=== PATIENT | male | born 1985 | race Caucasian/White ===

== ENCOUNTER 2019-08-20 11:15 | Emergency (ER) | payer OTHER ==
[~2019-08-20] VITALS: Ht 188 cm; Wt 108.9 kg
[2019-08-20] MEDS ORDERED: CYCL-331 PO (11:55)
[2019-08-20] MEDS ORDERED: HYDR-3165 PO (11:55)
[2019-08-20] MEDS ORDERED: PRED-220 PO (11:55)
--- NOTE | 2019-08-20 11:55 | PHYS DOC ---
Past History Past Medical History: Seizure Past Surgical History: Other Additional Past Surgical Histo: RIGHT ANKLE Additional Smoking Information: 1.5 PACK/DAY Alcohol Use: None Drug Use: None Adult General Chief Complaint Chief Complaint: BACK PAIN - NO INJURY HPI HPI 34-year-old male presents with low back pain. 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 He has had intermittent low back problems. He's been told that he has some degenerative disc disease in his lumbar. Since today, because he was working and pulmonary environment earlier this week. It caused extra stress on his hips and low back. He's had pain since that time. His been taking ibuprofen and Tylenol without relief. Patient has done physical therapy in the past. He has also had steroid injections about 2 years ago. He was doing well until this episode. He denies numbness or tingling down the legs. Standing straight up and bending over both cause muscle spasm and pain. Patient denies fever or chills. He has not had any trauma or falls. Review of Systems Review of Systems Constitutional: Denies fever or chills [] Eyes: Denies change in visual acuity, redness, or eye pain [] HENT: Denies nasal congestion or sore throat [] Respiratory: Denies cough or shortness of breath [] Cardiovascular: No additional information not addressed in HPI [] GI: Denies abdominal pain, nausea, vomiting, bloody stools or diarrhea [] : Denies dysuria or hematuria [] Musculoskeletal: Low back pain [] Integument: Denies rash or skin lesions [] Neurologic: Denies headache, focal weakness or sensory changes [] Endocrine: Denies polyuria or polydipsia [] All other systems were reviewed and found to be within normal limits, except as documented in this note. Allergies Allergies Allergies Coded Allergies Type Severity Reaction Last Updated Verified aspirin Allergy Unknown 08/20/19 Yes Physical Exam Physical Exam Constitutional: Well developed, well nourished, no acute distress, non-toxic appearance. [] HENT: Normocephalic, atraumatic, bilateral external ears normal, oropharynx moist, no oral exudates, nose normal. [] Eyes: PERRLA, EOMI, conjunctiva normal, no discharge. [] Neck: Normal range of motion, no tenderness, supple, no stridor. [] Cardiovascular:Heart rate regular rhythm, no murmur [] Lungs & Thorax: Bilateral breath sounds clear to auscultation [] Abdomen: Bowel sounds normal, soft, no tenderness, no masses, no pulsatile masses. [] Skin: Warm, dry, no erythema, no rash. [] Back: Tenderness over the lumbar spine L1-L3, right sacroiliac pain with palpation. Lumbar paraspinal muscle spasm bilaterally[] Extremities: No tenderness, no cyanosis, no clubbing, ROM intact, no edema. [] Neurologic: Alert and oriented X 3, normal motor function, normal sensory f unction, no focal deficits noted. [] Psychologic: Affect normal, judgement normal, mood normal. [] Current Patient Data Vital Signs Vital Signs Date Time Temp Pulse Resp B/P (MAP) Pulse Ox O2 Delivery O2 Flow Rate FiO2 08/20/19 11:20 97.9 84 20 97 Room Air EKG EKG [] Radiology/Procedures Radiology/Procedures [] Impressions: EXAM: Lumbar spine, 3 views. HISTORY: Pain. COMPARISON: None. FINDINGS: 3 views of the lumbar spine are obtained. There is no listhesis. The vertebral bodies are normal in height. There is mild disc space narrowing at L5-S1. IMPRESSION: 1. No acute osseous finding. 2. Mild disc space narrowing at L5-S1. Electronically signed by: Val Saucedo MD (08/20/2019 12:07 PM) [facility] DICTATED AND SIGNED BY: VAL SAUCEDO MD DATE: 08/20/19 1200 CC: ALESIA NARAYANAN DO; PCP,UNKNOWN ~ Course & Med Decision Making Course & Med Decision Making Pertinent Labs and Imaging studies reviewed. (See chart for details) The patient's lumbar x-rays are negative for acute findings. With the patient has a bulging disc with reflex muscle spasm. I will treat him with 50 mg of prednisone for 5 days, Flexeril 3 times a day, and a short course of [place] 5/325. I have advised that he follow-up with his primary care physician and consider further physical therapy. He is stable for discharge at this time. [] Dragon Disclaimer Dragon Disclaimer This electronic medical record was generated, in whole or in part, using a voice recognition dictation system. Departure Departure: Impression: Primary Impression: Lumbar strain Disposition: HOME, SELF-CARE Condition: STABLE Referrals: PCP,UNKNOWN (PCP) Patient Instructions: Low Back Sprain with [facility] Scripts Prednisone (PREDNISONE) 10 Mg Tablet 50 MG PO DAILY for back pain for 5 Days, #25 TAB Prov: ALESIA NARAYANAN DO 08/20/19 Hydrocodone Bit/Acetaminophen (NORCO 5-325 TABLET) 1 Each Tablet 1 TAB PO PRN Q6HRS PRN for PAIN, #10 TAB 0 Refills Prov: ALESIA NARAYANAN DO 08/20/19 Cyclobenzaprine Hcl (CYCLOBENZAPRINE HCL) 10 Mg Tablet 1 TAB PO TID PRN for MUSCLE SPASMS, #30 TAB Prov: ALESIA NARAYANAN DO 08/20/19 Problem Qualifiers Primary Impression: Lumbar strain Encounter type: initial encounter Qualified Codes: S39.012A - Strain of muscle, fascia and tendon of lower back, initial encounter ALESIA NARAYANAN DO Aug 20, 2019 11:55
--- NOTE | 2019-08-20 12:11 | RAD ---
EXAM: Lumbar spine, 3 views. HISTORY: Pain. COMPARISON: None. FINDINGS: 3 views of the lumbar spine are obtained. There is no listhesis. The vertebral bodies are normal in height. There is mild disc space narrowing at L5-S1. IMPRESSION: 1. No acute osseous finding. 2. Mild disc space narrowing at L5-S1. Electronically signed by: Val Saucedo MD (08/20/2019 12:07 PM) [facility]
[2019-08-20 12:45] VITALS: BP 133/76
== END 2019-08-20 12:45 | disposition home or self-care (01) ==
LOC: ER 11:15
DX: S39.012A Strain of muscle, fascia and tendon of lower back, initial encounter (principal); F17.200 Nicotine dependence, unspecified, uncomplicated; Z88.6 Allergy status to analgesic agent; X50.9XXA Other and unspecified overexertion or strenuous movements or postures, initial encounter; Y93.89 Activity, other specified; Y92.89 Other specified places as the place of occurrence of the external cause; Y99.8 Other external cause status
CPT/HCPCS: 72100; 99284

== ENCOUNTER 2021-02-24 20:50 | Emergency (ER) | payer OTHER ==
[~2021-02-24] VITALS: Ht 188 cm; Wt 104.0 kg
[~2021-02-24 20:50] MED LIST: CYCL-331 PO; HYDR-3165 PO; PRED-220 PO
--- NOTE | 2021-02-24 21:09 | PHYS DOC ---
Past History Past Medical History: Anxiety, Depression, Seizure, Sciatica, Schizophrenia, Stroke (SAMIRA RAY MD) Past Surgical History: Other Additional Past Surgical Histo: RIGHT ANKLE (SAMIRA RAY MD) Smoking: Cigarettes Alcohol Use: None Drug Use: None (SAMIRA RAY MD) General Adult HPI: HPI: "This is all Fucking Bullshit...Fuck you all..You fucking can't make me do anything...Fuck those police officers.. It 's my fucking life.. I can do whatever ..the fucking I want..." Patient is a 35 year old male who presents with above hx and hx from he tried to hang himself with [place] Light Cord and stuffing a handkerchief down his mouth. Pt. had a Suicide note by his body. ( See Note). found pt. nonresponsive with a cord of [place] lights tied tightly around his throat and a handkerchief stuffed down his mouth. Reported pt. was not breathing. She was able to remove the cord, handkerchief and revive the patient. Paramedics were called as well as Police Department responded to the scene. By the time patient arrived at the emergency department had fully regained consciousness. Patient became very argumentative, refusing all therapy, threatening staff, police officers and required constant negotiations in attempts to complete his medical evaluation. Patient generally refusing information or any corporation with his evaluation. Per family members he has a history of anxiety, dep ression, chronic low back pain and sciatica. Patient currently on mood stabilizing meds. Patient reportedly has had schizoaffective/bipolar type behaviors. Has had a history of noncompliant with his psychotropic medications. Patient does smoke tobacco. Patient has had no recent travel. No specific ill contacts. No history of immunosuppression. No current history of alcohol abuse or illicit drug use tonight. Patient's drug screen currently negative. (SAMIRA RAY MD) Review of Systems: Review of Systems: Constitutional: Denies fever or chills Eyes: Denies change in visual acuity HENT: Denies nasal congestion or sore throat Respiratory: Denies cough or shortness of breath Cardiovascular: Denies chest pain or edema GI: Denies abdominal pain, nausea, vomiting, bloody stools or diarrhea : Denies dysuria Musculoskeletal: Admits to chronic back pain Integument: Denies rash Neurologic: Denies headache, focal weakness or sensory changes Endocrine: Denies polyuria or polydipsia Lymphatic: Denies swollen glands Psychiatric: History of depression or anxiety (SAMIRA RAY MD) Family History: Family History: Refused by patient (SAMIRA RAY MD) Current Medications: Current Meds: Refused by patient- is to supply bottles of medication( See Nursing Notes when these meds are determine) (SAMIRA RAY MD) Allergies: Allergies: Allergies Coded Allergies Type Severity Reaction Last Updated Verified aspirin Allergy Unknown 08/20/19 Yes (SAMIRA RAY MD) Physical Exam: PE: Constitutional: Well developed, well nourished, in acute emotional distress, non-toxic appearance. Pt. very agitated, angry and refusing cooperation with nursing staff, police commissioner and medical techs. HENT: Normocephalic, atraumatic, bilateral external ears normal, oropharynx moist, no oral exudates, nose normal. [] Eyes: PERRLA, EOMI, conjunctiva injection and petechiae, no discharge. [] Neck: Guarded range of motion, moderate tenderness, , no stridor. Does have obvious ligature estevez around his neck. No subcutaneous emphysema appreciated. Cardiovascular:Heart rate regular rhythm, no murmur [] Lungs & Thorax: Bilateral breath sounds equal with scattered wheezes on auscultation [] Abdomen: Bowel sounds decreased, soft, no tenderness, no masses, no pulsatile masses. [] Skin: Warm, dry, no erythema, no rash. [] Back: Some paralumbar tenderness, no CVA tenderness. [] Extremities: No tenderness, no cyanosis, no clubbing, ROM intact, no edema. [] Neurologic: Alert and oriented X 3, moves extremities on request, does have distal sensory, no gross focal deficits noted. DTRs +2 patella and brachial. When resting seems to have restless leg syndrome movements. Psychologic: Affect angry, argumentative, demanding, uncooperative, threatening. Patient's, judgement obviously impaired and at times impossible to reason with pt. Pt. mood vacillates from extreme anger,pressure speech, agitation to suppressed and subdued. Patient cycles through wide swings in his mood. Patient did eventually agree to take his night meds-(see list) and was able to eventually fall asleep at approximately 0400 hrs. (SAMIRA RAY MD) EKG: EKG: Patient refuses EKG [] (SAMIRA RAY MD) Radiology/Procedures: Radiology/Procedures: Patient refuses chest, x-rays or CT exams (SAMIRA RAY MD) Heart Score: C/O Chest Pain: N/A Risk Factors: Risk Factors: DM, Current or recent (<one month) smoker, HTN, HLP, family history of CAD, obesity. Risk Scores: Score 0 - 3: 2.5% MACE over next 6 weeks - Discharge Home Score 4 - 6: 20.3% MACE over next 6 weeks - Admit for Clinical Observation Score 7 - 10: 72.7% MACE over next 6 weeks - Early Invasive Strategies Patient refuses EKG, monitor showed a sinus tachycardia occasional PVCs. Initial troponin 0 0.017 (SAMIRA RAY MD) C/O Chest Pain: N/A (ERIC CANALES MD) Course & Med Decision Making: Course & Med Decision Making Pertinent Labs and Imaging studies reviewed. (See chart for details) See PAT brennan. Pt. Place under Involuntary Emergency/ Temporary Long-Term and Treatment order- as Pt is suffering from mental disorder in need of treatment, lacks the capacity to make informed decision or engage in rational decision making processes, likely to cause harm to himself or others, and not solely diagnose with mental disorders from alcohol or chemical substance abuse, antisocial personality, mental retardation, organic personality syndrome or organic mental disorder. ( See Certificate) Pt. involuntary commitment-patient currently 13 on list for acceptance at [facility]. Impression: 1. Suicide Attempt- by hanging and suffocation 2. History of depression 3. History of schizo affective disorder 4. History of bipolar type cyclic behaviors 5. History of chronic back pain and sciatica 6. History of noncompliance with prior ordered psychotropic meds [] (SAMIRA RAY MD) Course & Med Decision Making Assumed care of patient at checkout from Dr. Ray. Per report patient is medically clear but awaiting psychiatric placement. Patient is involuntary. At this time patient is medically stable for psychiatric placement and transport. 1250: Patient became upset and try to leave the emergency room. He did get out and to the parking lot but was able to be talked back into the emergency room. I asked the patient to return to his room and patient stated "Fuck you. I'll do what ever the fuck I want." Patient was given Haldol and Ativan for symptom relief. He is still awaiting placement. Patient is currently involuntary. I have discussed with him that this means that he does not have a choice in being admitted and that he does not have a choice in where he goes. Patient is awaiting placement 1330: Patient was able to verbally deescalate and asked for oral medication instead of IM. Medications were switched to zyprexa and ativan orally. Patient is sleeping at this time and has been accepted at a facility pending transfer this evening. (ERIC CANALES MD) Dragon Disclaimer: Dragon Disclaimer: This electronic medical record was generated, in whole or in part, using a voice recognition dictation system. (SAMIRA RAY MD) Departure Departure: Impression: Primary Impression: Suicidal intent Disposition: 02 DC/TRF OTHER SHORT TERM HOS Referrals: PCP,UNKNOWN (PCP) Mick Disclaimer This chart was dictated in whole or in part using Voice Recognition software in a busy, high-work load, and often noisy Emergency Department environment. It may contain unintended and wholly unrecognized errors or omissions. (SAMIRA RAY MD) SAMIRA RAY MD Feb 24, 2021 21:09 ERIC CANALES MD Feb 25, 2021 09:42
[2021-02-24] MEDS ORDERED: IV RINGERS SOLUTION,LACTATED 1,000 ML IV SCH (21:45)
[2021-02-24 23:50] LABS: BASO % 0 % (0-3); EOS # 0.1 x10^3/uL (0.0-0.7); EOS % 1 % (0-3); HEMATOCRIT 40.8 % (39.0-53.0); HEMOGLOBIN 13.9 g/dL (13.0-17.5); LYMPH % 19 % (24-48); MEAN CORPUSCULAR HEMOGLOBIN 28 pg (25-35); MEAN CORPUSCULAR HGB CONC 34 g/dL (31-37); MEAN CORPUSCULAR VOLUME 83 fL (79-100); MONO # 0.7 x10^3/uL (0.0-1.1); MONO % 6 % (0-9); NEUT # 7.8 x10^3uL (1.8-7.7); NEUT % 73 % (31-73); PLATELET COUNT 281 x10^3/uL (140-400); RED BLOOD COUNT 4.92 x10^6/uL (4.30-5.70); RED CELL DISTRIBUTION WIDTH 14.2 % (11.5-14.5); WHITE BLOOD COUNT 10.6 x10^3/uL (4.0-11.0)
[2021-02-25 00:10] LABS: CALCIUM 9.2 mg/dL (8.5-10.1)
[2021-02-25 00:18] LABS: ETHANOL < 10 mg/dL (0-10); SALIC 3.7 mg/dL (2.8-20.0)
[2021-02-25 00:19] LABS: ACETAMIN < 2.0 mcg/mL (10-30)
[2021-02-25 00:24] LABS: ALBUMIN 4.4 g/dL (3.4-5.0); DIRECT BILIRUBIN 0.1 mg/dL (0.0-0.2); MAGNESIUM 1.6 mg/dL (1.8-2.4); TOTAL BILIRUBIN 0.4 mg/dL (0.2-1.0); TOTAL PROTEIN 8.4 g/dL (6.4-8.2)
[2021-02-25] MEDS ORDERED: OLANZapine IM 10 MG VIAL. IM ONE ×2 (01:23→01:30)
[2021-02-25] MEDS ORDERED: diphenhydrAMINE 50 MG/ML VIAL IM ONE (01:30)
--- NOTE | 2021-02-25 08:34 | RAD ---
XR CHEST 1V Clinical Indication: Reason: attempt of self hanging / Comparison: None. Findings: The cardiomediastinal silhouette is normal. Lungs are clear. There is no pneumothorax. No pleural eff usion is appreciated. No acute bone abnormality. IMPRESSION: No acute cardiopulmonary process. Electronically signed by: Asher Nunez MD (02/25/2021 8:32 AM) [id number]
--- NOTE | 2021-02-25 08:37 | RAD ---
EXAM: CT head and cervical spine without contrast INDICATION: Attempted suicide by hanging. COMPARISON: None TECHNIQUE: Axial CT imaging through the head and cervical spine without intravenous contrast. Sagitta l and coronal reformats were obtained. One or more of the following individualized dose reduction techniques were utilized for this examinat ion: 1. Automated exposure control 2. Adjustment of the mA and/or kV according to patient size 3. Use of iterative reconstruction technique. FINDINGS: CT head: The ventricles and sulci are normal. Freed-white matter differentiation is maintained. There is no in tracranial hemorrhage, acute infarct, or mass lesion. Basal cisterns are clear. The calvarium is inta ct. The visualized paranasal sinuses and mastoid air cells are clear. Globes and orbits are intact. CT cervical spine: No acute fracture. Alignment is normal. The craniocervical junction and atlantoaxial interval are yajaira ntained. Disc spaces and facet joints are normal. Prevertebral soft tissue is normal. IMPRESSION: 1. No acute intracranial abnormality. 2. No acute osseous abnormality of the cervical spine. Electronically signed by: Eri Briggs MD (02/25/2021 8:35 AM) [id number]
[2021-02-25 12:42] LABS: CLARITY,URINE HAZY; COLOR,URINE STRAW
[2021-02-25 12:43] LABS: BACTERIA,URINE 0 /HPF (0-FEW); BILIRUBIN,URINE NEG (NEG); GLUCOSE,URINE NEG (NEG); NITRITE,URINE NEG (NEG); RBC,URINE 0 /HPF (0-2); SQUAMOUS EPITHELIAL CELL,UR FEW /LPF; UROBILINOGEN,URINE 0.2 mg/dL (0.2 mg/dL); WBC,URINE RARE /HPF (0-4)
[2021-02-25] MEDS ORDERED: HALOPERIDOL LACT 5 MG/ML VIAL. ONE (13:05)
[2021-02-25] MEDS ORDERED: HALOPERIDOL LACT 5 MG/ML VIAL. IM ONE (13:15)
[2021-02-25] MEDS ORDERED: LORazepam 1 MG TABLET PO ONE (13:30)
[2021-02-25 14:26] LABS: AMPHETAMINE/METHAMPHETAMINE POS (NEG); BARBITURATES NEG (NEG); BENZODIAZEPINES NEG (NEG); CANNABINOIDS NEG (NEG); COCAINE NEG (NEG); METHADONE NEG (NEG); OPIATES NEG (NEG); PHENCYCLIDINE NEG (NEG)
[2021-02-25 18:29] VITALS: BP 155/76
--- NOTE | 2021-02-26 06:38 | EKG ---
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
== END 2021-02-25 19:05 | disposition short-term general hospital (02) ==
LOC: ER 20:50
DX: T71.162A Asphyxiation due to hanging, intentional self-harm, initial encounter (principal); F32.9 Major depressive disorder, single episode, unspecified; F25.0 Schizoaffective disorder, bipolar type; G89.29 Other chronic pain; M54.9 Dorsalgia, unspecified; F17.210 Nicotine dependence, cigarettes, uncomplicated; F41.9 Anxiety disorder, unspecified; Z20.822 Contact with and (suspected) exposure to COVID-19; Z86.73 Personal history of transient ischemic attack (TIA), and cerebral infarction without residual deficits; Z91.14 Patient's other noncompliance with medication regimen; Z88.6 Allergy status to analgesic agent
CPT/HCPCS: 36415; 70450; 71045; 72125; 80048; 80076; 80307; 80329; 81001; 82550; 83690; 83735; 83880; 84443; 84484; 85025; 85379; 85610; 87426; 99285; G0480; U0003; 85730; 93005

== ENCOUNTER 2021-05-03 11:55 | Emergency (ER) | payer OTHER ==
[~2021-05-03] VITALS: Ht 185.4 cm; Wt 109.1 kg
[2021-05-03] MEDS ORDERED: MORPHINE SULFATE 10 MG/ML SYRINGE. IV ONE ×2 (12:45→14:00)
[2021-05-03] MEDS ORDERED: IOHEXOL 300 MG/ML 75 ML VIAL. IV ONE (12:45)
[2021-05-03] MEDS ORDERED: ONDANSETRON PF 4 MG/2 ML VIAL. IVP ONE (12:45)
[2021-05-03] MEDS ORDERED: IV NORMAL SALINE 1,000ML 1,000 ML IV ONE ×2 (12:45→16:45)
[2021-05-03 13:05] LABS: BASO # 0.1 x10^3/uL (0.0-0.2); BASO % 1 % (0-3); EOS # 0.2 x10^3/uL (0.0-0.7); EOS % 2 % (0-3); HEMATOCRIT 35.1 % (39.0-53.0); HEMOGLOBIN 11.4 g/dL (13.0-17.5); LYMPH # 1.6 x10^3/uL (1.0-4.8); LYMPH % 19 % (24-48); MEAN CORPUSCULAR HEMOGLOBIN 27 pg (25-35); MEAN CORPUSCULAR HGB CONC 33 g/dL (31-37); MEAN CORPUSCULAR VOLUME 82 fL (79-100); MONO # 0.5 x10^3/uL (0.0-1.1); MONO % 5 % (0-9); NEUT # 6.4 x10^3uL (1.8-7.7); NEUT % 73 % (31-73); PLATELET COUNT 372 x10^3/uL (140-400); RED BLOOD COUNT 4.29 x10^6/uL (4.30-5.70); RED CELL DISTRIBUTION WIDTH 14.6 % (11.5-14.5); WHITE BLOOD COUNT 8.7 x10^3/uL (4.0-11.0)
[2021-05-03 13:09] LABS: GFR 84.5; POTASSIUM 3.9 mmol/L (3.5-5.1)
[2021-05-03 13:24] LABS: ALBUMIN/GLOBULIN RATIO 0.6 (1.0-1.7); DIRECT BILIRUBIN 0.1 mg/dL (0.0-0.2); TOTAL BILIRUBIN 0.2 mg/dL (0.2-1.0)
--- NOTE | 2021-05-03 13:44 | RAD ---
Exam: CT abdomen/pelvis with intravenous contrast Indication: Pancreatitis flareup, history of pseudocyst Comparison: CT abdomen and pelvis 04/25/2018 Technique: Helical CT imaging performed of the abdomen and pelvis after the intravenous administratio n of contrast. Sagittal and coronal reformats were obtained. One or more of the following individualized dose reduction techniques were utilized for this examinat ion: 1. Automated exposure control 2. Adjustment of the mA and/or kV according to patient size 3. Use of iterative reconstruction technique. Findings: Lower chest: The lung bases are clear. There are tiny bilateral pleural effusions. The heart is cheri l in size. Liver: There is a new large well-defined fluid collection along the gastrohepatic ligament measuring 12.2 x 8.3 cm this abuts and causes mass effect on both the left hepatic lobe and the stomach. There is an additional tiny perihepatic fluid collection along the anterior left hepatic lobe measuring 2.2 x 0.9 cm. Liver is enlarged measuring 21 cm in length. Gallbladder/Biliary Tree: The gallbladder is normal. No delayed biliary duct dilatation. Pancreas: The pancreatic head and neck are edematous and there is surrounding fat stranding. Pancreat ic parenchyma enhances normally. There is a new well-defined fluid collection in the pancreatic neck and lesser sac measuring 2.9 x 2.1 cm. There is less well-defined, partially loculated fluid in the l daphne sac along the gastric antrum, pylorus, and duodenum. There is an additional fluid collection al selena the gastrosplenic ligament abutting and causing mass effect on the greater curvature of the stoma ch measuring 5.3 x 3.7 cm. Spleen: The spleen is enlarged measuring 17 cm in length. Adrenal Glands: Normal. Kidneys/Ureters/Bladder: Normal. Reproductive Organs: Normal. Stomach, small bowel, and colon: There is mass effect in the stomach by surrounding pseudocysts. The gastric antrum and duodenal lorenzo are edematous. No small bowel obstruction. The appendix is normal. There is prominence of submucosal fat in the colon, which may indicate chronic inflammation Vasculature: Abdominal aorta is normal in caliber. Lymph Nodes: There is mild mesenteric adenopathy, likely reactive. Peritoneum and retroperitoneum: There is mesenteric edema in the upper abdomen and trace free fluid i n the pelvis. No free air. Bones: No acute osseous abnormality. Impression: 1. Acute on chronic interstitial pancreatitis with multiple well-defined pseudocysts causing mass ef fect on the stomach and liver, including a 12 cm pseudocyst along the gastrohepatic ligament. There i s additional less well-defined peripancreatic fluid in the lesser curvature. 2. Hepatosplenomegaly. 3. Mild mesenteric lymphadenopathy, likely reactive. 4. Tiny bilateral pleural effusions. Electronically signed by: Eri Briggs MD (05/03/2021 1:42 PM) [id number]
[2021-05-03] MEDS ORDERED: METOCLOPRAMIDE HCL 10 MG/2 ML VIAL. IVP ONE (14:00)
--- NOTE | 2021-05-03 14:32 | PHYS DOC ---
Past History Past Medical History: Depression, Pancreatitis Past Surgical History: No Surgical History Additional Past Surgical Histo: RIGHT ANKLE Smoking: Cigarettes Alcohol Use: None Drug Use: None Adult General Chief Complaint Chief Complaint: NAUSEA/VOMITING/DIARRHEA HPI HPI 36-year-old male who presents to the emergency department with chief complaint of "my pancreatitis is flared up ". Patient reports 2 days of left upper quadrant pain, nausea with dry heaving and vomiting when he does eat. Patient states this is typical for his normal pancreatitis flareups. Patient reports he was released from [facility] 5 days ago in which he was admitted for 4 days related to a pancreatitis flareup, he was diagnosed with pancreatitis and cyst on his pancreas, was to follow-up with GI specialist Dr. Hrenandez at the GI clinic, is currently waiting for Dr. Hernandez's office to call for an appointment. The patient reports that he was given OxyContin and Zofran to manage pain and nausea at home while awaiting follow-up with GI clinic, patient states he is out of his medications now. Patient denies chest pain, fever or chills, constipation or diarrhea, states he had a normal bowel movement 2 days ago, patient states he has not been able to eat much since his abdominal pain. Patient rates his pain at a 9 out of 10. Patient states he is a type II diabetic, states his blood sugars are usually well controlled, denies any increased thirst or increased urination. Patient denies other physical complaints or physical concerns. Patient states he smokes cigars occasionally, denies illicit drug use, denies drinking alcohol or having a alcoholic history. Review of Systems Review of Systems 14 body systems of review of systems have been reviewed. See HPI for pertinent positives and negative responses, otherwise all other systems are negative, nonpertinent or noncontributory. Current Medications Current Medications Current Medications Medications (Trade) Dose Ordered Sig/Terell Start Time Stop Time Status Last Admin Dose Admin Iohexol (Omnipaque 300 Mg/ml) 75 ml 1X ONCE 05/03/21 12:45 05/03/21 12:50 DC 05/03/21 13:04 75 ML Metoclopramide HCl (Reglan Vial) 10 mg 1X ONCE 05/03/21 14:00 05/03/21 14:05 DC Morphine Sulfate (Morphine 10mg Syringe) 5 mg 1X ONCE 05/03/21 14:00 05/03/21 14:05 DC Ondansetron HCl (Zofran) 4 mg 1X ONCE 05/03/21 12:45 05/03/21 12:50 DC 05/03/21 13:14 4 MG Sodium Chloride 1,000 ml @ 1,000 mls/hr 1X ONCE 05/03/21 12:45 05/03/21 13:44 DC 05/03/21 12:45 1,000 MLS/HR Allergies Allergies Allergies Coded Allergies Type Severity Reaction Last Updated Verified dulaglutide Allergy Unknown 05/03/21 Yes hydrocodone Allergy Unknown 05/03/21 Yes metformin Allergy Unknown 05/03/21 Yes Physical Exam Physical Exam Constitutional: Well developed, well nourished, mild acute distress, non-toxic appearance. Patient holding upper left abdomen during examination. Patient's complaint of pain dose exceeds patient's physical appearance. HENT: Normocephalic, atraumatic. Eyes: Conjunctiva normal, no discharge. Neck: Normal range of motion. Cardiovascular:Heart rate regular rhythm, no murmur, heart sounds S1-S2 to auscultation. Lungs & Thorax: Bilateral breath sounds clear to auscultation no adventitious lung sounds appreciated. Abdomen: Bowel sounds normal, soft, no masses, no pulsatile masses. Pain to left upper quadrant with palpation, there is no rebound tenderness, negative Casas sign, negative McBurney's point tenderness, negative psoas sign. No areas of ecchymosis of the abdomen, no skin discoloration of the abdomen, abdomen round and soft, unable to adequately assess for splenomegaly or hepatomegaly related to patient's right upper quadrant pain to palpation. Skin: Warm, dry, no erythema, no rash. Back: No tenderness, no CVA tenderness. Extremities: No tenderness, no cyanosis, no clubbing, ROM intact, no edema. Neurologic: Alert and oriented X 3, normal motor function, normal sensory function, no focal deficits noted. Psychologic: Affect normal, judgement normal, mood normal. Current Patient Data Vital Signs Vital Signs Date Time Temp Pulse Resp B/P (MAP) Pulse Ox O2 Delivery O2 Flow Rate FiO2 05/03/21 13:45 18 Room Air 05/03/21 12:10 98.5 116/76 (89) 98 Lab Results Laboratory Tests Test 05/03/21 12:45 White Blood Count 8.7 x10^3/uL (4.0-11.0) Red Blood Count 4.29 x10^6/uL (4.30-5.70) L Hemoglobin 11.4 g/dL (13.0-17.5) L Hematocrit 35.1 % (39.0-53.0) L Mean Corpuscular Volume 82 fL (79-100) Mean Corpuscular Hemoglobin 27 pg (25-35) Mean Corpuscular Hemoglobin Concent 33 g/dL (31-37) Red Cell Distribution Width 14.6 % (11.5-14.5) H Platelet Count 372 x10^3/uL (140-400) Neutrophils (%) (Auto) 73 % (31-73) Lymphocytes (%) (Auto) 19 % (24-48) L Monocytes (%) (Auto) 5 % (0-9) Eosinophils (%) (Auto) 2 % (0-3) Basophils (%) (Auto) 1 % (0-3) Neutrophils # (Auto) 6.4 x10^3uL (1.8-7.7) Lymphocytes # (Auto) 1.6 x10^3/uL (1.0-4.8) Monocytes # (Auto) 0.5 x10^3/uL (0.0-1.1) Eosinophils # (Auto) 0.2 x10^3/uL (0.0-0.7) Basophils # (Auto) 0.1 x10^3/uL (0.0-0.2) Sodium Level 141 mmol/L (136-145) Potassium Level 3.9 mmol/L (3.5-5.1) Chloride Level 105 mmol/L (98-107) Carbon Dioxide Level 23 mmol/L (21-32) Anion Gap 13 (6-14) Blood Urea Nitrogen 4 mg/dL (8-26) L Creatinine 1.0 mg/dL (0.7-1.3) Estimated GFR (Cockcroft-Gault) 84.5 BUN/Creatinine Ratio 4 (6-20) L Glucose Level 126 mg/dL (70-99) H Calcium Level 9.0 mg/dL (8.5-10.1) Total Bilirubin 0.2 mg/dL (0.2-1.0) Direct Bilirubin 0.1 mg/dL (0.0-0.2) Aspartate Amino Transferase (AST) 14 U/L (15-37) L Alanine Aminotransferase (ALT) 16 U/L (16-63) Alkaline Phosphatase 322 U/L (46-116) H Total Protein 8.0 g/dL (6.4-8.2) Albumin 3.0 g/dL (3.4-5.0) L Albumin/Globulin Ratio 0.6 (1.0-1.7) L Lipase 507 U/L (73-393) H Acetone Level Neg (NEG) EKG EKG [] Radiology/Procedures Radiology/Procedures []PATIENT: MALATHI SALCEDO LACCOUNT: [id number]#: [id number] : 1985 LOCATION: ER AGE: 36 SEX: M EXAM STATUS: REG ER ORD. PHYSICIAN: TEE DAUGHERTY APRN REASON: pancreatits flare up, hx pancreatic cyst PROCEDURE: CT ABD PELV W/ IV CONTRST ONLY Exam: CT abdomen/pelvis with intravenous contrast Indication: Pancreatitis flareup, history of pseudocyst Comparison: CT abdomen and pelvis 04/25/2018 Technique: Helical CT imaging performed of the abdomen and pelvis after the intravenous administration of contrast. Sagittal and coronal reformats were obtained. One or more of the following individualized dose reduction techniques were utilized for this examination: 1. Automated exposure control 2. Adjustment of the mA and/or kV according to patient size 3. Use of iterative reconstruction technique. Findings: Lower chest: The lung bases are clear. There are tiny bilateral pleural effusions. The heart is normal in size. Liver: There is a new large well-defined fluid collection along the gastrohepatic ligament measuring 12.2 x 8.3 cm this abuts and causes mass effect on both the left hepatic lobe and the stomach. There is an additional tiny perihepatic fluid collection along the anterior left hepatic lobe measuring 2.2 x 0.9 cm. Liver is enlarged measuring 21 cm in length. Gallbladder/Biliary Tree: The gallbladder is normal. No delayed biliary duct dilatation. Pancreas: The pancreatic head and neck are edematous and there is surrounding fat stranding. Pancreatic parenchyma enhances normally. There is a new well- defined fluid collection in the pancreatic neck and lesser sac measuring 2.9 x 2.1 cm. There is less well-defined, partially loculated fluid in the lesser sac along the gastric antrum, pylorus, and duodenum. There is an additional fluid collection along the gastrosplenic ligament abutting and causing mass effect on the greater curvature of the stomach measuring 5.3 x 3.7 cm. Spleen: The spleen is enlarged measuring 17 cm in length. Adrenal Glands: Normal. Kidneys/Ureters/Bladder: Normal. Reproductive Organs: Normal. Stomach, small bowel, and colon: There is mass effect in the stomach by surrounding pseudocysts. The gastric antrum and duodenal lorenzo are edematous. No small bowel obstruction. The appendix is normal. There is prominence of submucosal fat in the colon, which may indicate chronic inflammation Vasculature: Abdominal aorta is normal in caliber. Lymph Nodes: There is mild mesenteric adenopathy, likely reactive. Peritoneum and retroperitoneum: There is mesenteric edema in the upper abdomen and trace free fluid in the pelvis. No free air. Bones: No acute osseous abnormality. Impression: 1. Acute on chronic interstitial pancreatitis with multiple well-defined pseudocysts causing mass effect on the stomach and liver, including a 12 cm pseudocyst along the gastrohepatic ligament. There is additional less well- defined peripancreatic fluid in the lesser curvature. 2. Hepatosplenomegaly. 3. Mild mesenteric lymphadenopathy, likely reactive. 4. Tiny bilateral pleural effusions. Electronically signed by: Eri Briggs MD (05/03/2021 1:42 PM) [id number] DICTATED AND SIGNED BY: ERI BRIGGS MD DATE: 05/03/21 1317 CC: TEE DAUGHERTY APRN; NETTA PUCKETT MD ~MTH0 0 Heart Score C/O Chest Pain: No Risk Factors: Risk Factors: DM, Current or recent (<one month) smoker, HTN, HLP, family history of CAD, obesity. Risk Scores: Risk Factors: DM, Current or recent (<one month) smoker, HTN, HLP, family history of CAD, obesity. Course & Med Decision Making Course & Med Decision Making Pertinent Labs and Imaging studies reviewed. (See chart for details) 36-year-old male, vital signs reviewed, presents emergency department chief complaint of "my pancreatitis is flared up "also complaining of nausea and vomit ing. Physical examination consistent with possible pancreatitis versus other intra-abdominal concerns, will order CBC, CMP, lipase, acetone related to patient's history of type 2 diabetes, CT abdomen pelvis with IV contrast. IV normal saline 1 L, 5 mg morphine sulfate IV, 4 mg Zofran IV for nausea. Upon reevaluation of the patient, patient states his pain is come down to a 5, still experiencing nausea, has not vomited in the ED, will order 5 more milligrams morphine sulfate IV, [address] abdomen pelvis with IV contrast concerning for acute pancreatitis with mass- effect, discussed with patient recommended admission to hospital for GI specialty follow-up and pain control of pancreatitis. Patient is amenable to this plan, stating he would like to be admitted to [facility] because his GI specialist goes there. The patient's lipase was 507, otherwise chemistries within normal limits, CBC was unremarkable, blood sugar is 128, the patient's acetone equals 0, the patient is not in DKA. At 1410 contacted transfer center [facility] who transferred me to a data security coordinator Chata who received report by me, reviewed patient case with Chata, Chata states she will contact her admitting physician and call me back. The radiologic images were placed on the cloud for [facility] physician and healthcare team to review. At 1437 Chata from the transfer center return call stating that Dr. Jose Nieves has accepted patient in transfer to [facility] for the diagnosis of acute pancreatitis, Chata stated she is a liaison for their excepting physicians and no further provider to provider report is indicated, Chata stated that they are currently cleaning a bed and will call ED nursing staff here for report prior to transfer, discussed transfer planning with patient to [facility], patient is amendable to this plan, [facility] transfer forms were reviewed and signed by ED attending physician Dr. Zepeda, patient pending transfer to [facility] at this time via [facility] transport. Patient left the emergency department via EMS to [facility] at 1810, during his ED stay 1 more liter of normal saline was ordered IV wide open, the patient was given an additional 100 mcg of fentanyl for pain. Patient reported good pain relief prior to leaving the emergency department for transfer to [facility]. Per ED nurse, nurse to nurse report was given. Dragon Disclaimer Dragon Disclaimer This electronic medical record was generated, in whole or in part, using a voice recognition dictation system. Departure Departure: Impression: Primary Impression: Acute pancreatitis Additional Impression: Abnormal abdominal CT scan Disposition: 02 [facility] (Dr. Jose Nieves at [facility] has accepted patient in transfer for the diagnosis of acute pancreatitis.) Referrals: NETTA PUCKETT MD (PCP) Problem Qualifiers Primary Impression: Acute pancreatitis Pancreatitis type: unspecified pancreatitis type Acute pancreatitis complication: unspecified Qualified Codes: K85.90 - Acute pancreatitis without necrosis or infection, unspecified TEE DAUGHERTY JUDGE May 03, 2021 14:32
[2021-05-03 18:00] VITALS: BP 118/76
== END 2021-05-03 17:45 | disposition short-term general hospital (02) ==
LOC: ER 12:05
DX: K85.90 Acute pancreatitis without necrosis or infection, unspecified (principal); F17.210 Nicotine dependence, cigarettes, uncomplicated; Z88.8 Allergy status to other drugs, medicaments and biological substances
CPT/HCPCS: 36415; 74177; 80053; 80076; 82010; 83690; 85025; 96361; 96374; 96375; 96376; 99285; J2270; J2405; J2765; J3010; J7030; Q9967

== ENCOUNTER 2021-05-11 20:12 | Emergency (ER) | payer OTHER ==
[~2021-05-11] VITALS: Ht 185.4 cm; Wt 108.0 kg
[2021-05-11] MEDS ORDERED: MORPHINE SULFATE 4 MG/ML DISP.SYRIN. IV ONE (21:00)
[2021-05-11] MEDS ORDERED: IV NORMAL SALINE 1,000ML 1,000 ML IV ONE (21:00)
[2021-05-11] MEDS ORDERED: ONDANSETRON PF 4 MG/2 ML VIAL. IVP ONE (21:00)
--- NOTE | 2021-05-11 21:22 | PHYS DOC ---
Past History Past Medical History: Depression, Pancreatitis Past Surgical History: No Surgical History Additional Past Surgical Histo: RIGHT ANKLE Smoking: Cigarettes Alcohol Use: None Drug Use: None General Adult EDM: Chief Complaint: ABDOMINAL PAIN HPI: HPI: Patient is a 36-year-old male who presents with nausea, vomiting and pain. Patient was admitted 1 week ago to for pancreatitis. Patient is out nausea and pain medication. Patient's PCP suggested coming to the emergency room for pain control and nausea. Patient has history of pancreatitis, diabetes, anxiety depression, GERD. Review of Systems: Review of Systems: Constitutional: Denies fever or chills Eyes: Denies change in visual acuity HENT: Denies nasal congestion or sore throat Respiratory: Denies cough or shortness of breath Cardiovascular: Denies chest pain or edema GI: Reports abdominal pain, nausea and vomiting : Denies dysuria Musculoskeletal: Denies back pain or joint pain Integument: Denies rash Neurologic: Denies headache, focal weakness or sensory changes Endocrine: Denies polyuria or polydipsia Lymphatic: Denies swollen glands Psychiatric: Reports depression and anxiety Current Medications: Current Meds: Current Medications Medications (Trade) Dose Ordered Sig/Terell Start Time Stop Time Status Last Admin Dose Admin Morphine Sulfate (Morphine 4mg Syringe) 4 mg 1X ONCE 05/11/21 21:00 05/11/21 21:01 DC Ondansetron HCl (Zofran) 4 mg 1X ONCE 05/11/21 21:00 05/11/21 21:01 DC Sodium Chloride 1,000 ml @ 1,000 mls/hr 1X ONCE 05/11/21 21:00 05/11/21 21:59 Allergies: Allergies: Allergies Coded Allergies Type Severity Reaction Last Updated Verified dulaglutide Allergy Unknown 05/03/21 Yes hydrocodone Allergy Unknown 05/03/21 Yes metformin Allergy Unknown 05/03/21 Yes Physical Exam: PE: Constitutional: Well developed, well nourished, no acute distress, non-toxic appearance. [] HENT: Normocephalic, atraumatic, bilateral external ears normal, oropharynx moist, no oral exudates, nose normal. [] Eyes: PERRLA, EOMI, conjunctiva normal, no discharge. [] Neck: Normal range of motion, no tenderness, supple, no stridor. [] Cardiovascular:Heart rate regular rhythm, no murmur [] Lungs & Thorax: Bilateral breath sounds clear to auscultation [] Abdomen: Bowel sounds normal, soft, tenderness Skin: Warm, dry, no erythema, no rash. [] Back: No tenderness, no CVA tenderness. [] Extremities: No tenderness, no cyanosis, no clubbing, ROM intact, no edema. [] Neurologic: Alert and oriented X 3, normal motor function, normal sensory function, no focal deficits noted. [] Psychologic: Affect normal, judgement normal, mood normal. [] EKG: EKG: [] Radiology/Procedures: Radiology/Procedures: [] Heart Score: C/O Chest Pain: No Risk Factors: Risk Factors: DM, Current or recent (<one month) smoker, HTN, HLP, family history of CAD, obesity. Risk Scores: Score 0 - 3: 2.5% MACE over next 6 weeks - Discharge Home Score 4 - 6: 20.3% MACE over next 6 weeks - Admit for Clinical Observation Score 7 - 10: 72.7% MACE over next 6 weeks - Early Invasive Strategies Course & Med Decision Making: Course & Med Decision Making Pertinent Labs and Imaging studies reviewed. (See chart for details) [] 36-year-old male presents with nausea/vomiting and abdominal pain. Patient was just released from after being diagnosed with pancreatitis a week ago. Patient reports he is out of nausea and pain medication. Patient reports that his pain has improved since he was first admitted to the hospital. Patient stating that he does not want to be admitted to the hospital and that he is simply needing a refill for his pain medication and nausea medication until he is able to follow back up with his PCP on Thursday. Patient given oxycodone in the emergency room along with Zofran p.o. patient given strict return precautions. Patient instructed to be n.p.o. until symptoms improve. Patient states that he understands. Patient is hemodynamically stable. Dragon Disclaimer: Mick Disclaimer: This electronic medical record was generated, in whole or in part, using a voice recognition dictation system. Departure Departure: Impression: Primary Impression: Acute pancreatitis Qualified Codes: K85.90 - Acute pancreatitis without necrosis or infection, unspecified Additional Impression: Nausea and vomiting Qualified Codes: R11.2 - Nausea with vomiting, unspecified Disposition: HOME / SELF CARE / HOMELESS Condition: STABLE Referrals: NETTA PUCKETT MD (PCP) Patient Instructions: Acute Pancreatitis, [id number] Additional Instructions: You were seen in the emergency room for pain control and for refill on nausea medication. Please call your physician on Thursday for a follow-up appointment. If you have an increase in pain, fever, nausea and vomiting return to the emergency room to be evaluated. EMERGENCY DEPARTMENT GENERAL DISCHARGE INSTRUCTIONS Thank you for coming to [facility] (ED) today and trusting us with you care. We trust that you had a positivie experience in our Emergency Department. If you wish to speak to the department management, you may call the director at [phone]. YOUR FOLLOW UP INSTRUCTIONS ARE FOLLOWS: 1. Do you have a private Doctor? If you do not have a private doctor, please ask for a resource list of physicians or clinics that may be able to assist you with follow up care. 2. The Emergency Physician has interpreted your x-rays. The X-Ray specialist will also review them. If there is a change in the findings, you will be notified in 48 hours when at all possible. 3. A lab test or culture has been done, your results will be reviewed and you will be notified if you need a change in treatment. ADDITIONAL INSTRUCTIONS AND INFORMATION: 1. Your care today has been supervised by a physician who is specially trained in emergency care. Many problems require more than one evaluation for a complete diagnosis and treatment. We recommend that you schedule your follow up appointment as recommended to ensure complete treatment of you illness or injury. If you are unable to obtain follow up care and continue to have a problem, or if your condition worsens, we recommend that you return to the ED. 2. We are not able to safely determine your condition over the phone nor are we able to give sound medical advice over the phone. For these safety reasons, if you call for medical advice we will ask you to come to the ED for further evaluation. 3. If you have any questions regarding these discharge instructions please call the ED at [phone]. SAFETY INFORMATION: In the interest of safety, wellness, and injury prevention; we encourage you to wear your sealbelt, if you smoke; quite smoking, and we encourage family to use a prot ective helmet for bicycling and other sporting events that present an increased risk for head injury. IF YOUR SYMPTOMS WORSEN OR NEW SYMPTOMS DEVELOP, OR YOU HAVE CONCERNS ABOUT YOUR CONDITION; OR IF YOUR CONDITION WORSENS WHILE YOU ARE WAITING FOR YOUR FOLLOW UP APPOINTMENT; EITHER CONTACT YOUR PRIMARY CARE DOCTOR, THE PHYSICIAN WHOSE NAME AND NUMBER YOU WERE GIVEN, OR RETURN TO THE ED IMMEDIATELY. Scripts Oxycodone HCl/Acetaminophen (Percocet 5-325 mg Tablet) 1 Each Tablet 1 TAB PO PRN Q6-8HRS PRN for PAIN MDD 2 Tablet(s) for 5 Days, #12 TAB 0 Refills Prov: NIECY ECKERT APRN 05/11/21 Ondansetron Hcl (ZOFRAN) 4 Mg Tablet 1 TAB PO Q6HRS for nausea for 7 Days, #28 TAB Prov: NIECY ECKERT APRN 05/11/21 NIECY ECKERT APRN May 11, 2021 21:22
[2021-05-11] MEDS ORDERED: OXYC-325 PO (21:27)
[2021-05-11] MEDS ORDERED: ONDA4TAB7 PO (21:27)
[2021-05-11 21:35] VITALS: BP 135/76
[2021-05-11] MEDS ORDERED: ONDANSETRON ODT 4 MG TAB.RAPDIS PO ONE (22:00)
[2021-05-11] MEDS ORDERED: oxyCODONE/APAP 10/325 1 TAB TABLET PO ONE (22:00)
== END 2021-05-11 21:35 | disposition home or self-care (01) ==
LOC: ER 20:12
DX: K85.90 Acute pancreatitis without necrosis or infection, unspecified (principal); R11.2 Nausea with vomiting, unspecified; F17.210 Nicotine dependence, cigarettes, uncomplicated; Z88.8 Allergy status to other drugs, medicaments and biological substances
CPT/HCPCS: 99283; Q0162

== ENCOUNTER 2021-06-08 17:41 | Observation (INO) | payer OTHER ==
[~2021-06-08] VITALS: Ht 185.4 cm; Wt 106.1 kg
[~2021-06-08 17:41] MED LIST changes: +ONDA4TAB7 PO; +OXYC-325 PO
--- NOTE | 2021-06-08 18:45 | PHYS DOC ---
Past History Past Medical History: Anxiety, Depression, Diabetes, GERD, Pancreatitis Additional Past Medical Histor: pancratitis (TEE DAUGHERTY APRN) Past Surgical History: Other Additional Past Surgical Histo: RIGHT ANKLE (TEE DAUGHERTY APRN) Smoking: Cigarettes Additional Smoking Information: Occasional cigar Alcohol Use: None Drug Use: None (TEE DAUGHERTY APRN) Adult General Chief Complaint Chief Complaint: MULTIPLE COMPLAINTS HPI HPI Patient is a 36-year-old male presents emergency department chief complaint of a pancreatitis flareup. Patient states he went out to eat with his 2 nights ago and woke up yesterday morning with pancreas pain. Patient states he has been vomiting since, patient states he has run out of his pain medications and currently has a 8 out of 10 pain. Patient states this is a normal presentation for his pancreatitis flareups. Patient reports he has an appointment this Thursday with his GI doctor at for a scope to look at his pancreatic duct. Patient states he also has a CT scheduled for 16 June. Patient currently reports nausea and pain. Patient denies any diarrhea. Patient states that he has been dry heaving today however when he does drink water, patient states the water does come back up. Patient denies seeing any blood in his vomitus. Patient reports normal stools, denies seeing any blood in his urine or stool, patient denies any urinary tract infection type signs and symptoms. Patient denies chest pains or shortness of breath. Patient denies rashes of her skin, patient denies fever or chills. Patient denies any other physical complaints or physical concerns. Patient states that he would like to get a prescription for his oxycodone to last him till Thursday for when he sees his doctor. (TEE DAUGHERTY APRN) Review of Systems Review of Systems 14 body systems of review of systems have been reviewed. See HPI for pertinent positives and negative responses, otherwise all other systems are negative, nonpertinent or noncontributory. Constitutional: Negative except as outlined in HPI above. Skin: Negative except as outlined in HPI above. Eyes: Negative except as outlined in HPI above. HENT: Negative except as outlined in HPI above. Respiratory: Negative except as outlined in HPI above. Cardiovascular: Negative except as outlined in HPI above. GI: Negative except as outlined in HPI above. : Negative except as outlined in HPI above. Musculoskeletal: Negative except as outlined in HPI above. Integument: Negative except as outlined in HPI above. Neurologic: Negative except as outlined in HPI above. Endocrine: Negative except as outlined in HPI above. Lymphatic: Negative except as outlined in HPI above. Psychiatric: Negative except as outlined in HPI above. (TEE DAUGHERTY APRN) Current Medications Current Medications Current Medications Medications (Trade) Dose Ordered Sig/Terell Start Time Stop Time Status Last Admin Dose Admin Fentanyl Citrate (Fentanyl 2ml Vial) 100 mcg 1X ONCE 06/08/21 19:00 06/08/21 19:01 (TEE DAUGHERTY APRN) Allergies Allergies Allergies Coded Allergies Type Severity Reaction Last Updated Verified dulaglutide Allergy Unknown 05/03/21 Yes hydrocodone Allergy Unknown 05/03/21 Yes metformin Allergy Unknown 05/03/21 Yes (TEE DAUGHERTY APRN) Physical Exam Physical Exam Constitutional: Well developed, well nourished, no acute distress, non-toxic appearance. 36-year-old male in no apparent distress lying in bed comfortably, patient's complaint of pain exceeds patient's physical appearance and examination.. HENT: Normocephalic, atraumatic. Eyes: Conjunctiva normal, no discharge. Neck: Normal range of motion. Cardiovascular: Distal cap refill less than 2 seconds, no cyanosis appreciated. Lungs & Thorax: Patient is in no respiratory distress, no adventitious lung sounds appreciated. Abdomen: Bowel sounds normal, soft, no masses, no pulsatile masses. No bruising or skin discoloration of the abdomen. Pain to left upper quadrant to palpation, negative McBurney's point tenderness, negative psoas sign, negative straight leg raise, negative rebound tenderness. Skin: Warm, dry, no erythema, no rash. Back: No tenderness, no CVA tenderness. Extremities: No tenderness, no cyanosis, no clubbing, ROM intact, no edema. Neurologic: Alert and oriented X 3, normal motor function, normal sensory function, no focal deficits noted. Psychologic: Affect normal, judgement normal, mood normal. (TEE DAUGHERTY APRN) Current Patient Data Vital Signs Vital Signs Date Time Temp Pulse Resp B/P (MAP) Pulse Ox O2 Delivery O2 Flow Rate FiO2 06/08/21 17:58 98.6 92 18 115/67 97 (TEE DAUGHERTY APRN) EKG EKG [] (TEE DAUGHERTY APRN) Radiology/Procedures Radiology/Procedures PATIENT: MALATHI SALCEDO ACCOUNT: [id number] : 1985 LOCATION: ER AGE: 36 SEX: M EXAM STATUS: REG ER ORD. PHYSICIAN: TEE DAUGHERTY APRN REASON: elevated lipase, luq pain, OMNI 300, 75ml PROCEDURE: CT ABD PELV W/ IV CONTRST ONLY EXAMINATION: CT abdomen and pelvis with IV contrast. INDICATION:36 years, Male, elevated lipase, left upper quadrant.. TECHNIQUE: Axial CT images of the abdomen and pelvis were obtained. Coronal and sagittal reformatted performed. COMPARISON: 05/03/2021. Exposure: One or more of the following individualized dose reduction techniques were utilized for this examination: 1. Automated exposure control 2. Adjustment of the mA and/or kV according to patient size 3. Use of iterative reconstruction technique. FINDINGS: LOWER CHEST: Unremarkable ABDOMEN/PELVIS: Redemonstrated sequelae of acute on chronic pancreatitis with diffuse parenchymal atrophy and extensive fat stranding throughout the abdomen. Multiple loculated fluid collections in the upper abdomen as follow: New 8.2 x 4.5 cm fluid collection posterior to the intrahepatic IVC causing mass effect upon the IVC. Interval increasing size of small subcapsular anterior left hepatic lobe fluid collection now measures 7.0 x 1.7 cm, previously 2.2 x 1.0 cm. Possibly new fluid collection at the venecia hepatis measures 2.3 x 2.7 cm. New 4.4 x 3.0 cm located fluid collection in the right abdomen anterior to the gallbladder (series 2 image 41). Unchanged fluid collection anterior to the pancreatic head (series 2 image 32, measures 2.3 x 2.4 cm. Previously seen large fluid collections at the gastrohepatic interval and posterior perigastric region have been resolved. Significant wall thickening of the distal stomach and proximal duodenum with luminal narrowing. No bowel dilatation. Normal appendix. No suspicious focal hepatic lesion. Periportal edema. Gallbladder wall thickening, likely reactive. No biliary ductal dilatation. Moderate splenomegaly measures up to 17.5 cm in length. No adrenal nodule. No hydronephrosis or nephrolithiasis in either kidney. Mild narrowing of the main portal vein. Portosystemic venous collaterals in the upper abdomen. Multiple prominent peripancreatic lymph nodes, likely reactive. Small amount of abdominal ascites. No pneumoperitoneum. Unremarkable prostate. Underdistended urinary bladder which limits evaluation. MUSCULOSKELETAL: No acute osseous process. IMPRESSION: 1. Acute on chronic pancreatitis with with worsening diffuse abdominal fat stranding. 2. Multiple loculated fluid collections in the upper abdomen, some of which have increased in size and some of which are new. Findings suggesting of pseudocysts. Underlying infection cannot be excluded. 3. Significant wall thickening of the distal stomach and proximal duodenum with luminal narrowing, likely reactive. 4. Moderate splenomegaly. 5. Small amount of abdominal ascites. 6. Other chronic/incidental findings, as described. Electronically signed by: Konstantin Carrillo MD (06/08/2021 8:44 PM) [facility] DICTATED AND SIGNED BY: KONSTANTIN CARRILLO MD DATE: 06/08/212031 CC: TEE DAUGHERTY APRN; NETTA PUCKETT MD ~MTH0 0 (TEE DAUGHERTY APRN) Heart Score C/O Chest Pain: No Risk Factors: Risk Factors: DM, Current or recent (<one month) smoker, HTN, HLP, family history of CAD, obesity. Risk Scores: Risk Factors: DM, Current or recent (<one month) smoker, HTN, HLP, family history of CAD, obesity. (TEE DAUGHERTY APRN) Course & Med Decision Making Course & Med Decision Making Pertinent Labs and Imaging studies reviewed. (See chart for details) 36-year-old male, vital signs reviewed, presents emergency department complaining of a pancreatitis flareup. Patient's physical examination consistent with pancreatitis versus other abdominal process, patient is asking for prescription refill of oxycodone to last until Thursday morning for when he has an appointment with his GI physician at . Will order serum lab work CBC, CMP, acetone level, lipase, lactic acid, 1 L normal saline, 100 mcg fentanyl IV, 4 mg Zofran IV, urinalysis assay. Patient's lipase elevated over 1200, will order CT abdomen pelvis. CT abdomen pelvis concerning for acute pancreatitis, worsening infectious absc esses, discussed with patient recommendation of admission to the hospital, patient has refused admission to the hospital and wishes to leave the emergency department AGAINST MEDICAL ADVICE. Patient states that he can take care of his acute pancreatitis at home and does not need another $30,000 bill. Notified by the patient's ED nurse that the patient wishes to leave AGAINST MEDICAL ADVICE. The patient and I had an extensive discussion regarding the risks of leaving AMA including but not limited to , permanent disability, and worsening condition. Also had an extensive discussion with the patient regarding the benefits of excepting admission and transfer which include promotion of health and wellness, and ongoing treatment of disease processes. The patient acknowledged the risks and benefits and agreed to take full responsibility of leaving AGAINST MEDICAL ADVICE. The patient was alert and oriented x4 and had full medical decision-making capability when they signed the AMA forms. Patient gave verbal understanding of strict return to ER precautions and concerns. Patient has appointment to see his GI specialist this coming Thursday, encouraged patient to keep this appointment. Upon final discharge of patient, patient has changes mind and decided to stay for treatment of his acute pancreatitis. Discussed patient's case and emergency department work-up with inpatient hospitalist Dr. Trujillo who agrees the patient's presentation and case warrants admission, Dr. Trujillo has requested a serum alcohol and urine drug tox screen be added to orders, these orders were added, Dr. Trujillo will evaluate patient's admission and ongoing care on the MedSurg unit at [facility]. Dr. Trujillo has assumed patient care at this time. (TEE DAUGHERTY APRN) Course & Med Decision Making Did not see or evaluate patient. Agree with PROCESSING ARCHIVIST's work-up and disposition per note. (RICO GONZALEZ MD) Dragon Disclaimer Dragon Disclaimer This electronic medical record was generated, in whole or in part, using a voice recognition dictation system. (TEE DAUGHERTY APRN) Departure Departure: Impression: Primary Impression: Acute pancreatitis Additional Impression: Abdominal pain Disposition: ADMITTED INPATIENT Admitting Physician: Ronaldo Trujillo (Admit to the medical surgical unit for acute pancreatitis, abdominal pain.) (TEE DAUGHERTY APRN) Condition: STABLE Referrals: NETTA PUCKETT MD (PCP) Additional Instructions: You are seen today in the emergency department for an exacerbation of your pancreatitis, you do have an acute pancreatitis that warrants an admission to the hospital, I have recommended admission to the hospital however you have refused this recommendation. Please keep your follow-up appointments with your GI specialist at , please return immediately to the emergency department for worsening symptoms or other concerns. Patient does not wish to proceed with medical care recommended by BELEN Apodaca. Patient given information related to possible complications, up to and including , which could occur as a result of leaving the hospital at this time. Patient verbalizes understanding of risks involved due to leaving against medical advice. Patient has signed AMA form. Problem Qualifiers Primary Impression: Acute pancreatitis Pancreatitis type: unspecified pancreatitis type Acute pancreatitis complication: unspecified Qualified Codes: K85.90 - Acute pancreatitis without necrosis or infection, unspecified Additional Impression: Abdominal pain Abdominal location: left upper quadrant Qualified Codes: R10.12 - Left upper quadrant pain TEE DAUGHERTY APRN Jun 08, 2021 18:45 RICO GONZALEZ MD Jun 08, 2021 23:31
[2021-06-08] MEDS ORDERED: ONDANSETRON PF 4 MG/2 ML VIAL. ONE (18:47)
[2021-06-08 18:56] LABS: BASO % 1 % (0-3); EOS # 0.3 x10^3/uL (0.0-0.7); EOS % 3 % (0-3); HEMATOCRIT 30.9 % (39.0-53.0); HEMOGLOBIN 10.2 g/dL (13.0-17.5); LYMPH # 1.6 x10^3/uL (1.0-4.8); LYMPH % 20 % (24-48); MEAN CORPUSCULAR HEMOGLOBIN 25 pg (25-35); MEAN CORPUSCULAR HGB CONC 33 g/dL (31-37); MEAN CORPUSCULAR VOLUME 76 fL (79-100); MONO # 0.6 x10^3/uL (0.0-1.1); MONO % 8 % (0-9); NEUT # 5.4 x10^3uL (1.8-7.7); NEUT % 68 % (31-73); PLATELET COUNT 286 x10^3/uL (140-400); RED BLOOD COUNT 4.07 x10^6/uL (4.30-5.70); RED CELL DISTRIBUTION WIDTH 16.2 % (11.5-14.5); WHITE BLOOD COUNT 7.9 x10^3/uL (4.0-11.0)
[2021-06-08 19:00] LABS: CALCIUM 8.6 mg/dL (8.5-10.1); CREATININE 0.8 mg/dL (0.7-1.3); GFR 109.4; POTASSIUM 3.6 mmol/L (3.5-5.1)
[2021-06-08] MEDS ORDERED: KETOROLAC 30 MG/ML VIAL. IVP ONE (19:00)
[2021-06-08] MEDS ORDERED: IV NORMAL SALINE 1,000ML 1,000 ML IV ONE (19:00)
[2021-06-08 19:07] LABS: ALBUMIN 3.3 g/dL (3.4-5.0); ALBUMIN/GLOBULIN RATIO 0.8 (1.0-1.7); MAGNESIUM 1.8 mg/dL (1.8-2.4); PHOSPHORUS 2.8 mg/dL (2.6-4.7); TOTAL BILIRUBIN 1.7 mg/dL (0.2-1.0); TOTAL PROTEIN 7.5 g/dL (6.4-8.2)
[2021-06-08 19:18] LABS: BACTERIA,URINE FEW /HPF (0-FEW); BILIRUBIN,URINE MOD (NEG); CLARITY,URINE CLEAR; COLOR,URINE AMBER; GLUCOSE,URINE NEG (NEG); NITRITE,URINE NEG (NEG); RBC,URINE OCC /HPF (0-2); SQUAMOUS EPITHELIAL CELL,UR FEW /LPF; WBC,URINE OCC /HPF (0-4)
[2021-06-08] MEDS ORDERED: CONTRAST GIVEN. MC PRN (19:45)
[2021-06-08] MEDS ORDERED: IOHEXOL 300 MG/ML 75 ML VIAL. IV ONE (20:00)
--- NOTE | 2021-06-08 20:46 | RAD ---
EXAMINATION: CT abdomen and pelvis with IV contrast. INDICATION:36 years, Male, elevated lipase, left upper quadrant.. TECHNIQUE: Axial CT images of the abdomen and pelvis were obtained. Coronal and sagittal reformatted performed. COMPARISON: 05/03/2021. Exposure: One or more of the following individualized dose reduction techniques were utilized for thi s examination: 1. Automated exposure control 2. Adjustment of the mA and/or kV according to patient size 3. Use of iterative reconstruction technique. FINDINGS: LOWER CHEST: Unremarkable ABDOMEN/PELVIS: Redemonstrated sequelae of acute on chronic pancreatitis with diffuse parenchymal atrophy and extensi ve fat stranding throughout the abdomen. Multiple loculated fluid collections in the upper abdomen as follow: New 8.2 x 4.5 cm fluid collection posterior to the intrahepatic IVC causing mass effect upon the IVC. Interval increasing size of small subcapsular anterior left hepatic lobe fluid collection now measure s 7.0 x 1.7 cm, previously 2.2 x 1.0 cm. Possibly new fluid collection at the venecia hepatis measures 2.3 x 2.7 cm. New 4.4 x 3.0 cm located fluid collection in the right abdomen anterior to the gallbladder (series 2 image 41). Unchanged fluid collection anterior to the pancreatic head (series 2 image 32, measures 2.3 x 2.4 cm. Previously seen large fluid collections at the gastrohepatic interval and posterior perigastric regio n have been resolved. Significant wall thickening of the distal stomach and proximal duodenum with luminal narrowing. No mirtha wel dilatation. Normal appendix. No suspicious focal hepatic lesion. Periportal edema. Gallbladder wa ll thickening, likely reactive. No biliary ductal dilatation. Moderate splenomegaly measures up to 17 .5 cm in length. No adrenal nodule. No hydronephrosis or nephrolithiasis in either kidney. Mild narro wing of the main portal vein. Portosystemic venous collaterals in the upper abdomen. Multiple promine nt peripancreatic lymph nodes, likely reactive. Small amount of abdominal ascites. No pneumoperitoneu m. Unremarkable prostate. Underdistended urinary bladder which limits evaluation. MUSCULOSKELETAL: No acute osseous process. IMPRESSION: 1. Acute on chronic pancreatitis with with worsening diffuse abdominal fat stranding. 2. Multiple loculated fluid collections in the upper abdomen, some of which have increased in size a nd some of which are new. Findings suggesting of pseudocysts. Underlying infection cannot be excluded . 3. Significant wall thickening of the distal stomach and proximal duodenum with luminal narrowing, l ikely reactive. 4. Moderate splenomegaly. 5. Small amount of abdominal ascites. 6. Other chronic/incidental findings, as described. Electronically signed by: Makenna Carrillo MD (06/08/2021 8:44 PM) [facility]
[2021-06-08] MEDS ORDERED: OXYC-325 PO (21:41)
[2021-06-08 22:07] LABS: BARBITURATES NEG (NEG); BENZODIAZEPINES NEG (NEG); CANNABINOIDS NEG (NEG); COCAINE NEG (NEG); METHADONE NEG (NEG); OPIATES NEG (NEG); PHENCYCLIDINE NEG (NEG)
[2021-06-08 22:09] LABS: AMPHETAMINE/METHAMPHETAMINE NEG (NEG)
--- NOTE | 2021-06-08 23:15 | NUR ---
The patient, MALATHI SALCEDO, 36 y/o, M admitted observation status by CHRIS MAGALLON MD, was given written information regarding hospital policies, unit procedures and contact persons. Oriented to room/unit and policies. Valuables were checked and left with pt.
[2021-06-08 23:21] VITALS: BP 145/83
[2021-06-09] MEDS ORDERED: DEXTROSE 50% 25 GM / 50ML DISP.SYRIN. IV PRN
[2021-06-09] MEDS ORDERED: ATOR20TA58 PO (01:32)
[2021-06-09] MEDS ORDERED: PRAZ2CAP2 PO (01:32)
[2021-06-09] MEDS ORDERED: DIPH25TA26 PO (01:32)
[2021-06-09] MEDS ORDERED: ESCITALOPRAM OX20 MG PO (01:32)
[2021-06-09] MEDS ORDERED: INSU100I13 SQ (01:32)
[2021-06-09] MEDS ORDERED: FENO145T3 PO (01:32)
[2021-06-09] MEDS ORDERED: TRAZ-120 PO (01:32)
[2021-06-09] MEDS ORDERED: ACET325T9 PO (01:32)
[2021-06-09] MEDS ORDERED: OMEP40CA7 PO (01:32)
[2021-06-09] MEDS: ONDANSETRON PF 4 MG/2 ML VIAL. IVP PRN ×2 (02:42→06:20)
[2021-06-09 05:22] VITALS: BP 118/79
[2021-06-09 07:14] LABS: CALCIUM 8.2 mg/dL (8.5-10.1); CREATININE 0.7 mg/dL (0.7-1.3); GFR 127.6; POTASSIUM 3.6 mmol/L (3.5-5.1)
[2021-06-09] MEDS: INSULIN LISPRO 300 UNITS/3 ML VIAL. SQ SCH ×3 (08:00→17:00)
[2021-06-09] MEDS: MORPHINE SULFATE 4 MG/ML DISP.SYRIN. IV PRN ×2 (08:40→13:02)
[2021-06-09] MEDS: IV NORMAL SALINE 1,000ML 1,000 ML IV SCH ×2 (10:00)
[2021-06-09 12:03] VITALS: BP 113/73
[2021-06-09] MEDS ORDERED: HYDROmorphone PF 2 MG/ML VIAL IVP PRN (16:15)
[2021-06-09 16:32] LABS: CALCIUM 8.5 mg/dL (8.5-10.1); CREATININE 0.7 mg/dL (0.7-1.3); GFR 127.6; POTASSIUM 3.7 mmol/L (3.5-5.1)
[2021-06-09 16:37] LABS: ALBUMIN 2.9 g/dL (3.4-5.0); ALBUMIN/GLOBULIN RATIO 0.7 (1.0-1.7); TOTAL BILIRUBIN 1.1 mg/dL (0.2-1.0)
--- NOTE | 2021-06-09 16:44 | HP ---
ADMIT DATE: 06/08/2021 HISTORY OF PRESENT ILLNESS: The patient is a 36-year-old male patient who came to the Emergency Room complaining of pain mostly in the epigastric area that is getting through and through to the back. He has also had some nausea and vomiting. According to him, he went out to eat with his 2 nights ago and woke up day before admission with abdominal pain. He states he has been vomiting since. He stated that he has run out of his pain medication and currently has an 8 out of 10 pain. He stated that this is a normal presentation for his pancreatitis flare ups. He reports that he has an appointment this Thursday with his GI doctor at for a scope to look at his pancreatic duct. He stated he also has a CT scheduled for 06/16. By the time he arrived to the Emergency Room, he did complain of nausea and pain, but denied any diarrhea. He does have dry heaving; however, when he does drink water, he states the water does come back up. Denied any blood in his vomitus. He reports normal stools. Denied seeing any blood in his urine or stool. He denies any urinary tract infection. He stated he has not been drinking any alcohol. He was again investigated in the Emergency Room. His lab work on admission showed a lipase of 819. His white cell count showed that he has microcytic hypochromic anemia. His toxic screen was negative, in particular, negative for alcohol. The patient was admitted, continued on IV fluid as well as IV pain medication. PAST MEDICAL HISTORY: Significant for type 2 diabetes mellitus, hyperlipidemia. Has had apparently a cerebrovascular accident, has chronic pancreatitis, gastroesophageal reflux disease, anxiety and depression. PAST SURGICAL HISTORY: Significant for right ankle fracture, status post open reduction and internal fixation. ALLERGIES OR INTOLERANCES: INCLUDE HYDROCODONE, METFORMIN AND DULAGLUTIDE. MEDICATIONS: He is currently on the following medication: He is on diphenhydramine 25 mg at bedtime, fenofibrate nanocrystallized 145 mg once a day, atorvastatin calcium 20 mg at bedtime, prazosin 2 mg at bedtime, oxycodone/APAP 5/325 one tablet every 6 hours, acetaminophen 650 mg at bedtime, escitalopram oxalate 20 mg once a day, trazodone 50 mg at bedtime, ondansetron 4 mg every 6 hours, omeprazole 40 mg daily. He is on Lantus insulin 8 units at bedtime. FAMILY HISTORY: Had one brother, who in a motor vehicle accident. Two sisters older and healthy. His father is still alive at 73 and healthy. Mother at age of 52 because of ruptured brain aneurysm. SOCIAL HISTORY: He is , has 1 daughter and 3 sons. He quit smoking 3 months ago. Does not drink alcohol or use any drugs. 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 REVIEW OF SYSTEMS: As per history of present illness. PHYSICAL EXAMINATION: GENERAL: On arrival to the Emergency Room, he looked well and was clearly in no apparent respiratory distress. He was pale, but no jaundice, cyanosis, no lymphadenopathy, no thyromegaly, no jugular venous distention. No limb edema. VITAL SIGNS: His heart rate on arrival was 92, blood pressure 115/67, temperature was 98.6, respiratory rate was 18 and oxygen saturation was 97%. HEAD, EYES, EARS, NOSE, AND THROAT: Normocephalic, atraumatic. NECK: Supple. HEART: Showed normal first and second heart sounds, no gallop or murmur. CHEST: Clear to auscultation. No crepitation or rhonchi. ABDOMEN: Distended with tenderness mostly in the epigastric area. There is no guarding or rigidity. No organomegaly. All hernial orifice intact. Bowel sounds normal. NEUROLOGIC: He was grossly intact. LABORATORY DATA: On admission showed a white cell count 7900, hemoglobin 10, hematocrit 30, MCV 76 and platelet count 286,000. His chemistry showed a serum sodium 142, potassium 3.6, chloride 107, bicarbonate 24, anion gap of 11, BUN 10, creatinine 0.7. Estimated GFR was 127 mL per minute. His glucose 130, calcium was 8.2, serum lipase was 819. Urinalysis essentially unremarkable. Toxic screen was unremarkable. He did have a CT scan of the abdomen and pelvis with IV contrast that showed that the patient has acute on chronic pancreatitis with worsening diffuse abdominal fat stranding, multiple loculated fluid collection in the upper abdomen, some of which have increased in size and some of which are new. Findings suggesting pseudocyst, underlying infection, cannot be excluded significant wall thickening of the distal stomach and proximal duodenum with luminal narrowing, likely reactive, moderate splenomegaly, small amount of abdominal ascites. Other chronic incidental findings are as described. PLAN: To continue with IV fluid, IV antibiotic, pain management and antiemetic. We will monitor his lab work again and decide the further management accordingly. LILY DR: Greg TID: [id number]
[2021-06-09 17:41] VITALS: BP 118/76
--- NOTE | 2021-06-09 23:07 | PN ---
DATE: 06/09/2021 SUBJECTIVE: The patient is resting, sitting on the edge of the bed, continued to complain of pain despite being on morphine and fentanyl. PHYSICAL EXAMINATION: GENERAL: When I examined him, he looked pale, but not jaundiced, cyanosed. No thyromegaly. No jugular venous distention. No limb edema. VITAL SIGNS: His heart rate was 82, blood pressure was 145/96, temperature was 98.6, respiratory rate was 16 and oxygen saturation was 98% on room air. The rest of the exam stable. LABORATORY DATA: This morning showed a serum sodium 142, potassium 3.6, chloride 107, bicarbonate 24, anion gap 11, BUN 10, creatinine 0.7. Estimated GFR was 127. His lipase this morning was down to 819. However, initial lipase was 1284 and his total bilirubin, AST, ALT, alkaline phosphatase are all elevated. PLAN: My plan is to continue with n.p.o. status. Continue with IV fluid, continue with antiemetic and pain medication. I will repeat his labs again this afternoon, particularly checking his lipase again and liver enzymes and will decide on further management accordingly. BROOKS/EKT DR: BROOKS/nicole TID: [id number]
== END 2021-06-09 18:41 | disposition left against medical advice (07) ==
LOC: ER 17:41 → 1 SOUTH 22:50
PROVIDERS: ADMIT Internal Medicine; ATTEND Internal Medicine
DX: K85.90 Acute pancreatitis without necrosis or infection, unspecified (principal); K86.1 Other chronic pancreatitis; D50.9 Iron deficiency anemia, unspecified; E11.9 Type 2 diabetes mellitus without complications; E78.5 Hyperlipidemia, unspecified; K21.9 Gastro-esophageal reflux disease without esophagitis; F41.9 Anxiety disorder, unspecified; F32.9 Major depressive disorder, single episode, unspecified; R18.8 Other ascites; Z87.891 Personal history of nicotine dependence; Z86.73 Personal history of transient ischemic attack (TIA), and cerebral infarction without residual deficits; Z79.899 Other long term (current) drug therapy
CPT/HCPCS: 36415; 74177; 80048; 80053; 80307; 81001; 82010; 82947; 83690; 83735; 84100; 85025; 96361; 96374; 96375; 96376; 99285; G0378; G0480; J1170; J1815; J1885; J2270; J2405; J3010; J7030; Q9967; G0379

== ENCOUNTER 2021-06-26 05:43 | Emergency (ER) | payer OTHER ==
[~2021-06-26] VITALS: Ht 185.4 cm; Wt 101.6 kg
[~2021-06-26 05:43] MED LIST changes: +ACET325T9 PO; +ATOR20TA58 PO; +DIPH25TA26 PO; +ESCITALOPRAM OX20 MG PO; +FENO145T3 PO; +INSU100I13 SQ; +OMEP40CA7 PO; +PRAZ2CAP2 PO; +TRAZ-120 PO
[2021-06-26 05:51] VITALS: BP 125/63
--- NOTE | 2021-06-26 06:14 | PHYS DOC ---
Past History Past Medical History: Anxiety, Depression, Diabetes, GERD, Pancreatitis Additional Past Medical Histor: pancreatitis Past Surgical History: Other Additional Past Surgical Histo: RIGHT ANKLE Smoking: Cigarettes Alcohol Use: Occasionally Drug Use: None General Adult EDM: Chief Complaint: ABDOMINAL PAIN HPI: HPI: 36-year-old male presents with abdominal pain. The patient is concerned that his pancreatitis is flared back up. He was recently diagnosed with pancreatitis and cyst on the pancreas. He had one of his cysts drained at about a week ago. Pain started flaring up more overnight and he is concerned it is gotten worse again. His abdominal pain is a moderate cramping. He denies vomiting. He has had some nausea. Denies fever or chills. Review of Systems: Review of Systems: Constitutional: Denies fever or chills Eyes: Denies change in visual acuity HENT: Denies nasal congestion or sore throat Respiratory: Denies cough or shortness of breath Cardiovascular: Denies chest pain or edema GI: Epigastric abdominal pain, nausea. denies vomiting, bloody stools or diarrhea : Denies dysuria Musculoskeletal: Denies back pain or joint pain Integument: Denies rash Neurologic: Denies headache, focal weakness or sensory changes Endocrine: Denies polyuria or polydipsia Lymphatic: Denies swollen glands Psychiatric: Denies depression or anxiety Current Medications: Current Meds: Current Medications Medications (Trade) Dose Ordered Sig/Terell Start Time Stop Time Status Last Admin Dose Admin Ondansetron HCl (Zofran) 4 mg 1X ONCE 06/26/21 06:30 06/26/21 06:31 Sodium Chloride 1,000 ml @ 1,000 mls/hr 1X ONCE 06/26/21 06:30 06/26/21 07:29 Allergies: Allergies: Allergies Coded Allergies Type Severity Reaction Last Updated Verified dulaglutide Allergy Intermediate 06/26/21 Yes hydrocodone Allergy Intermediate 06/26/21 Yes metformin Allergy Intermediate 06/26/21 Yes Physical Exam: PE: Constitutional: Well developed, well nourished, no acute distress, non-toxic appearance. [] HENT: Normocephalic, atraumatic, bilateral external ears normal, oropharynx moist, no oral exudates, nose normal. [] Eyes: PERRLA, EOMI, conjunctiva normal, no discharge. [] Neck: Normal range of motion, no tenderness, supple, no stridor. [] Cardiovascular:Heart rate regular rhythm, no murmur [] Lungs & Thorax: Bilateral breath sounds clear to auscultation [] Abdomen: Bowel sounds normal, soft, epigastric tenderness with voluntary guarding, no masses, no pulsatile masses. [] Skin: Warm, dry, no erythema, no rash. [] Back: No tenderness, no CVA tenderness. [] Extremities: No tenderness, no cyanosis, no clubbing, ROM intact, no edema. [] Neurologic: Alert and oriented X 3, normal motor function, normal sensory function, no focal deficits noted. [] Psychologic: Affect normal, judgement normal, mood normal. [] Current Patient Data: Vital Signs: Vital Signs Date Time Temp Pulse Resp B/P (MAP) Pulse Ox O2 Delivery O2 Flow Rate FiO2 06/26/21 05:51 98.0 83 18 125/63 97 Room Air EKG: EKG: [] Radiology/Procedures: Radiology/Procedures: [] Impressions: Study: CT abdomen/pelvis with intravenous contrast Indication: Epigastric pain. History of pancreatitis. Comparison: 06/08/2021 Technique: Helical CT imaging performed of the abdomen and pelvis after the intravenous administration of 75 cc contrast. Sagittal and coronal reformats were obtained. One or more of the following individualized dose reduction techniques were utilized for this examination: 1. Automated exposure control 2. Adjustment of the mA and/or kV according to patient size 3. Use of iterative reconstruction technique. Findings: Possible tiny amount of pleural fluid. Minimal basilar atelectasis. Persistent but decreased fatty stranding centered at the right upper quadrant. Pericholecystic edema/gallbladder wall thickening is again noted and is greater in thickness. Previously present loculated fluid collections have all decreased in size namely the collection scalloping the medial aspect of the caudate lobe on image 20 series 2. The lorenzo of the collections have increased in thickness but there is no internal gas. Less pronounced mass effect on the IVC. Slightly more organized fluid along the anterior margin of the stomach. Calcification again seen at the pancreatic head, pancreatic ductal dilatation and tail atrophy. A pancreatic cystic collection on image 35 series 2 has decreased now measuring 3 cm transverse by 2 cm AP compared to 3.3 cm transverse by 2.5 cm AP. A smaller collection at the head of the pancreas is unchanged on image 39 series 2 at 1.2 cm. No focal liver abnormality has developed. Redemonstrated splenomegaly. No adrenal gland mass. Unchanged kidneys, bladder and prostate. Similar volume free fluid within the pelvis. A few colonic diverticuli without diverticulitis. Unremarkable appendix. No small bowel obstruction. Again noted is wall thickening of the distal stomach and proximal duodenum. Patent central portal veins. The portal vein approaching the portosplenic confluence and the proximal aspect of the superior mesenteric vein are narrowed on account of mass effect from the pancreas but remain opacified with contrast. The splenic vein is patent. No pseudoaneurysm is identified noting bolus timing. Reactive lymph nodes at the right upper quadrant are similar. No newly seen osseous abnormality. Impression: 1. There is again fatty stranding at the right upper quadrant in the setting of pancreatitis but the extent of inflammation has decreased from 06/08/2021. Additionally, all of the peripancreatic fluid collections on the comparison have decreased in size and the intrapancreatic collections are either unchanged or slightly smaller. Sterility is again indeterminant but there is no internal gas to indicate an abscess. Reactive wall thickening again seen to involve the distal stomach, proximal duodenum and gallbladder. No bowel obstruction. 2. Mass effect of the veins around the portosplenic confluence with luminal narrowing but no complete occlusion is apparent. There is less pronounced mass effect on the IVC from the prior. Electronically signed by: SPEEDY PATRICK MD (06/26/2021 7:24 AM) [facility] DICTATED AND SIGNED BY: SPEEDY PATRICK MD DATE: 06/26/21 0704 CC: ALESIA NARAYANAN DO; NETTA PUCKETT MD ~MTH0 0 Heart Score: C/O Chest Pain: N/A Risk Factors: Risk Factors: DM, Current or recent (<one month) smoker, HTN, HLP, family history of CAD, obesity. Risk Scores: Score 0 - 3: 2.5% MACE over next 6 weeks - Discharge Home Score 4 - 6: 20.3% MACE over next 6 weeks - Admit for Clinical Observation Score 7 - 10: 72.7% MACE over next 6 weeks - Early Invasive Strategies Course & Med Decision Making: Course & Med Decision Making Pertinent Labs and Imaging studies reviewed. (See chart for details) The patient's labs are significant for an elevated lipase of 633. His anemia is improved from his previous visit. He has a mild white count 11.6. The patient CT scan continues to show evidence of pancreatitis though does say things are improved versus previous scan. The patient is feeling better at this time and is comfortable with going home. I have encouraged him to follow-up with his specialist team at by phone and let them know about his episode overnight. If the patient's condition worsens or new symptoms develop, he is welcome to return to the emergency room. He is stable for discharge at this time. [] Dragon Disclaimer: Dragon Disclaimer: This electronic medical record was generated, in whole or in part, using a voice recognition dictation system. Departure Departure: Impression: Primary Impression: Abdominal pain Qualified Codes: R10.13 - Epigastric pain Additional Impression: Pancreatitis Qualified Codes: K86.1 - Other chronic pancreatitis Disposition: 01 HOME / SELF CARE / HOMELESS Condition: STABLE Referrals: NETTA PUCKETT MD (PCP) Patient Instructions: Acute Pancreatitis, [id number] ALESIA NARAYANAN DO Jun 26, 2021 06:14
[2021-06-26] MEDS ORDERED: CONTRAST GIVEN. MC PRN (06:15)
[2021-06-26] MEDS ORDERED: IV NORMAL SALINE 1,000ML 1,000 ML IV ONE (06:30)
[2021-06-26] MEDS ORDERED: ONDANSETRON PF 4 MG/2 ML VIAL. IVP ONE (06:30)
[2021-06-26 06:34] LABS: BASO # 0.1 x10^3/uL (0.0-0.2); BASO % 1 % (0-3); EOS # 0.4 x10^3/uL (0.0-0.7); EOS % 3 % (0-3); HEMATOCRIT 32.9 % (39.0-53.0); HEMOGLOBIN 10.6 g/dL (13.0-17.5); LYMPH % 17 % (24-48); MEAN CORPUSCULAR HEMOGLOBIN 24 pg (25-35); MEAN CORPUSCULAR HGB CONC 32 g/dL (31-37); MEAN CORPUSCULAR VOLUME 75 fL (79-100); MONO # 0.6 x10^3/uL (0.0-1.1); MONO % 5 % (0-9); NEUT # 8.5 x10^3uL (1.8-7.7); NEUT % 74 % (31-73); PLATELET COUNT 383 x10^3/uL (140-400); RED BLOOD COUNT 4.39 x10^6/uL (4.30-5.70); RED CELL DISTRIBUTION WIDTH 16.6 % (11.5-14.5); WHITE BLOOD COUNT 11.6 x10^3/uL (4.0-11.0)
[2021-06-26 06:41] LABS: CALCIUM 8.9 mg/dL (8.5-10.1); CREATININE 0.9 mg/dL (0.7-1.3); GFR 95.5; POTASSIUM 3.8 mmol/L (3.5-5.1)
[2021-06-26 06:47] LABS: ALBUMIN 3.2 g/dL (3.4-5.0); ALBUMIN/GLOBULIN RATIO 0.8 (1.0-1.7); TOTAL BILIRUBIN 0.4 mg/dL (0.2-1.0); TOTAL PROTEIN 7.4 g/dL (6.4-8.2)
[2021-06-26] MEDS ORDERED: IOHEXOL 300 MG/ML 75 ML VIAL. IV ONE (07:00)
[2021-06-26] MEDS ORDERED: MORPHINE SULFATE 4 MG/ML DISP.SYRIN. IV ONE ×2 (07:00→08:45)
--- NOTE | 2021-06-26 07:27 | RAD ---
Study: CT abdomen/pelvis with intravenous contrast Indication: Epigastric pain. History of pancreatitis. Comparison: 06/08/2021 Technique: Helical CT imaging performed of the abdomen and pelvis after the intravenous administratio n of 75 cc contrast. Sagittal and coronal reformats were obtained. One or more of the following individualized dose reduction techniques were utilized for this examinat ion: 1. Automated exposure control 2. Adjustment of the mA and/or kV according to patient size 3. Use of iterative reconstruction technique. Findings: Possible tiny amount of pleural fluid. Minimal basilar atelectasis. Persistent but decreased fatty stranding centered at the right upper quadrant. Pericholecystic edema/ gallbladder wall thickening is again noted and is greater in thickness. Previously present loculated fluid collections have all decreased in size namely the collection scalloping the medial aspect of th e caudate lobe on image 20 series 2. The lorenzo of the collections have increased in thickness but the re is no internal gas. Less pronounced mass effect on the IVC. Slightly more organized fluid along th e anterior margin of the stomach. Calcification again seen at the pancreatic head, pancreatic ductal dilatation and tail atrophy. A pancreatic cystic collection on image 35 series 2 has decreased now me asuring 3 cm transverse by 2 cm AP compared to 3.3 cm transverse by 2.5 cm AP. A smaller collection a t the head of the pancreas is unchanged on image 39 series 2 at 1.2 cm. No focal liver abnormality has developed. Redemonstrated splenomegaly. No adrenal gland mass. Unchang ed kidneys, bladder and prostate. Similar volume free fluid within the pelvis. A few colonic divertic silas without diverticulitis. Unremarkable appendix. No small bowel obstruction. Again noted is wall th ickening of the distal stomach and proximal duodenum. Patent central portal veins. The portal vein approaching the portosplenic confluence and the proximal aspect of the superior mesenteric vein are narrowed on account of mass effect from the pancreas but remain opacified with contrast. The splenic vein is patent. No pseudoaneurysm is identified noting mirtha iwona timing. Reactive lymph nodes at the right upper quadrant are similar. No newly seen osseous abnormality. Impression: 1. There is again fatty stranding at the right upper quadrant in the setting of pancreatitis but the extent of inflammation has decreased from 06/08/2021. Additionally, all of the peripancreatic fluid c ollections on the comparison have decreased in size and the intrapancreatic collections are either un changed or slightly smaller. Sterility is again indeterminant but there is no internal gas to indicat e an abscess. Reactive wall thickening again seen to involve the distal stomach, proximal duodenum an d gallbladder. No bowel obstruction. 2. Mass effect of the veins around the portosplenic confluence with luminal narrowing but no complet e occlusion is apparent. There is less pronounced mass effect on the IVC from the prior. Electronically signed by: SPEEDY PATRICK MD (06/26/2021 7:24 AM) [facility]
== END 2021-06-26 08:36 | disposition home or self-care (01) ==
LOC: ER 05:43
DX: K86.1 Other chronic pancreatitis (principal); E11.9 Type 2 diabetes mellitus without complications; K21.9 Gastro-esophageal reflux disease without esophagitis; F41.9 Anxiety disorder, unspecified; F32.9 Major depressive disorder, single episode, unspecified; F17.210 Nicotine dependence, cigarettes, uncomplicated; Z88.5 Allergy status to narcotic agent; Z88.8 Allergy status to other drugs, medicaments and biological substances
CPT/HCPCS: 36415; 74177; 80053; 83690; 85025; 96361; 96374; 96375; 99285; J2270; J2405; J7030; Q9967

== ENCOUNTER 2021-06-29 11:42 | Observation (INO) | payer OTHER ==
[~2021-06-29] VITALS: Ht 185.4 cm; Wt 100.4 kg
[2021-06-29] MEDS ORDERED: IV NORMAL SALINE 1,000ML 1,000 ML IV ONE (12:00)
[2021-06-29] MEDS ORDERED: ONDANSETRON PF 4 MG/2 ML VIAL. IVP ONE (12:00)
[2021-06-29] MEDS ORDERED: MORPHINE SULFATE 4 MG/ML DISP.SYRIN. IV ONE ×2 (12:00→15:00)
[2021-06-29 13:03] LABS: BASO # 0.1 x10^3/uL (0.0-0.2); BASO % 1 % (0-3); EOS # 0.3 x10^3/uL (0.0-0.7); EOS % 3 % (0-3); HEMATOCRIT 35.4 % (39.0-53.0); HEMOGLOBIN 11.6 g/dL (13.0-17.5); LYMPH # 1.8 x10^3/uL (1.0-4.8); LYMPH % 21 % (24-48); MEAN CORPUSCULAR HEMOGLOBIN 24 pg (25-35); MEAN CORPUSCULAR HGB CONC 33 g/dL (31-37); MEAN CORPUSCULAR VOLUME 75 fL (79-100); MONO # 0.5 x10^3/uL (0.0-1.1); MONO % 6 % (0-9); NEUT % 70 % (31-73); PLATELET COUNT 402 x10^3/uL (140-400); RED BLOOD COUNT 4.74 x10^6/uL (4.30-5.70); RED CELL DISTRIBUTION WIDTH 16.9 % (11.5-14.5); WHITE BLOOD COUNT 8.7 x10^3/uL (4.0-11.0)
[2021-06-29 13:08] LABS: CALCIUM 9.2 mg/dL (8.5-10.1); GFR 84.5; POTASSIUM 3.1 mmol/L (3.5-5.1)
[2021-06-29 13:14] LABS: ALBUMIN 3.6 g/dL (3.4-5.0); ALBUMIN/GLOBULIN RATIO 0.9 (1.0-1.7); TOTAL BILIRUBIN 0.3 mg/dL (0.2-1.0); TOTAL PROTEIN 7.8 g/dL (6.4-8.2)
--- NOTE | 2021-06-29 13:15 | PHYS DOC ---
Past History Past Medical History: Anxiety, Depression, Diabetes, GERD, Pancreatitis Additional Past Medical Histor: pancreatitis Past Surgical History: Other Additional Past Surgical Histo: RIGHT ANKLE Smoking: Cigarettes Alcohol Use: Occasionally Drug Use: None General Adult EDM: Chief Complaint: ABDOMINAL PAIN HPI: HPI: Patient is a 36-year-old male who presents with abdominal pain. Patient has a history of chronic pancreatitis. Patient states he recently had a cyst removed. "I try to go to [facility] last night, but I waited for 8 hours in the waiting room, so I had to leave". Patient is reporting pain 07/02, nausea. "I have not been able to keep anything down". "The pain and nausea has gotten worse since yesterday". "I feel like it is making it hard for me to breathe". Review of Systems: Review of Systems: Constitutional: Denies fever or chills Eyes: Denies change in visual acuity HENT: Denies nasal congestion or sore throat Respiratory: Denies cough, reports shortness of breath Cardiovascular: Denies chest pain or edema GI: Reports abdominal pain, nausea/vomiting : Denies dysuria Musculoskeletal: Denies back pain or joint pain Integument: Denies rash Neurologic: Denies headache, focal weakness or sensory changes Endocrine: Denies polyuria or polydipsia Lymphatic: Denies swollen glands Psychiatric: Denies depression or anxiety Current Medications: Current Meds: Current Medications Medications (Trade) Dose Ordered Sig/Terell Start Time Stop Time Status Last Admin Dose Admin Fentanyl Citrate (Fentanyl 2ml Vial) 75 mcg 1X ONCE 06/29/21 13:00 06/29/21 13:01 DC Morphine Sulfate (Morphine 4mg Syringe) 4 mg 1X ONCE 06/29/21 12:00 06/29/21 12:01 DC 06/29/21 12:14 4 MG Ondansetron HCl (Zofran) 4 mg 1X ONCE 06/29/21 12:00 06/29/21 12:01 DC 06/29/21 12:13 4 MG Sodium Chloride 1,000 ml @ 1,000 mls/hr 1X ONCE 06/29/21 12:00 06/29/21 12:59 DC 06/29/21 12:13 1,000 MLS/HR Allergies: Allergies: Allergies Coded Allergies Type Severity Reaction Last Updated Verified dulaglutide Allergy Intermediate 06/26/21 Yes hydrocodone Allergy Intermediate 06/26/21 Yes metformin Allergy Intermediate 06/26/21 Yes Physical Exam: PE: Constitutional: Well developed, well nourished, no acute distress, non-toxic appearance. [] HENT: Normocephalic, atraumatic, bilateral external ears normal, oropharynx moist, no oral exudates, nose normal. [] Eyes: PERRLA, EOMI, conjunctiva normal, no discharge. [] Neck: Normal range of motion, no tenderness, supple, no stridor. [] Cardiovascular:Heart rate regular rhythm, no murmur [] Lungs & Thorax: Bilateral breath sounds clear to auscultation [] Abdomen: Bowel sounds normal, soft, tenderness throughout Skin: Warm, dry, no erythema, no rash. [] Back: No tenderness, no CVA tenderness. [] Extremities: No tenderness, no cyanosis, no clubbing, ROM intact, no edema. [] Neurologic: Alert and oriented X 3, normal motor function, normal sensory function, no focal deficits noted. [] Psychologic: Affect normal, judgement normal, mood normal. [] EKG: EKG: Sinus rhythm, heart rate 60 bpm [] Radiology/Procedures: Radiology/Procedures: []EXAM: AP View of the chest DATE: 06/29/2021 1:32 PM INDICATION: Reason: ABD PAIN / Spl. Instructions: / History: COMPARISON: No Prior FINDINGS: The heart is not enlarged. Mediastinal and hilar contours are normal. No focal parenchymal airspace opacity. No pleural effusion or pneumothorax. IMPRESSION: 1. No radiographic evidence for acute cardiopulmonary process. Electronically signed by: Shola Overton MD (06/29/2021 1:56 PM) [facility]: CT Abdomen and Pelvis without IV contrast CLINICAL HISTORY: Reason: EPIGASTRIC / UMBILLICAL ABD PAIN, [place] [facility] [place] Instructions: / History: . COMPARISON: 06/28/2021, 06/26/2021 06/08/2021 TECHNIQUE: Helical CT of the abdomen and pelvis without intravenous contrast. Axial, coronal and sagittal reformatted images were generated. PQRS compliance statement - One or more of the following individualized dose reduction techniques were utilized for this study: 1. Automated exposure control 2. Adjustment of the mA and/or kV according to patient size 3. Use of iterative reconstruction technique FINDINGS: Lack of intravenous contrast limits evaluation of solid organs, vasculature, and lymph nodes. Lower chest: Lung bases are clear. Abdomen and Pelvis: No focal liver lesion. High density material within the gallbladder is not seen likely vicarious excretion of intravenous contrast material. Spleen is unremarkable. No biliary ductal dilatation. Small calcification in the pancreatic head possibly within the bile duct or pancreatic parenchyma from chronic pancreatitis. Numerous lymph nodes are seen in the region of the pancreatic head and along the greater curvature of the stomach and right upper quadrant. Diffuse infiltration about the pancreatic head and antrum of the stomach. Small fluid collections about the pancreas are stable to 06/28/2021 better assessed on the previous contrast-enhanced examination. Thickening about the gallbladder likely reactive. No focal renal lesion. No hydronephrosis. No hydroureter. No renal tract calculus. Bladder is grossly unremarkable. Mild colonic stool content. Appendix is normal. No small or large bowel dilatation. No bowel obstruction. Bones: Osseous structures are grossly stable. IMPRESSION: 1. Marked inflammatory change in the upper abdomen particularly around the gastric antrum, pyloric region and duodenum as well as the pancreatic head are grossly unchanged to prior CT from 06/28/2021. This is likely reactive from acute pancreatitis. The fluid collections may represent pseudocysts although abscess formation cannot be excluded. Gastric mass is not excluded. Recommend correlat ion with endoscopy if not previously performed. 2. The associated enlarged lymph nodes are likely reactive although metastatic disease is not excluded. 3. Calcification within the pancreatic head/uncinate process may be within a bile duct or be from dystrophic calcification from chronic pancreatitis Electronically signed by: Shola Overton MD (06/29/2021 2:10 PM) [facility] Heart Score: C/O Chest Pain: No Risk Factors: Risk Factors: DM, Current or recent (<one month) smoker, HTN, HLP, family history of CAD, obesity. Risk Scores: Score 0 - 3: 2.5% MACE over next 6 weeks - Discharge Home Score 4 - 6: 20.3% MACE over next 6 weeks - Admit for Clinical Observation Score 7 - 10: 72.7% MACE over next 6 weeks - Early Invasive Strategies Course & Med Decision Making: Course & Med Decision Making Pertinent Labs and Imaging studies reviewed. (See chart for details) [] 36-year-old male who presents with abdominal pain and history of chronic pancreatitis. Patient was recently seen by GI and had cyst drained. Patient is reporting pain 8/10. Nausea and vomiting and unable to keep anything down. Patient is reporting that his pain is worse than yesterday and that he now feels like he is having some trouble breathing reduce the discomfort. Patient is afebrile. Hemodynamically stable 4 mg morphine, 4 mg Zofran given to help with symptoms. NS bolus given. Patient was still reporting pain upon reassessment. Patient given 75 of fentanyl. Lipase 856, AST 14, ALT 13, platelets 402 CT of abdomen and pelvis showed possible abscess. Patient has a history of pseudocysts. Discussed CT results with patient. Patient is still reporting pain 8/10, nausea/vomiting. Patient is concerned about going home due to pain and not being able to keep anything down. I spoke with Dr. Atkinson who has agreed to admit patient to [facility]. Patient is appreciative and okay with admission plan. Patient is hemodynamically stable upon admission. Mick Disclaimer: Mick Disclaimer: This electronic medical record was generated, in whole or in part, using a voice recognition dictation system. Departure Departure: Impression: Primary Impression: Acute pancreatitis Qualified Codes: K85.90 - Acute pancreatitis without necrosis or infection, unspecified Additional Impression: Nausea and vomiting Qualified Codes: R11.2 - Nausea with vomiting, unspecified Disposition: ADMITTED INPATIENT Condition: STABLE Referrals: NETTA PUCKETT MD (PCP) NIECY ECKERT APRN Jun 29, 2021 13:15
--- NOTE | 2021-06-29 13:58 | RAD ---
EXAM: AP View of the chest DATE: 06/29/2021 1:32 PM INDICATION: Reason: ABD PAIN / Spl. Instructions: / History: COMPARISON: No Prior FINDINGS: The heart is not enlarged. Mediastinal and hilar contours are normal. No focal parenchymal airspace opacity. No pleural effusion or pneumothorax. IMPRESSION: 1. No radiographic evidence for acute cardiopulmonary process. Electronically signed by: Shola Overton MD (06/29/2021 1:56 PM) [facility]
--- NOTE | 2021-06-29 14:12 | RAD ---
EXAM: CT Abdomen and Pelvis without IV contrast CLINICAL HISTORY: Reason: EPIGASTRIC / UMBILLICAL ABD PAIN, CT AP W YESTERDAY AT [facility] [place] / Spl. Instructi ons: / History: . COMPARISON: 06/28/2021, 06/26/2021 06/08/2021 TECHNIQUE: Helical CT of the abdomen and pelvis without intravenous contrast. Axial, coronal and sagi ttal reformatted images were generated. PQRS compliance statement - One or more of the following individualized dose reduction techniques wer e utilized for this study: 1. Automated exposure control 2. Adjustment of the mA and/or kV according to patient size 3. Use of iterative reconstruction technique FINDINGS: Lack of intravenous contrast limits evaluation of solid organs, vasculature, and lymph nodes. Lower chest: Lung bases are clear. Abdomen and Pelvis: No focal liver lesion. High density material within the gallbladder is not seen likely vicarious excr etion of intravenous contrast material. Spleen is unremarkable. No biliary ductal dilatation. Small calcification in the pancreatic head possibly within the bile duct or pancreatic parenchyma fro m chronic pancreatitis. Numerous lymph nodes are seen in the region of the pancreatic head and along the greater curvature of the stomach and right upper quadrant. Diffuse infiltration about the pancrea tic head and antrum of the stomach. Small fluid collections about the pancreas are stable to 06/28/2021 better assessed on the previous contrast-enhanced examination. Thickening about the gallbladder like ly reactive. No focal renal lesion. No hydronephrosis. No hydroureter. No renal tract calculus. Bladd er is grossly unremarkable. Mild colonic stool content. Appendix is normal. No small or large bowel d ilatation. No bowel obstruction. Bones: Osseous structures are grossly stable. IMPRESSION: 1. Marked inflammatory change in the upper abdomen particularly around the gastric antrum, pyloric r egion and duodenum as well as the pancreatic head are grossly unchanged to prior CT from 06/28/2021. Th is is likely reactive from acute pancreatitis. The fluid collections may represent pseudocysts althou gh abscess formation cannot be excluded. Gastric mass is not excluded. Recommend correlation with end oscopy if not previously performed. 2. The associated enlarged lymph nodes are likely reactive although metastatic disease is not exclud ed. 3. Calcification within the pancreatic head/uncinate process may be within a bile duct or be from dy strophic calcification from chronic pancreatitis Electronically signed by: Shola Overton MD (06/29/2021 2:10 PM) [facility]
[2021-06-29] MEDS ORDERED: ONDANSETRON PF 4 MG/2 ML VIAL. IVP PRN (15:00)
[2021-06-29] MEDS: IV NORMAL SALINE 1,000ML 1,000 ML IV SCH ×2 (15:51→20:52)
--- NOTE | 2021-06-29 16:50 | NUR ---
Brad Burciaga, 36 yo m was admitted to Dr Atkinson service, inpatient tele rm 120 dx pancreatitis. Pt states N/V and abdominal pain started 2 days and is unable to keep anything down. He went to [facility] ER last night and was waiting in the waiting room for 8 hours, gave up and went home and came to our ER today. Currently pain is a 8/10, will medicate patient per orders. Reviewed poc with pt and he verbalized agreement. Will proceed accordingly. Provided pt with written copies of hospital and unit policies and procedures.
[2021-06-29 17:09] VITALS: BP 101/69
[2021-06-29] MEDS: MORPHINE SULFATE 4 MG/ML DISP.SYRIN. IVP PRN ×2 (17:52→20:49)
[2021-06-29] MEDS ORDERED: CITALOPRAM 20 MG TABLET. PO SCH (21:00)
[2021-06-29] MEDS ORDERED: traZODone 50 MG TABLET. PO SCH (22:00)
[2021-06-29] MEDS ORDERED: PRAZOSIN 1 MG CAPSULE. PO SCH (22:00)
[2021-06-29] MEDS ORDERED: ATORVASTATIN CALCIUM 20 MG TABLET PO SCH (22:00)
[2021-06-29] MEDS ORDERED: diphenhydrAMINE HCL 25 MG CAPSULE PO PRN (22:15)
[2021-06-29] MEDS ORDERED: ACETAMINOPHEN 500 MG TABLET PO PRN (22:15)
[2021-06-29 23:02] VITALS: BP 91/53
[2021-06-30] MEDS: MORPHINE SULFATE 4 MG/ML DISP.SYRIN. IVP PRN ×2 (02:12→05:20)
[2021-06-30] MEDS: IV NORMAL SALINE 1,000ML 1,000 ML IV SCH (05:21)
[2021-06-30 06:03] VITALS: BP 100/56
--- NOTE | 2021-06-30 06:18 | NUR ---
Contacted at per pt request for orders for routine night medications, small sips of water given with meds, morenita well; VSS, telemetry shows sinus rhythm/devonte with rate 50's-60's, no ectopy noted; denies nausea/vomiting; reports pain to mid/upper epigastric area, relieved with prn Morphine 4mg, given x3 this shift; sleeping soundly at present with no apparent distress.
[2021-06-30] MEDS ORDERED: OXYC1TAB20 PO (08:42)
--- NOTE | 2021-06-30 09:05 | NUR ---
Nursing Note Discharge Pt ambulated to his private vehicle where his picked him up. Pt alert and oriented and cooperative.
--- NOTE | 2021-06-30 09:39 | HP ---
ATTENDING PHYSICIAN: Dr. Atkinson CHIEF COMPLAINT: Abdominal pain. HISTORY OF PRESENT ILLNESS: The patient is a 36-year-old gentleman admitted through the ED with abdominal pain, new in onset. He has a 3-month history of chronic pancreatitis. Initial episode was 3 months ago. He did have workup and evaluation at [facility]. He had an ERCP done, which showed no evidence of gallstones. There is no obstruction. There is no bile duct dilatation. He had several pancreatic pseudocysts, which was treated. He actually had interventional radiology place a drain and had 1 pseudocyst aspirated. He has no fevers, no COVID exposure. He does smoke cigarettes and drinks a lot of coffee. I suspect his symptoms may be related to chronic reflux. He had an endoscopy just 2 weeks ago and at that time, no ulcer was identified. In the ED, he had an extensive workup. Lab work was fairly unremarkable. The amylase and lipase levels were not particularly elevated. He does have chronic pancreatitis. They could not rule out a phlegmon. He does not appear toxic at this time. He was admitted for treatment and management of pain and nausea. PAST MEDICAL HISTORY: Significant for the chronic pancreatitis. He also has new onset type 2 diabetes related to the pancreatitis. He has underlying depression. CURRENT MEDICATIONS: Reviewed. Prior to coming in, he was taking scheduled insulin. In addition, he was taking Lipitor, Lexapro, TriCor, regular and Lantus insulin, Nexium, oxycodone p.r.n., prazosin, and trazodone at bedtime. ALLERGIES: He has allergies to HYDROCODONE and METFORMIN. Exact reaction is unclear. FAMILY HISTORY: Noncontributory. SOCIAL HISTORY: He is and gainfully employed. He sees a primary care physician in ____. REVIEW OF SYSTEMS: Significant for the localized abdominal pain. No recent fevers, chills or exposure of hematemesis, bloody stools. All other systems reviewed and turned to be negative. PHYSICAL EXAMINATION: GENERAL: When I saw him, this is a pleasant young male who is well developed and well nourished. INITIAL VITAL SIGNS: Showed a blood pressure 100/56 mmHg, temperature was 97.8 degrees Fahrenheit, pulse was 56 and regular. His oxygen saturation was 98% on room air. HEENT: The head is without trauma. Pupils are reactive. Sclerae nonicteric. Oropharynx clear. NECK: Supple. No bruits. LUNGS: Clear to auscultation. CARDIOVASCULAR: Showed regular heart tones. No gallops or murmurs. ABDOMEN: Soft. Nontender to palpation. Normoactive bowel sounds. There is no guarding or rebound tenderness. There were no masses palpated. EXTREMITIES: Show no cyanosis or edema. NEUROLOGIC: Function is focally intact. No deficit. SKIN: Warm and dry. PERTINENT LABORATORY STUDIES: Hemoglobin is 11.6 g/dL with a white count of 8700. Electrolytes: Sodium was 143, potassium 3.1 mEq, asymptomatic. Creatinine 1.0 mg percent. Alkaline phosphatase 208. ____ lipase level was 856. CT of the abdomen showed evidence of chronic pancreatitis, some diffuse fluid collection and pseudocyst. Does not appear he has phlegmon, although they cannot rule that out. ASSESSMENT: 1. This 36-year-old gentleman has chronic pancreatitis. 2. Associated abdominal pain with nausea. 3. Type 2 diabetes, insulin-dependent. 4. Underlying depression. 5. Pancreatic pseudocyst. PLAN: 1. We will keep n.p.o. 2. Medical management. 3. Continue home medications with sips of water. 4. Pain and nausea control. JULIÁN/RY/JAYY DR: JULIÁN/nicole TID: [id number]
--- NOTE | 2021-06-30 19:40 | DS ---
DATE OF DISCHARGE: 06/30/2021 ATTENDING PHYSICIAN: Dr. Atkinson. FINAL DISCHARGE DIAGNOSES: 1. Chronic pancreatitis. 2. Abdominal pain, resolved. 3. Gastroesophageal reflux disease. 4. Underlying depression with anxiety. 5. Pancreatic pseudocysts that are not symptomatic at this time. HISTORY AND PHYSICAL: The patient is a 36-year-old gentleman who 3 months ago was diagnosed with acute pancreatitis. He has since developed complication with pseudocysts treated at [facility]. He had 1 cyst drained. He also had recent ERCP, which showed no evidence of retained stones. The pancreatitis is chronic and he also has associated diabetes since the diagnosis. He has been on insulin. He was admitted then with new-onset abdominal pain. No hematemesis. CT showed no new changes. The inflammation of the pancreas is chronic in nature. He was admitted for further treatment and evaluation and management of symptoms. PHYSICAL EXAMINATION: Please see the dictated note. PERTINENT LABORATORY AND X-RAY STUDIES: Hemoglobin slightly diminished at 11.6 g/dL with a white count of 8700. Chemistry panel fairly unremarkable. Potassium 3.1, will be monitored as an outpatient. Nonfasting blood sugar is 124 mg/dL. Admission lipase was [address] of the abdomen as noted, chronic changes without any acute process. COURSE IN HOSPITAL: The patient was admitted overnight. He was kept n.p.o. Meds given with sips of water. Pain and nausea controlled. He did better. By the second hospital day, he was afebrile. Vital signs were stable. He was ready for discharge. At this time, I made no recommendation regarding regimen. He will need to continue his insulin as well as his scheduled home meds. I recommended a bland diet. I did try to call in a prescription for Percocet 10/325 one p.o. q. 6 hours p.r.n. pain. 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 I strongly encouraged him to stop cigarette use and to cut back on caffeine. Whether or not he will quit smoking remains to be seen. He was discharged from our hospital in stable condition with explicit and followup care. NONA DR: Mattie TID: [id number]
--- NOTE | 2021-07-26 09:35 | DS ---
DATE OF DISCHARGE: 06/30/2021 ADDENDUM Once again I encouraged him strongly to quit smoking. We had smoking cessation directives given to the patient. Once again, I mentioned whether or not he will quit remains to be seen. In other words, he was counseled prior to being discharged. JULIÁN/JAYDEN/PINA DR: JULIÁN/nicole TID: [id number]
== END 2021-06-30 09:07 | disposition home or self-care (01) ==
LOC: ER 11:42 → 1 SOUTH 15:03 → INTOOBSV 15:03
PROVIDERS: ADMIT Hospitalist; ATTEND Hospitalist
DX: K85.90 Acute pancreatitis without necrosis or infection, unspecified (principal); K21.9 Gastro-esophageal reflux disease without esophagitis; K86.1 Other chronic pancreatitis; K86.3 Pseudocyst of pancreas; E11.9 Type 2 diabetes mellitus without complications; F17.210 Nicotine dependence, cigarettes, uncomplicated; F41.8 Other specified anxiety disorders; Z79.4 Long term (current) use of insulin; Z71.6 Tobacco abuse counseling
CPT/HCPCS: 36415; 71045; 74176; 80053; 83690; 85025; 96361; 96374; 96375; 96376; 99285; 99406; G0378; J2270; J2405; J3010; J7030; Q0163; G0379

== ENCOUNTER 2021-07-11 16:14 | Emergency (ER) | payer OTHER ==
[~2021-07-11] VITALS: Ht 185.4 cm; Wt 100.4 kg
[~2021-07-11 16:14] MED LIST changes: +OXYC1TAB20 PO
[2021-07-11 16:40] LABS: BASO # 0.2 x10^3/uL (0.0-0.2); BASO % 1 % (0-3); EOS # 0.4 x10^3/uL (0.0-0.7); EOS % 3 % (0-3); HEMATOCRIT 34.2 % (39.0-53.0); LYMPH # 1.9 x10^3/uL (1.0-4.8); LYMPH % 15 % (24-48); MEAN CORPUSCULAR HEMOGLOBIN 24 pg (25-35); MEAN CORPUSCULAR HGB CONC 32 g/dL (31-37); MEAN CORPUSCULAR VOLUME 75 fL (79-100); MONO # 0.9 x10^3/uL (0.0-1.1); MONO % 7 % (0-9); NEUT # 9.4 x10^3uL (1.8-7.7); NEUT % 73 % (31-73); PLATELET COUNT 350 x10^3/uL (140-400); RED BLOOD COUNT 4.54 x10^6/uL (4.30-5.70); RED CELL DISTRIBUTION WIDTH 18.5 % (11.5-14.5); WHITE BLOOD COUNT 12.8 x10^3/uL (4.0-11.0)
--- NOTE | 2021-07-11 16:40 | RAD ---
Single AP view of the chest. Comparison: 06/29/2021. Indication: Chest pain and syncope Findings: The heart is not enlarged. There is no pneumothorax or effusion. Patchy airspace disease is seen in the left lung base. Impression: 1. Left basilar patchy airspace disease may represent pneumonia or atypical infection. Electronically signed by: Alejandro Howell MD (07/11/2021 4:37 PM) [facility]
[2021-07-11] MEDS ORDERED: IV NORMAL SALINE 1,000ML 1,000 ML IV ONE (16:45)
[2021-07-11] MEDS ORDERED: ONDANSETRON PF 4 MG/2 ML VIAL. IVP ONE (16:45)
[2021-07-11 16:54] LABS: CALCIUM 9.1 mg/dL (8.5-10.1); CREATININE 1.1 mg/dL (0.7-1.3); GFR 75.7; POTASSIUM 3.7 mmol/L (3.5-5.1)
[2021-07-11 17:00] LABS: TOTAL BILIRUBIN 0.2 mg/dL (0.2-1.0); TOTAL PROTEIN 7.9 g/dL (6.4-8.2)
[2021-07-11 17:09] LABS: ALBUMIN 3.1 g/dL (3.4-5.0)
--- NOTE | 2021-07-11 17:09 | PHYS DOC ---
Past History Past Medical History: Anxiety, Depression, Diabetes, GERD, Pancreatitis Additional Past Medical Histor: pancreatitis (KWADWO MOJICA APRN) Past Surgical History: Other Additional Past Surgical Histo: RIGHT ANKLE (KWADWO MOJICA APRN) Smoking: Cigarettes Alcohol Use: Occasionally Drug Use: None (KWADWO MOJICA APRN) General Adult EDM: Chief Complaint: CHEST PAIN HPI: HPI: Patient is a 36-year-old male presents to the ER for multiple complaints. Patient is complaining of syncope. Patient reports that he has had syncopal episodes for the last week. Patient reports that he went from a sitting to standing position passed out. Patient reports hitting his head. He rates his head pain 7 out of 10. Patient reports that he feels lightheaded with position changes but laying in the bed he is not lightheaded. Patient also reports blurred vision. Patient has a history of diabetes. His blood sugar was 137. He reports that he took his insulin today. Patient has a history of pancreatitis. He is complaining of left upper quadrant pain with vomiting and diarrhea that is chronic for him. He reports that he is scheduled for surgery next Thursday. Patient is also reporting epigastric pain for the last 2 hours. Patient denies cough, shortness of breath, fever, sick exposures. (KWADWO MOJICA APRN) Review of Systems: Review of Systems: 14 body systems of the review of systems have been reviewed. See HPI for pertinent positive and negative responses, otherwise all other systems are negative, nonpertinent or noncontributory (KWADWO MOJICA APRN) Current Medications: Current Meds: Current Medications Medications (Trade) Dose Ordered Sig/Terell Start Time Stop Time Status Last Admin Dose Admin Ondansetron HCl (Zofran) 4 mg 1X ONCE 07/11/21 16:45 07/11/21 16:46 DC Sodium Chloride 1,000 ml @ 1,000 mls/hr 1X ONCE 07/11/21 16:45 07/11/21 17:44 (KWADWO MOJICA APRN) Allergies: Allergies: Allergies Coded Allergies Type Severity Reaction Last Updated Verified dulaglutide Allergy Intermediate 06/26/21 Yes hydrocodone Allergy Intermediate 06/26/21 Yes metformin Allergy Intermediate 06/26/21 Yes (KWADWO MOJICA APRN) Physical Exam: PE: Constitutional: Well developed, well nourished, no acute distress, non-toxic appearance. [] HENT: Normocephalic, atraumatic, bilateral external ears normal, oropharynx mois t, no oral exudates, nose normal. [] Eyes: PERRLA, EOMI, conjunctiva normal, no discharge. [] Neck: Normal range of motion, no tenderness, supple, no stridor. [] Cardiovascular:Heart rate tachycardic rhythm, no murmur [] Lungs & Thorax: Bilateral breath sounds clear to auscultation, tachypnea [] Abdomen: Bowel sounds normal, soft, no tenderness, no masses, no pulsatile masses. [] Skin: Warm, dry, no erythema, no rash. [] Back: No tenderness, no CVA tenderness. [] Extremities: No tenderness, no cyanosis, no clubbing, ROM intact, no edema. [] Neurologic: Alert and oriented X 3, normal motor function, normal sensory function, no focal deficits noted. [] Psychologic: Affect normal, judgement normal, mood normal. [] (KWADWO MOJICA APRN) Current Patient Data: Labs: Laboratory Tests Test 07/11/21 16:17 07/11/21 16:19 Glucose (Fingerstick) 137 mg/dL (70-99) H White Blood Count 12.8 x10^3/uL (4.0-11.0) H Red Blood Count 4.54 x10^6/uL (4.30-5.70) Hemoglobin 11.0 g/dL (13.0-17.5) L Hematocrit 34.2 % (39.0-53.0) L Mean Corpuscular Volume 75 fL (79-100) L Mean Corpuscular Hemoglobin 24 pg (25-35) L Mean Corpuscular Hemoglobin Concent 32 g/dL (31-37) Red Cell Distribution Width 18.5 % (11.5-14.5) H Platelet Count 350 x10^3/uL (140-400) Neutrophils (%) (Auto) 73 % (31-73) Lymphocytes (%) (Auto) 15 % (24-48) L Monocytes (%) (Auto) 7 % (0-9) Eosinophils (%) (Auto) 3 % (0-3) Basophils (%) (Auto) 1 % (0-3) Neutrophils # (Auto) 9.4 x10^3uL (1.8-7.7) H Lymphocytes # (Auto) 1.9 x10^3/uL (1.0-4.8) Monocytes # (Auto) 0.9 x10^3/uL (0.0-1.1) Eosinophils # (Auto) 0.4 x10^3/uL (0.0-0.7) Basophils # (Auto) 0.2 x10^3/uL (0.0-0.2) Vital Signs: Vital Signs Date Time Temp Pulse Resp B/P (MAP) Pulse Ox O2 Delivery O2 Flow Rate FiO2 07/11/21 16:17 98.6 86 16 110/65 100 Room Air (KWADWO MOJICA HARNESS PREPARER) EKG: EKG: EKG performed by ER staff at 1619 shows sinus rhythm, no STEMI. [] (KWADWO MOJICA APRN) Radiology/Procedures: Radiology/Procedures: PROCEDURE: CT ABD PELV W/ IV CONTRST ONLY Exam: CT of abdomen and pelvis with contrast INDICATION: Left upper quadrant pain TECHNIQUE: Sequential axial images through the abdomen and pelvis obtained following the administration of 75 mL of Isovue-370 IV contrast. Sagittal and coronal reformatted images were reconstructed from the axial data and reviewed. Exposure: One or more of the following in the visualized dose reduction techniques were utilized for this examination: 1. Automated exposure control 2. Adjustment of the MA and/or KV according to patient size 3. Use of iterative of reconstructive technique Comparisons: 06/29/2021 FINDINGS: Heart size is normal. No pericardial patchy airspace disease at the left lower lobe. No pleural effusion. Liver, spleen, and adrenals are unremarkable. Gallbladder is partially distended and not well evaluated. Diffuse inflammatory changes noted at the pancreatic head. There is wall thickening noted at the distal stomach. Persistent calcification at the pa ncreatic head. No perinephric inflammation or hydronephrosis. No renal or ureteral calculi are identified. Bladder is partially distended and not well evaluated. Prostate is not enlarged. Large and small bowel are unremarkable. Appendix is normal. No free intra- abdominal air or fluid. No obstruction. Abdominal aorta has a normal course and caliber. Abdominal vasculature is pink nt. No enlarged intra-abdominal lymph nodes are identified. No suspicious osseous lesions or acute fractures. IMPRESSION: 1. Findings again of pancreatitis with inflammatory changes surrounding the pancreatic head involving the distal stomach. As before there is a calcification noted at the pancreatic head, which could represent calcification from chronic pancreatitis versus intraductal stone. Correlation with MRCP/ERCP is recommended if not performed in the last 2-3 months. 2. Consolidative changes in the left lower lobe favored be infectious or inflammatory in etiology. Electronically signed by: Gabbi Whitehead MD (07/11/2021 5:47 PM) [facility] DICTATED AND SIGNED BY: GABBI WHITEHEAD MD DATE: 07/11/21 1737 CC: NETTA PUCKETT MD; KWADWO MOJICA APRN ~MTH0 0 []PROCEDURE: CHEST AP ONLY Single AP view of the chest. Comparison: 06/29/2021. Indication: Chest pain and syncope Findings: The heart is not enlarged. There is no pneumothorax or effusion. Patchy airspace disease is seen in the left lung base. Impression: 1. Left basilar patchy airspace disease may represent pneumonia or atypical infection. Electronically signed by: Alejandro Howell MD (07/11/2021 4:37 PM) [facility] DICTATED AND SIGNED BY: ALEJANDRO HOWELL MD DATE: 07/11/21 1637 CC: EMERGENCY,DEPARTMENT; NETTA PUCKETT MD; KWADWO MOJICA APRN ~MTH0 0 (KWADWO MOJICA APRN) Heart Score: C/O Chest Pain: Yes (Epigastric pain) HEART Score for Chest Pain: HEART Score for Chest Pain Response (Comments) Value History Slighlty/Non-Suspicious 0 ECG Normal 0 Age < 45 0 Risk Factors 1 or 2 Risk Factors 1 Troponin < Normal Limit 0 Total 1 Risk Factors: Risk Factors: DM, Current or recent (<one month) smoker, HTN, HLP, family history of CAD, obesity. Risk Scores: Score 0 - 3: 2.5% MACE over next 6 weeks - Discharge Home Score 4 - 6: 20.3% MACE over next 6 weeks - Admit for Clinical Observation Score 7 - 10: 72.7% MACE over next 6 weeks - Early Invasive Strategies (KWADWO MOJICA APRN) Course & Med Decision Making: Course & Med Decision Making Pertinent Labs and Imaging studies reviewed. (See chart for details) Patient is a 36-year-old male who presents to the ER for multiple complaints including syncopal episodes along with left upper quadrant pain due to his chronic pancreatitis. Patient reports that he feels lightheaded with position changes and he has syncopal episodes when he gets up too fast. It is likely that patient has BPV. Patient treated with fluids. He was also treated with nausea medication and pain medication. Patient reports that he is scheduled for surgery on Thursday due to his pancreatitis. Work-up included CT scan of abdomen, blood work, EKG, chest x-ray, urinalysis. Patient was treated with pain medication and nausea medication. [place] CT head rules 0. Patient's vital signs are stable and he is tachypneic. Patient's heart score is 1. EKG shows sinus rhythm. CT scan of abdomen again shows pancreatitis. Patient advised to stick to clear liquid diet and follow-up with his primary care provider with the surgeon placing the stent for his pancreatitis in 2 days. Patient has mild leukocytosis. Chest x-ray shows left basilar pneumonia. Patient will be treated with an antibiotic. Patient road tested and is able to ambulate with a steady gait without dizziness. Due to patient having pneumonia, patient tested for COVID-19 and will be notified of his results may become available. I discussed with patient all findings and diagnostic testing as well as the need to follow-up with PCP for further evaluation and treatment or return to the ER if any new or worsening symptoms. Strict return precautions were also discussed at length. Patient voiced understanding and agreement with the plan. Patient is hemodynamically stable at the time of disposition. Patient's vital signs are stable at discharge his heart rate is 90. (KWADWO MOJICA APRN) Dragon Disclaimer: Dragon Disclaimer: This electronic medical record was generated, in whole or in part, using a voice recognition dictation system. (KWADWO MOJICA APRN) Attending Co-Sign The patient was seen and interviewed as well as examined at the bedside. The chart was reviewed. The case was discussed. Agree with the plan of care. (ALESIA NARAYANAN DO) Departure Departure: Impression: Primary Impression: Chronic pancreatitis Qualified Codes: K86.1 - Other chronic pancreatitis Additional Impressions: Person under investigation for COVID-19 Pneumonia Qualified Codes: J18.9 - Pneumonia, unspecified organism Disposition: HOME / SELF CARE / HOMELESS Condition: GOOD Referrals: NETTA PUCKETT MD (PCP) Patient Instructions: Acute Pancreatitis, Pneumonia, Adult Additional Instructions: You were seen in the ER for left upper quadrant pain that is chronic for you. As you stated, you have pancreatitis. You were treated with nausea and pain medication. Please follow-up with your general surgeon regarding this. Please stick to a clear liquid diet over the next 24 hours. This includes Gatorade, soups, Jell-O's. Please avoid any foods that may exacerbate your abdominal pain such as spicy, greasy, fatty foods. You were also seen for lightheadedness and was treated with fluids. You were able to ambulate without any dizziness in the ER. Your chest x-ray showed a left lower lobe pneumonia. You were Covid tested in the ER. Please self isolate until you receive those results in approximately 2 days. You are being discharged home with an antibiotic. Please make sure you start and finish it completely. Follow-up with your primary care provider tomorrow regarding your ER visit. If you develop lightheadedness, syncope, chest pain, shortness of breath, severe abdominal pain, blood in your stools or vomit, fevers refractory to treatment,. intractable nausea vomiting please return to the ER immediately. EMERGENCY DEPARTMENT GENERAL DISCHARGE INSTRUCTIONS Thank you for coming to [facility] (ED) today and trusting us with you care. We trust that you had a positivie experience in our Emergency Department. If you wish to speak to the department management, you may call the director at [phone]. YOUR FOLLOW UP INSTRUCTIONS ARE FOLLOWS: 1. Do you have a private Doctor? If you do not have a private doctor, please ask for a resource list of physicians or clinics that may be able to assist you with follow up care. 2. The Emergency Physician has interpreted your x-rays. The X-Ray specialist will also review them. If there is a change in the findings, you will be notified in 48 hours when at all possible. 3. A lab test or culture has been done, your results will be reviewed and you will be notified if you need a change in treatment. ADDITIONAL INSTRUCTIONS AND INFORMATION: 1. Your care today has been supervised by a physician who is specially trained in emergency care. Many problems require more than one evaluation for a complete diagnosis and treatment. We recommend that you schedule your follow up appointment as recommended to ensure complete treatment of you illness or injury. If you are unable to obtain follow up care and continue to have a problem, or if your condition worsens, we recommend that you return to the ED. 2. We are not able to safely determine your condition over the phone nor are we able to give sound medical advice over the phone. For these safety reasons, if you call for medical advice we will ask you to come to the ED for further evaluation. 3. If you have any questions regarding these discharge instructions please call the ED at [phone]. SAFETY INFORMATION: In the interest of safety, wellness, and injury prevention; we encourage you to wear your sealbelt, if you smoke; quite smoking, and we encourage family to use a protective helmet for bicycling and other sporting events that present an increased risk for head injury. IF YOUR SYMPTOMS WORSEN OR NEW SYMPTOMS DEVELOP, OR YOU HAVE CONCERNS ABOUT YOUR CONDITION; OR IF YOUR CONDITION WORSENS WHILE YOU ARE WAITING FOR YOUR FOLLOW UP APPOINTMENT; EITHER CONTACT YOUR PRIMARY CARE DOCTOR, THE PHYSICIAN WHOSE NAME AND NUMBER YOU WERE GIVEN, OR RETURN TO THE ED IMMEDIATELY. Scripts Azithromycin (AZITHROMYCIN TABLET) 250 Mg Tablet 1 PKG PO UD for pneumonia for 5 Days, #6 TAB 0 Refills 2 the first day followed by 1 for days 2-5 Prov: KWADWO MOJICA APRN 07/11/21 KWADWO MOJICA APRN Jul 11, 2021 17:09 ALESIA NARAYANAN DO Jul 12, 2021 07:08
[2021-07-11 17:12] LABS: ALBUMIN/GLOBULIN RATIO 0.6 (1.0-1.7)
[2021-07-11] MEDS ORDERED: IOHEXOL 300 MG/ML 75 ML VIAL. IV ONE (17:15)
--- NOTE | 2021-07-11 17:19 | EKG ---
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
--- NOTE | 2021-07-11 17:49 | RAD ---
Exam: CT of abdomen and pelvis with contrast INDICATION: Left upper quadrant pain TECHNIQUE: Sequential axial images through the abdomen and pelvis obtained following the administrati on of 75 mL of Isovue-370 IV contrast. Sagittal and coronal reformatted images were reconstructed fro m the axial data and reviewed. Exposure: One or more of the following in the visualized dose reduction techniques were utilized for this examination: 1. Automated exposure control 2. Adjustment of the MA and/or KV according to patient size 3. Use of iterative of reconstructive technique Comparisons: 06/29/2021 FINDINGS: Heart size is normal. No pericardial patchy airspace disease at the left lower lobe. No pleural effus ion. Liver, spleen, and adrenals are unremarkable. Gallbladder is partially distended and not well evaluat ed. Diffuse inflammatory changes noted at the pancreatic head. There is wall thickening noted at the dist al stomach. Persistent calcification at the pancreatic head. No perinephric inflammation or hydronephrosis. No renal or ureteral calculi are identified. Bladder is partially distended and not well evaluated. Prostate is not enlarged. Large and small bowel are unremarkable. Appendix is normal. No free intra-abdominal air or fluid. No obstruction. Abdominal aorta has a normal course and caliber. Abdominal vasculature is patent. No enlarged intra-abdominal lymph nodes are identified. No suspicious osseous lesions or acute fractures. IMPRESSION: 1. Findings again of pancreatitis with inflammatory changes surrounding the pancreatic head involvin g the distal stomach. As before there is a calcification noted at the pancreatic head, which could re present calcification from chronic pancreatitis versus intraductal stone. Correlation with MRCP/ERCP is recommended if not performed in the last 2-3 months. 2. Consolidative changes in the left lower lobe favored be infectious or inflammatory in etiology. Electronically signed by: Gabbi Ovalle MD (07/11/2021 5:47 PM) [facility]
[2021-07-11 18:10] VITALS: BP 122/69
[2021-07-11] MEDS ORDERED: AZIT250T6 PO (18:11)
== END 2021-07-11 18:34 | disposition home or self-care (01) ==
LOC: ER 16:14
DX: K86.1 Other chronic pancreatitis (principal); J18.9 Pneumonia, unspecified organism; F41.9 Anxiety disorder, unspecified; E11.9 Type 2 diabetes mellitus without complications; K21.9 Gastro-esophageal reflux disease without esophagitis; R55 Syncope and collapse; F17.210 Nicotine dependence, cigarettes, uncomplicated; Z20.822 Contact with and (suspected) exposure to COVID-19; Z88.5 Allergy status to narcotic agent; Z88.8 Allergy status to other drugs, medicaments and biological substances
CPT/HCPCS: 36415; 71045; 74177; 80053; 82947; 83690; 84484; 85025; 93005; 96361; 96374; 96375; 99285; C9803; J2405; J3010; J7030; Q9967; U0003

== ENCOUNTER 2021-07-17 16:23 | Emergency (ER) | payer OTHER ==
[~2021-07-17] VITALS: Ht 185.4 cm; Wt 96.6 kg
[~2021-07-17 16:23] MED LIST changes: +AZIT250T6 PO
[2021-07-17 16:41] VITALS: BP 135/86
[2021-07-17] MEDS ORDERED: OXYC1TAB15 PO (16:50)
[2021-07-17] MEDS ORDERED: OXYC1TAB22 PO (16:52)
--- NOTE | 2021-07-17 16:53 | PHYS DOC ---
Past History Past Medical History: Anxiety, Depression, Diabetes, GERD, Pancreatitis Additional Past Medical Histor: pancreatitis Past Surgical History: Other Additional Past Surgical Histo: RIGHT ANKLE Smoking: Cigarettes Alcohol Use: Occasionally Drug Use: None General Adult EDM: Chief Complaint: ABDOMINAL PAIN HPI: HPI: Patient is a [age] year old [sex] who presents with [] Review of Systems: Review of Systems: Constitutional: Denies fever or chills Eyes: Denies change in visual acuity HENT: Denies nasal congestion or sore throat Respiratory: Denies cough or shortness of breath Cardiovascular: Denies chest pain or edema GI: Denies abdominal pain, nausea, vomiting, bloody stools or diarrhea : Denies dysuria Musculoskeletal: Denies back pain or joint pain Integument: Denies rash Neurologic: Denies headache, focal weakness or sensory changes Endocrine: Denies polyuria or polydipsia Lymphatic: Denies swollen glands Psychiatric: Denies depression or anxiety Allergies: Allergies: Allergies Coded Allergies Type Severity Reaction Last Updated Verified dulaglutide Allergy Intermediate 06/26/21 Yes hydrocodone Allergy Intermediate 06/26/21 Yes metformin Allergy Intermediate 06/26/21 Yes Physical Exam: PE: Constitutional: Well developed, well nourished, no acute distress, non-toxic appearance. [] HENT: Normocephalic, atraumatic, bilateral external ears normal, oropharynx moist, no oral exudates, nose normal. [] Eyes: PERRLA, EOMI, conjunctiva normal, no discharge. [] Neck: Normal range of motion, no tenderness, supple, no stridor. [] Cardiovascular:Heart rate regular rhythm, no murmur [] Lungs & Thorax: Bilateral breath sounds clear to auscultation [] Abdomen: Bowel sounds normal, soft, no tenderness, no masses, no pulsatile masses. [] Skin: Warm, dry, no erythema, no rash. [] Back: No tenderness, no CVA tenderness. [] Extremities: No tenderness, no cyanosis, no clubbing, ROM intact, no edema. [] Neurologic: Alert and oriented X 3, normal motor function, normal sensory function, no focal deficits noted. [] Psychologic: Affect normal, judgement normal, mood normal. [] EKG: EKG: [] Radiology/Procedures: Radiology/Procedures: [] Heart Score: Risk Factors: Risk Factors: DM, Current or recent (<one month) smoker, HTN, HLP, family history of CAD, obesity. Risk Scores: Score 0 - 3: 2.5% MACE over next 6 weeks - Discharge Home Score 4 - 6: 20.3% MACE over next 6 weeks - Admit for Clinical Observation Score 7 - 10: 72.7% MACE over next 6 weeks - Early Invasive Strategies Course & Med Decision Making: Course & Med Decision Making Pertinent Labs and Imaging studies reviewed. (See chart for details) [] Dragon Disclaimer: Dragon Disclaimer: This electronic medical record was generated, in whole or in part, using a voice recognition dictation system. Departure Departure: Impression: Primary Impression: Chronic pancreatitis Qualified Codes: K86.1 - Other chronic pancreatitis Disposition: HOME / SELF CARE / HOMELESS Condition: STABLE Referrals: NETTA PUCKETT MD (PCP) Patient Instructions: Chronic Pain, Chronic Pain Management Additional Instructions: Please follow up with [facility] as previously scheduled for your pancreatic duct surgery Scripts Oxycodone Hcl/Acetaminophen (PERCOCET 10-325 MG TABLET ) 1 Each Tablet 0.5-1 TAB PO PRN Q6HRS PRN for PAIN, #10 TAB Prov: TEE CHAVEZ DO 07/17/21 TEE CHAVEZ DO Jul 17, 2021 16:53
[2021-07-17] MEDS ORDERED: ONDANSETRON ODT 4 MG TAB.RAPDIS PO ONE (17:00)
[2021-07-17] MEDS ORDERED: oxyCODONE/APAP 5/325 1 TAB TABLET PO ONE (17:00)
== END 2021-07-17 17:18 | disposition home or self-care (01) ==
LOC: ER 16:23
DX: K86.1 Other chronic pancreatitis (principal); F41.9 Anxiety disorder, unspecified; F32.9 Major depressive disorder, single episode, unspecified; E11.9 Type 2 diabetes mellitus without complications; K21.9 Gastro-esophageal reflux disease without esophagitis; F17.210 Nicotine dependence, cigarettes, uncomplicated; Z88.5 Allergy status to narcotic agent; Z88.8 Allergy status to other drugs, medicaments and biological substances
CPT/HCPCS: 99283; Q0162

== ENCOUNTER 2021-07-20 16:59 | Emergency (ER) | payer OTHER ==
[~2021-07-20] VITALS: Ht 185.4 cm; Wt 96.6 kg
[~2021-07-20 16:59] MED LIST changes: +OXYC1TAB15 PO; +OXYC1TAB22 PO
[2021-07-20] MEDS ORDERED: ONDANSETRON PF 4 MG/2 ML VIAL. IVP ONE (17:45)
[2021-07-20] MEDS ORDERED: IV NORMAL SALINE 1,000ML 1,000 ML IV ONE (17:45)
--- NOTE | 2021-07-20 17:48 | PHYS DOC ---
Past History Past Medical History: Anxiety, Depression, Diabetes, GERD, Pancreatitis Additional Past Medical Histor: pancreatitis (KWADWO MOJICA APRN) Past Surgical History: Other Additional Past Surgical Histo: RIGHT ANKLE (KWADWO MOJICA APRN) Smoking: Cigarettes Additional Smoking Information: patient using patch/gum to quit Alcohol Use: None Drug Use: None (KWADWO MOJICA APRN) General Adult EDM: Chief Complaint: ABDOMINAL PAIN HPI: HPI: Patient is a 36-year-old male being seen in the ER for chronic abdominal pain. Patient has a history of chronic pancreatitis. He was seen in this ER for similar complaints within the last week. He states that he is scheduled for surgery on July 30. Patient is reporting epigastric abdominal pain that he rates 9 out of 10. He took oxycodone and Zofran this morning. Patient is reporting nausea and vomiting. He denies any blood in his vomit or stools, fevers, diarrhea. (KWADWO MOJICA APRN) Review of Systems: Review of Systems: 14 body systems of the review of systems have been reviewed. See HPI for pertinent positive and negative responses, otherwise all other systems are negative, nonpertinent or noncontributory (KWADWO MOJICA APRN) Current Medications: Current Meds: Current Medications Medications (Trade) Dose Ordered Sig/Terell Start Time Stop Time Status Last Admin Dose Admin Fentanyl Citrate (Fentanyl 2ml Vial) 50 mcg 1X ONCE 07/20/21 17:45 07/20/21 17:46 UNV Ondansetron HCl (Zofran) 4 mg 1X ONCE 07/20/21 17:45 07/20/21 17:46 UNV Sodium Chloride 1,000 ml @ 1,000 mls/hr 1X ONCE 07/20/21 17:45 07/20/21 18:44 UNV (KWADWO MOJICA APRN) Allergies: Allergies: Allergies Coded Allergies Type Severity Reaction Last Updated Verified dulaglutide Allergy Intermediate 06/26/21 Yes hydrocodone Allergy Intermediate 06/26/21 Yes metformin Allergy Intermediate 06/26/21 Yes (KWADWO MOJICA APRN) Physical Exam: PE: Constitutional: Well developed, well nourished, no acute distress, non-toxic appearance. [] HENT: Normocephalic, atraumatic, bilateral external ears normal, oropharynx moist, no oral exudates, nose normal. [] Eyes: PERRL, EOMI, conjunctiva normal, no discharge. [] Neck: Normal range of motion, no stridor Cardiovascular:Heart rate regular rhythm, no murmur [] Lungs & Thorax: Bilateral breath sounds clear to auscultation [] Abdomen: Bowel sounds normal, soft, epigastric abdominal pain with palpation no masses, no pulsatile masses. [] Skin: Warm, dry, no erythema, no rash. [] Back: Normal range of motion Extremities: No tenderness, no cyanosis, no clubbing, ROM intact, no edema. [] Neurologic: Alert and oriented X 3, normal motor function, normal sensory function, no focal deficits noted. [] Psychologic: Affect normal, judgement normal, mood normal. [] (KWADWO MOJICA APRN) Current Patient Data: Labs: Laboratory Tests Test 07/20/21 18:20 White Blood Count 12.9 x10^3/uL Red Blood Count 5.23 x10^6/uL Hemoglobin 13.0 g/dL Hematocrit 39.3 % Mean Corpuscular Volume 75 fL Mean Corpuscular Hemoglobin 25 pg Mean Corpuscular Hemoglobin Concent 33 g/dL Red Cell Distribution Width 18.8 % Platelet Count 520 x10^3/uL Neutrophils (%) (Auto) 73 % Lymphocytes (%) (Auto) 20 % Monocytes (%) (Auto) 5 % Eosinophils (%) (Auto) 2 % Basophils (%) (Auto) 0 % Neutrophils # (Auto) 9.3 x10^3uL Lymphocytes # (Auto) 2.6 x10^3/uL Monocytes # (Auto) 0.7 x10^3/uL Eosinophils # (Auto) 0.2 x10^3/uL Basophils # (Auto) 0.0 x10^3/uL Sodium Level 141 mmol/L Potassium Level 3.9 mmol/L Chloride Level 96 mmol/L Carbon Dioxide Level 33 mmol/L Anion Gap 12 Blood Urea Nitrogen 11 mg/dL Creatinine 1.0 mg/dL Estimated GFR (Cockcroft-Gault) 84.5 BUN/Creatinine Ratio 11 Glucose Level 127 mg/dL Calcium Level 9.4 mg/dL Total Bilirubin 0.3 mg/dL Aspartate Amino Transf (AST/SGOT) 23 U/L Alanine Aminotransferase (ALT/SGPT) 17 U/L Alkaline Phosphatase 144 U/L Total Protein 8.3 g/dL Albumin 4.0 g/dL Albumin/Globulin Ratio 0.9 Lipase 363 U/L Current Medications Medications (Trade) Dose Ordered Sig/Terell Route PRN Reason Start Time Stop Time Status Last Admin Dose Admin Sodium Chloride 1,000 ml @ 1,000 mls/hr 1X ONCE IV 07/20/21 17:45 07/20/21 18:44 DC 07/20/21 18:32 Ondansetron HCl (Zofran) 4 mg 1X ONCE IVP 07/20/21 17:45 07/20/21 17:46 DC 07/20/21 18:33 Fentanyl Citrate (Fentanyl 2ml Vial) 50 mcg 1X ONCE IVP 07/20/21 17:45 07/20/21 17:46 DC 07/20/21 18:34 Vital Signs: Vital Signs Date Time Temp Pulse Resp B/P (MAP) Pulse Ox O2 Delivery O2 Flow Rate FiO2 07/20/21 17:20 98.7 88 18 114/64 99 (KWADWO MOJICA APRN) EKG: EKG: [] (KWADWO MOJICA APRN) Radiology/Procedures: Radiology/Procedures: [] (KWADWO MOJICA APRN) Heart Score: C/O Chest Pain: No Risk Factors: Risk Factors: DM, Current or recent (<one month) smoker, HTN, HLP, family history of CAD, obesity. Risk Scores: Score 0 - 3: 2.5% MACE over next 6 weeks - Discharge Home Score 4 - 6: 20.3% MACE over next 6 weeks - Admit for Clinical Observation Score 7 - 10: 72.7% MACE over next 6 weeks - Early Invasive Strategies (KWADWO MOJICA APRN) Course & Med Decision Making: Course & Med Decision Making Pertinent Labs and Imaging studies reviewed. (See chart for details) [] Patient is a 36-year-old male being seen in the ER for epigastric pain. Patient has a history of chronic pancreatitis. Work-up in the ER consisted of blood work. He was treated with fluids, nausea medication, pain medication. Work-up in the ER was unremarkable. Patient advised to continue taking the medications for pain previously prescribed. Patient advised to increase his fluids at home. I discussed with patient all findings and diagnostic testing as well as the need to follow-up with PCP for further evaluation and treatment or return to the ER if any new or worsening symptoms. Strict return precautions were also discussed at length. Patient voiced understanding and agreement with the plan. Patient is hemodynamically stable at the time of disposition. (KWADWO MOJICA APRN) Course & Med Decision Making Did not see or evaluate patient. Agree with VICE CHAIR's work-up and disposition per note. (RICO GONZALEZ MD) Dragon Disclaimer: Dragon Disclaimer: This electronic medical record was generated, in whole or in part, using a voice recognition dictation system. (KWADWO MOJICA APRN) Departure Departure: Impression: Primary Impression: Chronic pancreatitis Qualified Codes: K86.1 - Other chronic pancreatitis Disposition: HOME / SELF CARE / HOMELESS Condition: GOOD Referrals: NETTA PUCKETT MD (PCP) Patient Instructions: Acute Pancreatitis Additional Instructions: You were seen in the ER today for abdominal pain with nausea and vomiting. Your work-up was unremarkable. Please increase your fluids at home and take the medication as previously prescribed to you. Follow-up with your primary care provider on Thursday. If you develop worsening of your abdominal pain, intractable nausea or vomiting, high fevers refractory to treatment, blood in your stools or vomit please return to the ER. EMERGENCY DEPARTMENT GENERAL DISCHARGE INSTRUCTIONS Thank you for coming to [facility] (ED) today and trusting us with you care. We trust that you had a positivie experience in our Emergency Department. If you wish to speak to the department management, you may call the director at [phone]. YOUR FOLLOW UP INSTRUCTIONS ARE FOLLOWS: 1. Do you have a private Doctor? If you do not have a private doctor, please ask for a resource list of physicians or clinics that may be able to assist you with follow up care. 2. The Emergency Physician has interpreted your x-rays. The X-Ray specialist will also review them. If there is a change in the findings, you will be notified in 48 hours when at all possible. 3. A lab test or culture has been done, your results will be reviewed and you will be notified if you need a change in treatment. ADDITIONAL INSTRUCTIONS AND INFORMATION: 1. Your care today has been supervised by a physician who is specially trained in emergency care. Many problems require more than one evaluation for a complete diagnosis and treatment. We recommend that you schedule your follow up appointment as recommended to ensure complete treatment of you illness or injury. If you are unable to obtain follow up care and continue to have a problem, or if your condition worsens, we recommend that you return to the ED. 2. We are not able to safely determine your condition over the phone nor are we able to give sound medical advice over the phone. For these safety reasons, if you call for medical advice we will ask you to come to the ED for further evaluation. 3. If you have any questions regarding these discharge instructions please call the ED at [phone]. SAFETY INFORMATION: In the interest of safety, wellness, and injury prevention; we encourage you to wear your sealbelt, if you smoke; quite smoking, and we encourage family to use a protective helmet for bicycling and other sporting events that present an increased risk for head injury. IF YOUR SYMPTOMS WORSEN OR NEW SYMPTOMS DEVELOP, OR YOU HAVE CONCERNS ABOUT YOUR CONDITION; OR IF YOUR CONDITION WORSENS WHILE YOU ARE WAITING FOR YOUR FOLLOW UP APPOINTMENT; EITHER CONTACT YOUR PRIMARY CARE DOCTOR, THE PHYSICIAN WHOSE NAME AND NUMBER YOU WERE GIVEN, OR RETURN TO THE ED IMMEDIATELY. KWADWO MOJICA APRN Jul 20, 2021 17:48 RICO GONZALEZ MD Jul 20, 2021 19:08
[2021-07-20 18:45] LABS: BASO % 0 % (0-3); EOS # 0.2 x10^3/uL (0.0-0.7); EOS % 2 % (0-3); HEMATOCRIT 39.3 % (39.0-53.0); LYMPH # 2.6 x10^3/uL (1.0-4.8); LYMPH % 20 % (24-48); MEAN CORPUSCULAR HEMOGLOBIN 25 pg (25-35); MEAN CORPUSCULAR HGB CONC 33 g/dL (31-37); MEAN CORPUSCULAR VOLUME 75 fL (79-100); MONO # 0.7 x10^3/uL (0.0-1.1); MONO % 5 % (0-9); NEUT # 9.3 x10^3uL (1.8-7.7); NEUT % 73 % (31-73); PLATELET COUNT 520 x10^3/uL (140-400); RED BLOOD COUNT 5.23 x10^6/uL (4.30-5.70); RED CELL DISTRIBUTION WIDTH 18.8 % (11.5-14.5); WHITE BLOOD COUNT 12.9 x10^3/uL (4.0-11.0)
[2021-07-20 18:54] LABS: CALCIUM 9.4 mg/dL (8.5-10.1); GFR 84.5; POTASSIUM 3.9 mmol/L (3.5-5.1)
[2021-07-20 19:00] LABS: ALBUMIN/GLOBULIN RATIO 0.9 (1.0-1.7); TOTAL BILIRUBIN 0.3 mg/dL (0.2-1.0); TOTAL PROTEIN 8.3 g/dL (6.4-8.2)
[2021-07-20] MEDS ORDERED: MORPHINE SULFATE 2 MG/ML DISP.SYRIN. IV ONE (19:15)
[2021-07-20] MEDS ORDERED: METOCLOPRAMIDE HCL 10 MG/2 ML VIAL. IVP ONE (19:15)
[2021-07-20] MEDS ORDERED: MORPHINE SULFATE 4 MG/ML DISP.SYRIN. IV ONE ×2 (19:15→20:45)
[2021-07-20] MEDS ORDERED: IOHEXOL 300 MG/ML 75 ML VIAL. IV ONE (19:30)
[2021-07-20] MEDS ORDERED: CONTRAST GIVEN. MC PRN (20:00)
--- NOTE | 2021-07-20 20:30 | RAD ---
CT abdomen pelvis with contrast dated 07/20/2021. Comparison made 07/11/2021. Clinical data indication: Abdominal pain. TECHNIQUE: Continues axial imaging the abdomen pelvis performed following intravenous and ministration of 75 cc Omnipaque 300. One or more of the following individualized dose reduction techniques were utilized for this examinat ion: 1. Automated exposure control 2. Adjustment of the mA and/or kV according to patient size 3. Use of iterative reconstruction technique FINDINGS: Limited images of lung bases show patchy airspace disease in the left lower lobe with multiple small subpleural nodules. This appears of somewhat improved from prior exam. Some of the nodules now appear to show subtle central cavitation. Right lung base remains clear. Heart size is stable. No pleural o r pericardial effusion. Again noted are focal fluid collections along the upper margin of the pancreas and near the pancreati c neck. Collection interposed between pancreatic neck in the posterior aspect of the stomach measures 2.9 cm versus 3.7 cm previously. The collection just above the celiac trunk toward the left of midli ne measures 2.9 cm versus 2.6 cm previously. Collection to the right of the celiac trunk on image 24 measures 0.2 cm versus 2.1 cm previously. The pancreas is atrophic and there is dilation of the pancr eatic duct. There is a prominent calcification at the pancreatic head which may be within the duct, u nchanged. Inflammatory stranding in the peripancreatic fat is similar to slightly improved. There mil dly enlarged peripancreatic lymph nodes, unchanged. Diffuse wall thickening of the stomach, mildly in creased. Mild periportal edema. 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 The splenic vein is mildly narrowed but patent. The le ft renal vein is patent. SMA is patent. The spleen is upper limits of normal in size. Adrenal glands and kidneys are unremarkable. Liver and gallbladder otherwise unremarkable. Unopacified GI tract normal in caliber and contour. No bowel wall thickening. No inflammatory strandi ng in the mesentery. The appendix is normal in caliber. Images of pelvis a nondistended urinary bladder. The prostate gland is normal in size. No free fluid. No pelvic adenopathy. Bone windows show no acute finding. Mild lower lumbar spondylosis. IMPRESSION: 1. There is a suggestion of mild improvement in acute pancreatitis. Peripancreatic fluid collections consistent with pseudocysts, largest of which has decreased in size while 2 additional smaller cysts have mildly increased in size. 2. 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 3. There is a prominent calcification of the pancreatic head which could be within the proximal pancr eatic duct. The distal pancreatic duct is dilated. 4. Wall thickening of the stomach appears somewhat more prominent and is likely related to localized gastritis from adjacent pancreatitis. 5. There is been mild improvement in patchy left basilar airspace disease, suggesting improving pneum onia. There are several nodules that have central cavitation. Septic emboli not excluded. Electronically signed by: Minor Hopper MD (07/20/2021 8:28 PM) [facility]
[2021-07-20] MEDS ORDERED: PIPERACILLIN/TAZOBACTAM 3.375 GM VIAL IV ONE (22:20)
[2021-07-20] MEDS ORDERED: IV NORMAL SALINE 50ML 50 ML ONE (22:20)
[2021-07-20 22:24] VITALS: BP 102/58
[2021-07-20] MEDS ORDERED: PIPERACILLIN/TAZOBACTAM 3.375 GM in IV NORMAL SALINE 50ML 50 ML IV ONE (22:30)
== END 2021-07-20 22:24 | disposition short-term general hospital (02) ==
LOC: ER 16:59
DX: K86.1 Other chronic pancreatitis (principal); E11.9 Type 2 diabetes mellitus without complications; K21.9 Gastro-esophageal reflux disease without esophagitis; F17.210 Nicotine dependence, cigarettes, uncomplicated; Z88.8 Allergy status to other drugs, medicaments and biological substances
CPT/HCPCS: 36415; 74177; 80053; 83690; 85025; 96361; 96374; 96375; 96376; 99285; J2270; J2405; J2543; J2765; J3010; J7030; Q9967

== ENCOUNTER 2021-07-26 22:37 | Emergency (ER) | payer OTHER ==
[~2021-07-26] VITALS: Ht 185.4 cm; Wt 96.6 kg
[2021-07-26] MEDS ORDERED: CONTRAST GIVEN. MC PRN (23:00)
[2021-07-26] MEDS ORDERED: OMEP20CA16 PO (23:21)
[2021-07-26] MEDS ORDERED: MECL12.582 PO (23:22)
[2021-07-26] MEDS ORDERED: gabapentin (23:22)
[2021-07-26] MEDS: IOHEXOL 300 MG/ML 75 ML VIAL. IV ONE (23:31)
[2021-07-26] MEDS ORDERED: invega sustenna (23:44)
[2021-07-26 23:46] LABS: ALBUMIN 3.9 g/dL (3.4-5.0); ALBUMIN/GLOBULIN RATIO 0.9 (1.0-1.7); CALCIUM 9.5 mg/dL (8.5-10.1); CREATININE 6.6 mg/dL (0.7-1.3); GFR 9.6; TOTAL BILIRUBIN 0.4 mg/dL (0.2-1.0); TOTAL PROTEIN 8.4 g/dL (6.4-8.2)
[2021-07-26 23:48] LABS: BASO % 0 % (0-3); EOS # 0.1 x10^3/uL (0.0-0.7); EOS % 1 % (0-3); HEMATOCRIT 39.6 % (39.0-53.0); HEMOGLOBIN 13.2 g/dL (13.0-17.5); LYMPH # 1.5 x10^3/uL (1.0-4.8); LYMPH % 12 % (24-48); MEAN CORPUSCULAR HEMOGLOBIN 25 pg (25-35); MEAN CORPUSCULAR HGB CONC 33 g/dL (31-37); MEAN CORPUSCULAR VOLUME 74 fL (79-100); MONO % 8 % (0-9); NEUT # 10.4 x10^3uL (1.8-7.7); NEUT % 80 % (31-73); PLATELET COUNT 388 x10^3/uL (140-400); RED BLOOD COUNT 5.33 x10^6/uL (4.30-5.70); RED CELL DISTRIBUTION WIDTH 19.4 % (11.5-14.5); WHITE BLOOD COUNT 13.1 x10^3/uL (4.0-11.0)
[2021-07-26 23:56] LABS: POTASSIUM 2.9 mmol/L (3.5-5.1)
--- NOTE | 2021-07-26 23:58 | PHYS DOC ---
Past History Past Medical History: Anxiety, Depression, Diabetes, GERD, Pancreatitis Additional Past Medical Histor: pancreatitis;vertigo; (RICO GONZALEZ MD) Past Surgical History: Other Additional Past Surgical Histo: RIGHT ANKLE; EGD (RICO GONZALEZ MD) Smoking: Cigarettes Alcohol Use: None Drug Use: None (RICO GONZALEZ MD) Adult General Chief Complaint Chief Complaint: SYNCOPE HPI HPI Patient is a 36-year-old male with a past medical history significant for insulin-dependent diabetes and pancreatitis who presents with a chief complaint of lightheadedness, and epigastric pain. States that the lightheadedness started earlier today and has felt like he was given a pass out all day long. States that he did get lightheaded and fell to his knees and twisted his right ankle which has pain about 6 out of 10, dull and achy in nature but did not pass completely out. States he has epigastric pain as well, 7 out of 10, sharp in nature and some nausea but no vomiting. Denies any recent traumas, travels, illnesses, chest pain, shortness of breath, dysuria, hematuria, blood in the stool or diarrhea. Denies any alcohol use. Denies any known ill contacts. (RICO GONZALEZ MD) Review of Systems Review of Systems Review of systems otherwise unremarkable except noted in HPI (RICO GONZALEZ MD) Current Medications Current Medications Current Medications Medications (Trade) Dose Ordered Sig/Terell Start Time Stop Time Status Last Admin Dose Admin Info (Do NOT chart on this entry -- for MONITORING) 1 each PRN DAILY PRN 07/26/21 23:00 07/28/21 22:59 Iohexol (Omnipaque 300 Mg/ml) 75 ml 1X ONCE 07/26/21 23:00 07/26/21 23:01 DC 07/26/21 23:31 75 ML Ketorolac Tromethamine (Toradol 15mg Vial) 15 mg 1X ONCE 07/27/21 00:00 07/27/21 00:01 UNV Lactated Ringer's 1,000 ml @ 1,000 mls/hr 1X ONCE 07/26/21 22:45 07/26/21 23:44 DC (RICO GONZALEZ MD) Allergies Allergies Allergies Coded Allergies Type Severity Reaction Last Updated Verified dulaglutide Allergy Intermediate 06/26/21 Yes hydrocodone Allergy Intermediate 06/26/21 Yes metformin Allergy Intermediate 06/26/21 Yes (RICO GONZALEZ MD) Physical Exam Physical Exam Constitutional: Well developed, well nourished, no acute distress, non-toxic appearance. [] HENT: Normocephalic, atraumatic, bilateral external ears normal, oropharynx moist, no oral exudates, nose normal. [] Eyes: conjunctiva normal, no discharge. [] Neck: Normal range of motion, no tenderness, supple, no stridor. [] Cardiovascular:Heart rate regular rhythm, no murmur [] Lungs & Thorax: Bilateral breath sounds clear to auscultation [] Abdomen: soft, epigastric tenderness, no rebound or guarding,, no masses, no pulsatile masses. [] Skin: Warm, dry, no erythema, no rash. [] Back: no CVA tenderness. [] Extremities: No tenderness, no cyanosis, no clubbing, ROM intact, no edema. [] Neurologic: Alert and oriented X 3, no focal deficits noted. [] Psychologic: Affect normal, judgement normal, mood normal. [] (RICO GONZALEZ MD) Current Patient Data Vital Signs Vital Signs Date Time Temp Pulse Resp B/P (MAP) Pulse Ox O2 Delivery O2 Flow Rate FiO2 07/26/21 22:45 98.9 95 20 118/61 (80) 92 Room Air Lab Results Laboratory Tests Test 07/26/21 22:52 White Blood Count 13.1 x10^3/uL (4.0-11.0) H Red Blood Count 5.33 x10^6/uL (4.30-5.70) Hemoglobin 13.2 g/dL (13.0-17.5) Hematocrit 39.6 % (39.0-53.0) Mean Corpuscular Volume 74 fL (79-100) L Mean Corpuscular Hemoglobin 25 pg (25-35) Mean Corpuscular Hemoglobin Concent 33 g/dL (31-37) Red Cell Distribution Width 19.4 % (11.5-14.5) H Platelet Count 388 x10^3/uL (140-400) Neutrophils (%) (Auto) 80 % (31-73) H Lymphocytes (%) (Auto) 12 % (24-48) L Monocytes (%) (Auto) 8 % (0-9) Eosinophils (%) (Auto) 1 % (0-3) Basophils (%) (Auto) 0 % (0-3) Neutrophils # (Auto) 10.4 x10^3uL (1.8-7.7) H Lymphocytes # (Auto) 1.5 x10^3/uL (1.0-4.8) Monocytes # (Auto) 1.0 x10^3/uL (0.0-1.1) Eosinophils # (Auto) 0.1 x10^3/uL (0.0-0.7) Basophils # (Auto) 0.0 x10^3/uL (0.0-0.2) (RICO GONZALEZ MD) EKG EKG [] (RICO GONZALEZ MD) Radiology/Procedures Radiology/Procedures [] (RICO GONZALEZ MD) Impressions: EXAMINATION: US RENAL BILAT CLINICAL HISTORY: Elevated creatinine TECHNIQUE: Grayscale sonographic imaging of the kidneys and urinary bladder obtained with color Doppler imaging and spectral Doppler analysis as indicated. COMPARISON: None FINDINGS: Right Kidney: - Renal length: 15.3 cm - Parenchyma: Increased parenchymal echogenicity. Normal parenchymal thickness. - Collecting system: Mild caliectasis without significant hydronephrosis. - Calculus: No echogenic, shadowing calculus. - Lesion: None. Left Kidney: - Renal length: 13.8 cm - Parenchyma: Increased parenchymal echogenicity. Normal parenchymal thickness. - Collecting system: Minimal caliectasis without significant hydronephrosis. - Calculus: No echogenic, shadowing calculus. - Lesion: None. Bladder: Normal sonographic appearance. IMPRESSION: Findings compatible with medical renal disease. Electronically signed by: Trevon Clark DO (07/27/2021 4:32 PM) [facility] DICTATED AND SIGNED BY: TREVON CLARK DO DATE: 07/27/21 1630 CC: ALESIA NARAYANAN DO; NETTA PUCKETT MD ~MTH0 0 (ALESIA NARAYANAN DO) Heart Score C/O Chest Pain: No Risk Factors: Risk Factors: DM, Current or recent (<one month) smoker, HTN, HLP, family history of CAD, obesity. Risk Scores: Risk Factors: DM, Current or recent (<one month) smoker, HTN, HLP, family history of CAD, obesity. (RICO GONZALEZ MD) Course & Med Decision Making Course & Med Decision Making Patient is a 36-year-old male who presents with a chief complaint of lightheadedness, epigastric pain and right ankle pain Vital signs notable for heart rate in the 90s. Physical exam noted above. Placed on the monitor with IV access established and IV fluid begun. Given Tylenol and Toradol. EKG noted above with no STEMI. Troponin not concerning. Laboratory analysis notable for new IFEOMA with a creatinine of 6.6 over normal creatinine a week ago. Elevated lipase. Hypokalemia, with potassium replaced. Replace magnesium. Given Zofran and Reglan for nausea and gastroparesis. Given morphine for pain. CT of the belly slightly improving sequelae of acute on chronic pancreatitis with mild decrease in size of fluid collections and pseudocysts with a markedly distended stomach with irregular reactive wall thickening. Chest x-ray suggestive of atypical pneumonia with opacities in the left lower lobe. Given Rocephin and azithromycin. Blood cultures obtained. Discussed all findings with patient and recommended admission to [facility] for continued evaluation and treatment by both hospitalist and vibrator equipment tester given his new creatinine of 6.6 and pneumonia. Covid pending. Patient grateful, verbalized understanding agreed with plan of transfer and admission. Discussed plan with Dr. Philip at [facility] who accepted the patient. (RICO GONZALEZ MD) Course & Med Decision Making The patient's repeat ABG continue to show alkalosis. His labs continue to have a creatinine of 6.1. All of the fluids the patient received lowered his hemoglobin as well as his potassium. He was given an additional 40 mEq for a total of 80. His potassium is currently 3.0. I will not give him any more replacement at this time given his kidney dysfunction. Renal ultrasound was negative for obvious causes of his elevated creatinine. See official read for more details. His lipase is improving. Transfer is still pending. (ALESIA NARAYANAN DO) Dragon Disclaimer Dragon Disclaimer This electronic medical record was generated, in whole or in part, using a voice recognition dictation system. (RICO GONZALEZ MD) Departure Departure: Impression: Primary Impression: Elevated serum creatinine Additional Impressions: Chronic pancreatitis Pneumonia Disposition: 02 [facility]ORT TERM [facility] Admitting Physician: Other (RICO GONZALEZ MD) Condition: STABLE Referrals: NETTA PUCKETT MD (PCP) Problem Qualifiers RICO GONZALEZ MD Jul 26, 2021 23:58 ALESIA NARAYANAN DO Jul 27, 2021 17:11
[2021-07-27] MEDS: KETOROLAC 15 MG/ML VIAL. IVP ONE
--- NOTE | 2021-07-27 00:06 | RAD ---
EXAMINATION: CT abdomen and pelvis with IV contrast. INDICATION:36 years, Male, pancreatitis, patient presented with epigastric pain. TECHNIQUE: Axial CT images of the abdomen and pelvis were obtained. Coronal and sagittal reformatted performed. COMPARISON: 07/20/2021. Exposure: One or more of the following individualized dose reduction techniques were utilized for thi s examination: 1. Automated exposure control 2. Adjustment of the mA and/or kV according to patient size 3. Use of iterative reconstruction technique. FINDINGS: LOWER CHEST: Slightly improving patchy consolidative opacities in the left lower lobe. ABDOMEN/PELVIS: Slightly improving sequelae of acute on chronic pancreatitis with slightly improving peripancreatic f at stranding. Similar diffuse pancreatic atrophy with prominent main pancreatic duct. Punctate calcif ication within the pancreatic head which could be a stone within the pancreatic duct. Slightly decrea sing size of peripancreatic fluid collections seen at the gastrohepatic interval, venecia hepatis and a nterior to the pancreatic head, the largest cystic lesion measures 4.3 x 3.1 cm, previously 4.9 x 3.4 cm. Markedly distended stomach with an irregular wall thickening of the gastric pylorus and duodenal bulb causing luminal narrowing. Unchanged multiple prominent upper abdominal lymph nodes, likely perez ctive. No suspicious focal hepatic lesion. Unremarkable gallbladder. No biliary ductal dilation. Unchanged m ild splenomegaly measures up to 15 cm in length. No adrenal nodule. No hydronephrosis in either kidne y. No small bowel dilatation. Normal appendix. Normal caliber abdominal aorta. Mesenteric arteries an d portal vein are patent. No pneumoperitoneum or ascites. No pelvic lymphadenopathy by size criteria. Unremarkable bladder and prostate. Trace amount of pelvic free fluid. MUSCULOSKELETAL: No acute osseous process. IMPRESSION: 1. Slightly improving sequelae of acute on chronic pancreatitis with minimally decreasing size of th e peripancreatic fluid collections, consistent with pseudocysts. 2. Markedly distended stomach secondary to irregular reactive wall thickening with luminal narrowing of the gastric pylorus/duodenal bulb. 3. Main portal vein, and SMV are patent. 4. Slightly improving patchy consolidative opacity in the left lower lobe, suggesting improving pneu monia. 5. Other chronic/incidental findings, as described above. Electronically signed by: Makenna Carrillo MD (07/27/2021 12:03 AM) [facility]
[2021-07-27] MEDS ORDERED: ONDANSETRON PF 4 MG/2 ML VIAL. ONE ×2 (00:18→00:20)
[2021-07-27] MEDS ORDERED: MORPHINE SULFATE 4 MG/ML DISP.SYRIN. ONE ×2 (00:19→12:33)
--- NOTE | 2021-07-27 00:33 | EKG ---
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
[2021-07-27] MEDS: IV RINGERS SOLUTION,LACTATED 1,000 ML IV ONE ×5 (00:34→07:36)
[2021-07-27] MEDS: MORPHINE SULFATE 4 MG/ML DISP.SYRIN. IV ONE ×3 (00:35→12:45)
[2021-07-27] MEDS: METOCLOPRAMIDE HCL 10 MG/2 ML VIAL. IVP ONE (00:35)
[2021-07-27] MEDS: ONDANSETRON PF 4 MG/2 ML VIAL. IVP ONE (00:36)
[2021-07-27 00:59] LABS: MAGNESIUM 2.3 mg/dL (1.8-2.4); PHOSPHORUS 8.8 mg/dL (2.6-4.7)
[2021-07-27] MEDS: MAGNESIUM SULFATE 1GM 100 ML IV ONE (01:19)
[2021-07-27] MEDS: POTASSIUM CHLORIDE 20 MEQ TABLET.ER. PO ONE ×2 (01:19→12:16)
[2021-07-27] MEDS ORDERED: IV NORMAL SALINE 50ML 50 ML ONE (01:48)
[2021-07-27] MEDS ORDERED: cefTRIAXone SODIUM 1 GM VIAL ONE (01:48)
[2021-07-27] MEDS: AZITHROMYCIN 250 MG TABLET. PO ONE (01:51)
[2021-07-27] MEDS ORDERED: diphenhydrAMINE 50 MG/ML VIAL ONE (02:09)
[2021-07-27] MEDS ORDERED: MORPHINE SULFATE 2 MG/ML DISP.SYRIN. ONE (02:09)
--- NOTE | 2021-07-27 02:24 | RAD ---
EXAM: XR CHEST 1V 07/26/2021 11:07 PM CLINICAL INDICATION: Shortness of breath COMPARISON: Chest radiograph 07/11/2021. TECHNIQUE: AP upright view of the chest FINDINGS: The heart is normal in size. Lungs are adequately expanded. There is improving aeration of the left lung base. No pleural effusion or pneumothorax. IMPRESSION: Improving aeration of the left lung base compared to 07/11/2021. No new abnormality. Electronically signed by: Eri Briggs MD (07/27/2021 2:21 AM) [id number]
--- NOTE | 2021-07-27 02:32 | RAD ---
EXAM: XR EXAM OF ANKLE_RIGHT 3VIEWS 07/26/2021 12:12 AM CLINICAL INDICATION: Fall, pain COMPARISON: None TECHNIQUE: 3 views of the right ankle FINDINGS: No acute fracture. Alignment is normal. Joint spaces are maintained. Ankle mortise is symm etric and talar dome is intact. Soft tissues normal. IMPRESSION: No acute osseous abnormality. Electronically signed by: Eri Briggs MD (07/27/2021 2:29 AM) [id number]
[2021-07-27] MEDS: MORPHINE SULFATE 2 MG/ML DISP.SYRIN. IV ONE (03:06)
[2021-07-27] MEDS: diphenhydrAMINE 50 MG/ML VIAL IVP ONE (03:06)
[2021-07-27 10:04] LABS: BACTERIA,URINE FEW /HPF (0-FEW); BILIRUBIN,URINE NEG (NEG); CLARITY,URINE CLEAR; COLOR,URINE AMBER; GLUCOSE,URINE NEG (NEG); HYALINE CASTS, URINE OCC /HPF; NITRITE,URINE NEG (NEG); RBC,URINE RARE /HPF (0-2); SQUAMOUS EPITHELIAL CELL,UR FEW /LPF; UROBILINOGEN,URINE 0.2 mg/dL (0.2 mg/dL)
[2021-07-27 10:15] LABS: BGAS PH 7.55 (7.35-7.46)
[2021-07-27 10:30] LABS: BASO # 0.1 x10^3/uL (0.0-0.2); BASO % 1 % (0-3); EOS # 0.2 x10^3/uL (0.0-0.7); EOS % 2 % (0-3); HEMATOCRIT 30.2 % (39.0-53.0); HEMOGLOBIN 9.9 g/dL (13.0-17.5); LYMPH % 19 % (24-48); MEAN CORPUSCULAR HEMOGLOBIN 25 pg (25-35); MEAN CORPUSCULAR HGB CONC 33 g/dL (31-37); MEAN CORPUSCULAR VOLUME 76 fL (79-100); MONO % 9 % (0-9); NEUT # 7.3 x10^3uL (1.8-7.7); NEUT % 69 % (31-73); PLATELET COUNT 286 x10^3/uL (140-400); RED CELL DISTRIBUTION WIDTH 18.8 % (11.5-14.5); WHITE BLOOD COUNT 10.6 x10^3/uL (4.0-11.0)
[2021-07-27 10:42] LABS: ALBUMIN/GLOBULIN RATIO 0.8 (1.0-1.7); ALK PHOS 78 U/L (46-116); ALT (SGPT) 12 U/L (16-63); AST (SGOT) 10 U/L (15-37); BLOOD UREA NITROGEN 41 mg/dL (8-26); BUN/CREATININE RATIO 7 (6-20); CALCIUM 8.5 mg/dL (8.5-10.1); CHLORIDE 80 mmol/L (98-107); CREATININE 6.1 mg/dL (0.7-1.3); GFR 10.5; GLUCOSE 147 mg/dL (70-99); MAGNESIUM 2.4 mg/dL (1.8-2.4); SODIUM 131 mmol/L (136-145); TOTAL BILIRUBIN 0.3 mg/dL (0.2-1.0); TOTAL PROTEIN 6.7 g/dL (6.4-8.2)
[2021-07-27 10:44] LABS: CARBON DIOXIDE > 45 mmol/L (21-32)
[2021-07-27 10:49] LABS: ANION GAP 6 (6-14); POTASSIUM 2.5 mmol/L (3.5-5.1)
[2021-07-27 16:07] LABS: BLOOD UREA NITROGEN 43 mg/dL (8-26); CALCIUM 8.3 mg/dL (8.5-10.1); CHLORIDE 83 mmol/L (98-107); CREATININE 6.1 mg/dL (0.7-1.3); GFR 10.5; GLUCOSE 148 mg/dL (70-99); SODIUM 131 mmol/L (136-145)
[2021-07-27 16:10] LABS: ANION GAP 3 (6-14); CARBON DIOXIDE > 45 mmol/L (21-32)
--- NOTE | 2021-07-27 16:34 | RAD ---
EXAMINATION: US RENAL BILAT CLINICAL HISTORY: Elevated creatinine TECHNIQUE: Grayscale sonographic imaging of the kidneys and urinary bladder obtained with color Doppl er imaging and spectral Doppler analysis as indicated. COMPARISON: None FINDINGS: Right Kidney: - Renal length: 15.3 cm - Parenchyma: Increased parenchymal echogenicity. Normal parenchymal thickness. - Collecting system: Mild caliectasis without significant hydronephrosis. - Calculus: No echogenic, shadowing calculus. - Lesion: None. Left Kidney: - Renal length: 13.8 cm - Parenchyma: Increased parenchymal echogenicity. Normal parenchymal thickness. - Collecting system: Minimal caliectasis without significant hydronephrosis. - Calculus: No echogenic, shadowing calculus. - Lesion: None. Bladder: Normal sonographic appearance. IMPRESSION: Findings compatible with medical renal disease. Electronically signed by: Trevon Gerber DO (07/27/2021 4:32 PM) [facility]
[2021-07-27] MEDS: MORPHINE SULFATE 4 MG/ML DISP.SYRIN. IV PRN (18:19)
[2021-07-27] MEDS: MORPHINE SULFATE 2 MG/ML DISP.SYRIN. IVP PRN (20:00)
[2021-07-27 20:15] VITALS: BP 107/51
[2021-07-27] MEDS ORDERED: AMOX1TAB61 PO (20:20)
[2021-07-27] MEDS ORDERED: AMOXICILLIN/K CLAV 875/125MG TABLET. PO ONE (20:30)
== END 2021-07-27 20:26 | disposition left against medical advice (07) ==
LOC: ER 22:37
DX: J18.9 Pneumonia, unspecified organism (principal); K86.1 Other chronic pancreatitis; E11.8 Type 2 diabetes mellitus with unspecified complications; R42 Dizziness and giddiness; R94.4 Abnormal results of kidney function studies; K21.9 Gastro-esophageal reflux disease without esophagitis; F17.210 Nicotine dependence, cigarettes, uncomplicated; Z88.8 Allergy status to other drugs, medicaments and biological substances; Z20.822 Contact with and (suspected) exposure to COVID-19; X50.1XXA Overexertion from prolonged static or awkward postures, initial encounter; Y93.89 Activity, other specified; Y92.89 Other specified places as the place of occurrence of the external cause; Y99.8 Other external cause status
CPT/HCPCS: 36415; 71045; 73610; 74177; 76770; 80048; 80053; 81001; 82803; 83690; 83735; 84100; 84484; 85025; 87040; 87086; 87426; 93005; 96361; 96365; 96367; 96375; 96376; 99285; J0696; J1200; J2270; J2405; J2765; J3475; J7120; Q9967; U0003

== ENCOUNTER 2021-08-03 12:51 | Emergency (ER) | payer OTHER ==
[~2021-08-03] VITALS: Ht 188 cm; Wt 95.9 kg
[~2021-08-03 12:51] MED LIST changes: +AMOX1TAB61 PO; +MECL12.582 PO; +OMEP20CA16 PO; +gabapentin; +invega sustenna
[2021-08-03] MEDS ORDERED: ONDANSETRON PF 4 MG/2 ML VIAL. IVP ONE (13:15)
[2021-08-03] MEDS ORDERED: MORPHINE SULFATE 4 MG/ML DISP.SYRIN. IV ONE (13:15)
[2021-08-03] MEDS ORDERED: IV NORMAL SALINE 1,000ML 1,000 ML IV ONE (13:15)
--- NOTE | 2021-08-03 14:11 | RAD ---
CT STUDY OF THE ABDOMEN AND PELVIS WITHOUT CONTRAST CLINICAL INDICATIONS: Abdominal pain. History of pancreatitis. TECHNIQUE: Noncontrast helical CT scanning of the abdomen and pelvis was performed. Without contrast, the sensitivity to detect organ pathology and GI tract pathology is decreased. PQRS compliance Statement One or more of the following individualized dose reduction techniques were utilized for this study: 1. Automated exposure control 2. Adjustment of the mA and/or kV according to patient size 3. Use of iterative reconstruction technique COMPARISON: CT study dated July 26, 2021. See that report. FINDINGS: The liver is homogeneous on this noncontrast study. The spleen measures 16.6 cm in length w hich is enlarged. This has not changed significantly. There is a calcification within the head of the pancreas measuring 7 mm in size. Evaluation of the main pancreatic duct is difficult given lack of I V contrast. There is mild prominence of the main pancreatic duct seen on the previous study and in to day's exam measuring about 3-4 mm in caliber. Therefore, this calcification could represent a stone w ithin the distal main pancreatic duct. There is peripancreatic inflammation most prominent around the head of the pancreas. This has improved. 3 peripancreatic fluid collections seen previously are agai n evident and are unchanged in size. Largest one is seen within the neck of the pancreas measuring 3. 4 cm. There are 2 additional fluid collections one located superior to the neck of the pancreas in th e venecia hepatis measuring 2.4 cm and another fluid collection is seen just left lateral to this fluid collection seen extending superiorly towards the GE junction. This one measures 3.9 cm. No new fluid collections are seen. There is persistent wall thickening of the prepyloric aspect of the distal bod y of the stomach and the proximal duodenum. The stomach is distended. Therefore this wall thickening may result in gastric outlet obstruction. This wall thickening most likely is due to reactive edema f rom the adjacent pancreatitis and pseudocysts. Evaluation for pancreatic necrosis cannot be completed without IV contrast. The gallbladder is not abnormally distended. No gallbladder wall thickening is evident. There is no dilatation of the extrahepatic biliary tree. No adrenal mass is seen. No focal a neurysmal dilatation of the abdominal aorta is seen. No hydronephrosis or hydroureter or urinary trac t stone is apparent. No enlarged abdominal or pelvic lymphadenopathy is seen. Urinary bladder wall is smooth. No obstructive bowel pattern is seen. Sigmoid diverticulosis is seen without diverticulitis. The appendix is normal. No free air or fluid or mesenteric edema is seen. Left lower lobe lung infil trate is unchanged. No lytic process is seen. IMPRESSION: Mild improvement in pancreatitis. Persistent reactive wall thickening of the adjacent dis kenn body of the stomach and the proximal duodenum which may result in gastric outlet obstruction. No change in size of pseudocysts. 7 mm stone which may be obstructing the distal main pancreatic duct. No change in left lower lobe lung infiltrate. Electronically signed by: Shiva Marquez MD (08/03/2021 2:09 PM) [id number]
[2021-08-03] MEDS ORDERED: MORPHINE SULFATE 4 MG/ML DISP.SYRIN. IM ONE (14:15)
[2021-08-03] MEDS ORDERED: ONDANSETRON ODT 4 MG TAB.RAPDIS PO ONE (14:15)
[2021-08-03 14:34] LABS: BASO % 0 % (0-3); EOS # 0.2 x10^3/uL (0.0-0.7); EOS % 2 % (0-3); HEMATOCRIT 36.6 % (39.0-53.0); LYMPH # 2.2 x10^3/uL (1.0-4.8); LYMPH % 25 % (24-48); MEAN CORPUSCULAR HEMOGLOBIN 25 pg (25-35); MEAN CORPUSCULAR HGB CONC 33 g/dL (31-37); MEAN CORPUSCULAR VOLUME 75 fL (79-100); MONO # 0.6 x10^3/uL (0.0-1.1); MONO % 7 % (0-9); NEUT # 5.8 x10^3uL (1.8-7.7); NEUT % 66 % (31-73); PLATELET COUNT 345 x10^3/uL (140-400); RED BLOOD COUNT 4.87 x10^6/uL (4.30-5.70); RED CELL DISTRIBUTION WIDTH 19.5 % (11.5-14.5); WHITE BLOOD COUNT 8.7 x10^3/uL (4.0-11.0)
[2021-08-03 14:36] LABS: ALBUMIN 3.7 g/dL (3.4-5.0); ALBUMIN/GLOBULIN RATIO 0.8 (1.0-1.7); CALCIUM 9.5 mg/dL (8.5-10.1); CREATININE 2.5 mg/dL (0.7-1.3); GFR 29.4; TOTAL BILIRUBIN 0.3 mg/dL (0.2-1.0); TOTAL PROTEIN 8.1 g/dL (6.4-8.2)
[2021-08-03 14:40] LABS: POTASSIUM 2.8 mmol/L (3.5-5.1)
--- NOTE | 2021-08-03 14:51 | PHYS DOC ---
Past History Past Medical History: Anxiety, Depression, Diabetes, GERD, Pancreatitis Additional Past Medical Histor: vertigo Past Surgical History: Other Additional Past Surgical Histo: RIGHT ANKLE; EGD Smoking: Cigarettes Additional Smoking Information: 1 pack/day Alcohol Use: None Drug Use: None General Adult EDM: Chief Complaint: ABDOMINAL PAIN HPI: HPI: Patient is a 36-year-old male who presents with generalized abdominal pain. Patient's history of pancreatitis and has been seen multiple times in the last couple months. Patient also reports nausea and vomiting. Denies fever. Denies history of alcohol. Patient has history of anxiety, diabetes, pancreatitis, GERD. Review of Systems: Review of Systems: Constitutional: Denies fever or chills Eyes: Denies change in visual acuity HENT: Denies nasal congestion or sore throat Respiratory: Denies cough or shortness of breath Cardiovascular: Denies chest pain or edema GI: Reports generalized abdominal pain, nausea, vomiting.denies bloody stools or diarrhea : Denies dysuria Musculoskeletal: Denies back pain or joint pain Integument: Denies rash Neurologic: Denies headache, focal weakness or sensory changes Endocrine: Denies polyuria or polydipsia Lymphatic: Denies swollen glands Psychiatric: Reports history of depression and anxiety Current Medications: Current Meds: Current Medications Medications (Trade) Dose Ordered Sig/Terell Start Time Stop Time Status Last Admin Dose Admin Morphine Sulfate (Morphine 4mg Syringe) 4 mg 1X ONCE 08/03/21 14:15 08/03/21 14:16 DC 08/03/21 14:16 4 MG Ondansetron HCl (Zofran Odt) 4 mg 1X ONCE 08/03/21 14:15 08/03/21 14:16 DC 08/03/21 14:15 4 MG Ondansetron HCl (Zofran) 4 mg 1X ONCE 08/03/21 13:15 08/03/21 14:10 DC Sodium Chloride 1,000 ml @ 1,000 mls/hr 1X ONCE 08/03/21 13:15 08/03/21 14:15 DC Allergies: Allergies: Allergies Coded Allergies Type Severity Reaction Last Updated Verified dulaglutide Allergy Intermediate 06/26/21 Yes hydrocodone Allergy Intermediate 06/26/21 Yes metformin Allergy Intermediate 06/26/21 Yes aspirin Allergy Unknown 08/03/21 Yes broccoli Allergy Unknown 07/27/21 Yes Physical Exam: PE: Constitutional: Well developed, well nourished, no acute distress, non-toxic appearance. [] HENT: Normocephalic, atraumatic, bilateral external ears normal, oropharynx moist, no oral exudates, nose normal. [] Eyes: PERRLA, EOMI, conjunctiva normal, no discharge. [] Neck: Normal range of motion, no tenderness, supple, no stridor. [] Cardiovascular:Heart rate regular rhythm, no murmur [] Lungs & Thorax: Bilateral breath sounds clear to auscultation [] Abdomen: Bowel sounds normal, soft, no tenderness, no masses, no pulsatile masses. [] Skin: Warm, dry, no erythema, no rash. [] Back: No tenderness, no CVA tenderness. [] Extremities: No tenderness, no cyanosis, no clubbing, ROM intact, no edema. [] Neurologic: Alert and oriented X 3, normal motor function, normal sensory function, no focal deficits noted. [] Psychologic: Affect normal, judgement normal, mood normal. [] Current Patient Data: Labs: Laboratory Tests Test 08/03/21 14:10 White Blood Count 8.7 x10^3/uL (4.0-11.0) Red Blood Count 4.87 x10^6/uL (4.30-5.70) Hemoglobin 12.0 g/dL (13.0-17.5) L Hematocrit 36.6 % (39.0-53.0) L Mean Corpuscular Volume 75 fL (79-100) L Mean Corpuscular Hemoglobin 25 pg (25-35) Mean Corpuscular Hemoglobin Concent 33 g/dL (31-37) Red Cell Distribution Width 19.5 % (11.5-14.5) H Platelet Count 345 x10^3/uL (140-400) Neutrophils (%) (Auto) 66 % (31-73) Lymphocytes (%) (Auto) 25 % (24-48) Monocytes (%) (Auto) 7 % (0-9) Eosinophils (%) (Auto) 2 % (0-3) Basophils (%) (Auto) 0 % (0-3) Neutrophils # (Auto) 5.8 x10^3uL (1.8-7.7) Lymphocytes # (Auto) 2.2 x10^3/uL (1.0-4.8) Monocytes # (Auto) 0.6 x10^3/uL (0.0-1.1) Eosinophils # (Auto) 0.2 x10^3/uL (0.0-0.7) Basophils # (Auto) 0.0 x10^3/uL (0.0-0.2) Sodium Level 138 mmol/L (136-145) Potassium Level 2.8 mmol/L (3.5-5.1) *L Chloride Level 92 mmol/L (98-107) L Carbon Dioxide Level 42 mmol/L (21-32) H Anion Gap 4 (6-14) L Blood Urea Nitrogen 22 mg/dL (8-26) Creatinine 2.5 mg/dL (0.7-1.3) H Estimated GFR (Cockcroft-Gault) 29.4 BUN/Creatinine Ratio 9 (6-20) Glucose Level 160 mg/dL (70-99) H Calcium Level 9.5 mg/dL (8.5-10.1) Total Bilirubin 0.3 mg/dL (0.2-1.0) Aspartate Amino Transferase (AST) 10 U/L (15-37) L Alanine Aminotransferase (ALT) 16 U/L (16-63) Alkaline Phosphatase 78 U/L (46-116) Total Protein 8.1 g/dL (6.4-8.2) Albumin 3.7 g/dL (3.4-5.0) Albumin/Globulin Ratio 0.8 (1.0-1.7) L Lipase 470 U/L (73-393) H Vital Signs: Vital Signs Date Time Temp Pulse Resp B/P (MAP) Pulse Ox O2 Delivery O2 Flow Rate FiO2 08/03/21 14:17 99 18 109/47 (67) 100 Room Air 08/03/21 13:04 97.6 EKG: EKG: [] Radiology/Procedures: Radiology/Procedures: [] Heart Score: C/O Chest Pain: No Risk Factors: Risk Factors: DM, Current or recent (<one month) smoker, HTN, HLP, family history of CAD, obesity. Risk Scores: Score 0 - 3: 2.5% MACE over next 6 weeks - Discharge Home Score 4 - 6: 20.3% MACE over next 6 weeks - Admit for Clinical Observation Score 7 - 10: 72.7% MACE over next 6 weeks - Early Invasive Strategies Course & Med Decision Making: Course & Med Decision Making Pertinent Labs and Imaging studies reviewed. (See chart for details) [] 36-year-old male who presents with generalized abdominal pain, nausea and vomiting. Patient has a history of pancreatitis and has been seen multiple times in the last few months. Patient denies take anything for pain at home. Patient given 4 mg morphine, 4 mg Zofran. Potassium is decreased at 2.8. 40 mEq of potassium given p.o. Creatinine elevated at 2.5 consistent with past history. Lipase is also slightly elevated. CT abdomen and pelvis shows pancreatitis improvement. Stones were shown p reviously on CT and are unchanged. Spleen also shows to be enlarged which is unchanged from previous CT. Patient has been seen 4 times this month for same symptoms. Patient states that his pain is unchanged from previous visits. Patient is requesting to be discharged from the ED to home. Patient states his pain is improved after medication. Patient given strict return precautions. Patient states that he understands discharge instructions. Patient will follow up with PCP at the beginning of the week. Patient is hemodynamically stable upon disposition. [employer] Disclaimer: [employer] Disclaimer: This electronic medical record was generated, in whole or in part, using a voice recognition dictation system. Departure Departure: Impression: Primary Impression: Chronic pancreatitis Qualified Codes: K86.1 - Other chronic pancreatitis Additional Impression: Nausea & vomiting Qualified Codes: R11.2 - Nausea with vomiting, unspecified Disposition: HOME / SELF CARE / HOMELESS Condition: STABLE Referrals: NETTA PUCKETT MD (PCP) Patient Instructions: Acute Pancreatitis, [id number] Additional Instructions: You are seen in the emergency room for your pain from chronic pancreatitis. Your pain and nausea was treated while in the ER. All of your labs were unremarkable and consistent with previous visits. CT of your abdomen and pelvis was also consistent with past visits. Please return to the emergency room if you have worsening symptoms or concerns, otherwise follow-up with PCP. EMERGENCY DEPARTMENT GENERAL DISCHARGE INSTRUCTIONS Thank you for coming to [facility] (ED) today and trusting us with you care. We trust that you had a positivie experience in our Emergency Department. If you wish to speak to the department management, you may call the director at [phone]. YOUR FOLLOW UP INSTRUCTIONS ARE FOLLOWS: 1. Do you have a private Doctor? If you do not have a private doctor, please ask for a resource list of physicians or clinics that may be able to assist you with follow up care. 2. The Emergency Physician has interpreted your x-rays. The X-Ray specialist will also review them. If there is a change in the findings, you will be notified in 48 hours when at all possible. 3. A lab test or culture has been done, your results will be reviewed and you will be notified if you need a change in treatment. ADDITIONAL INSTRUCTIONS AND INFORMATION: 1. Your care today has been supervised by a physician who is specially trained in emergency care. Many problems require more than one evaluation for a complete diagnosis and treatment. We recommend that you schedule your follow up appointment as recommended to ensure complete treatment of you illness or injury. If you are unable to obtain follow up care and continue to have a problem, or if your condition worsens, we recommend that you return to the ED. 2. We are not able to safely determine your condition over the phone nor are we able to give sound medical advice over the phone. For these safety reasons, if you call for medical advice we will ask you to come to the ED for further evaluation. 3. If you have any questions regarding these discharge instructions please call the ED at [phone]. SAFETY INFORMATION: In the interest of safety, wellness, and injury prevention; we encourage you to wear your sealbelt, if you smoke; quite smoking, and we encourage family to use a protective helmet for bicycling and other sporting events that present an increased risk for head injury. IF YOUR SYMPTOMS WORSEN OR NEW SYMPTOMS DEVELOP, OR YOU HAVE CONCERNS ABOUT YOUR CONDITION; OR IF YOUR CONDITION WORSENS WHILE YOU ARE WAITING FOR YOUR FOLLOW UP APPOINTMENT; EITHER CONTACT YOUR PRIMARY CARE DOCTOR, THE PHYSICIAN WHOSE NAME AND NUMBER YOU WERE GIVEN, OR RETURN TO THE ED IMMEDIATELY. NIECY ECKERT APRN Aug 03, 2021 14:51
[2021-08-03] MEDS ORDERED: POTASSIUM CHLORIDE 20 MEQ TABLET.ER. PO ONE (15:00)
--- NOTE | 2021-08-03 15:49 | EKG ---
[address] [address] Test Date: 2021-08-03 Test Time: 13:26:14 Pat Name: MALATHI SALCEDO Department: Room: Gender: M Hospitality Intern: PRINCE : 1985 Requested By: NIECY ECKERT Order Number: [id number] Reading MD: Rafael Galvan Measurements Intervals [place] Rate: 94 P: -58 PA: 128 QRS: 49 QRSD: 102 T: 26 QT: 362 QTc: 458 Interpretive Statements SINUS RHYTHM Electronically Signed On 08-06-2021 13:31:49 CDT by Rafael Galvan
[2021-08-03 16:32] VITALS: BP 105/46
== END 2021-08-03 16:33 | disposition home or self-care (01) ==
LOC: ER 12:51
DX: K86.1 Other chronic pancreatitis (principal); R11.2 Nausea with vomiting, unspecified; E11.9 Type 2 diabetes mellitus without complications; K21.9 Gastro-esophageal reflux disease without esophagitis; F17.210 Nicotine dependence, cigarettes, uncomplicated; F41.9 Anxiety disorder, unspecified; F32.9 Major depressive disorder, single episode, unspecified; Z88.5 Allergy status to narcotic agent; Z88.8 Allergy status to other drugs, medicaments and biological substances; Z88.6 Allergy status to analgesic agent
CPT/HCPCS: 36415; 74176; 80053; 83690; 83735; 85025; 93005; 96372; 99285; J2270; Q0162

== ENCOUNTER 2021-08-11 14:31 | Emergency (ER) | payer OTHER ==
[~2021-08-11] VITALS: Ht 185.4 cm; Wt 98.2 kg
--- NOTE | 2021-08-11 15:29 | PHYS DOC ---
Past History Past Medical History: Anxiety, Depression, Diabetes, GERD, Pancreatitis Additional Past Medical Histor: vertigo (KWADWO MOJICA APRN) Past Surgical History: Other Additional Past Surgical Histo: RIGHT ANKLE; EGD (KWADWO MOJICA APRN) Smoking: Cigarettes Alcohol Use: None Drug Use: None (KWADWO MOJICA APRN) General Adult EDM: Chief Complaint: MECHANICAL FALL HPI: HPI: Patient is a 36-year-old male being seen in the ER for a syncopal episode. Patient reports that he has been having syncopal episodes for 3 weeks. He reports that he is hit his head several times. He states that he had a syncopal episode yesterday when getting out of the car. He states that he did hit the anterior aspect of his neck on the door frame of the car. He states that the dizziness is only with position changes. He states that it feels like he goes through a tunnel. Patient states that his syncopal episode yesterday only lasted approximately 2 seconds per his . Patient reports mild dizziness currently. He denies nausea, vomiting, chest pain, shortness of breath, vision changes, alcohol or drug use. Patient has a history of chronic pancreatitis, GERD and diabetes. (KWADWO MOJICA APRN) Review of Systems: Review of Systems: 14 body systems of the review of systems have been reviewed. See HPI for pertinent positive and negative responses, otherwise all other systems are negative, nonpertinent or noncontributory (KWADWO MOJICA APRN) Allergies: Allergies: Allergies Coded Allergies Type Severity Reaction Last Updated Verified dulaglutide Allergy Intermediate 06/26/21 Yes hydrocodone Allergy Intermediate 06/26/21 Yes metformin Allergy Intermediate 06/26/21 Yes aspirin Allergy Unknown 08/03/21 Yes broccoli Allergy Unknown 07/27/21 Yes (KWADWO MOJICA APRN) Physical Exam: PE: Constitutional: Well developed, well nourished, no acute distress, non-toxic appearance, patient speaking in clear full sentences. [] HENT: Normocephalic, atraumatic, bilateral external ears normal, oropharynx moist, no oral exudates, nose normal. [] Eyes: PERRLA, pupils 4 mm bilaterally, EOMI, conjunctiva normal, no discharge. [] Neck: Normal range of motion, no cervical bony spinal tenderness, no crepitus, no step-offs, no obvious deformities supple, no stridor. [] Cardiovascular:Heart rate regular rhythm, no murmur [] Lungs & Thorax: Bilateral breath sounds clear to auscultation [] Abdomen: Bowel sounds normal, soft, no tenderness, no masses, no pulsatile masses. [] Skin: Warm, dry, no erythema, no rash. [] Back: No bony spinal tenderness, no paraspinal tenderness with palpation, no step-offs, no crepitus, no obvious deformity, no wounds or ecchymosis, normal range of motion Extremities: No tenderness, no cyanosis, no clubbing, ROM intact, no edema. [] Neurologic: Alert and oriented X 3, normal motor function, normal sensory function, no focal deficits noted. [] Psychologic: Affect normal, judgement normal, mood normal. [] (KWADWO MOJICA APRN) Current Patient Data: Labs: Laboratory Tests Test 08/11/21 16:16 White Blood Count 11.0 x10^3/uL Red Blood Count 4.70 x10^6/uL Hemoglobin 11.8 g/dL Hematocrit 35.2 % Mean Corpuscular Volume 75 fL Mean Corpuscular Hemoglobin 25 pg Mean Corpuscular Hemoglobin Concent 33 g/dL Red Cell Distribution Width 19.4 % Platelet Count 295 x10^3/uL Neutrophils (%) (Auto) 79 % Lymphocytes (%) (Auto) 14 % Monocytes (%) (Auto) 5 % Eosinophils (%) (Auto) 1 % Basophils (%) (Auto) 1 % Neutrophils # (Auto) 8.7 x10^3uL Lymphocytes # (Auto) 1.5 x10^3/uL Monocytes # (Auto) 0.5 x10^3/uL Eosinophils # (Auto) 0.1 x10^3/uL Basophils # (Auto) 0.1 x10^3/uL Sodium Level 132 mmol/L Potassium Level 2.2 mmol/L Chloride Level 89 mmol/L Carbon Dioxide Level 31 mmol/L Anion Gap 12 Blood Urea Nitrogen 42 mg/dL Creatinine 3.3 mg/dL Estimated GFR (Cockcroft-Gault) 21.3 BUN/Creatinine Ratio 13 Glucose Level 208 mg/dL Calcium Level 9.8 mg/dL Magnesium Level 1.8 mg/dL Total Bilirubin 0.8 mg/dL Aspartate Amino Transf (AST/SGOT) 36 U/L Alanine Aminotransferase (ALT/SGPT) 26 U/L Alkaline Phosphatase 234 U/L Troponin I Quantitative < 0.017 ng/mL Total Protein 7.4 g/dL Albumin 3.9 g/dL Albumin/Globulin Ratio 1.1 Current Medications Medications (Trade) Dose Ordered Sig/Terell Route PRN Reason Start Time Stop Time Status Last Admin Dose Admin Sodium Chloride 1,000 ml @ 1,000 mls/hr 1X ONCE IV 08/11/21 15:30 08/11/21 16:29 DC 08/11/21 16:44 Iohexol (Omnipaque 300 Mg/ml) 75 ml 1X ONCE IV 08/11/21 16:15 08/11/21 16:16 DC 08/11/21 16:23 (KWADWO MOJICA APRN) EKG: EKG: EKG performed by ER staff at 1544 shows sinus rhythm at a rate of 98, no STEMI read by Dr. Vazquez at 1550 [] (KWADWO MOJICA APRN) Radiology/Procedures: Radiology/Procedures: PROCEDURE: CT CHEST W/CONTRAST CT THORAX W History: Subcutaneous gas. Trauma. Technique: CT of the chest was performed with intravenous contrast. Coronal and sagittal reconstructions were performed. Exposure: One or more of the following individualized dose reduction techniques were utilized for this examination: 1. Automated exposure control 2. Adjustment of the mA and/or kV according to patient size 3. Use of iterative reconstruction technique. Comparison: July 26, 2021 CT abdomen pelvis. Findings: Chest: Pneumomediastinum and extensive subcutaneous gas within the lower neck. Small mediastinal lymph nodes. No pathologic lymphadenopathy within the chest. No aortic aneurysm or dissection. Mild left lower lobe nodular groundglass opacities, decreased compared to prior. Scattered linear atelectasis mild. No pneumothorax. No pleural effusion. 2 mm left upper lobe pulmonary nodule (series 5 image 58). 3 mm right middle lobe pleural-based nodule image 31). Upper abdomen: Loculated fluid collections within the upper abdomen adjacent to the pancreas, similar compared to prior. Partially imaged. Within the region the pancreatic head and neck. The pancreatic ductal dilatation. Pancreatic body and tail atrophy. Distal gastric and duodenal wall thickening partially imaged. Mild distention of the stomach. Bones: No pathologic osseous lesions. Impression: 1. Pneumomediastinum and subcutaneous gas extending into the neck. 2. Mild left lower lobe groundglass nodular opacities, decreased compared to prior. 3. Persistent peripancreatic loculated fluid collections and inflammatory changes with fullness of the pancreatic head and neck partially imaged. Recommend follow-up MRI with and without contrast after treatment to exclude underlying lesion. 4. Gastric antral and duodenal wall thickening with distention of the stomach, may relate to reactive wall thickening with potential gastric outlet obstruction, unchanged. 5. Small pulmonary nodules. Recommend attention on follow-up. Electronically signed by: Ezequiel Newton DO (08/11/2021 4:48 PM) [facility] DICTATED AND SIGNED BY: EZEQUIEL NEWTON DO DATE: 08/11/21 1634 CC: NETTA PUCKETT MD; KWADWO MOJICA SUBSCRIPTION CREW LEADER ~MTH0 0 []PROCEDURE: CT HEAD AND CERVICAL SPINE WO CT HEAD AND C-SPINE WO History: Dizzy, fall, hit head. Comparison: CT head and cervical spine 02/24/2021 Technique: Noncontrast CT of the head and cervical spine. Findings: CT HEAD: There is no evidence for intracranial mass or hemorrhage. There is no hydrocephalus or midline shift. No abnormal extra-axial fluid collections are present. Condon/white matter differentiation is preserved. The visualized paranasal sinuses and mastoid air cells are clear. The skull and scalp are within normal limits. CT CERVICAL SPINE: There is no evidence for fracture in the cervical spine. Alignment is normal. Disc spaces are preserved. No destructive osseous lesions are seen. Extensive subcutaneous emphysema involving the soft tissues of the anterior and to lesser extent posterior neck tracking towards the mediastinum. No mucosal injury in the upper aerodigestive tract identified. Impression: 1. No acute intracranial findings. 2. No acute osseous abnormality in the cervical spine. 3. Extensive cervical subcutaneous emphysema tracking towards the mediastinum. No mucosal injury of the upper aerodigestive tract identified. Findings discussed with Solis at 08/11/2021 3:59 PM. FOR INTERNAL CODING PURPOSES RESULT CODE: (C) ------- Exposure: One or more of the following individualized dose reduction techniques were utilized for this examination: 1. Automated exposure control 2. Adjustment of the mA and/or kV according to patient size 3. Use of iterative reconstruction technique. Electronically signed by: Juan C Cruz MD (08/11/2021 3:59 PM) [id number] (KWADWO MOJICA APRN) Heart Score: C/O Chest Pain: No Risk Factors: Risk Factors: DM, Current or recent (<one month) smoker, HTN, HLP, family history of CAD, obesity. Risk Scores: Score 0 - 3: 2.5% MACE over next 6 weeks - Discharge Home Score 4 - 6: 20.3% MACE over next 6 weeks - Admit for Clinical Observation Score 7 - 10: 72.7% MACE over next 6 weeks - Early Invasive Strategies (KWADWO MOJICA APRN) Course & Med Decision Making: Course & Med Decision Making Pertinent Labs and Imaging studies reviewed. (See chart for details) [] Patient is a 36-year-old male with chronic pancreatitis, GERD and diabetes who is well-known to this ER who presents to the ER for syncope/dizziness after position changes x3 weeks. Work-up in the ER consisted of blood work, EKG, urinalysis, CT scan of head and neck. Patient treated with IV fluids. Radiologist called with read of CT head and neck pain noted subcutaneous air around neck concern for airway injury, he recommended chest CT with contrast. Patient is not labored, maintaining secretions, speaking in full clear sentences. Patient was positive for orthostatic hypotension. Patient treated with 2 L of normal saline total. Patient's BUN and creatinine were elevated consistent with his visit from July 27. His CBC is unremarkable. Negative troponin. His potassium was noted to be critically low at 2.2, this was replaced in the ER. Patient's CT scanning of chest showed pneumomediastinum with subcutaneous gas extending into his neck, mild left lower lobe groundglass opacities notes decreased from previous study, peripancreatic fluid with inflammatory changes, gastric wall thickening of stomach that is unchanged from previous study. No subcutaneous air palpated. Lipase is 1380. I attempted to transfer the patient to a facility with surgical coverage. I spoke to patient about possible transfer and he is refusing to be transferred to [facility]. [facility] unable to accept the patient unless he has a critical diagnosis per their transfer team. I spoke to the trauma surgeon at [facility] Dr. Blake and he is agreed to see the patient in the ER for evaluation. I spoke to patient about his lab and imaging findings as well as transfer to . Per his consent, I also spoke to his . He understands his findings and is agreeable to be transferred to . Patient given pain and nausea medication in the ER. Care transferred at this time 1744. EMS arrived to this facility at 1848 to transport patient to . (KWADWO MOJICA APRN) Course & Med Decision Making I was the Attending physician on the above date of service of this patient. This patient was evaluated, examined, treated, and dispositioned from the emergency department by the mid-level practitioner. I reviewed ER work-up with FINANCIAL REPRESENTATIVE and patient and personally saw patient repeating certain aspects of history and physical exam. I discussed my concern for patient given pneumomediastinum and hypokalemia. I recommended potassium replacement, IV antibiotic coverage and transfer for admission to a facility that could provide higher acuity of care Electronically signed, Hussain Vazquez DO (HUSSAIN VAZQUEZ DO) Mick Disclaimer: Mick Disclaimer: This electronic medical record was generated, in whole or in part, using a voice recognition dictation system. (KWADWO MOJICA APRN) Departure Departure: Impression: Primary Impression: Pneumomediastinum Additional Impression: Hypokalemia Disposition: 02 SHORT TERM HOSPITAL Condition: STABLE Referrals: NETTA PUCKETT MD (PCP) KWADWO MOJICA APRN Aug 11, 2021 15:29 HUSSAIN VAZQUEZ DO Aug 12, 2021 07:02
[2021-08-11] MEDS ORDERED: IV NORMAL SALINE 1,000ML 1,000 ML IV ONE (15:30)
--- NOTE | 2021-08-11 15:53 | EKG ---
[address] [address] Test Date: 2021-08-11 Test Time: 15:44:41 Pat Name: MALATHI SALCEDO Department: Room: Gender: M Senior Branch Manager: SRINIVASAN : 1985 Requested By: KWADWO MOJICA Order Number: [id number] Reading MD: Measurements Intervals [place] Rate: 98 P: 41 MN: 150 QRS: 23 QRSD: 100 T: 26 QT: 346 QTc: 444 Interpretive Statements SINUS RHYTHM R-S TRANSITION ZONE IN V LEADS DISPLACED TO THE RIGHT INCOMPLETE RIGHT BUNDLE BRANCH BLOCK OTHERWISE NORMAL ECG RI6.02 No previous ECG available for comparison
--- NOTE | 2021-08-11 16:01 | RAD ---
CT HEAD AND C-SPINE WO History: Dizzy, fall, hit head. Comparison: CT head and cervical spine 02/24/2021 Technique: Noncontrast CT of the head and cervical spine. Findings: CT HEAD: There is no evidence for intracranial mass or hemorrhage. There is no hydrocephalus or midline shift. No abnormal extra-axial fluid collections are present. Condon/white matter differentiation is preserved. The visualized paranasal sinuses and mastoid air cells are clear. The skull and scalp are within normal limits. CT CERVICAL SPINE: There is no evidence for fracture in the cervical spine. Alignment is normal. Disc spaces are preserved. No destructive osseous lesions are seen. Extensive subcutaneous emphysema involving the soft tissues of the anterior and to lesser extent post erior neck tracking towards the mediastinum. No mucosal injury in the upper aerodigestive tract ident ified. Impression: 1. No acute intracranial findings. 2. No acute osseous abnormality in the cervical spine. 3. Extensive cervical subcutaneous emphysema tracking towards the mediastinum. No mucosal injury of the upper aerodigestive tract identified. Findings discussed with Solis at 08/11/2021 3:59 PM. FOR INTERNAL CODING PURPOSES RESULT CODE: (C) ------- Exposure: One or more of the following individualized dose reduction techniques were utilized for thi s examination: 1. Automated exposure control 2. Adjustment of the mA and/or kV according to patient size 3. Use of iterative reconstruction technique. Electronically signed by: Juan C Cruz MD (08/11/2021 3:59 PM) [id number]
[2021-08-11] MEDS ORDERED: IOHEXOL 300 MG/ML 75 ML VIAL. IV ONE (16:15)
[2021-08-11 16:30] LABS: BASO # 0.1 x10^3/uL (0.0-0.2); BASO % 1 % (0-3); EOS # 0.1 x10^3/uL (0.0-0.7); EOS % 1 % (0-3); HEMATOCRIT 35.2 % (39.0-53.0); HEMOGLOBIN 11.8 g/dL (13.0-17.5); LYMPH # 1.5 x10^3/uL (1.0-4.8); LYMPH % 14 % (24-48); MEAN CORPUSCULAR HEMOGLOBIN 25 pg (25-35); MEAN CORPUSCULAR HGB CONC 33 g/dL (31-37); MEAN CORPUSCULAR VOLUME 75 fL (79-100); MONO # 0.5 x10^3/uL (0.0-1.1); MONO % 5 % (0-9); NEUT # 8.7 x10^3uL (1.8-7.7); NEUT % 79 % (31-73); PLATELET COUNT 295 x10^3/uL (140-400); RED CELL DISTRIBUTION WIDTH 19.4 % (11.5-14.5)
[2021-08-11 16:45] LABS: ALBUMIN 3.9 g/dL (3.4-5.0); ALBUMIN/GLOBULIN RATIO 1.1 (1.0-1.7); CALCIUM 9.8 mg/dL (8.5-10.1); CREATININE 3.3 mg/dL (0.7-1.3); GFR 21.3; TOTAL BILIRUBIN 0.8 mg/dL (0.2-1.0); TOTAL PROTEIN 7.4 g/dL (6.4-8.2)
[2021-08-11 16:48] LABS: POTASSIUM 2.2 mmol/L (3.5-5.1)
--- NOTE | 2021-08-11 16:51 | RAD ---
CT THORAX W History: Subcutaneous gas. Trauma. Technique: CT of the chest was performed with intravenous contrast. Coronal and sagittal reconstructi ons were performed. Exposure: One or more of the following individualized dose reduction techniques were utilized for thi s examination: 1. Automated exposure control 2. Adjustment of the mA and/or kV according to patient size 3. Use of iterative reconstruction technique. Comparison: July 26, 2021 CT abdomen pelvis. Findings: Chest: Pneumomediastinum and extensive subcutaneous gas within the lower neck. Small mediastinal lymp h nodes. No pathologic lymphadenopathy within the chest. No aortic aneurysm or dissection. Mild left lower lobe nodular groundglass opacities, decreased compared to prior. Scattered linear ate lectasis mild. No pneumothorax. No pleural effusion. 2 mm left upper lobe pulmonary nodule (series 5 image 58). 3 mm right middle lobe pleural-based nodule image 31). Upper abdomen: Loculated fluid collections within the upper abdomen adjacent to the pancreas, similar compared to prior. Partially imaged. Within the region the pancreatic head and neck. The pancreatic ductal dilatation. Pancreatic body and tail atrophy. Distal gastric and duodenal wall thickening part ially imaged. Mild distention of the stomach. Bones: No pathologic osseous lesions. Impression: 1. Pneumomediastinum and subcutaneous gas extending into the neck. 2. Mild left lower lobe groundglass nodular opacities, decreased compared to prior. 3. Persistent peripancreatic loculated fluid collections and inflammatory changes with fullness of t he pancreatic head and neck partially imaged. Recommend follow-up MRI with and without contrast after treatment to exclude underlying lesion. 4. Gastric antral and duodenal wall thickening with distention of the stomach, may relate to reactiv e wall thickening with potential gastric outlet obstruction, unchanged. 5. Small pulmonary nodules. Recommend attention on follow-up. Electronically signed by: Ezequiel Newton DO (08/11/2021 4:48 PM) [facility]
[2021-08-11] MEDS ORDERED: POTASSIUM CHLORIDE 20 MEQ TABLET.ER. PO ONE (17:00)
[2021-08-11] MEDS ORDERED: POTASSIUM CHLORIDE 20MEQ 100 ML IV SCH (17:30)
[2021-08-11] MEDS ORDERED: ONDANSETRON PF 4 MG/2 ML VIAL. ONE (17:43)
[2021-08-11] MEDS ORDERED: POTASSIUM CL 40MEQ IN 0.9%NACL 1,000 ML IV ONE (17:45)
[2021-08-11] MEDS ORDERED: ONDANSETRON PF 4 MG/2 ML VIAL. IVP ONE (17:45)
[2021-08-11 18:08] VITALS: BP 112/55
[2021-08-11] MEDS ORDERED: IV NORMAL SALINE 100ML 100 ML ONE (18:30)
== END 2021-08-11 18:51 | disposition short-term general hospital (02) ==
LOC: ER 14:31
DX: J98.2 Interstitial emphysema (principal); E87.6 Hypokalemia; R55 Syncope and collapse; F41.9 Anxiety disorder, unspecified; F32.9 Major depressive disorder, single episode, unspecified; E11.9 Type 2 diabetes mellitus without complications; K21.9 Gastro-esophageal reflux disease without esophagitis; F17.210 Nicotine dependence, cigarettes, uncomplicated; Z88.5 Allergy status to narcotic agent; Z88.8 Allergy status to other drugs, medicaments and biological substances
CPT/HCPCS: 36415; 70450; 71260; 72125; 80053; 83690; 83735; 84484; 85025; 93005; 96361; 96365; 96368; 96375; 99285; J0696; J2405; J3010; J7030; Q9967

== ENCOUNTER 2021-08-16 16:54 | Emergency (ER) | payer OTHER ==
[~2021-08-16] VITALS: Ht 185.4 cm; Wt 98.2 kg
[2021-08-16 17:03] VITALS: BP 127/83
--- NOTE | 2021-08-16 17:33 | PHYS DOC ---
Past History Past Medical History: Anxiety, Depression, Diabetes, GERD, Pancreatitis Additional Past Medical Histor: vertigo, pneumomediastinum Past Surgical History: Other Additional Past Surgical Histo: RIGHT ANKLE; EGD Smoking: Cigarettes Alcohol Use: None Drug Use: None General Adult EDM: Chief Complaint: ABDOMINAL PAIN HPI: HPI: 36-year-old male with past medical history of chronic pancreatitis presents with report that "I am yellow ". Patient reports this occurred since yesterday. Patient was discharged from [facility] after a 5-day stay for pneumomediastinum. Patient reports continued lower abdominal pain and nausea. Denies any vomiting. Denies any recent trauma. Denies fever or chills. Denies known exposure to COVID-19. Patient has received COVID-19 vaccination with Moderna x2. Per [facility] review patient has been seen 5 times in the month of June 2021 and this will be patient's 4th visit in July 2021. Review of Systems: Review of Systems: Constitutional: Denies fever or chills Eyes: Denies redness or eye pain HENT: Denies nasal congestion or sore throat Respiratory: Denies cough or shortness of breath Cardiovascular: Denies chest pain or palpitations GI: Reports lower abdominal pain and nausea; denies vomiting : Denies dysuria or hematuria Musculoskeletal: Denies back pain or joint pain Integument: Denies rash or skin lesions Neurologic: Denies headache, focal weakness or sensory changes Complete systems were reviewed and found to be within normal limits, except as documented in this note. Allergies: Allergies: Allergies Coded Allergies Type Severity Reaction Last Updated Verified dulaglutide Allergy Intermediate 06/26/21 Yes hydrocodone Allergy Intermediate 06/26/21 Yes metformin Allergy Intermediate 06/26/21 Yes aspirin Allergy Unknown 08/03/21 Yes broccoli Allergy Unknown 07/27/21 Yes Physical Exam: PE: Constitutional: Well developed, well nourished, no acute distress, non-toxic appearance HENT: Normocephalic, atraumatic Eyes: Conjunctiva normal, no discharge Neck: Normal range of motion, no tenderness, supple Lungs & Thorax: No respiratory distress, equal chest rise and fall Abdomen: Soft, no tenderness Skin: Warm, dry, no erythema, no rash Back: No tenderness, no CVA tenderness Extremities: No tenderness, ROM intact, no edema Neurologic: Alert and oriented X 3, normal motor function, normal sensory function, no focal deficits noted Psychologic: Affect normal, judgment normal Current Patient Data: Vital Signs: Vital Signs Date Time Temp Pulse Resp B/P (MAP) Pulse Ox O2 Delivery O2 Flow Rate FiO2 08/16/21 17:03 98.5 76 16 127/83 (98) 100 Room Air EKG: EKG: [] Radiology/Procedures: Radiology/Procedures: [] Heart Score: C/O Chest Pain: N/A Course & Med Decision Making: Course & Med Decision Making Pertinent Lab Imaging studies reviewed. (See chart for details) Patient presents with report of lower abdominal pain and concerned that he has jaundice. Patient does have a history of chronic pancreatitis. Patient was re cently admitted to [facility] x5 days with discharge yesterday. Patient reports this change since being discharged yesterday. Denies any fever. Of note patient has been seen 5 times in June 2021 and 4 times in July 2021 including this visit. Labs obtained and posted to chart. Patient stable for discharge with outpatient follow-up with PCP/GI. Discussed findings and plan with patient, who acknowledges understanding and agreement. Mick Disclaimer: Mick Disclaimer: This electronic medical record was generated, in whole or in part, using a voice recognition dictation system. Departure Departure: Impression: Primary Impression: Chronic pancreatitis Qualified Codes: K86.1 - Other chronic pancreatitis Disposition: HOME / SELF CARE / HOMELESS Condition: STABLE Referrals: NETTA PUCKETT MD (PCP) Patient Instructions: Chronic Pain, Chronic Pain Management TEE CHAVEZ DO Aug 16, 2021 17:33
== END 2021-08-16 17:44 | disposition left against medical advice (07) ==
LOC: ER 17:19
DX: K86.1 Other chronic pancreatitis (principal); K21.9 Gastro-esophageal reflux disease without esophagitis; F17.210 Nicotine dependence, cigarettes, uncomplicated; Z88.6 Allergy status to analgesic agent; Z88.8 Allergy status to other drugs, medicaments and biological substances
CPT/HCPCS: 99281

== ENCOUNTER 2021-09-24 17:13 | Emergency (ER) | payer MEDICAID, OTHER ==
[~2021-09-24] VITALS: Ht 185.4 cm; Wt 98.2 kg
[~2021-09-24 17:13] MED LIST changes: -CYCL-331 PO; +CYCL10TA19 PO
[2021-09-24] MEDS: KETOROLAC 15 MG/ML VIAL. IVP ONE (17:45)
[2021-09-24] MEDS: IV NORMAL SALINE 1,000ML 1,000 ML IV ONE (17:45)
[2021-09-24] MEDS: ONDANSETRON PF 4 MG/2 ML VIAL. IVP ONE (17:45)
--- NOTE | 2021-09-24 17:45 | PHYS DOC ---
Past History Past Medical History: Anxiety, Depression, Diabetes, GERD, Pancreatitis Additional Past Medical Histor: vertigo, pneumomediastinum (AUBREY ESPINO MD) Past Surgical History: Other Additional Past Surgical Histo: RIGHT ANKLE; EGD (AUBREY ESPINO MD) Smoking: Cigarettes Alcohol Use: None Drug Use: None (AUBREY ESPINO MD) General Adult EDM: Chief Complaint: ABDOMINAL PAIN HPI: HPI: Patient is a 36-year-old male coming in for recurrent episode of acute on chronic pancreatitis. Patient states he has epigastric abdominal pain that is burning and nonradiating. Patient states that flared up yesterday has been having pain for the past 6 months. Was last hospitalized for 1 week 1 month ago. He is initially seen here and transferred to research. Patient denies any history of cholelithiasis or alcohol use. Patient states that he is vomited 3 times since the pain started and is nonbloody or bilious. Denies any abdominal distention or diarrhea. Denies any fevers. (AUBREY ESPINO MD) Review of Systems: Review of Systems: All other systems within normal limits except for as noted in the HPI (AUBREY ESPINO MD) Current Medications: Current Meds: Current Medications Medications (Trade) Dose Ordered Sig/Terell Start Time Stop Time Status Last Admin Dose Admin Ketorolac Tromethamine (Toradol 15mg Vial) 15 mg 1X ONCE 09/24/21 17:45 09/24/21 17:46 UNV Ondansetron HCl (Zofran) 4 mg 1X ONCE 09/24/21 17:45 09/24/21 17:46 UNV Sodium Chloride 1,000 ml @ 1,000 mls/hr 1X ONCE 09/24/21 17:45 09/24/21 18:44 UNV (AUBREY ESPINO MD) Allergies: Allergies: Allergies Coded Allergies Type Severity Reaction Last Updated Verified dulaglutide Allergy Intermediate 06/26/21 Yes hydrocodone Allergy Intermediate 06/26/21 Yes metformin Allergy Intermediate 06/26/21 Yes aspirin Allergy Unknown 08/03/21 Yes broccoli Allergy Unknown 07/27/21 Yes (AUBREY ESPINO MD) Physical Exam: PE: Constitutional: Well developed, well nourished, no acute distress, non-toxic appearance. [] HENT: Normocephalic, atraumatic, bilateral external ears normal, nose normal. [] Eyes: PERRLA, conjunctiva normal, no discharge. [] Neck: No rigidity, supple, no stridor. [] Cardiovascular: Regular rate and rhythm, brisk cap refill [] Lungs & Thorax: Non labored symmetric respirations, no tachypnea or respiratory distress [] Abdomen: Soft, nondistended, epigastric pain without guarding or rebound Skin: Warm, dry, no erythema, no rash. [] Back: Unremarkable Extremities: No deformities, range of motion grossly intact, no lower extremity edema [] Neurologic: Alert and oriented X 3, no focal deficits noted. [] Psychologic: Affect normal, judgement normal, mood normal. [] (AUBREY ESPINO MD) Current Patient Data: Vital Signs: Vital Signs Date Time Temp Pulse Resp B/P (MAP) Pulse Ox O2 Delivery O2 Flow Rate FiO2 09/24/21 17:31 98.4 96 16 126/66 (86) 100 Room Air (AUBREY ESPINO MD) EKG: EKG: [] (AUBREY ESPINO MD) Radiology/Procedures: Radiology/Procedures: [] (AUBREY ESPINO MD) Heart Score: C/O Chest Pain: No Risk Factors: Risk Factors: DM, Current or recent (<one month) smoker, HTN, HLP, family history of CAD, obesity. Risk Scores: Score 0 - 3: 2.5% MACE over next 6 weeks - Discharge Home Score 4 - 6: 20.3% MACE over next 6 weeks - Admit for Clinical Observation Score 7 - 10: 72.7% MACE over next 6 weeks - Early Invasive Strategies (AUBREY ESPINO MD) Course & Med Decision Making: Course & Med Decision Making Pertinent Labs and Imaging studies reviewed. (See chart for details) . Transition shift change pending labs and possible CT [] (AUBREY ESPINO MD) Course & Med Decision Making The patient has an elevated lipase of 860. I discussed the patient with the hospitalist, Dr. Trujillo and he is willing to admit the patient for pain control and fluids. I went and spoke with the patient and he would really prefer to try to go home. I did give him an initial 1 mg of Dilaudid for his pain and I will give him a second dose prior to discharge. He has had difficulties with oral pain medication and does not think he will need them at home. He lists hydrocodone as an allergy, but he was told he was allergic by his mother and just has not taken any in more than 20 years. I believe it is reasonable for the patient to try going home. He is stable for discharge at this time. (ALESIA NARAYANAN DO) Dragon Disclaimer: Dragon Disclaimer: This electronic medical record was generated, in whole or in part, using a voice recognition dictation system. (AUBREY ESPINO MD) Departure Departure: Impression: Primary Impression: Chronic pancreatitis Disposition: HOME / SELF CARE / HOMELESS Condition: IMPROVED Referrals: NETTA PUCKETT MD (PCP) Patient Instructions: Acute Pancreatitis, [id number] AUBREY ESPINO MD Sep 24, 2021 17:45 ALESIA NARAYANAN DO Sep 24, 2021 19:57
--- NOTE | 2021-09-24 18:27 | EKG ---
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
[2021-09-24 18:35] LABS: BASO % 1 % (0-3); EOS # 0.2 x10^3/uL (0.0-0.7); EOS % 2 % (0-3); HEMATOCRIT 33.3 % (39.0-53.0); HEMOGLOBIN 11.1 g/dL (13.0-17.5); LYMPH # 1.8 x10^3/uL (1.0-4.8); LYMPH % 20 % (24-48); MEAN CORPUSCULAR HEMOGLOBIN 27 pg (25-35); MEAN CORPUSCULAR HGB CONC 33 g/dL (31-37); MEAN CORPUSCULAR VOLUME 79 fL (79-100); MONO # 0.7 x10^3/uL (0.0-1.1); MONO % 7 % (0-9); NEUT # 6.4 x10^3uL (1.8-7.7); NEUT % 70 % (31-73); PLATELET COUNT 363 x10^3/uL (140-400); RED BLOOD COUNT 4.19 x10^6/uL (4.30-5.70); RED CELL DISTRIBUTION WIDTH 18.4 % (11.5-14.5); WHITE BLOOD COUNT 9.1 x10^3/uL (4.0-11.0)
[2021-09-24 18:39] LABS: BARBITURATES NEG (NEG); BENZODIAZEPINES NEG (NEG); CANNABINOIDS NEG (NEG); COCAINE NEG (NEG); METHADONE NEG (NEG); OPIATES NEG (NEG); PHENCYCLIDINE NEG (NEG)
[2021-09-24 18:44] LABS: BILIRUBIN,URINE NEG (NEG); CLARITY,URINE CLEAR; COLOR,URINE YELLOW; CREATININE 0.7 mg/dL (0.7-1.3); GFR 127.6; GLUCOSE,URINE NEG (NEG); POTASSIUM 3.9 mmol/L (3.5-5.1)
[2021-09-24 18:45] LABS: BACTERIA,URINE 0 /HPF (0-FEW); NITRITE,URINE NEG (NEG); RBC,URINE 0 /HPF (0-2); SQUAMOUS EPITHELIAL CELL,UR OCC /LPF; UROBILINOGEN,URINE 0.2 mg/dL (0.2 mg/dL); WBC,URINE 0 /HPF (0-4)
[2021-09-24 18:46] LABS: AMPHETAMINE/METHAMPHETAMINE NEG (NEG)
[2021-09-24 18:49] LABS: ALBUMIN 3.8 g/dL (3.4-5.0); ALBUMIN/GLOBULIN RATIO 0.9 (1.0-1.7); MAGNESIUM 1.7 mg/dL (1.8-2.4); PHOSPHORUS 2.5 mg/dL (2.6-4.7); TOTAL BILIRUBIN 0.3 mg/dL (0.2-1.0); TOTAL PROTEIN 7.9 g/dL (6.4-8.2)
[2021-09-24] MEDS: HYDROmorphone PF 1 MG/ML DISP.SYRIN IVP ONE ×2 (19:00→20:00)
[2021-09-24 20:06] VITALS: BP 127/78
== END 2021-09-24 20:07 | disposition home or self-care (01) ==
LOC: ER 17:13
DX: K86.1 Other chronic pancreatitis (principal); E11.9 Type 2 diabetes mellitus without complications; K21.9 Gastro-esophageal reflux disease without esophagitis; F17.210 Nicotine dependence, cigarettes, uncomplicated; Z88.8 Allergy status to other drugs, medicaments and biological substances; Z88.6 Allergy status to analgesic agent
CPT/HCPCS: 36415; 80053; 80307; 81001; 83690; 83735; 84100; 85025; 93005; 96361; 96374; 96375; 96376; 99284; G0480; J1170; J1885; J2405; J7030

== ENCOUNTER 2021-11-08 21:03 | Emergency (ER) | payer OTHER, MEDICAID ==
[~2021-11-08] VITALS: Ht 185.4 cm; Wt 91.6 kg
[2021-11-08 21:07] VITALS: BP 111/68
[2021-11-08] MEDS ORDERED: IV RINGERS SOLUTION,LACTATED 1,000 ML IV SCH (21:15)
[2021-11-08] MEDS ORDERED: LORazepam 1 MG TABLET PO ONE (21:30)
--- NOTE | 2021-11-08 21:52 | PHYS DOC ---
Past History Past Medical History: Anxiety, Depression, Diabetes, GERD, Pancreatitis Additional Past Medical Histor: vertigo, pneumomediastinum Past Medical History Hypokalemia Past Surgical History: Other Additional Past Surgical Histo: scope r/t pancreatitis Smoking: Cigarettes Alcohol Use: None Drug Use: None General Adult EDM: Chief Complaint: SEIZURE HPI: HPI: ".. I guess .. I had a sezure.. " " I get them .. ever since I had a stroke 3 yrs ago..." Patient is a 36 year old male who presents with above hx and complaints tonic- clonic seizure. Patient not currently on any seizure meds and they removed several months ago. Patient has had seizures a tonic-clonic since a CVA approximately 3 years ago. No recent changes in other meds. No history of trauma. No history of travel. No history of specific ill contacts. Patient does continue to smoke. Patient has not had flu vaccination this season. Patient t has had COVID vaccination. Patient had no incontinence. Has a past medical history of hypokalemia, seizure disorder, pneumothorax CVA, pancreatitis, GERD. Hypokalemia episodes.. Patient does smoke. No recent t ravel. No ill contacts. Pt. normally follows with Dr. Urbina. Review of Systems: Review of Systems: Constitutional: Denies fever or chills Eyes: Denies change in visual acuity HENT: Denies nasal congestion or sore throat Respiratory: Denies cough or shortness of breath Cardiovascular: Denies chest pain or edema GI: Denies abdominal pain, nausea, vomiting, bloody stools or diarrhea : Denies dysuria Musculoskeletal: Denies back pain or joint pain Integument: Denies rash Neurologic: Denies headache, focal weakness or sensory changes. Complains of tonic-clonic seizure Endocrine: Denies polyuria or polydipsia Lymphatic: Denies swollen glands Psychiatric: Denies depression or anxiety Family History: Family History: Noncontributory to presentation Current Medications: Current Meds: Current Medications Medications (Trade) Dose Ordered Sig/Terell Start Time Stop Time Status Last Admin Dose Admin Lactated Ringer's 1,000 ml @ 1,000 mls/hr Q1H 11/08/21 21:15 11/08/21 22:14 Lorazepam (Ativan) 1 mg 1X ONCE 11/08/21 21:30 11/08/21 21:31 DC 11/08/21 21:17 1 MG Allergies: Allergies: Allergies Coded Allergies Type Severity Reaction Last Updated Verified dulaglutide Allergy Intermediate 06/26/21 Yes hydrocodone Allergy Intermediate 06/26/21 Yes metformin Allergy Intermediate 06/26/21 Yes aspirin Allergy Unknown 08/03/21 Yes broccoli Allergy Unknown 07/27/21 Yes Physical Exam: PE: Constitutional: , no acute distress, non-toxic appearance. [] HENT: Normocephalic, atraumatic, bilateral external ears normal, oropharynx moist, no oral exudates, nose normal. [] Eyes: PERRLA, EOMI, conjunctiva normal, no discharge. [] Neck: Normal range of motion, no tenderness, supple, no stridor. [] Cardiovascular:Heart rate regular rhythm, no murmur [] Lungs & Thorax: Bilateral breath sounds clear to auscultation [] Abdomen: Bowel sounds normal, soft, no tenderness, no masses, no pulsatile masses. [] Skin: Warm, dry, no erythema, no rash. [] Back: No tenderness, no CVA tenderness. [] Extremities: No tenderness, no cyanosis, no clubbing, ROM intact, no edema. [] Neurologic: Alert and oriented X 3, normal motor function, normal sensory function, no focal deficits noted. [] DTRs +2 patella brachial. Knotting Machine Operator equal. No drift. Amatory without problems. Psychologic: Affect normal, judgement normal, mood normal. [] Current Patient Data: Vital Signs: Vital Signs Date Time Temp Pulse Resp B/P (MAP) Pulse Ox O2 Delivery O2 Flow Rate FiO2 11/08/21 21:07 98.6 83 20 111/68 (82) 97 Room Air EKG: EKG: My interpretation of EKG shows a sinus rhythm at 90 bpm. There is some slight right axis deviation. But no findings of acute STEMI or contralateral changes. [] Radiology/Procedures: Radiology/Procedures: [][address] [address] IMAGING REPORT Signed PATIENT: MALATHI SALCEDO ACCOUNT: [id number] : 1985 LOCATION: ER AGE: 36 SEX: M EXAM STATUS: PRE ER ORD. PHYSICIAN: SAMIRA CARNEY MD REASON: tonic clonic seizue- wheezing PROCEDURE: PORTABLE CHEST 1V EXAM: AP View of the chest DATE: 11/08/2021 9:42 PM INDICATION: Reason: tonic clonic seizue- wheezing / Spl. Instructions: / History: COMPARISON: No Prior FINDINGS: The heart is not enlarged. Mediastinal and hilar contours are normal. No focal parenchymal airspace opacity. No pleural effusion or pneumothorax. IMPRESSION: 1. No radiographic evidence for acute cardiopulmonary process. Electronically signed by: Shola Agudelo MD (11/08/2021 10:48 PM) [facility] DICTATED AND SIGNED BY: SHOLA AGUDELO MD DATE: 11/08/212246 CC: SAMIRA CARNEY MD; NETTA URBINA MD ~MTH0 [address] [place] [address] IMAGING REPORT Signed PATIENT: MALATHI SALCEDO ACCOUNT: [id number] : 1985 LOCATION: ER AGE: 36 SEX: M EXAM STATUS: PRE ER ORD. PHYSICIAN: SAMIRA CARNEY MD REASON: SEIZURE PROCEDURE: CT HEAD WO CONTRAST CT Head W/O Contrast: History: Reason: SEIZURE / Spl. Instructions: / History: Comparison: August 11, 2001 Axial images were obtained without contrast. The lara and white matter appears normal and symmetrical for the patients age. There is no mass effect, extraaxial fluid collections or hydrocephalus. There is no gross bleed. There is no focal loss of lara-white matter distinction to suggest acute ischemia, i.e. stroke. Impression: No acute findings. RS Compliance Statement: One or more of the following individualized dose reduction techniques were utilized for this examination: 1. Automated exposure control 2. Adjustment of the mA and/or kV according to patient size 3. Use of iterative reconstruction technique Electronically signed by: Dano Schofield III, MD (11/08/2021 10:38 PM) [facility] DICTATED AND SIGNED BY: DANO SCHOFIELD III, MD DATE: 11/08/212236 CC: SAMIAR CARNEY MD; NETTA URBINA MD ~MTH0 0 Heart Score: C/O Chest Pain: No HEART Score for Chest Pain: HEART Score for Chest Pain Response (Comments) Value History Slighlty/Non-Suspicious 0 ECG Normal 0 Age < 45 0 Risk Factors 1 or 2 Risk Factors 1 Troponin < Normal Limit 0 Total 1 Risk Factors: Risk Factors: DM, Current or recent (<one month) smoker, HTN, HLP, family history of CAD, obesity. Risk Scores: Score 0 - 3: 2.5% MACE over next 6 weeks - Discharge Home Score 4 - 6: 20.3% MACE over next 6 weeks - Admit for Clinical Observation Score 7 - 10: 72.7% MACE over next 6 weeks - Early Invasive Strategies Course & Med Decision Making: Course & Med Decision Making Pertinent Labs and Imaging studies reviewed. (See chart for details) Pt. currently demanding discharge- Reports he is back to normal. Declines admission at this time. Refused to wait for another EKG and follow up trop. Avoid hazardous activities. No driving. Follow-up primary care. Return if any concerns. Patient push high potassium foods Impression: 1. Tonic Clonic Seizure 2. Hx. of CVA- 3 yrs ago 3.. Hypokalemia 2.9 4. Leukocytosis 11.1 5. Anemia 12.4\\ [] Dragon Disclaimer: Dragon Disclaimer: This electronic medical record was generated, in whole or in part, using a voice recognition dictation system. Departure Departure: Referrals: NETTA URBINA MD (PCP) Mick Disclaimer This chart was dictated in whole or in part using Voice Recognition software in a busy, high-work load, and often noisy Emergency Department environment. It may contain unintended and wholly unrecognized errors or omissions. Dragon Disclaimer This chart was dictated in whole or in part using Voice Recognition software in a busy, high-work load, and often noisy Emergency Department environment. It may contain unintended and wholly unrecognized errors or omissions. SAMIRA CARNEY MD Nov 08, 2021 21:52
--- NOTE | 2021-11-08 22:09 | EKG ---
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
[2021-11-08 22:21] LABS: BASO # 0.1 x10^3/uL (0.0-0.2); BASO % 1 % (0-3); EOS # 0.1 x10^3/uL (0.0-0.7); EOS % 1 % (0-3); HEMATOCRIT 36.5 % (39.0-53.0); HEMOGLOBIN 12.4 g/dL (13.0-17.5); LYMPH # 1.9 x10^3/uL (1.0-4.8); LYMPH % 17 % (24-48); MEAN CORPUSCULAR HEMOGLOBIN 28 pg (25-35); MEAN CORPUSCULAR HGB CONC 34 g/dL (31-37); MEAN CORPUSCULAR VOLUME 81 fL (79-100); MONO # 0.7 x10^3/uL (0.0-1.1); MONO % 7 % (0-9); NEUT # 8.2 x10^3uL (1.8-7.7); NEUT % 75 % (31-73); PLATELET COUNT 387 x10^3/uL (140-400); RED CELL DISTRIBUTION WIDTH 15.6 % (11.5-14.5); WHITE BLOOD COUNT 11.1 x10^3/uL (4.0-11.0)
[2021-11-08 22:30] LABS: CALCIUM 9.9 mg/dL (8.5-10.1); CREATININE 1.2 mg/dL (0.7-1.3); GFR 68.5; MAGNESIUM 2.1 mg/dL (1.8-2.4)
[2021-11-08 22:34] LABS: POTASSIUM 2.9 mmol/L (3.5-5.1)
--- NOTE | 2021-11-08 22:41 | RAD ---
CT Head W/O Contrast: History: Reason: SEIZURE / Spl. Instructions: / History: Comparison: August 11, 2001 Axial images were obtained without contrast. The lara and white matter appears normal and symmetrical for the patients age. There is no mass effe ct, extraaxial fluid collections or hydrocephalus. There is no gross bleed. There is no focal loss of lara-white matter distinction to suggest acute ischemia, i.e. stroke. Impression: No acute findings. RS Compliance Statement: One or more of the following individualized dose reduction techniques were utilized for this examinat ion: 1. Automated exposure control 2. Adjustment of the mA and/or kV according to patient size 3. Use of iterative reconstruction technique Electronically signed by: Donnell Ham III, MD (11/08/2021 10:38 PM) [facility]
--- NOTE | 2021-11-08 22:50 | RAD ---
EXAM: AP View of the chest DATE: 11/08/2021 9:42 PM INDICATION: Reason: tonic clonic seizue- wheezing / Spl. Instructions: / History: COMPARISON: No Prior FINDINGS: The heart is not enlarged. Mediastinal and hilar contours are normal. No focal parenchymal airspace opacity. No pleural effusion or pneumothorax. IMPRESSION: 1. No radiographic evidence for acute cardiopulmonary process. Electronically signed by: Shola Overton MD (11/08/2021 10:48 PM) [facility]
[2021-11-08] MEDS ORDERED: KETOROLAC 30 MG/ML VIAL. ONE (22:57)
[2021-11-08] MEDS ORDERED: POTASSIUM CHLORIDE 20 MEQ TABLET.ER. PO ONE (23:00)
[2021-11-08] MEDS ORDERED: ONDANSETRON PF 4 MG/2 ML VIAL. ONE (23:54)
[2021-11-09 00:29] LABS: BARBITURATES NEG (NEG); BENZODIAZEPINES NEG (NEG); CANNABINOIDS NEG (NEG); COCAINE NEG (NEG); METHADONE NEG (NEG); OPIATES NEG (NEG); PHENCYCLIDINE NEG (NEG)
[2021-11-09] MEDS ORDERED: MAGNESIUM HYDROXIDE 2,400 MG/30 ML ORAL.SUSP. PO ONE (00:30)
[2021-11-09] MEDS ORDERED: POTASSIUM CHLORIDE 20 MEQ TABLET.ER. PO ONE (00:30)
[2021-11-09 00:32] LABS: AMPHETAMINE/METHAMPHETAMINE NEG (NEG)
[2021-11-09 00:42] LABS: BACTERIA,URINE FEW /HPF (0-FEW); BILIRUBIN,URINE NEG (NEG); CLARITY,URINE CLEAR; COLOR,URINE YELLOW; GLUCOSE,URINE NEG (NEG); NITRITE,URINE NEG (NEG); RBC,URINE 0 /HPF (0-2); SQUAMOUS EPITHELIAL CELL,UR FEW /LPF; UROBILINOGEN,URINE 0.2 mg/dL (0.2 mg/dL); WBC,URINE OCC /HPF (0-4)
[2021-11-10] MEDS ORDERED: BUSP10TA PO (14:16)
[2021-11-10] MEDS ORDERED: INSU100C4 SQ (14:19)
[2021-11-10] MEDS ORDERED: INSU100V13 SQ (14:19)
== END 2021-11-09 00:11 | disposition home or self-care (01) ==
LOC: ER 21:03
DX: G40.909 Epilepsy, unspecified, not intractable, without status epilepticus (principal); E87.6 Hypokalemia; D72.829 Elevated white blood cell count, unspecified; D64.9 Anemia, unspecified; F41.9 Anxiety disorder, unspecified; F32.9 Major depressive disorder, single episode, unspecified; E11.9 Type 2 diabetes mellitus without complications; K21.9 Gastro-esophageal reflux disease without esophagitis; F17.210 Nicotine dependence, cigarettes, uncomplicated; Z86.73 Personal history of transient ischemic attack (TIA), and cerebral infarction without residual deficits; Z88.5 Allergy status to narcotic agent; Z88.6 Allergy status to analgesic agent; Z88.8 Allergy status to other drugs, medicaments and biological substances
CPT/HCPCS: 36415; 70450; 71045; 80048; 80307; 81001; 82550; 83735; 84484; 85025; 93005; 96360; 99285; J7120; 84443

== ENCOUNTER 2021-11-10 09:40 | Inpatient (IN) | payer OTHER, MEDICAID ==
[~2021-11-10] VITALS: Ht 188 cm; Wt 88.7 kg
[2021-11-10] MEDS ORDERED: ONDANSETRON PF 4 MG/2 ML VIAL. IVP ONE ×2 (10:30→13:15)
[2021-11-10] MEDS ORDERED: IV NORMAL SALINE 1,000ML 1,000 ML IV ONE ×4 (10:30→23:00)
--- NOTE | 2021-11-10 11:01 | PHYS DOC ---
Past History Past Medical History: Anxiety, Depression, Diabetes, GERD, Pancreatitis Additional Past Medical Histor: vertigo, pneumomediastinum (NIECY ECKERT APRN) Past Surgical History: Other Additional Past Surgical Histo: scope r/t pancreatitis (NIECY ECKERT APRN) Smoking: Cigarettes Alcohol Use: None Drug Use: None (INECY ECKERT APRN) General Adult EDM: Chief Complaint: ABDOMINAL PAIN HPI: HPI: Patient is a 36-year-old male who presents stating "I feel like I am out of it or drunk". Patient states he has been vomiting all morning and been unable to keep any fluids down. Patient is well-known to this ER for chronic pancreatitis. Patient's denying any pain at this time. Denies fevers or recent illness. Patient denies alcohol or illegal drug use. History of anxiety, depression, diabetes, GERD. (NIECY ECKERT APRN) Review of Systems: Review of Systems: ROS At least 10 ROS systems have been reviewed and are negative except as documented in the HPI. General: Negative except as outlined in HPI above. Skin: Negative except as outlined in HPI above. HEENT: Negative except as outlined in HPI above. Neck: Negative except as outlined in HPI above. Respiratory: Negative except as outlined in HPI above.. Cardiovascular: Negative except as outlined in HPI above. Abdomen: Negative except as outlined in HPI above. : Negative except as outlined in HPI above. Back/MSK: Negative except as outlined in HPI above. Neuro: Negative except as outlined in HPI above. Psych: Negative except as outlined in HPI above. (NIECY ECKERT APRN) Current Medications: Current Meds: Current Medications Medications (Trade) Dose Ordered Sig/Terell Start Time Stop Time Status Last Admin Dose Admin Ondansetron HCl (Zofran) 4 mg 1X ONCE 11/10/21 10:30 11/10/21 10:36 DC Sodium Chloride 1,000 ml @ 1,000 mls/hr 1X ONCE 11/10/21 10:30 11/10/21 11:29 (NIECY ECKERT APRN) Allergies: Allergies: Allergies Coded Allergies Type Severity Reaction Last Updated Verified dulaglutide Allergy Intermediate 06/26/21 Yes hydrocodone Allergy Intermediate 06/26/21 Yes metformin Allergy Intermediate 06/26/21 Yes aspirin Allergy Unknown 08/03/21 Yes broccoli Allergy Unknown 07/27/21 Yes (NIECY ECKERT APRN) Physical Exam: PE: Constitutional: Well developed, well nourished, no acute distress, non-toxic appearance. [] HENT: Normocephalic, atraumatic, bilateral external ears normal, oropharynx moist, no oral exudates, nose normal. [] Eyes: PERRLA, EOMI, conjunctiva normal, no discharge. [] Neck: Normal range of motion, no tenderness, supple, no stridor. [] Cardiovascular:Heart rate regular rhythm, no murmur [] Lungs & Thorax: Bilateral breath sounds clear to auscultation [] Abdomen: Bowel sounds normal, soft, no tenderness, no masses, no pulsatile masses. [] Skin: Warm, dry, no erythema, no rash. [] Back: No tenderness, no CVA tenderness. [] Extremities: No tenderness, no cyanosis, no clubbing, ROM intact, no edema. [] Neurologic: Alert and oriented X 3, normal motor function, normal sensory function, no focal deficits noted. [] Psychologic: Flat affect, judgement normal, mood normal. [] (NIECY ECKERT APRN) Current Patient Data: Vital Signs: Vital Signs Date Time Temp Pulse Resp B/P (MAP) Pulse Ox O2 Delivery O2 Flow Rate FiO2 11/10/21 09:55 97.9 84 18 126/71 (89) 99 (NIECY ECKERT APRN) EKG: EKG: [] (NIECY ECKERT APRN) Radiology/Procedures: Radiology/Procedures: []CT scan abdomen and pelvis without contrast 11/10/2021 CLINICAL HISTORY: Vomiting. TECHNIQUE: Unenhanced, contiguous, 3 mm axial sections were obtained through the abdomen and pelvis. One or more of the following individualized dose reduction techniques were utilized for this study: 1. Automated exposure control. 2. Adjustment of the mA and/or kV according to patient size. 3. Use of iterative reconstruction technique. FINDINGS: Comparison study is dated 08/03/2021. Images through the lung bases are within normal limits. The liver, spleen, adrenal glands and kidneys are within normal limits. Calcifications are seen within the head of the pancreas consistent with acute pancreatitis. A fluid collection consistent with a pseudocyst is seen anterior and superior to the head of the pancreas. This measures 4.9 cm in greatest diameter. This has decreased in size slightly since the previous examination where it measured 5.3 cm greatest diameter. A smaller fluid collection is seen near this area which measures 2 cm in size. This is not significantly changed. A collection of fluid is seen posterior and extending inferiorly from the region of the gallbladder which is new since the previous examination. This likely represents a new pseudocyst. It measures 7.6 cm in greatest diameter. Fluid /phlegmon is seen extending superiorly and anteriorly around the first portion of the duodenum/antrum of the stomach. This has increased since the previous examination. Wall thickening of the antrum of the stomach/first portion of the duodenum is again seen which may be reactive. This appears improved slightly. The stomach is slightly distended but not as much as on the previous ex amination. There is no definite CT evidence of gastric outlet obstruction. The adrenal glands and kidneys are within normal limits. The abdominal aorta tapers normally. The gallbladder is well-distended. There is no evidence of bowel obstruction. Images through pelvis demonstrate the urinary bladder distended with urine. No free fluid is seen. The osseous structures are unchanged. IMPRESSION: Findings are again seen consistent with acute on chronic pancreatitis. Increased fluid and/or phlegmon is seen within the right upper quadrant abdomen surrounding the first portion of the duodenum/antrum of the stomach. Wall thickening of the antrum of the stomach/first portion the duodenum is again seen which appears improved slightly. There is no definite evidence of gastric outlet obstruction. A fluid collection is seen extending posterior and inferior to the gallbladder which is new since the previous examination and is felt to represent a pseudocyst. This measures 7.6 cm in greatest diameter. Electronically signed by: Dawson Dean MD (11/10/2021 6:04 PM) [id number] (NIECY ECKERT APRN) Heart Score: C/O Chest Pain: No Risk Factors: Risk Factors: DM, Current or recent (<one month) smoker, HTN, HLP, family history of CAD, obesity. Risk Scores: Score 0 - 3: 2.5% MACE over next 6 weeks - Discharge Home Score 4 - 6: 20.3% MACE over next 6 weeks - Admit for Clinical Observation Score 7 - 10: 72.7% MACE over next 6 weeks - Early Invasive Strategies (NIECY ECKERT APRN) Course & Med Decision Making: Course & Med Decision Making Pertinent Labs and Imaging studies reviewed. (See chart for details) [] 36-year-old male who presents stating that he feels like he is altered or drunk. Patient's been vomiting since this morning and complaining of nausea. Work-up in ER consisted of labs, urinalysis, UDS. Nausea was treated in the ER patient was given NS bolus. Potassium 2.6, bicarb greater than 45, BUN 29, creatinine 3.6, blood sugar 229, lipase 1276. UDS was negative. UA is unremarkable. Patient has severe hypokalemia, acute kidney injury. Patient's potassium, creatinine, lipase are similar to what they have been in the past. Patient is complaining of nausea and given second dose of Zofran. Patient is also asking for something for pain. Patient's pain was treated. (NIECY ECKERT APRN) Course & Med Decision Making Endorsed to Dr. Narayanan at shift change- pending hospital bed placement- Nursing Shortage. (SAMIRA CARNEY MD) Dragon Disclaimer: Dragon Disclaimer: This electronic medical record was generated, in whole or in part, using a voice recognition dictation system. (NIECY ECKERT APRN) Attending Co-Sign The patient was seen and interviewed as well as examined at the bedside. The chart was reviewed. The case was discussed. Agree with the plan of care. (ALESIA NARAYANAN DO) Departure Departure: Disposition: HOME / SELF CARE / HOMELESS Referrals: NETTA PUCKETT MD (PCP) Attending Signature Attending Signature I have participated in the care of this patient and I have reviewed and agree with all pertinent clinical information above including history, exam, and recommendations. (SAMIRA CARNEY MD) NIECY ECKERT APRN Nov 10, 2021 11:01 SAMIRA CARNEY MD Nov 11, 2021 00:50 ALESIA NARAYANAN DO Nov 11, 2021 15:54
[2021-11-10 11:10] LABS: BASO % 0 % (0-3); EOS % 0 % (0-3); HEMATOCRIT 38.2 % (39.0-53.0); HEMOGLOBIN 12.8 g/dL (13.0-17.5); LYMPH % 8 % (24-48); MEAN CORPUSCULAR HEMOGLOBIN 27 pg (25-35); MEAN CORPUSCULAR HGB CONC 34 g/dL (31-37); MEAN CORPUSCULAR VOLUME 81 fL (79-100); MONO % 8 % (0-9); NEUT # 10.5 x10^3uL (1.8-7.7); NEUT % 83 % (31-73); PLATELET COUNT 394 x10^3/uL (140-400); RED BLOOD COUNT 4.69 x10^6/uL (4.30-5.70); RED CELL DISTRIBUTION WIDTH 15.6 % (11.5-14.5); WHITE BLOOD COUNT 12.5 x10^3/uL (4.0-11.0)
[2021-11-10 11:23] LABS: BARBITURATES NEG (NEG); BENZODIAZEPINES NEG (NEG); CANNABINOIDS NEG (NEG); COCAINE NEG (NEG); METHADONE NEG (NEG); OPIATES NEG (NEG); PHENCYCLIDINE NEG (NEG)
[2021-11-10 11:25] LABS: ALBUMIN 4.3 g/dL (3.4-5.0); ALBUMIN/GLOBULIN RATIO 0.8 (1.0-1.7); ALK PHOS 109 U/L (46-116); ALT (SGPT) 20 U/L (16-63); AST (SGOT) 22 U/L (15-37); BLOOD UREA NITROGEN 29 mg/dL (8-26); BUN/CREATININE RATIO 8 (6-20); CALCIUM 9.1 mg/dL (8.5-10.1); CHLORIDE 71 mmol/L (98-107); CREATININE 3.6 mg/dL (0.7-1.3); GFR 19.3; GLUCOSE 229 mg/dL (70-99); LIPASE 1276 U/L (73-393); SODIUM 135 mmol/L (136-145); TOTAL BILIRUBIN 0.5 mg/dL (0.2-1.0); TOTAL PROTEIN 9.4 g/dL (6.4-8.2)
[2021-11-10 11:32] LABS: ANION GAP 19 (6-14); CARBON DIOXIDE > 45 mmol/L (21-32)
[2021-11-10 11:39] LABS: POTASSIUM 2.6 mmol/L (3.5-5.1)
[2021-11-10 11:42] LABS: AMPHETAMINE/METHAMPHETAMINE NEG (NEG)
[2021-11-10 11:45] LABS: BACTERIA,URINE 0 /HPF (0-FEW); BILIRUBIN,URINE NEG (NEG); CLARITY,URINE CLEAR; COLOR,URINE YELLOW; GLUCOSE,URINE NEG (NEG); HYALINE CASTS, URINE MOD /HPF; NITRITE,URINE NEG (NEG); SQUAMOUS EPITHELIAL CELL,UR FEW /LPF; UROBILINOGEN,URINE 0.2 mg/dL (0.2 mg/dL)
[2021-11-10] MEDS ORDERED: POTASSIUM CHLORIDE 30 MEQ in IV 1/2 NORMAL SALINE 1,000 ML IV SCH (13:00)
[2021-11-10] MEDS ORDERED: POTASSIUM CHLORIDE 20MEQ 100 ML IV SCH (13:15)
[2021-11-10] MEDS ORDERED: POTASSIUM CHLORIDE 20 MEQ TABLET.ER. PO ONE (13:15)
[2021-11-10] MEDS ORDERED: POTASSIUM CL 40MEQ IN 0.9%NACL 1,000 ML IV SCH (13:30)
[2021-11-10] MEDS ORDERED: NICOTINE 21MG PATCH. TD ONE (14:00)
[2021-11-10] MEDS ORDERED: BUSP10TA PO (14:16)
[2021-11-10] MEDS ORDERED: INSU100V13 SQ (14:19)
[2021-11-10] MEDS ORDERED: INSU100C4 SQ (14:19)
[2021-11-10] MEDS ORDERED: METOCLOPRAMIDE HCL 10 MG/2 ML VIAL. ONE (16:58)
[2021-11-10] MEDS ORDERED: METOCLOPRAMIDE HCL 10 MG/2 ML VIAL. IVP ONE (17:15)
--- NOTE | 2021-11-10 18:07 | RAD ---
CT scan abdomen and pelvis without contrast 11/10/2021 CLINICAL HISTORY: Vomiting. TECHNIQUE: Unenhanced, contiguous, 3 mm axial sections were obtained through the abdomen and pelvis. One or more of the following individualized dose reduction techniques were utilized for this study: 1. Automated exposure control. 2. Adjustment of the mA and/or kV according to patient size. 3. Use of iterative reconstruction technique. FINDINGS: Comparison study is dated 08/03/2021. Images through the lung bases are within normal limits. The liver, spleen, adrenal glands and kidneys are within normal limits. Calcifications are seen within the head of the pancreas consistent with acute pancreatitis. A fluid c ollection consistent with a pseudocyst is seen anterior and superior to the head of the pancreas. Thi s measures 4.9 cm in greatest diameter. This has decreased in size slightly since the previous examin ation where it measured 5.3 cm greatest diameter. A smaller fluid collection is seen near this area w hich measures 2 cm in size. This is not significantly changed. A collection of fluid is seen posterio r and extending inferiorly from the region of the gallbladder which is new since the previous examina tion. This likely represents a new pseudocyst. It measures 7.6 cm in greatest diameter. Fluid/phlegm on is seen extending superiorly and anteriorly around the first portion of the duodenum/antrum of the stomach. This has increased since the previous examination. Wall thickening of the antrum of the sto mach/first portion of the duodenum is again seen which may be reactive. This appears improved slightl y. The stomach is slightly distended but not as much as on the previous examination. There is no defi nite CT evidence of gastric outlet obstruction. The adrenal glands and kidneys are within normal limits. The abdominal aorta tapers normally. The gallbladder is well-distended. There is no evidence of bowel obstruction. Images through pelvis demonstrate the urinary bladder distended with urine. No free fluid is seen. Th e osseous structures are unchanged. IMPRESSION: Findings are again seen consistent with acute on chronic pancreatitis. Increased fluid a nd/or phlegmon is seen within the right upper quadrant abdomen surrounding the first portion of the d uodenum/antrum of the stomach. Wall thickening of the antrum of the stomach/first portion the duodenu m is again seen which appears improved slightly. There is no definite evidence of gastric outlet obst ruction. A fluid collection is seen extending posterior and inferior to the gallbladder which is new since the previous examination and is felt to represent a pseudocyst. This measures 7.6 cm in greates t diameter. Electronically signed by: Dawson Dean MD (11/10/2021 6:04 PM) [id number]
--- NOTE | 2021-11-10 18:27 | HP ---
DATE OF SERVICE: 11/10/2021 ADMIT DATE: 11/10/2021 HISTORY OF PRESENT ILLNESS: The patient is a 36-year-old male patient who presented to the Emergency Room complaining that he is feeling like he is out of it or drunk. He states he has been vomiting all morning and being unable to keep any fluids down. He is well known to this ER for chronic pancreatitis. The patient denied any pain at this time. Denies fever or recent illness. The patient denies any alcohol or illegal drug use. He was extensively investigated, has had lab work done, which showed that his white cell count was slightly elevated at 12,500. His chemistry showed that he has marked hypokalemia, hypochloremia, severe contraction alkalosis with a sodium bicarbonate of 45, high anion gap and acute kidney injury, creatinine 3.6. His serum lipase was 1276, total protein was 9.4 and albumin was 4.3. His urinalysis was essentially unremarkable and toxic screen was negative. His coronavirus by rapid testing was negative. He was treated with IV fluid, IV potassium, fentanyl citrate. 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 He is also known to have anxiety and depression. PAST SURGICAL HISTORY: Significant for esophagogastroduodenoscopy. ALLERGIES: HE IS ALLERGIC ACTUALLY TO HYDROCODONE AND METFORMIN. FAMILY HISTORY: Significant for the fact he has one brother who at the age of 42 due to motor vehicle accident. He has 3 sisters, 1 older and 2 younger, all healthy. His father is still alive at the age of 73. His mother at the age of 45 because of brain aneurysm. SOCIAL HISTORY: He is , has 3 sons and 1 daughter. He continued to smoke a pack a day, does not drink alcohol or use recreational drugs. 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 MEDICATIONS: He is currently on following medications: He is on fenofibrate nanocrystallized 145 mg once a day, atorvastatin calcium 20 mg once a day, prazosin 2 mg at bedtime, escitalopram oxalate 20 mg once a day, trazodone 50 mg at bedtime, buspirone 10 mg twice a day, omeprazole 40 mg once a day. He is on NovoLog insulin 10 units before meals and Levemir insulin 10 units twice a day. PHYSICAL EXAMINATION: GENERAL: On examining him, he looked well and was clearly in no apparent respiratory distress. No pallor, jaundice, cyanosis or thyromegaly. No jugular venous distention. No lower limb edema. VITAL SIGNS: His heart rate was 84, blood pressure was 126/71, temperature was 97.9, respiratory rate was 18 and oxygen saturation was 99%. HEAD, EYES, EARS, NOSE, AND THROAT: Normocephalic, atraumatic. NECK: Supple. HEART: Showed normal first and second heart sounds. No gallop, rub or murmur. CHEST: Clear to auscultation, no crepitation or rhonchi. ABDOMEN: Distended, soft, nontender. NEUROLOGIC: He was grossly intact. LABORATORY DATA: His lab work on admission showed a white cell count of 12,500, hemoglobin 12.8, hematocrit 38, MCV 81 and platelet count 394,000. His chemistry showed a serum sodium 135, potassium 2.6, chloride 71, bicarbonate 45, anion gap of 19, BUN 29, creatinine 3.6. Estimated GFR was 19 mL per minute. His glucose was 229, calcium was 9.1. Total bilirubin, AST, ALT, alkaline phosphatase were normal. Total protein was 9.4, albumin was 4.3. Serum lipase was 1276. Urinalysis showed the urine was yellow, clear with a pH of 8.5, specific gravity was 1.015. There was a small amount of protein. The urine was negative for glucose, ketones, blood, nitrite and leukocyte esterase. There are 3-5 rbc's, 5-10 wbc's and very few bacteria. His toxic screen was negative. ASSESSMENT AND PLAN: In summary, this is a 36-year-old male patient who yet again comes with another episode of acute pancreatitis. 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 He has severe hypokalemia and severe contraction alkalosis, acute kidney injury. His serum creatinine was 0.7 mg on 09/24/2021; however, he had episodes of acute kidney injury before that. As of 07/26/2021, his creatinine went up to 6.6 and came down to 0.7 on 09/24/2021. My plan is to repeat all his lab work again and arrange for a CT scan of the abdomen and pelvis without contrast and decide on further management accordingly. SURESH DR: Greg TID: [id number]
[2021-11-10 18:45] LABS: ALBUMIN 4.2 g/dL (3.4-5.0); ALBUMIN/GLOBULIN RATIO 0.8 (1.0-1.7); ALK PHOS 103 U/L (46-116); ALT (SGPT) 20 U/L (16-63); AST (SGOT) 20 U/L (15-37); BLOOD UREA NITROGEN 31 mg/dL (8-26); BUN/CREATININE RATIO 9 (6-20); CALCIUM 8.6 mg/dL (8.5-10.1); CHLORIDE 74 mmol/L (98-107); CREATININE 3.6 mg/dL (0.7-1.3); GFR 19.3; GLUCOSE 157 mg/dL (70-99); LIPASE 1547 U/L (73-393); SODIUM 135 mmol/L (136-145); TOTAL BILIRUBIN 0.5 mg/dL (0.2-1.0); TOTAL PROTEIN 9.3 g/dL (6.4-8.2)
[2021-11-10 18:49] LABS: ANION GAP 16 (6-14); CARBON DIOXIDE > 45 mmol/L (21-32); POTASSIUM 2.6 mmol/L (3.5-5.1)
[2021-11-10 21:21] VITALS: BP 110/72
[2021-11-10] MEDS ORDERED: diphenhydrAMINE HCL 25 MG CAPSULE PO ONE (21:30)
[2021-11-10] MEDS ORDERED: traZODone 50 MG TABLET. PO ONE (21:30)
[2021-11-11 08:31] LABS: BASO % 0 % (0-3); EOS # 0.1 x10^3/uL (0.0-0.7); EOS % 1 % (0-3); HEMATOCRIT 35.2 % (39.0-53.0); HEMOGLOBIN 11.6 g/dL (13.0-17.5); LYMPH # 1.4 x10^3/uL (1.0-4.8); LYMPH % 12 % (24-48); MEAN CORPUSCULAR HEMOGLOBIN 27 pg (25-35); MEAN CORPUSCULAR HGB CONC 33 g/dL (31-37); MEAN CORPUSCULAR VOLUME 82 fL (79-100); MONO # 1.2 x10^3/uL (0.0-1.1); MONO % 10 % (0-9); NEUT # 9.1 x10^3uL (1.8-7.7); NEUT % 77 % (31-73); PLATELET COUNT 315 x10^3/uL (140-400); RED CELL DISTRIBUTION WIDTH 15.3 % (11.5-14.5); WHITE BLOOD COUNT 11.8 x10^3/uL (4.0-11.0)
[2021-11-11 08:34] LABS: BLOOD UREA NITROGEN 35 mg/dL (8-26); BUN/CREATININE RATIO 9 (6-20); CALCIUM 7.6 mg/dL (8.5-10.1); CHLORIDE 81 mmol/L (98-107); CREATININE 3.8 mg/dL (0.7-1.3); GFR 18.1; GLUCOSE 151 mg/dL (70-99); POTASSIUM 3.4 mmol/L (3.5-5.1); SODIUM 137 mmol/L (136-145)
[2021-11-11 08:40] LABS: ALBUMIN 3.6 g/dL (3.4-5.0); ALBUMIN/GLOBULIN RATIO 0.9 (1.0-1.7); ALK PHOS 88 U/L (46-116); ALT (SGPT) 19 U/L (16-63); ANION GAP 11 (6-14); AST (SGOT) 19 U/L (15-37); CARBON DIOXIDE > 45 mmol/L (21-32); LIPASE 1453 U/L (73-393); TOTAL BILIRUBIN 0.4 mg/dL (0.2-1.0); TOTAL PROTEIN 7.8 g/dL (6.4-8.2)
[2021-11-11 14:42] VITALS: BP 113/70
[2021-11-11] MEDS ORDERED: IV NORMAL SALINE 1,000ML 1,000 ML IV ONE (16:30)
[2021-11-11] MEDS ORDERED: IV NORMAL SALINE 1,000ML 1,000 ML IV SCH (16:30)
--- NOTE | 2021-11-12 01:04 | PN ---
DATE: 11/11/2021 SUBJECTIVE: The patient is resting almost flat in bed, in no apparent distress. On questioning him, he denied any complaint, in particular he has no further episodes of nausea or vomiting. Denied any abdominal pain. Denied any chills, rigors or fever. Denied any dizziness, lightheadedness or vertigo. PHYSICAL EXAMINATION: GENERAL: When I examined him, he looked well and was clearly in no apparent respiratory distress, slightly pale, not jaundiced, cyanosed, no lymphadenopathy, no thyromegaly, no jugular venous distention, no lower limb edema. VITAL SIGNS: His heart rate was 91, blood pressure was 113/70, his temperature was 98.1, respiratory rate 20, and oxygen saturation was 95%. HEAD, EYES, EARS, NOSE, AND THROAT: Normocephalic, atraumatic. NECK: Supple. HEART: Showed normal first and second heart sounds. No gallop, rub or murmur. CHEST: Clear to auscultation. No crepitation or rhonchi. ABDOMEN: Distended, soft, nontender. NEUROLOGIC: He was awake, alert, responding appropriately. Cranial nerves intact. He moves extremities without difficulty. His intake and output are incompletely recorded. LABORATORY DATA: Showed a white cell count of 11,800, hemoglobin 11.6, hematocrit 35, MCV 82 and platelet count of 315,000 with normal manual differential. His chemistry this morning showed a serum sodium of 137, potassium 3.4, chloride 81, bicarbonate 45, anion gap of 11, BUN 35, creatinine 3.8. Estimated GFR was 18 mL per minute. His glucose was 151, calcium was 7.6, magnesium 2. Total bilirubin, AST, ALT, alkaline phosphatase were normal. CK was 88. Total protein 7.8, albumin 3.6 and serum lipase was 1450. Urinalysis essentially unremarkable. Toxic screen was negative and his coronavirus PCR was undetectable. DIAGNOSTIC DATA: His CT scan of the abdomen and pelvis showed findings are again seen again consistent with gvbem-zw-xuzvocv pancreatitis, increased fluid and/or phlegmon is seen within the right upper quadrant abdomen surrounding the first portion of the duodenum, antrum of the stomach, wall thickening of the antrum of the stomach. First portion of the duodenum is again seen with blood sugars improved slightly. There is no definite evidence of gastric outlet obstruction. The fluid collection is seen extending posterior and inferior to the gallbladder, which is new since the previous examination and is felt to represent a pseudocyst. This measures 7.6 cm in greater dimension. ASSESSMENT: 1. In summary, this is a 36-year-old male patient who was yet again admitted with another episode of tjwsx-kf-ojypwwj pancreatitis. 2. Type 2 diabetes mellitus due to recurrent pancreatitis. 3. Gastroesophageal reflux disease. 4. Hypokalemia. 5. Severe contraction alkalosis. 6. Acute kidney injury. His serum creatinine was 0.7 mg on 09/24/2021, however, he had episodes of acute kidney injury before that. His creatinine has risen slightly up today to 3.8. However, his serum sodium and potassium has improved. PLAN: My plan is to treat him more aggressively with fluid. We will get him a liter of normal saline continuously at 100 mL per hour together with D5 half normal with 40 mEq of potassium chloride. We will repeat all his labs again tomorrow. He will be allowed to have clear liquid diet. He has no pain, no more nausea or vomiting. THADDEUS DR: Greg TID: [id number]
== END 2021-11-11 18:00 | disposition left against medical advice (07) | DRG 439 ==
LOC: ER 09:40 → 1 SOUTH 13:47
PROVIDERS: ADMIT Internal Medicine; ATTEND Internal Medicine
DX: K85.90 Acute pancreatitis without necrosis or infection, unspecified (principal); N17.9 Acute kidney failure, unspecified; E87.3 Alkalosis; Z20.822 Contact with and (suspected) exposure to COVID-19; F32.A Depression, unspecified; F41.9 Anxiety disorder, unspecified; K21.9 Gastro-esophageal reflux disease without esophagitis; Z88.5 Allergy status to narcotic agent; Z88.8 Allergy status to other drugs, medicaments and biological substances; E08.9 Diabetes mellitus due to underlying condition without complications; E87.6 Hypokalemia; E87.8 Other disorders of electrolyte and fluid balance, not elsewhere classified; F17.210 Nicotine dependence, cigarettes, uncomplicated; K86.1 Other chronic pancreatitis; J98.2 Interstitial emphysema; Z53.29 Procedure and treatment not carried out because of patient's decision for other reasons
CPT/HCPCS: 36415; 74176; 80053; 80307; 81001; 82550; 83690; 83735; 85025; 87086; 87426; 96361; 96365; 96366; 96375; 96376; G0480; J2405; J2765; J3010; Q0163; U0003; 99285-25; J7030

== ENCOUNTER 2021-11-18 20:50 | Emergency (ER) | payer OTHER, MEDICAID ==
[~2021-11-18] VITALS: Ht 188 cm; Wt 88.7 kg
[~2021-11-18 20:50] MED LIST changes: +BUSP10TA PO; +INSU100C4 SQ; +INSU100V13 SQ
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
[2021-11-18] MEDS ORDERED: LIDOCAINE/EPI/TETRACAINE TOPICAL GEL 3 ML. TP ONE (21:15)
[2021-11-18 23:54] LABS: BASO % 0 % (0-3); EOS # 0.2 x10^3/uL (0.0-0.7); EOS % 1 % (0-3); HEMATOCRIT 34.6 % (39.0-53.0); HEMOGLOBIN 11.9 g/dL (13.0-17.5); LYMPH # 1.8 x10^3/uL (1.0-4.8); LYMPH % 16 % (24-48); MEAN CORPUSCULAR HEMOGLOBIN 28 pg (25-35); MEAN CORPUSCULAR HGB CONC 35 g/dL (31-37); MEAN CORPUSCULAR VOLUME 80 fL (79-100); MONO # 1.1 x10^3/uL (0.0-1.1); MONO % 10 % (0-9); NEUT # 7.8 x10^3uL (1.8-7.7); NEUT % 72 % (31-73); PLATELET COUNT 338 x10^3/uL (140-400); RED BLOOD COUNT 4.33 x10^6/uL (4.30-5.70); WHITE BLOOD COUNT 10.8 x10^3/uL (4.0-11.0)
[2021-11-19 00:15] LABS: ALBUMIN 3.2 g/dL (3.4-5.0); ALBUMIN/GLOBULIN RATIO 0.7 (1.0-1.7); CALCIUM 8.5 mg/dL (8.5-10.1); CREATININE 4.6 mg/dL (0.7-1.3); GFR 14.5; MAGNESIUM 2.3 mg/dL (1.8-2.4); PHOSPHORUS 5.9 mg/dL (2.6-4.7); TOTAL BILIRUBIN 0.2 mg/dL (0.2-1.0); TOTAL PROTEIN 7.5 g/dL (6.4-8.2)
[2021-11-19 00:31] LABS: POTASSIUM 2.2 mmol/L (3.5-5.1)
[2021-11-19] MEDS ORDERED: ONDANSETRON PF 4 MG/2 ML VIAL. IVP ONE (00:45)
[2021-11-19] MEDS ORDERED: IV RINGERS SOLUTION,LACTATED 1,000 ML IV ONE ×3 (00:45→15:45)
[2021-11-19] MEDS ORDERED: POTASSIUM BICARB 20 MEQ EFFERVESCENT TABLET. PO ONE (00:45)
[2021-11-19] MEDS: POTASSIUM CHLORIDE 20MEQ 100 ML IV SCH ×2 (01:15→04:44)
--- NOTE | 2021-11-19 01:33 | EKG ---
[address] [address] Test Date: 2021-11-18 Test Time: 21:39:53 Pat Name: MALATHI SALCEDO Department: Room: Gender: M [employer]: : 1985 Requested By: AUBREY ESPINO Order Number: [id number] Reading MD: Rafael Galvan Measurements Intervals [place] Rate: 98 P: 50 MI: 126 QRS: 57 QRSD: 106 T: 48 QT: 388 QTc: 497 Interpretive Statements SINUS RHYTHM PROLONGED QT Electronically Signed On 11-20-2021 8:15:15 FIRER BISQUE KILN by Rafael Galvan
[2021-11-19] MEDS ORDERED: POTASSIUM CHLORIDE 20 MEQ TABLET.ER. PO ONE ×2 (02:45→14:30)
[2021-11-19 03:02] LABS: BILIRUBIN,URINE NEG (NEG); CLARITY,URINE CLEAR; COLOR,URINE YELLOW; GLUCOSE,URINE NEG (NEG); NITRITE,URINE NEG (NEG); UROBILINOGEN,URINE 0.2 mg/dL (0.2 mg/dL)
[2021-11-19 03:03] LABS: BACTERIA,URINE FEW /HPF (0-FEW); RBC,URINE OCC /HPF (0-2)
[2021-11-19 04:03] LABS: BARBITURATES NEG (NEG); BENZODIAZEPINES NEG (NEG); CANNABINOIDS NEG (NEG); COCAINE NEG (NEG); METHADONE NEG (NEG); OPIATES NEG (NEG); PHENCYCLIDINE NEG (NEG)
[2021-11-19 04:17] LABS: AMPHETAMINE/METHAMPHETAMINE NEG (NEG)
[2021-11-19 14:12] LABS: BASO % 1 % (0-3); EOS # 0.2 x10^3/uL (0.0-0.7); EOS % 2 % (0-3); HEMATOCRIT 33.3 % (39.0-53.0); HEMOGLOBIN 11.2 g/dL (13.0-17.5); LYMPH # 1.4 x10^3/uL (1.0-4.8); LYMPH % 19 % (24-48); MEAN CORPUSCULAR HEMOGLOBIN 27 pg (25-35); MEAN CORPUSCULAR HGB CONC 34 g/dL (31-37); MEAN CORPUSCULAR VOLUME 81 fL (79-100); MONO # 0.8 x10^3/uL (0.0-1.1); MONO % 11 % (0-9); NEUT % 68 % (31-73); PLATELET COUNT 283 x10^3/uL (140-400); RED BLOOD COUNT 4.11 x10^6/uL (4.30-5.70); RED CELL DISTRIBUTION WIDTH 14.9 % (11.5-14.5); WHITE BLOOD COUNT 7.3 x10^3/uL (4.0-11.0)
[2021-11-19 14:26] LABS: ALBUMIN/GLOBULIN RATIO 0.9 (1.0-1.7); ALK PHOS 68 U/L (46-116); ALT (SGPT) 13 U/L (16-63); AST (SGOT) 14 U/L (15-37); BLOOD UREA NITROGEN 62 mg/dL (8-26); BUN/CREATININE RATIO 15 (6-20); CALCIUM 8.2 mg/dL (8.5-10.1); CHLORIDE 80 mmol/L (98-107); CREATININE 4.2 mg/dL (0.7-1.3); GFR 16.1; GLUCOSE 141 mg/dL (70-99); SODIUM 131 mmol/L (136-145); TOTAL BILIRUBIN 0.2 mg/dL (0.2-1.0); TOTAL PROTEIN 6.5 g/dL (6.4-8.2)
[2021-11-19 14:28] LABS: ANION GAP 6 (6-14); CARBON DIOXIDE > 45 mmol/L (21-32)
[2021-11-19 14:30] LABS: POTASSIUM 2.8 mmol/L (3.5-5.1)
[2021-11-19] MEDS ORDERED: NICOTINE 21MG PATCH. TD ONE (18:30)
[2021-11-19 20:23] VITALS: BP 122/66
--- NOTE | 2021-11-19 20:38 | RAD ---
Exam: CT of abdomen and pelvis without contrast INDICATION: Epigastric pain TECHNIQUE: Sequential axial images through the abdomen and pelvis obtained without IV contrast. Sagit kenn and coronal reformatted images were reconstructed from the axial data and reviewed. Exposure: One or more of the following in the visualized dose reduction techniques were utilized for this examination: 1. Automated exposure control 2. Adjustment of the MA and/or KV according to patient size 3. Use of iterative of reconstructive technique Comparisons: 11/10/2021 FINDINGS: Heart size is normal. No pericardial effusion. Trace right pleural effusion. There is tree-in-bud nod ularity noted at the left lower lobe. Evaluation of solid organs is limited secondary to noncontrast technique. Liver, spleen, and adrenals are unremarkable. Gallbladder is partially distended. Calcifications at t he pancreatic head with pancreatic ductal dilatation is again noted. No perinephric inflammation or hydronephrosis. No renal or ureteral calculi are identified. Bladder is partially distended and not well evaluated. Prostate is not enlarged. Large and small bowel are unremarkable. Appendix is normal. There is wall thickening noted at the gas tric antrum. There is a small amount of adjacent free fluid which appears mildly loculated along the undersurface of the liver. No obstruction. Abdominal aorta has normal course and caliber. No enlarged intra-abdominal lymph nodes are identified. No suspicious osseous lesions or acute fractures. IMPRESSION: Findings of chronic pancreatitis with persistent ill-defined fluid collection along the pancreatic he ad extending along the undersurface of the liver, may be mildly increased when compared to the prior study. Electronically signed by: Gabbi Ovalle MD (11/19/2021 8:36 PM) [facility]
== END 2021-11-19 20:43 | disposition left against medical advice (07) ==
LOC: ER 20:50
DX: S01.511A Laceration without foreign body of lip, initial encounter (principal); R55 Syncope and collapse; E11.22 Type 2 diabetes mellitus with diabetic chronic kidney disease; E87.6 Hypokalemia; K21.9 Gastro-esophageal reflux disease without esophagitis; F17.210 Nicotine dependence, cigarettes, uncomplicated; F41.9 Anxiety disorder, unspecified; F32.9 Major depressive disorder, single episode, unspecified; Z88.5 Allergy status to narcotic agent; Z88.6 Allergy status to analgesic agent; Z91.018 Allergy to other foods; Z88.8 Allergy status to other drugs, medicaments and biological substances; W22.8XXA Striking against or struck by other objects, initial encounter; Y93.89 Activity, other specified; Y92.89 Other specified places as the place of occurrence of the external cause; Y99.8 Other external cause status
CPT/HCPCS: 12011; 36415; 74176; 80053; 80307; 81001; 82947; 83605; 83690; 83735; 84100; 85025; 87086; 87426; 93005; 96361; 96365; 96366; 96375; 96376; 99285; G0480; J2405; J3010; J3480; J7120; U0003

== ENCOUNTER 2021-12-07 14:48 | Emergency (ER) | payer OTHER, MEDICAID ==
[~2021-12-07] VITALS: Ht 188 cm; Wt 79.8 kg
[2021-12-07 17:25] VITALS: BP 108/71
--- NOTE | 2021-12-07 17:48 | PHYS DOC ---
Past History Past Medical History: Anxiety, Depression, Diabetes, GERD, Pancreatitis Additional Past Medical Histor: vertigo, pneumomediastinum (KWADWO MOJICA APRN) Past Surgical History: Other Additional Past Surgical Histo: scope r/t pancreatitis (KWADWO MOJICA APRN) Smoking: Cigarettes Alcohol Use: None Drug Use: None (KWADWO MOJICA APRN) General Adult EDM: Chief Complaint: MECHANICAL FALL HPI: HPI: Patient is a 36-year-old male well-known to this facility who presents to the emergency department today for left foot pain and coccyx pain after falling. Patient states that he has a history of chronic weakness and frequent falls and is seeing his primary care provider for evaluation of this. He reports that he fell last night and somehow injured his left foot and coccyx. Patient rates his pain 9 out of 10. He also reports hitting his head and losing consciousness. Patient denies any neck or back pain, loss of bowel or bladder, saddle anesthesias. Patient has been able to bear weight and ambulate. (KWADWO MOJICA APRN) Review of Systems: Review of Systems: Constitutional: negative unless reported in HPI Eyes: negative unless reported in HPI HENT: negative unless reported in HPI Respiratory: negative unless reported in HPI Cardiovascular: negative unless reported in HPI GI: Chronic abdominal pain, chronic nausea vomiting as patient has a history of chronic pancreatitis and renal failure : negative unless reported in HPI Musculoskeletal: negative unless reported in HPI Integument: negative unless reported in HPI Neurologic: negative unless reported in HPI Endocrine: negative unless reported in HPI Lymphatic: negative unless reported in HPI Psychiatric: negative unless reported in HPI (KWADWO MOJICA APRN) Allergies: Allergies: Allergies Coded Allergies Type Severity Reaction Last Updated Verified dulaglutide Allergy Intermediate 06/26/21 Yes hydrocodone Allergy Intermediate 06/26/21 Yes metformin Allergy Intermediate 06/26/21 Yes aspirin Allergy Unknown 08/03/21 Yes broccoli Allergy Unknown 07/27/21 Yes (KWADWO MOJICA APRN) Physical Exam: PE: Constitutional: Well developed, well nourished, no acute distress, non-toxic appearance. [] HENT: Normocephalic, atraumatic, bilateral external ears normal, oropharynx moist, no oral exudates, nose normal. [] Eyes: PERRL, EOMI, conjunctiva normal, no discharge. [] Neck: Normal range of motion, no bony spinal tenderness, no step-offs or deformities, supple, no stridor. [] Cardiovascular:Heart rate regular rhythm, no murmur [] Lungs & Thorax: Bilateral breath sounds clear to auscultation [] Abdomen: Bowel sounds normal, soft, no tenderness, no masses, no pulsatile masses. [] Skin: Warm, dry, no erythema, no rash. [] Back: No bony spinal tenderness, full range of motion, coccyx pain with palpation Extremities: No tenderness, no cyanosis, no clubbing, ROM intact, no edema. [] Left foot: Pain with palpation to dorsal aspect of left foot, no obvious deformity, no wounds, range of motion intact, neuro intact Neurologic: Alert and oriented X 3, normal motor function, normal sensory function, no focal deficits noted. [] Psychologic: Affect normal, judgement normal, mood normal. [] (KWADWO MOJICA APRN) EKG: EKG: [] (KWADWO MOJICA APRN) Radiology/Procedures: Radiology/Procedures: []PROCEDURE: SACRUM & COCCYX 3V EXAM: XR FOOT_LEFT 3 VIEWS, XR SACRUM AND COCCYX 2+VIEWS 12/07/2021 5:56 PM CLINICAL INDICATION: Fall, coccyx pain and foot pain. COMPARISON: CT abdomen and pelvis 11/11/2021. TECHNIQUE: 3 views of the sacrum and coccyx. 3 views of the left foot. FINDINGS: Sacrum and coccyx: Possible cortical step-off anteriorly at the level of S4 and S5. No other evidence of fracture. Sacroiliac joints and pubic symphysis are normal. Left foot: Mild rotation on lateral view. No acute fracture. Alignment is normal. There is degenerative joint disease of the talonavicular joint. No focal soft tissue abnormality. IMPRESSION: 1. Possible minimally displaced fracture of the lower sacrum. 2. No acute osseous abnormality of the left foot. Electronically signed by: Eri Briggs MD (12/07/2021 6:29 PM) [id number] DICTATED AND SIGNED BY: ERI BRIGGS MD DATE: 12/07/21 1823 CC: NETTA URBINA MD; KWADWO MOJICA APRN ~MTH0 0 PROCEDURE: CT HEAD AND CERVICAL SPINE WO CT head without contrast: Reason for examination: Fell last night with loss of consciousness. Comparison is made to previous study dated 11/08/2021. Helical images were obtained through the head with no contrast administered. Reconstruction was performed in sagittal and coronal planes. Ventricular systems are symmetric and not abnormally dilated. No midline shift is seen. There is no evidence of intracranial hemorrhage, infarct, mass or edema. The paranasal sinuses and mastoid air cells are clear. No acute skull abnormality is seen. IMPRESSION: No acute intracranial abnormality evident. CT cervical spine without contrast: Helical images were obtained through the cervical spine from the skull base through the thoracic apices with no contrast administered. Reconstruction was performed in sagittal and coronal planes. The C1 ring shows incomplete fusion posteriorly. The odontoid process is intact and normally centered between the lateral masses of C1. The vertebral bodies of the cervical spine are normally aligned anteriorly and posteriorly. No acute fracture or subluxation is seen. The posterior elements are intact. The intervertebral discs are maintained. Prevertebral soft tissues are normal. No spinal stenosis is evident. IMPRESSION: No acute abnormality evident in the cervical spine. Exposure: One or more of the following individualized dose reduction techniques were utilized for this examination: 1. Automated exposure control 2. Adjustment of the mA and/or kV according to patient size 3. Use of iterative reconstruction technique. Electronically signed by: Delonte Hollins MD (12/07/2021 6:16 PM) [facility] DICTATED AND SIGNED BY: DELONTE HOLLINS MD DATE: 12/07/211809 CC: NETTA URBINA MD; KWADWO MOJICA APRN ~MTH0 0 (KWADWO MOJICA APRN) Heart Score: C/O Chest Pain: N/A Risk Factors: Risk Factors: DM, Current or recent (<one month) smoker, HTN, HLP, family history of CAD, obesity. Risk Scores: Score 0 - 3: 2.5% MACE over next 6 weeks - Discharge Home Score 4 - 6: 20.3% MACE over next 6 weeks - Admit for Clinical Observation Score 7 - 10: 72.7% MACE over next 6 weeks - Early Invasive Strategies (KWADWO MOJICA APRN) Course & Med Decision Making: Course & Med Decision Making Pertinent Labs and Imaging studies reviewed. (See chart for details) [] Presents to the emergency department for left foot, coccyx pain after falling last night. Patient reports that he has a history of chronic weakness and frequent falls and is being evaluated by Dr. Urbina for that. He reports that he did hit his head and lose consciousness last night. Therefore, imaging performed of patient's head and neck which were negative for any acute findings. Images were also performed of patient's left foot which showed no acute findings. Imaging of patient's coccyx and sacrum showed sacral fracture. Patient will be discharged home with pain medication for severe pain and apply ice. He was advised to follow-up with his primary care provider on Thursday. I discussed with patient all findings and diagnostic testing as well as the need to follow- up with PCP for further evaluation and treatment or return to the ER if any new or worsening symptoms. Strict return precautions were also discussed at length. Patient voiced understanding and agreement with the plan. Patient is hemodynamically stable at the time of disposition. (KWADWO MOJICA APRN) Dragon Disclaimer: Dragon Disclaimer: This electronic medical record was generated, in whole or in part, using a voice recognition dictation system. (KWADWO MOJICA APRN) Departure Departure: Impression: Primary Impression: Sacral fracture Qualified Codes: S32.10XA - Unspecified fracture of sacrum, initial encounter for closed fracture Disposition: HOME / SELF CARE / HOMELESS Condition: GOOD Referrals: NETTA URBINA MD (PCP) MARAL WEINSTEIN Jr. DO Patient Instructions: Pelvic Fracture, Simple, Adult Additional Instructions: You were seen in the emergency department following a fall. You complained of left foot and buttock pain. Because you stated that you hit your head imaging was performed of your head and neck. Imaging of your head/neck and foot were negative for any acute findings. You were noted to have a sacral fracture which was treated with pain management and rest. You can follow-up with an orthopedic doctor and 1 was attached onto your discharge paperwork. You are being discharged home with pain medication for severe pain, use this as directed. This medication may cause sedation so do not take need to be alert, driving a vehicle or with alcohol. You can also apply ice. Follow-up with your primary care provider on Thursday regarding your ER visit. Please return to the emergency department if you have another fall, confusion, inability to walk, speech problems, poor coordination, vision changes or loss of vision, intractable nausea or vomiting, chest pain, shortness of breath, loss of bowel or bladder, numbness or tingling in your groin or down your legs. Scripts Hydrocodone Bit/Acetaminophen (HYDROCODONE-APAP 5-325 ) 1 Each Tablet 1 TAB PO PRN Q6HRS PRN for PAIN for 2 Days, #8 TAB 0 Refills Prov: KWADWO MOJICA APRN 12/07/21 Attending Signature Attending Signature I have reviewed the PA/VENDER's note and plan of care. I was available for consultation as needed during the patient's visit in the emergency department. I agree with the clinical impression, plan, and disposition. (TEE CHAVEZ DO) KWADWO MOJICA APRN Dec 07, 2021 17:48 TEE CHAVEZ DO Dec 08, 2021 01:27
--- NOTE | 2021-12-07 18:18 | RAD ---
CT head without contrast: Reason for examination: Fell last night with loss of consciousness. Comparison is made to previous study dated 11/08/2021. Helical images were obtained through the head with no contrast administered. Reconstruction was perfo rmed in sagittal and coronal planes. Ventricular systems are symmetric and not abnormally dilated. No midline shift is seen. There is no e vidence of intracranial hemorrhage, infarct, mass or edema. The paranasal sinuses and mastoid air chuck ls are clear. No acute skull abnormality is seen. IMPRESSION: No acute intracranial abnormality evident. CT cervical spine without contrast: Helical images were obtained through the cervical spine from the skull base through the thoracic apic es with no contrast administered. Reconstruction was performed in sagittal and coronal planes. The C1 ring shows incomplete fusion posteriorly. The odontoid process is intact and normally centered between the lateral masses of C1. The vertebral bodies of the cervical spine are normally aligned an teriorly and posteriorly. No acute fracture or subluxation is seen. The posterior elements are intact . The intervertebral discs are maintained. Prevertebral soft tissues are normal. No spinal stenosis i s evident. IMPRESSION: No acute abnormality evident in the cervical spine. Exposure: One or more of the following individualized dose reduction techniques were utilized for thi s examination: 1. Automated exposure control 2. Adjustment of the mA and/or kV according to patient size 3. Use of iterative reconstruction technique. Electronically signed by: Andra Arguello MD (12/07/2021 6:16 PM) [facility]
--- NOTE | 2021-12-07 18:31 | RAD ---
EXAM: XR FOOT_LEFT 3 VIEWS, XR SACRUM AND COCCYX 2+VIEWS 12/07/2021 5:56 PM CLINICAL INDICATION: Fall, coccyx pain and foot pain. COMPARISON: CT abdomen and pelvis 11/11/2021. TECHNIQUE: 3 views of the sacrum and coccyx. 3 views of the left foot. FINDINGS: Sacrum and coccyx: Possible cortical step-off anteriorly at the level of S4 and S5. No other evidence of fracture. Sacroiliac joints and pubic symphysis are normal. Left foot: Mild rotation on lateral view. No acute fracture. Alignment is normal. There is degenerati ve joint disease of the talonavicular joint. No focal soft tissue abnormality. IMPRESSION: 1. Possible minimally displaced fracture of the lower sacrum. 2. No acute osseous abnormality of the left foot. Electronically signed by: Eri Briggs MD (12/07/2021 6:29 PM) [id number]
[2021-12-07] MEDS ORDERED: HYDR-2155 PO (18:50)
== END 2021-12-07 19:10 | disposition home or self-care (01) ==
LOC: ER 14:48
DX: S32.10XA Unspecified fracture of sacrum, initial encounter for closed fracture (principal); M79.672 Pain in left foot; E11.9 Type 2 diabetes mellitus without complications; K21.9 Gastro-esophageal reflux disease without esophagitis; F17.210 Nicotine dependence, cigarettes, uncomplicated; Z88.5 Allergy status to narcotic agent; Z88.8 Allergy status to other drugs, medicaments and biological substances; Z88.6 Allergy status to analgesic agent; W18.39XA Other fall on same level, initial encounter; Z91.81 History of falling; Y93.89 Activity, other specified; Y92.89 Other specified places as the place of occurrence of the external cause; Y99.8 Other external cause status
CPT/HCPCS: 70450; 72125; 72220; 73630; 99284

== ENCOUNTER 2021-12-31 13:11 | Emergency (ER) | payer OTHER, MEDICAID ==
[~2021-12-31] VITALS: Ht 188 cm; Wt 95.0 kg
[~2021-12-31 13:11] MED LIST changes: +HYDR-2155 PO
--- NOTE | 2021-12-31 14:45 | PHYS DOC ---
Past History Past Medical History: Anxiety, Depression, Diabetes, GERD, Pancreatitis Additional Past Medical Histor: ADHD (FAUSTINO PEOPLES) Additional Past Surgical Histo: scope r/t pancreatitis (FAUSTINO PEOPLES) Smoking: Cigarettes Alcohol Use: None Drug Use: None (FAUSTINO PEOPLES) General Adult EDM: Chief Complaint: ANXIETY/PANIC ATTACK HPI: HPI: Patient is a 36 year old male with history of anxiety, ADHD, depression who presents with muscle spasm and contracture, which he believes to be a seizure. Patient has not experienced loss of consciousness or altered level of consciousness. Throughout his involuntary body movements, he has remained conversational and responsive. Patient reports he has felt more anxious than usual recently. Patient denies headache, paresthesias, focal weakness, bowel or bladder incontinence. (FAUSTINO PEOPLES) Review of Systems: Review of Systems: Constitutional: Denies fever, chills or generalized weakness Eyes: Denies change in visual acuity, visual field deficits or discharge HENT: Denies ear pain, nasal congestion or sore throat Respiratory: Denies cough or shortness of breath Cardiovascular: Denies chest pain, palpitations or edema GI: Denies abdominal pain, nausea, vomiting, bloody stools or diarrhea : Denies dysuria or hematuria Musculoskeletal: See HPI Integument: Denies rash or other skin lesion Neurologic: See HPI (FAUSTINO PEOPLES) Current Medications: Current Meds: Current Medications Medications (Trade) Dose Ordered Sig/Terell Start Time Stop Time Status Last Admin Dose Admin Lorazepam (Ativan Inj) 2 mg 1X ONCE 12/31/21 14:00 12/31/21 14:01 DC 12/31/21 13:57 2 MG (FAUSTINO PEOPLES) Allergies: Allergies: Allergies Coded Allergies Type Severity Reaction Last Updated Verified dulaglutide Allergy Intermediate 12/31/21 Yes metformin Allergy Intermediate 12/31/21 Yes aspirin Allergy Unknown 12/31/21 Yes broccoli Allergy Unknown 12/31/21 Yes (FAUSTINO PEOPLES) Physical Exam: PE: Constitutional: Well developed, well nourished, no acute distress, non-toxic appearance. HENT: Normocephalic, atraumatic, bilateral external ears normal, nose normal. Eyes: PERRLA, EOMI, conjunctiva normal, no discharge. Neck: Normal range of motion, no stridor. Skin: Warm, dry, no erythema, no rash. Extremities: All extremities are rigid and tense, seemingly voluntarily with passive range of motion intact. No tenderness, no cyanosis, no clubbing, ROM intact, no edema. Neurologic: Alert and oriented x4, no focal deficits noted. Psychologic: Affect anxious, fair judgment. (FAUSTINO PEOPLES) Current Patient Data: Vital Signs: Vital Signs Date Time Temp Pulse Resp B/P (MAP) Pulse Ox O2 Delivery O2 Flow Rate FiO2 12/31/21 13:34 98.7 98 20 95/65 (75) 99 Room Air (FAUSTINO PEOPLES) Heart Score: C/O Chest Pain: No (FAUSTINO PEOPLES) Course & Med Decision Making: Course & Med Decision Making Pertinent Labs and Imaging studies reviewed. (See chart for details) Patient is a 36-year-old male with history of anxiety and depression who presents with chief complaint of a "seizure." The patient is concerned he is having a seizure because his whole body seems to be tense and shaky, however he is completely alert and oriented, responsive while this is happening. Patient provided with 2 mg Ativan IM. On reevaluation, patient is relaxing on exam bed and states he feels much better. He is able to comfortably converse with myself, ANTONETTE Diane and his on FaceTime. Patient does now have complaints of nausea and generalized soreness. Toradol and Zofran administered. Patient had an episode of emesis prior to discharge. Repeat dose of Zofran ODT was provided. He will be observed and p.o. challenge prior to discharge. Discussed with the patient to follow-up with his therapist at the [facility] to discuss daily p.o. medication for anxiety/depression. Provided prescription for p.o. Ativan at home for breakthrough anxiety/panic attacks. Return precautions were provided. Patient understands and is agreeable to discharge plan. (FAUSTINO PEOPLES) Course & Med Decision Making I was the Attending physician on the above date of service of this patient. This patient was evaluated, examined, treated, and dispositioned from the emergency department by the mid-level practitioner. Although I was working at the time , no assistance was requested. Electronically signed, Hussain Vazquez DO (HUSSAIN VAZQUEZ DO) Mick Disclaimer: Mick Disclaimer: This chart was dictated in whole or in part using Voice Recognition software in a busy, high-work load, and often noisy Emergency Department environment. It may contain unintended and wholly unrecognized errors or omissions. (FAUSTINO PEOPLES) Departure Departure: Impression: Primary Impression: Generalized anxiety disorder with panic attacks Disposition: HOME / SELF CARE / HOMELESS Condition: IMPROVED Referrals: NETTA PUCKETT MD (PCP) Patient Instructions: Anxiety and Panic Attacks, [id number] Additional Instructions: EMERGENCY DEPARTMENT GENERAL DISCHARGE INSTRUCTIONS Thank you for coming to [facility] (ED) today and trusting us with you care. We trust that you had a positive experience in our Emergency Department. If you wish to speak to the department management, you may call the director at [phone]. YOUR FOLLOW UP INSTRUCTIONS ARE FOLLOWS: 1. Follow up with your primary care doctor. If you do not have a primary doctor, please ask for a resource list of physicians or clinics that may be able to assist you with follow up care. 2. The emergency provider has interpreted your imaging studies, if any were ordered. The radiology marketing automation specialist also reviewed them. If there is a change in the findings, you will be notified in 48 hours when at all possible. 3. If a lab test or culture has been done, your results will be reviewed and you will be notified if you need a change in treatment. 4. Follow instructions verbalized to you and refer to the printouts if needed. ADDITIONAL INSTRUCTIONS AND INFORMATION: 1. Your care today has been supervised by a physician who is specially trained in emergency care. Many problems require more than one evaluation for a complete diagnosis and treatment. We recommend that you schedule your follow up appointment as recommended to ensure complete treatment of you illness or injury. If you are unable to obtain follow up care and continue to have a problem, or if your condition worsens, we recommend that you return to the ED. 2. We are not able to safely determine your condition over the phone nor are we able to give sound medical advice over the phone. For these safety reasons, if you call for medical advice we will ask you to come to the ED for further evaluation. 3. If you have any questions regarding these discharge instructions please call the ED at [phone]. SAFETY INFORMATION: In the interest of safety, wellness, and injury prevention; we encourage you to wear your seat belt, if you smoke; quite smoking, and we encourage family to use a protective helmet for bicycling and other sporting events that present an increased risk for head injury. IF YOUR SYMPTOMS WORSEN OR NEW SYMPTOMS DEVELOP, OR YOU HAVE CONCERNS ABOUT YOUR CONDITION; OR IF YOUR CONDITION WORSENS WHILE YOU ARE WAITING FOR YOUR FOLLOW UP APPOINTMENT; EITHER CONTACT YOUR PRIMARY CARE DOCTOR, THE PHYSICIAN WHOSE NAME AND NUMBER YOU WERE GIVEN, OR RETURN TO THE ED IMMEDIATELY. Scripts Lorazepam (ATIVAN) 1 Mg Tablet 1 TAB PO PRN 1X PRN for ANXIETY / AGITATION MDD 2 Tablet(s), #10 TAB 0 Refills Prov: FAUSTINO POEPLES 12/31/21 FAUSTINO PEOPLES Dec 31, 2021 14:45 HUSSAIN VAZQUEZ DO Jan 01, 2022 08:19
[2021-12-31] MEDS ORDERED: LORA-254 PO (15:11)
[2021-12-31] MEDS: KETOROLAC 60 MG/2 ML VIAL. IM ONE (15:13)
[2021-12-31] MEDS: ONDANSETRON ODT 4 MG TAB.RAPDIS PO ONE (15:13)
[2021-12-31 16:00] VITALS: BP 120/77
== END 2021-12-31 16:04 | disposition home or self-care (01) ==
LOC: ER 13:11
DX: F41.1 Generalized anxiety disorder (principal); F32.9 Major depressive disorder, single episode, unspecified; E11.9 Type 2 diabetes mellitus without complications; K21.9 Gastro-esophageal reflux disease without esophagitis; F17.210 Nicotine dependence, cigarettes, uncomplicated; Z88.6 Allergy status to analgesic agent; Z91.018 Allergy to other foods; Z88.8 Allergy status to other drugs, medicaments and biological substances
CPT/HCPCS: 96372; 99284; J1885; J2060; Q0162

== ENCOUNTER 2022-01-01 18:59 | Emergency (ER) | payer OTHER, MEDICAID ==
[~2022-01-01] VITALS: Ht 188 cm; Wt 95.0 kg
[~2022-01-01 18:59] MED LIST changes: +LORA-254 PO
[2022-01-01] MEDS ORDERED: IV NORMAL SALINE 1,000ML 1,000 ML IV ONE ×2 (19:15→20:45)
[2022-01-01 19:52] LABS: BASO # 0.1 x10^3/uL (0.0-0.2); BASO % 0 % (0-3); EOS # 0.1 x10^3/uL (0.0-0.7); EOS % 1 % (0-3); HEMATOCRIT 28.6 % (39.0-53.0); HEMOGLOBIN 9.9 g/dL (13.0-17.5); LYMPH # 2.4 x10^3/uL (1.0-4.8); LYMPH % 10 % (24-48); MEAN CORPUSCULAR HEMOGLOBIN 28 pg (25-35); MEAN CORPUSCULAR HGB CONC 34 g/dL (31-37); MEAN CORPUSCULAR VOLUME 81 fL (79-100); MONO # 1.5 x10^3/uL (0.0-1.1); MONO % 6 % (0-9); NEUT # 19.1 x10^3uL (1.8-7.7); NEUT % 83 % (31-73); PLATELET COUNT 746 x10^3/uL (140-400); RED BLOOD COUNT 3.54 x10^6/uL (4.30-5.70); RED CELL DISTRIBUTION WIDTH 16.8 % (11.5-14.5); WHITE BLOOD COUNT 23.2 x10^3/uL (4.0-11.0)
--- NOTE | 2022-01-01 19:54 | PHYS DOC ---
Past History Past Medical History: Anxiety, Depression, Diabetes, GERD, Pancreatitis, Renal Disease Additional Past Medical Histor: ADHD (ETIENNE KRAMER SENIOR PRODUCT DEVELOPMENT MANAGER) Past Surgical History: No Surgical History, Other Additional Past Surgical Histo: scope r/t pancreatitis, KIDNEY STENT (ETIENNE KRAMER SENIOR PRODUCT DEVELOPMENT MANAGER) Smoking: Cigarettes Alcohol Use: None Drug Use: None (ETIENNE KRAMER SENIOR PRODUCT DEVELOPMENT MANAGER) Adult General Chief Complaint Chief Complaint: ANXIETY/PANIC ATTACK HPI HPI Patient is a man with a history of anxiety on lorazepam 1 mg daily, diabetes type 2, acid reflux, kidney disease, who presents to the ED today complaining of an anxiety attack intermittently since yesterday. Patient states he was seen in the ED and discharged home. He states he ran out of lorazepam. Patient denies any chest pain, or shortness of breath but states his fingers are cramping. Denies any suicidal or homicidal ideations. (ETIENNE KRAMER SENIOR PRODUCT DEVELOPMENT MANAGER) Review of Systems Review of Systems Constitutional: Denies fever or chills [] Eyes: Denies change in visual acuity, redness, or eye pain [] HENT: Denies nasal congestion or sore throat [] Respiratory: Denies cough or shortness of breath [] Cardiovascular: No additional information not addressed in HPI [] GI: Denies abdominal pain, nausea, vomiting, bloody stools or diarrhea [] : Denies dysuria or hematuria [] Musculoskeletal: Denies back pain or joint pain [] Integument: Denies rash or skin lesions [] Neurologic: Denies headache, focal weakness or sensory changes Psych: Reports anxiety All other systems were reviewed and found to be within normal limits, except as documented in this note. (ETIENNE KRAMER SENIOR PRODUCT DEVELOPMENT MANAGER) Current Medications Current Medications Current Medications Medications (Trade) Dose Ordered Sig/Terell Start Time Stop Time Status Last Admin Dose Admin Lorazepam (Ativan Inj) 1 mg 1X ONCE 01/01/22 19:15 01/01/22 19:24 DC 01/01/22 19:19 1 MG Sodium Chloride 1,000 ml @ 1,000 mls/hr 1X ONCE 01/01/22 19:15 01/01/22 20:14 01/01/22 19:19 1,000 MLS/HR (ETIENNE KRAMER SENIOR PRODUCT DEVELOPMENT MANAGER) Allergies Allergies Allergies Coded Allergies Type Severity Reaction Last Updated Verified dulaglutide Allergy Intermediate 12/31/21 Yes metformin Allergy Intermediate 12/31/21 Yes aspirin Allergy Unknown 12/31/21 Yes broccoli Allergy Unknown 12/31/21 Yes (ETIENNE KRAMER SENIOR PRODUCT DEVELOPMENT MANAGER) Physical Exam Physical Exam Constitutional: Well developed, well nourished, no acute distress, non-toxic appearance. [] HENT: Normocephalic, atraumatic, bilateral external ears normal, oropharynx moist, no oral exudates, nose normal. [] Eyes: PERRLA, EOMI, conjunctiva normal, no discharge. [] Neck: Normal range of motion, no tenderness, supple, no stridor. [] Cardiovascular: Tachycardic Lungs & Thorax: Bilateral breath sounds clear to auscultation [] Abdomen: Bowel sounds normal, soft, no tenderness, no masses, no pulsatile masses. [] Skin: Pale appearing patient, no erythema, no rash. [] Back: No tenderness, no CVA tenderness. [] Extremities: No tenderness, no cyanosis, no clubbing, ROM intact, no edema. [] Neurologic: Alert and oriented X 3, normal motor function, normal sensory function, no focal deficits noted. [] Psychologic: Anxious appearing patient, restless, cramping bilateral fingers (ETIENNE KRAMER SENIOR PRODUCT DEVELOPMENT MANAGER) Current Patient Data Vital Signs Vital Signs Date Time Temp Pulse Resp B/P (MAP) Pulse Ox O2 Delivery O2 Flow Rate FiO2 01/01/22 19:10 98.2 126 34 120/76 (91) 94 Room Air (ETIENNE KRAMER SENIOR PRODUCT DEVELOPMENT MANAGER) EKG EKG [address] Calzada sinus tachycardia HR 109 no STEMI (ETIENNE KRAMER SENIOR PRODUCT DEVELOPMENT MANAGER) Radiology/Procedures Radiology/Procedures [] (ETIENNE KRAMER SENIOR PRODUCT DEVELOPMENT MANAGER) Heart Score C/O Chest Pain: N/A Risk Factors: Risk Factors: DM, Current or recent (<one month) smoker, HTN, HLP, family history of CAD, obesity. Risk Scores: Risk Factors: DM, Current or recent (<one month) smoker, HTN, HLP, family history of CAD, obesity. (ETIENNE KRAMER SENIOR PRODUCT DEVELOPMENT MANAGER) Course & Med Decision Making Course & Med Decision Making Pertinent Labs and Imaging studies reviewed. (See chart for details) This is a 36-year-old male patient with history of anxiety presenting today complaining of an anxiety attack that has been going on since yesterday. Patient reports being seen in the ED yesterday d/c on lorazepam. He is states he ran out of lorazepam. Vitals on arrival to the ED temperature 98.2, heart rate 126, respiration 34 on room air, blood pressure 120/76, O2 sats 94% CBC with a WBC of 23.2 in the left shift, hemoglobin 9.9 with hematocrit of 28.6 anemia from chronic kidney disease, platelets 746. CMP with normal potassium, creatinine 7.5 with BUN of 53. This is significantly higher from patient's previous renal function October 2021 where creatinine was 4.2 with BUN of 62 CK 1128-given IV fluids CT of the abdomen and pelvis noted for acute pancreatitis [address] Ely who accepted patient for admission at [facility] (ETIENNE KRAMER APRN) Dragon Disclaimer Dragon Disclaimer This electronic medical record was generated, in whole or in part, using a voice recognition dictation system. (ETIENNE KRAMER APRN) Departure Departure: Impression: Primary Impression: Anxiety Additional Impressions: Acute on chronic renal failure Leukocytosis Rhabdomyolysis Acute pancreatitis Disposition: 02 SHORT TERM [facility]OSPITAL Condition: STABLE Referrals: NETTA PUCKETT MD (PCP) Attending Signature Attending Signature I have participated in the care of this patient and I have reviewed and agree with all pertinent clinical information above including history, exam, and recommendations. (SAMIRA CARNEY MD) Attending Signature Attending Signature I have participated in the care of this patient and I have reviewed and agree with all pertinent clinical information above including history, exam, and recommendations. (SAMIRA CARNEY MD) Dragon Disclaimer This chart was dictated in whole or in part using Voice Recognition software in a busy, high-work load, and often noisy Emergency Department environment. It may contain unintended and wholly unrecognized errors or omissions. (SAMIRA CARNEY MD) Problem Qualifiers Additional Impressions: Acute on chronic renal failure Acute renal failure type: unspecified Chronic kidney disease stage: unspecified stage Qualified Codes: N17.9 - Acute kidney failure, unspecified; N18.9 - Chronic kidney disease, unspecified Leukocytosis Leukocytosis type: unspecified Qualified Codes: D72.829 - Elevated white blood cell count, unspecified Rhabdomyolysis Rhabdomyolysis type: non-traumatic Qualified Codes: M62.82 - Rhabdomyolysis Acute pancreatitis Pancreatitis type: unspecified pancreatitis type Acute pancreatitis complication: unspecified Qualified Codes: K85.90 - Acute pancreatitis without necrosis or infection, unspecified ETIENNE KRAMER APRN Jan 01, 2022 19:54 SAMIRA CARNEY MD Jan 02, 2022 06:31
[2022-01-01 20:00] LABS: CALCIUM 7.4 mg/dL (8.5-10.1); CREATININE 7.5 mg/dL (0.7-1.3); GFR 8.3; POTASSIUM 3.7 mmol/L (3.5-5.1)
[2022-01-01 20:05] LABS: ALBUMIN 2.9 g/dL (3.4-5.0); ALBUMIN/GLOBULIN RATIO 0.6 (1.0-1.7); MAGNESIUM 0.8 mg/dL (1.8-2.4); TOTAL BILIRUBIN 2.4 mg/dL (0.2-1.0)
[2022-01-01 20:11] LABS: ACETAMIN < 2.0 mcg/mL (10-30); SALIC < 2.8 mg/dL (2.8-20.0)
--- NOTE | 2022-01-01 20:25 | EKG ---
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
[2022-01-01 20:27] LABS: % EOS 2 % (0-5); % LYMPHS 21 % (24-48); % MONOS 6 % (0-10); % SEGS 71 % (35-66); PLT ESTIMATE ADEQUATE (ADEQUATE)
[2022-01-01 20:28] LABS: ANISOCYTOSIS SLIGHT; MICROCYTOSIS SLIGHT; PLATELET CLUMP PRESENT
[2022-01-01 20:39] LABS: BARBITURATES NEG (NEG); BENZODIAZEPINES NEG (NEG); CANNABINOIDS NEG (NEG); COCAINE NEG (NEG); METHADONE NEG (NEG); OPIATES NEG (NEG); PHENCYCLIDINE NEG (NEG)
[2022-01-01 20:44] LABS: BILIRUBIN,URINE MOD (NEG); CLARITY,URINE CLOUDY; COLOR,URINE BROWN; GLUCOSE,URINE NEG (NEG); NITRITE,URINE NEG (NEG); UROBILINOGEN,URINE 0.2 mg/dL (0.2 mg/dL)
[2022-01-01 20:45] LABS: BACTERIA,URINE MOD /HPF (0-FEW); SQUAMOUS EPITHELIAL CELL,UR FEW /LPF
--- NOTE | 2022-01-01 20:47 | RAD ---
Exam: Chest one view INDICATION: Shortness of breath TECHNIQUE: Frontal view of the chest Comparisons: 11/08/2021 FINDINGS: The cardiomediastinal silhouette and pulmonary vessels are within normal limits. The lung and pleural spaces are clear. IMPRESSION: No acute cardiopulmonary process. Electronically signed by: Gabbi Ovalle MD (01/01/2022 8:45 PM) [facility]
[2022-01-01 20:49] LABS: AMPHETAMINE/METHAMPHETAMINE NEG (NEG)
--- NOTE | 2022-01-01 20:59 | EKG ---
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
[2022-01-01 21:04] LABS: INFLUENZA A PATIENT NEGATIVE (NEGATIVE); INFLUENZA B PATIENT NEGATIVE (NEGATIVE)
--- NOTE | 2022-01-01 21:34 | RAD ---
Exam: CT of abdomen and pelvis without contrast INDICATION: Abdominal pain, anemia, chronic kidney disease TECHNIQUE: Sequential axial images through the abdomen and pelvis obtained without IV contrast. Sagit kenn and coronal reformatted images were reconstructed from the axial data and reviewed. Exposure: One or more of the following in the visualized dose reduction techniques were utilized for this examination: 1. Automated exposure control 2. Adjustment of the MA and/or KV according to patient size 3. Use of iterative of reconstructive technique Comparisons: 11/19/2021 FINDINGS: Heart is normal size. Small pericardial effusion. Visualized lung bases are clear. No pleural effusio n. Evaluation of solid organs is limited secondary to noncontrast technique. Liver, spleen, gallbladder and adrenals are unremarkable. There is inflammatory changes noted at the pancreatic head with a peripancreatic cystic lesion anterior to the pancreatic head neck junction aruna suring 4.7 cm. No perinephric inflammation or hydronephrosis. No renal or ureteral calculi are identified. Bladder is partially distended and not well evaluated. Prostate is not enlarged. There is a fluid collection along the greater curvature of the stomach. Large and small bowel are unr emarkable. Appendix is normal. No free intra-abdominal air or fluid. No obstruction. Abdominal aorta has a normal course and caliber. No enlarged intra-abdominal lymph nodes are identified. No suspicious osseous lesions or acute fractures. IMPRESSION: 1. Findings of acute pancreatitis with several peripancreatic fluid collections as described above. 2. Small pericardial effusion. Electronically signed by: Gabbi Ovalle MD (01/01/2022 9:31 PM) [facility]
[2022-01-01 21:45] VITALS: BP 88/56
== END 2022-01-01 22:27 | disposition short-term general hospital (02) ==
LOC: ER 18:59
DX: N17.9 Acute kidney failure, unspecified (principal); E11.22 Type 2 diabetes mellitus with diabetic chronic kidney disease; N18.9 Chronic kidney disease, unspecified; F41.9 Anxiety disorder, unspecified; D72.829 Elevated white blood cell count, unspecified; M62.82 Rhabdomyolysis; K85.90 Acute pancreatitis without necrosis or infection, unspecified; F32.9 Major depressive disorder, single episode, unspecified; K21.9 Gastro-esophageal reflux disease without esophagitis; F17.210 Nicotine dependence, cigarettes, uncomplicated; Z20.822 Contact with and (suspected) exposure to COVID-19; Z88.6 Allergy status to analgesic agent; Z91.018 Allergy to other foods; Z88.8 Allergy status to other drugs, medicaments and biological substances
CPT/HCPCS: 36415; 71045; 74176; 80053; 80307; 80329; 81001; 82550; 83605; 83735; 84484; 85007; 85025; 87086; 87428; 93005; 96361; 96374; 96375; 99285; C9803; J2060; J3010; J7030; U0003; G0480

== ENCOUNTER 2022-02-08 23:13 | Emergency (ER) | payer OTHER, MEDICAID ==
[~2022-02-08] VITALS: Ht 188 cm; Wt 73.1 kg
[2022-02-08] MEDS ORDERED: POTA-121 PO (23:31)
[2022-02-08] MEDS ORDERED: tylenol pm (23:32)
[2022-02-09] MEDS ORDERED: IOHEXOL 300 MG/ML 75 ML VIAL. IV ONE (00:15)
[2022-02-09] MEDS ORDERED: CONTRAST GIVEN. MC PRN (00:15)
--- NOTE | 2022-02-09 00:25 | PHYS DOC ---
Past History Past Medical History: Anxiety, Depression, Diabetes, GERD, Pancreatitis, Renal Disease Additional Past Medical Histor: ADHD; PTSD; PERSONALITY DX Past Surgical History: Other Additional Past Surgical Histo: scope r/t pancreatitis, pancreas STENT Smoking: Cigarettes Alcohol Use: None Drug Use: None Adult General Chief Complaint Chief Complaint: SEIZURE HPI HPI Patient is a 36-year-old male with a past medical history of pancreatitis secondary to high triglycerides, and type 2 diabetes on insulin who presents with a chief complaint of episodes of syncope versus seizure. States he has had several episodes over the last day where he will pass out/faint and have slight tremors during these episodes, and then wake up with essentially no postictal state. States that the episodes last about 30 seconds. States that he had a stent placed in his pancreatic duct several days ago and since then has had a decreased appetite and has not been eating much or drinking much fluid. Denies any headaches, changes in vision, numbness/weakness/tingling,/chest pain, shortness of breath, abdominal pain, dysuria, hematuria, blood in the stool or diarrhea. Denies alcohol or drug use. Review of Systems Review of Systems Review of systems otherwise unremarkable except noted in HPI Current Medications Current Medications Current Medications Medications (Trade) Dose Ordered Sig/Terell Start Time Stop Time Status Last Admin Dose Admin Info (Do NOT chart on this entry -- for MONITORING) 1 each PRN DAILY PRN 02/09/22 00:15 02/11/22 00:14 Iohexol (Omnipaque 300 Mg/ml) 75 ml 1X ONCE 02/09/22 00:15 02/09/22 00:16 DC Lactated Ringer's 1,000 ml @ 1,000 mls/hr 1X ONCE 02/09/22 00:00 02/09/22 00:59 Ondansetron HCl (Zofran) 4 mg 1X ONCE 02/09/22 00:00 02/09/22 00:04 DC Allergies Allergies Allergies Coded Allergies Type Severity Reaction Last Updated Verified dulaglutide Allergy Intermediate 12/31/21 Yes metformin Allergy Intermediate 12/31/21 Yes aspirin Allergy Unknown 12/31/21 Yes broccoli Allergy Unknown 12/31/21 Yes Physical Exam Physical Exam Constitutional: Well developed, well nourished, no acute distress, non-toxic appearance. [] HENT: Normocephalic, atraumatic, bilateral external ears normal, oropharynx moist, no oral exudates, nose normal. [] Eyes: conjunctiva normal, no discharge. [] Neck: Normal range of motion, no tenderness, supple, no stridor. [] Cardiovascular:Heart rate regular rhythm, no murmur [] Lungs & Thorax: Bilateral breath sounds clear to auscultation [] Abdomen: Bowel sounds normal, soft, no tenderness, no masses, no pulsatile masses. [] Skin: Warm, dry, no erythema, no rash. [] Back: No tenderness, no CVA tenderness. [] Extremities: No tenderness, no cyanosis, no clubbing, ROM intact, no edema. [] Neurologic: Alert and oriented X 3, normal motor function, normal sensory function, no focal deficits noted. [] Psychologic: Affect normal, judgement normal, mood normal. [] Current Patient Data Vital Signs Vital Signs Date Time Temp Pulse Resp B/P (MAP) Pulse Ox O2 Delivery O2 Flow Rate FiO2 02/08/22 23:21 98.4 104 20 112/68 (83) 100 Nasal Cannula 2.0 EKG EKG [] Radiology/Procedures Radiology/Procedures [] Heart Score C/O Chest Pain: No Risk Factors: Risk Factors: DM, Current or recent (<one month) smoker, HTN, HLP, family history of CAD, obesity. Risk Scores: Risk Factors: DM, Current or recent (<one month) smoker, HTN, HLP, family history of CAD, obesity. Course & Med Decision Making Course & Med Decision Making Patient is a 36-year-old male who presents with a chief complaint of syncope, decreased appetite and dehydration Vital signs notable for borderline tachycardia. Physical exam noted above. Glucose greater than 100. States he is taking his insulin as prescribed Laboratory analysis notable for leukocytosis, hyponatremia, hypokalemia, IFEOMA, elevated bicarb. CT notable for acute on chronic pancreatitis Made n.p.o. and given IV fluid resuscitation. Given pain and nausea medicine. Discussed all findings with patient recommended admission to for continued evaluation and treatment of the noted abnormalities Patient grateful, verbalized understanding and agreed with plan of transfer and admission to [] Dragon Disclaimer Dragon Disclaimer This electronic medical record was generated, in whole or in part, using a voice recognition dictation system. Departure Departure: Impression: Primary Impression: Acute on chronic pancreatitis Additional Impressions: Hyponatremia Hypokalemia Metabolic alkalemia [id number] kidney injury Disposition: 02 SHORT TERM HOSPITAL Admitting Physician: Other Condition: STABLE Referrals: NETTA PUCKETT MD (PCP) Problem Qualifiers RICO GONZALEZ MD Feb 09, 2022 00:25
[2022-02-09] MEDS ORDERED: MORPHINE SULFATE 4 MG/ML DISP.SYRIN. IV ONE ×2 (00:30→03:30)
--- NOTE | 2022-02-09 00:38 | RAD ---
XR CHEST 1V History: Sepsis workup. Comparison: CT abdomen pelvis 08/12/2022. Chest x-ray 01/01/2022 Technique: Portable AP radiograph of the chest. Findings: The lungs are adequately inflated. No focal airspace consolidation, pleural effusion or pneumothorax. Mild prominence of pulmonary vasculature. Normal cardiac silhouette. Osseous structures and soft tis sues are unremarkable. Impression: 1. Mild prominence of pulmonary vasculature may represent pulmonary vascular congestion. No focal co nsolidation. Electronically signed by: Juan C Cruz MD (02/09/2022 12:36 AM) [facility]
--- NOTE | 2022-02-09 00:45 | RAD ---
CT ABDOMEN+PELVIS WO History: Abdominal pain, stent placement yesterday. History of pancreatitis. Comparison: CT abdomen and pelvis 01/01/2022 Technique: CT of the abdomen and pelvis without contrast. Findings: The lung bases are clear. Normal heart size. No effusions. The liver is unremarkable. The gallbladder is decompressed. There is a biliary stent visualized exten ding from the common bile ducts into the duodenum, similar to comparison. Heterogeneous pancreas with mildly dilated pancreatic duct measuring 5 mm the body. Anterior pancreatic head cystic collection m easuring 4.7 x 3.6 cm. Anterior to that collection adjacent to the pylorus there is a 4.2 x 3.3 cm co llection. Multiple smaller loculations adjacent to the pylorus. Fat stranding adjacent to the pancrea tic head. Findings similar to recent comparison CT. Mild splenomegaly measuring 13.8 cm AP. The adren al glands and kidneys are unremarkable. Thickening of the gastric antrum and pyloric lorenzo with cystic mural collections. Adjacent prominent mesenteric lymph nodes. The small bowel is nondistended. Normal appendix. The colon is within normal limits. The bladder is decompressed. The abdominal pelvic vasculature is within normal limits. Soft tissues a re unremarkable. There is mild mesenteric fat stranding diffusely. Osseous structures are unremarkabl e. Impression: 1. Findings compatible with acute on chronic pancreatitis with redemonstrated peripancreatic fluid c ollections involving the gastric antrum and pylorus. Adjacent adenopathy is likely reactive. 2. Redemonstrated common bile duct stent in expected position. ------ Exposure: One or more of the following individualized dose reduction techniques were utilized for thi s examination: 1. Automated exposure control 2. Adjustment of the mA and/or kV according to patient size 3. Use of iterative reconstruction technique. Electronically signed by: Juan C Cruz MD (02/09/2022 12:43 AM) [facility]
[2022-02-09 01:00] LABS: BASO % 0 % (0-3); EOS % 0 % (0-3); HEMATOCRIT 26.5 % (39.0-53.0); LYMPH # 0.9 x10^3/uL (1.0-4.8); LYMPH % 7 % (24-48); MEAN CORPUSCULAR HEMOGLOBIN 29 pg (25-35); MEAN CORPUSCULAR HGB CONC 34 g/dL (31-37); MEAN CORPUSCULAR VOLUME 86 fL (79-100); MONO # 0.6 x10^3/uL (0.0-1.1); MONO % 5 % (0-9); NEUT # 10.8 x10^3uL (1.8-7.7); NEUT % 88 % (31-73); PLATELET COUNT 440 x10^3/uL (140-400); RED BLOOD COUNT 3.07 x10^6/uL (4.30-5.70); RED CELL DISTRIBUTION WIDTH 15.9 % (11.5-14.5); WHITE BLOOD COUNT 12.4 x10^3/uL (4.0-11.0)
[2022-02-09] MEDS ORDERED: IV RINGERS SOLUTION,LACTATED 1,000 ML IV ONE ×2 (01:00)
[2022-02-09 01:06] LABS: BARBITURATES NEG (NEG); BENZODIAZEPINES NEG (NEG); CANNABINOIDS NEG (NEG); COCAINE NEG (NEG); METHADONE NEG (NEG); OPIATES NEG (NEG); PHENCYCLIDINE NEG (NEG)
[2022-02-09 01:15] LABS: ALBUMIN 2.5 g/dL (3.4-5.0); ALBUMIN/GLOBULIN RATIO 0.5 (1.0-1.7); AMPHETAMINE/METHAMPHETAMINE NEG (NEG); CREATININE 5.6 mg/dL (0.7-1.3); GFR 11.6; MAGNESIUM 1.8 mg/dL (1.8-2.4); TOTAL BILIRUBIN 0.4 mg/dL (0.2-1.0); TOTAL PROTEIN 7.6 g/dL (6.4-8.2)
[2022-02-09 01:17] LABS: POTASSIUM 2.4 mmol/L (3.5-5.1)
[2022-02-09] MEDS ORDERED: POTASSIUM CHLORIDE 20 MEQ TABLET.ER. PO ONE (01:30)
[2022-02-09] MEDS ORDERED: MAGNESIUM SULFATE 2GM 50 ML IV ONE (01:30)
[2022-02-09 01:45] LABS: CLARITY,URINE CLEAR; COLOR,URINE YELLOW; GLUCOSE,URINE NEG (NEG)
[2022-02-09 01:46] LABS: BACTERIA,URINE 0 /HPF (0-FEW); GRANULAR CASTS,URINE OCC /HPF; NITRITE,URINE NEG (NEG); RBC,URINE 0 /HPF (0-2); SQUAMOUS EPITHELIAL CELL,UR OCC /LPF; UROBILINOGEN,URINE 0.2 mg/dL (0.2 mg/dL); WBC,URINE 0 /HPF (0-4)
[2022-02-09 02:47] LABS: BGAS PCO2 74 mmHg (35-46)
[2022-02-09 02:48] LABS: BGAS PO2 43 mmHg (80-100)
[2022-02-09 02:49] LABS: CALCIUM 8.3 mg/dL (8.5-10.1); CREATININE 5.1 mg/dL (0.7-1.3); GFR 12.9; MAGNESIUM 2.6 mg/dL (1.8-2.4)
[2022-02-09 02:49] LABS: FIO2 28 %; O2 SAT BGAS 82 % (92-99)
[2022-02-09 02:57] LABS: POTASSIUM 2.6 mmol/L (3.5-5.1)
[2022-02-09 03:20] VITALS: BP 102/73
--- NOTE | 2022-02-09 03:27 | EKG ---
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
[2022-02-09] MEDS ORDERED: ONDANSETRON PF 4 MG/2 ML VIAL. IVP ONE ×2 (03:30)
== END 2022-02-09 03:45 | disposition short-term general hospital (02) ==
LOC: ER 23:13
DX: N17.9 Acute kidney failure, unspecified (principal); K86.1 Other chronic pancreatitis; K85.90 Acute pancreatitis without necrosis or infection, unspecified; E87.1 Hypo-osmolality and hyponatremia; E87.6 Hypokalemia; E87.3 Alkalosis; E11.9 Type 2 diabetes mellitus without complications; K21.9 Gastro-esophageal reflux disease without esophagitis; F17.210 Nicotine dependence, cigarettes, uncomplicated; Z20.822 Contact with and (suspected) exposure to COVID-19; Z88.6 Allergy status to analgesic agent; Z91.018 Allergy to other foods; Z88.8 Allergy status to other drugs, medicaments and biological substances
CPT/HCPCS: 36415; 36600; 71045; 74176; 80048; 80053; 80307; 81001; 82550; 82803; 83605; 83690; 83735; 84443; 84484; 85025; 87426; 93005; 96361; 96365; 96366; 96375; 96376; 99285; C9803; J2270; J2405; J3475; J7120; U0003

== ENCOUNTER 2022-02-15 16:35 | Observation (INO) | payer OTHER, MEDICAID ==
[~2022-02-15] VITALS: Ht 188 cm; Wt 75.2 kg
[~2022-02-15 16:35] MED LIST changes: +POTA-121 PO; +tylenol pm
[2022-02-15] MEDS ORDERED: IV NORMAL SALINE 1,000ML 1,000 ML IV ONE ×4 (17:15→17:30)
--- NOTE | 2022-02-15 17:19 | PHYS DOC ---
Past History Past Medical History: Anxiety, Depression, Diabetes, GERD, Pancreatitis, Renal Disease Additional Past Medical Histor: ADHD; PTSD; PERSONALITY DX Past Surgical History: Other Additional Past Surgical Histo: scope r/t pancreatitis, pancreas STENT Smoking: Cigarettes Alcohol Use: None Drug Use: None Adult General Chief Complaint Chief Complaint: SYNCOPE HPI HPI Patient is a 36-year-old male presenting to the emergency department via EMS for evaluation of a syncopal episodes. Patient has passed out at least 2-3 times over the past day. He is very difficult to get history from as he is closing his eyes and does not seem willing to participate in the medical history. Patient was discharged from [facility] 2 days ago and he is unsure why and unsure if he has started on any new medications. It appears the patient was seen in this emergency department on February 09 for acute on chronic pancreatitis and had multiple metabolic derangements and was transferred to but he is unsure what happened there but he was discharged 2 days ago and started feeling bad yesterday. He is tachycardic and hypotensive. He says that he has been hyp otensive before in the past. It appears that he has been in this emergency department 22 times in the past year. Patient says that he is having abdominal pain primarily and that has been going on since yesterday. He appears ill with his abnormal vital signs. Review of Systems Review of Systems Constitutional: Denies fever or chills [] Eyes: Denies change in visual acuity, redness, or eye pain [] HENT: Denies nasal congestion or sore throat [] Respiratory: Denies cough or shortness of breath [] Cardiovascular: No additional information not addressed in HPI [] GI: + abdominal pain, nausea, vomiting. No bloody stools or diarrhea [] : Denies dysuria or hematuria [] Musculoskeletal: Denies back pain or joint pain [] Integument: Denies rash or skin lesions [] Neurologic: Denies headache, focal weakness or sensory changes [] All other systems were reviewed and found to be within normal limits, except as documented in this note. Current Medications Current Medications Current Medications Medications (Trade) Dose Ordered Sig/Terell Start Time Stop Time Status Last Admin Dose Admin Sodium Chloride 1,000 ml @ 1,000 mls/hr 1X ONCE 02/15/22 17:15 02/15/22 18:14 Allergies Allergies Allergies Coded Allergies Type Severity Reaction Last Updated Verified dulaglutide Allergy Intermediate 12/31/21 Yes metformin Allergy Intermediate 12/31/21 Yes aspirin Allergy Unknown 12/31/21 Yes broccoli Allergy Unknown 12/31/21 Yes Physical Exam Physical Exam Constitutional: Ill-appearing male HENT: Normocephalic, atraumatic, bilateral external ears normal, oropharynx moist, no oral exudates, nose normal. [] Eyes: PERRLA, EOMI, conjunctiva normal, no discharge. [] Neck: Normal range of motion, no tenderness, supple, no stridor. [] Cardiovascular: Tachycardic rate, regular rhythm, no murmur [] Lungs & Thorax: Bilateral breath sounds clear to auscultation [] Abdomen: Bowel sounds normal, soft, diffuse tenderness to palpation with no rebound or guarding Skin: Warm, dry, no erythema, no rash. [] Back: No tenderness, no CVA tenderness. [] Extremities: No tenderness, no cyanosis, no clubbing, ROM intact, no edema. [] Neurologic: Alert and oriented X 3, normal motor function, normal sensory function, no focal deficits noted. [] EKG EKG Sinus tachycardia at [address] elevation or depression but there is wandering baseline in leads V4 through V6. Normal T waves. Radiology/Procedures Radiology/Procedures [] Heart Score C/O Chest Pain: No Risk Factors: Risk Factors: DM, Current or recent (<one month) smoker, HTN, HLP, family history of CAD, obesity. Risk Scores: Risk Factors: DM, Current or recent (<one month) smoker, HTN, HLP, family history of CAD, obesity. Course & Med Decision Making Course & Med Decision Making Patient appears to be ill but is responding to fluids with additional systolic blood pressure of 70 but after 2 L his systolic blood pressure was up to 100 with his heart rate decreased to 100. I told patient that he will require admission the hospital for such abnormal vital signs and he says he is not willing to be transferred to or [place] and is requesting to be admitted at [facility] otherwise he will sign out AGAINST MEDICAL ADVICE. Patient has very abnormal work-up with metabolic alkalosis that appears to be chronic in addition to renal insufficiency that is chronic. His liver enzymes or lipase are normal at this time. I again told patient that I recommended transfer to at [place] and he again refused I told the limitations of this facility and that no advanced treatment will be offered to him rather he will just be getting IV fluids and being monitored and that his condition could deteriorate here and by not being transferred to the appropriate facility he is risking and disability. He verbalized understanding and still said if he does not stay here he is going to sign out AGAINST MEDICAL ADVICE so I spoke to the hospitalist here Dr. Trujillo and he agreed to accept patient. I figured patient staying here would be better than him signing out AGAINST MEDICAL ADVICE so he will be admitted in guarded condition to the telemetry floor at [facility]. Of note patient's vital signs continue to normalize with improved systolic blood pressure to 100 and heart rate at 100. Critical care time of 40 minutes. Dragon Disclaimer Dragon Disclaimer This electronic medical record was generated, in whole or in part, using a voice recognition dictation system. Departure Departure: Impression: Primary Impression: Chronic pancreatitis Additional Impressions: Abdominal pain Metabolic alkalosis Chronic renal insufficiency Hypotension Tachycardia Disposition: ADMITTED INPATIENT Admitting Physician: Ronaldo Trujillo Condition: GUARDED Referrals: NETTA PUCKETT MD (PCP) Problem Qualifiers Primary Impression: Chronic pancreatitis Pancreatitis type: unspecified pancreatitis type Qualified Codes: K86.1 - Other chronic pancreatitis Additional Impressions: Abdominal pain Abdominal location: generalized Qualified Codes: R10.84 - Generalized abdominal pain SHANTAL LORENZO DO Feb 15, 2022 17:19
[2022-02-15 17:22] LABS: BASO % 1 % (0-3); EOS % 0 % (0-3); HEMATOCRIT 33.6 % (39.0-53.0); HEMOGLOBIN 11.3 g/dL (13.0-17.5); LYMPH # 1.8 x10^3/uL (1.0-4.8); LYMPH % 19 % (24-48); MEAN CORPUSCULAR HEMOGLOBIN 29 pg (25-35); MEAN CORPUSCULAR HGB CONC 34 g/dL (31-37); MEAN CORPUSCULAR VOLUME 87 fL (79-100); MONO # 0.6 x10^3/uL (0.0-1.1); MONO % 7 % (0-9); NEUT % 74 % (31-73); PLATELET COUNT 488 x10^3/uL (140-400); RED BLOOD COUNT 3.87 x10^6/uL (4.30-5.70); RED CELL DISTRIBUTION WIDTH 15.1 % (11.5-14.5); WHITE BLOOD COUNT 9.5 x10^3/uL (4.0-11.0)
--- NOTE | 2022-02-15 17:27 | RAD ---
EXAMINATION: CT head without IV contrast INDICATION:36 years, Male, syncope. COMPARISON: CT head from 12/07/2021 TECHNIQUE: Spiral acquisition of contiguous images from the skull base to the vertex were obtained. S agittal and coronal 2D reformatted series were provided by the technologist. Soft tissue and bone win carlin algorithms were reviewed. Exposure: One or more of the following individualized dose reduction techniques were utilized for thi s examination: 1. Automated exposure control 2. Adjustment of the mA and/or kV according to patient size 3. Use of iterative reconstruction technique. FINDINGS: Neither mass, midline shift, intracranial hemorrhage, acute/subacute ischemic changes, nor extraaxial fluid collections are seen. The brain parenchyma is normal in appearance. The ventricles are normal in size. The paranasal sinuses, mastoid air cells, and middle ears are clear. The orbital contents appear within normal limits. Review of the bone windows reveals no suspicious osseous abnormalities. IMPRESSION: No evidence of acute intracranial abnormality. Electronically signed by: Raul Preston DO (02/15/2022 5:24 PM) [facility]
[2022-02-15] MEDS ORDERED: ONDANSETRON PF 4 MG/2 ML VIAL. IV ONE (17:30)
--- NOTE | 2022-02-15 17:30 | RAD ---
Chest AP portable at 1718: Reason for examination: Syncope. Comparison is made to previous study dated 02/09/2022. The heart size is normal. Mediastinum is unremarkable. Lung campos are clear. No acute bony abnormali ties are seen. Impression: No acute cardiopulmonary disease. Electronically signed by: Andra Arguello MD (02/15/2022 5:27 PM) [facility]
[2022-02-15 17:49] LABS: BLOOD UREA NITROGEN 31 mg/dL (8-26); BUN/CREATININE RATIO 6 (6-20); CALCIUM 9.6 mg/dL (8.5-10.1); CHLORIDE 78 mmol/L (98-107); CREATININE 4.9 mg/dL (0.7-1.3); GFR 13.5; GLUCOSE 104 mg/dL (70-99); POTASSIUM 3.7 mmol/L (3.5-5.1); SODIUM 141 mmol/L (136-145)
[2022-02-15 17:53] LABS: ANION GAP 18 (6-14)
[2022-02-15 18:02] LABS: ALBUMIN 2.8 g/dL (3.4-5.0); ALBUMIN/GLOBULIN RATIO 0.6 (1.0-1.7); ALK PHOS 103 U/L (46-116); ALT (SGPT) 15 U/L (16-63); AST (SGOT) 18 U/L (15-37); LIPASE 366 U/L (73-393); TOTAL BILIRUBIN 0.8 mg/dL (0.2-1.0); TOTAL PROTEIN 7.6 g/dL (6.4-8.2)
[2022-02-15 18:04] LABS: CARBON DIOXIDE > 45 mmol/L (21-32)
[2022-02-15] MEDS ORDERED: ONDANSETRON PF 4 MG/2 ML VIAL. IVP ONE (18:15)
--- NOTE | 2022-02-15 18:20 | EKG ---
[address] [address] Test Date: 2022-02-15 Test Time: 16:56:55 Pat Name: MALATHI SALCEDO Department: Room: Gender: M Frequency Checker: SHANE : 1985 Requested By: SHANTAL LORENZO Order Number: [id number] Reading MD: Britton Fowler MD Measurements Intervals Borger Rate: 130 P: 66 ME: 76 QRS: 75 QRSD: 94 T: 67 QT: 338 QTc: 504 Interpretive Statements PROBABLE SINUS TACHYCARDIA BUT CANNOT RULE OUT ATRIAL FIBRILLATION WITH RVR Electronically Signed On 02-18-2022 7:09:19 CDT by Britton Fowler MD
[2022-02-15 19:45] LABS: BARBITURATES NEG (NEG); BENZODIAZEPINES NEG (NEG); CANNABINOIDS NEG (NEG); COCAINE NEG (NEG); METHADONE NEG (NEG); OPIATES NEG (NEG); PHENCYCLIDINE NEG (NEG)
[2022-02-15 19:47] LABS: AMPHETAMINE/METHAMPHETAMINE NEG (NEG)
--- NOTE | 2022-02-15 19:50 | RAD ---
Exam: CT of abdomen and pelvis without contrast INDICATION: Pain TECHNIQUE: Sequential axial images through the abdomen and pelvis obtained without IV contrast. Sagit kenn and coronal reformatted images were reconstructed from the axial data and reviewed. Exposure: One or more of the following in the visualized dose reduction techniques were utilized for this examination: 1. Automated exposure control 2. Adjustment of the MA and/or KV according to patient size 3. Use of iterative of reconstructive technique Comparisons: 02/08/2022 FINDINGS: Heart size is normal. No pleural fusion. Visualized lung bases are clear. Evaluation solid organs is limited secondary to noncontrast technique. Liver, adrenals and gallbladder are unremarkable. Spleen is enlarged measuring 17.2 cm long axis. There is redemonstration of a multiloculated fluid collection anterior to the pancreatic head and nec k and partially encompassing the gastric antrum/proximal duodenum. This fluid collection stable to mi nimally increased in size when compared to the prior study. There is redemonstration of a plastic com mon bile duct stents again noted. No perinephric inflammation or hydronephrosis. No renal or ureteral calculi are identified. Bladder is partially distended. Prostate is not enlarged. There is fluid-filled distention of the stomach and distal esophagus. There is wall thickening of the gastric antrum and duodenum. Small bowel and large bowel are otherwise unremarkable. No free intra-a bdominal air or fluid. Mesenteric fat stranding in the right upper quadrant surrounding the aforement ioned complex fluid collection. Abdominal aorta has a normal course and caliber. Numerous prominent and mildly enlarged right upper quadrant mesenteric lymph nodes are again seen. No suspicious osseous lesions or acute fractures. IMPRESSION: 1. Redemonstration of complex fluid collection adjacent to pancreatic head involving the gastric ant rum and proximal duodenum, which is stable to minimally increased in size. There is wall thickening o f the gastric antrum with fluid-filled distention of the more proximal stomach and distal esophagus. Correlate for gastric outlet obstruction. 2. Inflammatory changes in the right upper quadrant surrounding the aforementioned fluid collection, may relate to acute on chronic pancreatitis. Difficult to exclude infection. Electronically signed by: Gabbi Ovalle MD (02/15/2022 7:47 PM) [facility]
[2022-02-15 19:55] LABS: CLARITY,URINE CLEAR; COLOR,URINE YELLOW; GLUCOSE,URINE NEG (NEG)
[2022-02-15 19:56] LABS: BACTERIA,URINE 0 /HPF (0-FEW); NITRITE,URINE NEG (NEG); RBC,URINE 0 /HPF (0-2); UROBILINOGEN,URINE 0.2 mg/dL (0.2 mg/dL); WBC,URINE 0 /HPF (0-4)
[2022-02-15 21:00] VITALS: BP 103/58
[2022-02-15] MEDS: ONDANSETRON PF 4 MG/2 ML VIAL. IVP PRN (21:12)
[2022-02-15] MEDS: IV DEXTROSE 5 %-0.45 % NACL 1,000 ML IV SCH (23:33)
[2022-02-16 00:04] VITALS: BP 101/67
[2022-02-16] MEDS ORDERED: MIDO5TAB4 PO (02:06)
[2022-02-16] MEDS ORDERED: OMEG100021 PO (02:06)
[2022-02-16] MEDS ORDERED: FERR-36 PO (02:06)
[2022-02-16] MEDS: ONDANSETRON PF 4 MG/2 ML VIAL. IVP PRN ×3 (02:57→13:32)
[2022-02-16 05:21] VITALS: BP 97/58
[2022-02-16 07:37] LABS: BASO % 0 % (0-3); EOS # 0.1 x10^3/uL (0.0-0.7); EOS % 1 % (0-3); HEMATOCRIT 27.1 % (39.0-53.0); LYMPH # 1.5 x10^3/uL (1.0-4.8); LYMPH % 21 % (24-48); MEAN CORPUSCULAR HEMOGLOBIN 29 pg (25-35); MEAN CORPUSCULAR HGB CONC 33 g/dL (31-37); MEAN CORPUSCULAR VOLUME 86 fL (79-100); MONO # 0.6 x10^3/uL (0.0-1.1); MONO % 8 % (0-9); NEUT # 5.3 x10^3uL (1.8-7.7); NEUT % 70 % (31-73); PLATELET COUNT 354 x10^3/uL (140-400); RED BLOOD COUNT 3.14 x10^6/uL (4.30-5.70); RED CELL DISTRIBUTION WIDTH 15.3 % (11.5-14.5); WHITE BLOOD COUNT 7.5 x10^3/uL (4.0-11.0)
[2022-02-16 07:48] LABS: ALBUMIN 2.2 g/dL (3.4-5.0); ALBUMIN/GLOBULIN RATIO 0.5 (1.0-1.7); ALK PHOS 82 U/L (46-116); ALT (SGPT) 11 U/L (16-63); AST (SGOT) 14 U/L (15-37); BLOOD UREA NITROGEN 27 mg/dL (8-26); BUN/CREATININE RATIO 7 (6-20); CALCIUM 7.6 mg/dL (8.5-10.1); CHLORIDE 81 mmol/L (98-107); CREATININE 3.9 mg/dL (0.7-1.3); GFR 17.6; GLUCOSE 126 mg/dL (70-99); SODIUM 136 mmol/L (136-145); TOTAL BILIRUBIN 0.5 mg/dL (0.2-1.0); TOTAL PROTEIN 6.8 g/dL (6.4-8.2)
[2022-02-16 08:07] LABS: ANION GAP 10 (6-14); CARBON DIOXIDE > 45 mmol/L (21-32)
[2022-02-16 08:11] LABS: POTASSIUM 2.3 mmol/L (3.5-5.1)
[2022-02-16] MEDS ORDERED: NICOTINE 21MG PATCH. TD SCH (09:00)
[2022-02-16] MEDS: POTASSIUM CHLORIDE 10MEQ 100 ML IV SCH ×4 (09:53→14:17)
[2022-02-16] MEDS ORDERED: PROCHLORPERAZINE 10 MG/2 ML VIAL. IV PRN (10:30)
[2022-02-16 11:09] VITALS: BP 112/74
[2022-02-16] MEDS: IV DEXTROSE 5 %-0.45 % NACL 1,000 ML IV SCH (11:50)
--- NOTE | 2022-02-16 12:06 | SSS ---
DATE OF SERVICE: 02/16/2022 ADMIT DATE: 02/15/2022 HISTORY OF PRESENT ILLNESS: The patient is a 36-year-old male patient who presented to the Emergency Room of [facility] for evaluation for syncopal episodes. The patient has passed out at least 2-3 times over the past day, he is very difficult to get history from as he is closing his eyes and does not seem willing to participate in the medical history. The patient was discharged from [facility] 2 days ago and he is unsure why. He is unsure if he has started on any new medication. Appears, the patient was seen in this Emergency Department in 02/09/2022 for [id number] pancreatitis and had multiple metabolic derangements and was transferred to [facility], but he is unsure what happened there, but he was discharged 2 days ago and started feeling bad yesterday. He is tachycardic, hypotensive. He states that he has been hypotensive before in the past, it appears that he has been in this Emergency Department at least 22 times in the past year. The patient stated that he is having abdominal pain, primarily that has been going on since yesterday. He appears ill with his abnormal vital signs. PHYSICAL EXAMINATION: GENERAL: On arrival to the Emergency Room, the patient was pale, but not jaundiced or cyanosed. There is no lymphadenopathy, no thyromegaly, no jugular venous distention. VITAL SIGNS: His heart rate on arrival was 115. His blood pressure was only 65/38. The patient has received about 4 liters of normal saline together with ondansetron and fentanyl and was continued on D5 half normal; however, his lab work was extremely abnormal. He has what seemed to be contraction alkalosis. His BUN is 31, creatinine 4.9. His sodium bicarbonate was 45 and this morning when I saw him, his sodium is down to 136, potassium 2.3, chloride 81, bicarbonate continued to be 45 and creatinine came down to 3.9. His CT scan of the abdomen and pelvis showed that the patient has redemonstration of the complex fluid collection adjacent to the pancreatic head involving the gastric antrum and proximal duodenum, which is stable and to minimally increased in size. There is wall thickening of the gastric antrum and fluid-filled distention of the more proximal stomach and distal esophagus. He has inflammatory changes in the right upper quadrant surrounding the aforementioned fluid collection may relate to [id number] pancreatitis and difficult to exclude infection given that he is constantly vomiting and his electrolytes are all consistent with gastric outlet obstruction as well as the CT finding, a decision was [facility] to consult the ehs teacher as well as the surgical team and hunting guide. We kept him n.p.o. We put an NG tube in and we will replenish his potassium intravenously. PAST MEDICAL HISTORY: Significant for type 2 diabetes mellitus, hyperlipidemia, has cerebrovascular accident, has chronic pancreatitis, gastroesophageal reflux disease, anxiety and depression. PAST SURGICAL HISTORY: Significant for right ankle fracture, status post open reduction and internal fixation. He apparently has also a stent placed in the pancreatic duct. Other medical problems include ADHD, posttraumatic stress disorder and personality disorder. He underwent ERCP and pancreatic stent deployment. SOCIAL HISTORY: He is , has 1 daughter and 3 sons. He quit smoking. He continues actually to smoke cigarette, does not drink alcohol or recreational drugs. 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 FAMILY HISTORY: Had 1 brother who in a motor vehicle accident. Two sisters older and healthy. His father is still alive at the age of 74 and healthy. Mother at age of 52 because of ruptured brain aneurysm. REVIEW OF SYSTEMS: As per history of present illness. On arrival to the Emergency Room, the patient was pale, but no jaundice, cyanosis, no lymphadenopathy, no thyromegaly, no jugular venous distention. No lower limb edema. VITAL SIGNS: His heart rate was 115, blood pressure was 65/38, temperature was 98.1, respiratory rate was 40 and oxygen saturation was 99% on room air. HEAD, EYES, EARS, NOSE, AND THROAT: Normocephalic, atraumatic. NECK: Supple. HEART: Showed normal first and second heart sounds. No gallop, rub or murmur. CHEST: Shows central trachea, equal bilateral chest expansion, air entry, vesicular breath sounds. No crepitation or rhonchi. ABDOMEN: Distended, soft with tenderness mostly in the epigastric area. There is no guarding or rigidity. No organomegaly. All hernial orifice intact. Bowel sounds normal. NEUROLOGIC: He was awake, alert, responding appropriately. All cranial nerves intact. He moves extremities without difficulty, ambulates without assistance or assistive devices. LABORATORY WORK: His lab work on arrival to the Emergency Room showed a white cell count 9500, hemoglobin 11.3, hematocrit 33.6, MCV 87. His platelet count was 488,000 with normal manual differential. His chemistry showed a serum sodium 141, potassium 3.7, chloride 78, bicarbonate 45, anion gap of 18, BUN 31, creatinine 4.9. Estimated GFR was 13.5. Estimated glucose 104, calcium was 9.6. Total bilirubin, AST, ALT, alkaline phosphatase were normal. His CK was 43. Troponin I high sensitivity 7. Beta-natriuretic peptide was 550. Total protein 7.6, albumin was 2.8, serum lipase was 366. His prothrombin time was 12.5, INR 1.2, APTT was 26 and D-dimer was 1.61. His urinalysis showed that he has high protein in the urine, but the urine was negative for glucose, ketones, blood, nitrite and leukocyte esterase. There are 0 rbc's, 0 wbc's and no bacteria. His toxic screen was essentially negative. His chest x-ray showed that the patient has no acute cardiopulmonary disease. His CT scan of the head showed neither mass, midline shift, intracranial hemorrhage, acute or subacute ischemic changes nor extraaxial fluid collection are seen. The brain parenchyma is normal in appearance. The ventricles are normal in size. The paranasal sinuses, mastoid air cells and middle ears are clear. The orbital content appears within normal limits. The CT scan of the abdomen and pelvis showed that the patient has redemonstration of a complex fluid collection adjacent to the pancreatic head involving the gastric antrum and proximal duodenum, which is stable to minimally increased in size. There is wall thickening of the gastric antrum with fluid-filled distention in the more proximal stomach and distal esophagus, correlate with gastric outlet obstruction, inflammatory changes in the right upper quadrant surrounding the aforementioned fluid collection may relate to acute or chronic pancreatitis, difficult to exclude infection. The patient was treated with IV fluid, had received a total of 4 liters of normal saline, was continued on D5 half normal. His lab work this morning showed a serum sodium 136, potassium 2.3, chloride 81, bicarbonate more than 45, anion gap of 10, BUN 27, creatinine 3.9. Estimated GFR was 17 mL per minute. His glucose 126, calcium was 7.6. Total bilirubin, AST, ALT, alkaline phosphatase were normal. His total protein 6.8, albumin 2.2. In summary, this is a 36-year-old male patient who came with syncopal episode. He was extremely hypotensive with acute on chronic kidney injury, markedly deranged electrolytes and what seemed to be contraction alkalosis. CT scan showed what seemed to be a gastric outlet obstruction. When I saw him this morning, he actually was much better. His heart rate was 99, blood pressure is 117/72, temperature was 98.1. His blood pressure was 97/58, temperature was 98.6, respiratory rate was 18 and oxygen saturation was 97% on 2 liters of oxygen. Rest of the exam stable. The patient will be [facility] to [facility] with gastric outlet obstruction with markedly deranged liver enzymes including severe hypokalemia, hypochloremia, hyponatremia and acute on chronic kidney injury. We will continue with electrolyte replacement protocol. Continue with IV fluid. I will consult the ehs teacher, hunting guide and surgical team as he probably needs endoscopy and perhaps a balloon angioplasty of his gastric outlet and on surgical intervention for pyloric obstruction. We did already in place an NG tube to intermittent suction. AYLIN/JENARO DR: Greg TID: [id number]
--- NOTE | 2022-02-16 13:51 | RAD ---
Abdomen single view portable at 1023: Reason for examination: Confirm placement of NG tube. NG tube is present with the tip and side port in the region of the stomach. There is no gross organom egaly. Psoas muscles are symmetric. Bowel gas pattern is nonspecific and nonobstructive. Note is made of a calcific density on the right lateral to the intervertebral disc at the L2-3 level and measurin g at least 9 mm in greatest dimension. No acute bony abnormalities are seen. IMPRESSION: NG tube tip and side port within the region of the stomach. 9 mm calcification seen on the right lateral to the L2-3 disc level. Electronically signed by: Andra Arguello MD (02/16/2022 1:48 PM) [facility]
[2022-02-16 15:06] LABS: BLOOD UREA NITROGEN 27 mg/dL (8-26); CALCIUM 7.7 mg/dL (8.5-10.1); CHLORIDE 83 mmol/L (98-107); CREATININE 3.8 mg/dL (0.7-1.3); GFR 18.1; GLUCOSE 140 mg/dL (70-99); SODIUM 133 mmol/L (136-145)
[2022-02-16 15:14] LABS: ANION GAP 5 (6-14); CARBON DIOXIDE > 45 mmol/L (21-32); POTASSIUM 2.5 mmol/L (3.5-5.1)
[2022-02-16] MEDS ORDERED: POTASSIUM CL 40MEQ D5-0.45NACL 1,000 ML IV SCH (15:15)
[2022-02-16 15:25] VITALS: BP 101/54
== END 2022-02-16 17:00 | disposition short-term general hospital (02) ==
LOC: ER 16:35 → ER HOLD 18:35 → INTOOBSV 18:35 → 1 SOUTH 20:14
PROVIDERS: ADMIT Internal Medicine; ATTEND Internal Medicine
DX: R55 Syncope and collapse (principal); Z20.822 Contact with and (suspected) exposure to COVID-19; K86.1 Other chronic pancreatitis; E11.9 Type 2 diabetes mellitus without complications; E78.5 Hyperlipidemia, unspecified; E87.3 Alkalosis; K85.90 Acute pancreatitis without necrosis or infection, unspecified; N28.9 Disorder of kidney and ureter, unspecified; F17.210 Nicotine dependence, cigarettes, uncomplicated; F43.10 Post-traumatic stress disorder, unspecified; F60.9 Personality disorder, unspecified; Z86.73 Personal history of transient ischemic attack (TIA), and cerebral infarction without residual deficits; Z79.899 Other long term (current) drug therapy; Z98.890 Other specified postprocedural states
CPT/HCPCS: 36415; 70450; 71045; 74018; 74176; 80048; 80053; 80307; 81001; 82550; 82803; 83605; 83690; 83880; 84443; 84484; 85025; 85379; 85610; 85730; 87040; 93005; 96361; 96365; 96366; 96375; 96376; 99291; G0378; G0480; J0780; J2405; J3010; J3480; J7030; J7042; U0003; G0379

== ENCOUNTER 2022-03-11 19:12 | Emergency (ER) | payer OTHER, MEDICAID ==
[~2022-03-11] VITALS: Ht 177.8 cm; Wt 90.0 kg
[~2022-03-11 19:12] MED LIST changes: +FERR-36 PO; +MIDO5TAB4 PO; +OMEG100021 PO
--- NOTE | 2022-03-11 19:27 | PHYS DOC ---
Past History Past Medical History: Anxiety, Depression, Diabetes, GERD, Pancreatitis, Renal Disease Additional Past Medical Histor: ADHD; PTSD; PERSONALITY DX Past Surgical History: Other Additional Past Surgical Histo: scope r/t pancreatitis, pancreas STENT Smoking: Cigarettes Alcohol Use: None Drug Use: None General Adult HPI: HPI: ':.. "..He's been falling a lot.. really confused today... "... ".. I don't remember.. yeah .. I am a little more confused... and weak than usual..." Patient is a 36 year old male who presents with above hx and complaints of mental status changes. Pt. follows with Dr. Urbina as primary. Pt. reportedly more weak than usual and having frequent falls. Patient denies any alcohol use or illicit drugs. Patient does have a history of chronic pain. Patient has a p ast medical history of significant PTSD, hypokalemia, hypochloremia, contraction alkalosis, renal failure, chronic pancreatitis, diabetes, anxiety, depression, gastritis, and episodic mental status changes. Patient does smoke. No recent changes in meds. No history of fever or chills. No history of recent travel. Review of Systems: Review of Systems: Constitutional: Denies fever or chills Eyes: Denies change in visual acuity HENT: Denies nasal congestion or sore throat Respiratory: Denies cough or shortness of breath Cardiovascular: Denies chest pain or edema GI: Complains of chronic abdominal pain, nausea. Denies, vomiting, bloody stools or diarrhea : Denies dysuria Musculoskeletal: Complains of generalized myalgia and arthralgia. Generalized weakness Integument: Denies rash Neurologic: Denies headache, focal weakness or sensory changes Increased confusion, short term memory Endocrine: Denies polyuria or polydipsia Lymphatic: Denies swollen glands Psychiatric: Denies depression or anxiety Family History: Family History: Significant family history of 1 brother age 42 due to motor vehicle accident. History of 3 sisters 1 older and 2 younger they are healthy. Father 74. Mother at 45 due to a brain aneurysm. No one in his family are currently ill. Current Medications: Current Meds: See nursing for home meds Allergies: Allergies: Allergies Coded Allergies Type Severity Reaction Last Updated Verified dulaglutide Allergy Intermediate 12/31/21 Yes metformin Allergy Intermediate 12/31/21 Yes aspirin Allergy Unknown 12/31/21 Yes broccoli Allergy Unknown 12/31/21 Yes Physical Exam: PE: Constitutional: Moderate acute distress, ill and appearance. [] HENT: Normocephalic, 3 cm laceration right uatsdin with a hematoma, bilateral external ears normal, oropharynx moist, no oral exudates, nose normal. [] Eyes: PERRLA, EOMI, conjunctiva pale, no discharge. [] Neck: Normal range of motion, no tenderness, supple, no stridor. [] Cardiovascular:Heart rate regular rhythm, no murmur [] Lungs & Thorax: Bilateral breath sounds to apex with few scattered wheezes auscultation [] Abdomen: Bowel sounds normal, soft, generalized tenderness, no masses, no pulsatile masses. Scar. Skin: Warm, dry, no erythema, no rash. Poor turgor Back: No tenderness, no CVA tenderness. [] Extremities: No tenderness, no cyanosis, no clubbing, ROM intact, no edema. No cording Neurologic: Alert and oriented X 2, moves extremities on request, has distal sensory, no focal deficits noted. Giveaway weakness. 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 Psychologic: Affect anxious mood depressed.] EKG: EKG: My interpretation EKG shows a sinus rhythm at 79 bpm. There are some nonspecific T wave changes anterior leads. But no findings acute STEMI of contralateral changes. Does have a wavering baseline. Due to movement. Time of EKG is 2011 hrs. [] Radiology/Procedures: Radiology/Procedures: [] IMAGING REPORT [place] [id number] IMAGING REPORT Signed PATIENT: MALATHI SALCEDO ACCOUNT: [id number] : 1985 LOCATION: ER AGE: 36 SEX: M EXAM STATUS: REG ER ORD. PHYSICIAN: SAMIRA CARNEY MD REASON: pain PROCEDURE: ACUTE ABDOMEN SERIES XR ABDOMEN COMP ACUTE INDICATION: pain . COMPARISON STUDY: CT abdomen pelvis 02/15/2022. FINDINGS: Lungs: Normal lung volume. No pulmonary mass or consolidation. The tracheobronchial tree and hilar structures are normal. Pleura: No pleural effusion or pneumothorax. Heart and Mediastinum: The cardiomediastinal silhouette is normal. The great vessels of the thorax are normal. Abdomen: Nonobstructive bowel gas pattern. No free air. Biliary stent in place. IMPRESSION: 1. Nonobstructive bowel gas pattern. 2. No focal airspace disease. Electronically signed by: Roxanne Hare MD (03/11/2022 7:58 PM) [facility] DICTATED AND SIGNED BY: ROXANNE HARE MD DATE: 03/11/221953 CC: SAMIRA CARNEY MD; NETTA URBINA MD ~ Signed PATIENT: MALATHI SALCEDO ACCOUNT: [id number] : 1985 LOCATION: ER AGE: 36 SEX: M EXAM STATUS: REG ER ORD. PHYSICIAN: SAMIRA CARNEY MD REASON: fall PROCEDURE: CT HEAD AND CERVICAL SPINE WO CT HEAD AND C-SPINE WO Date: 03/11/2022 7:34 PM Clinical Indication: fall, pain Comparison: None. Technique: 5 mm axial tomographic images were obtained of the head without contrast. These were viewed on brain and bone windows. CT imaging of the cervical spine was performed without contrast. Coronal and sagittal reformatted images were performed. One or more of the following dose reduction techniques were utilized: Automated exposure control (AEC), Adjustment of mA and/or kV according to patient size, Use of iterative reconstruction technique such as ASiR, CT scan done according to ALARA and image gently/image wisely HEAD FINDINGS: The brain parenchyma is normal in attenuation. No intra- or extra-axial mass or fluid collection. No acute hemorrhage. The ventricles are normal in size, shape, and morphology. The lara-white matter junction is normal. The basilar cisterns are patent. The visualized paranasal sinuses are normal. The visualized portions of the orbits and globes are normal. The mastoid air cells are clear. No aggressive o sseous lesion or fracture. Right frontal scalp swelling. CERVICAL SPINE FINDINGS: The cervical spine is normally aligned. No acute fracture. Congenital nonunion of the posterior arch of C1.. The intervertebral disc heights are maintained. No high-grade spinal canal stenosis or neural foraminal narrowing. Subcentimeter right thyroid nodule. No cervical lymphadenopathy. The visualized aerodigestive tract is unremarkable. The visualized lung apices are clear. IMPRESSION: 1. No acute intracranial process. Right frontal scalp swelling. 2. No acute osseous abnormality of the cervical spine. Electronically signed by: Roxanne Hare MD (03/11/2022 8:26 PM) [facility] DICTATED AND SIGNED BY: ROXANNE HARE MD DATE: 03/11/222024 CC: SAMIRA CARNEY MD; NETTA URBINA MD ~ Heart Score: C/O Chest Pain: No Risk Factors: Risk Factors: DM, Current or recent (<one month) smoker, HTN, HLP, family history of CAD, obesity. Risk Scores: Score 0 - 3: 2.5% MACE over next 6 weeks - Discharge Home Score 4 - 6: 20.3% MACE over next 6 weeks - Admit for Clinical Observation Score 7 - 10: 72.7% MACE over next 6 weeks - Early Invasive Strategies Course & Med Decision Making: Course & Med Decision Making Pertinent Labs and Imaging studies reviewed. (See chart for details) Procedure: Rt. Temporal laceration.- area clean, saline, peroxide. Tissue glue applied 3 cm laceration Discussed presentation, testing and treatment plan with Dr. Trujillo. Transfer to [facility]- on his service.. Possible GI and nephrology consult. 2144.Hrs. Impression:P 1. Mental status changes 2. Contraction alkalosis pH 7,62 3. Critical hypokalemia 2.3 4. Hyponatremia 132 5. Diabetes glucose 174- 189 6. Acute on chronic renal failure BUN 53 creatinine 4.8 7, Dehydration 8., Elevation D-dimewr 1.49 9. Elevated CRP- 29,9 10, Acute on Chronic Pancreatitis -Lipase 702 11. Anemia Hgb 11.3 12. Falling 13. Rt. Temporal Hematoma and 3 cm laceration [] Dragon Disclaimer: Dragon Disclaimer: This electronic medical record was generated, in whole or in part, using a voice recognition dictation system. Departure Departure: Referrals: NETTA URBINA MD (PCP) Mick Disclaimer This chart was dictated in whole or in part using Voice Recognition software in a busy, high-work load, and often noisy Emergency Department environment. It may contain unintended and wholly unrecognized errors or omissions. SAMIRA CARNEY MD Mar 11, 2022 19:27
[2022-03-11] MEDS: IV RINGERS SOLUTION,LACTATED 1,000 ML IV SCH ×2 (20:00→22:00)
--- NOTE | 2022-03-11 20:00 | RAD ---
XR ABDOMEN COMP ACUTE INDICATION: pain . COMPARISON STUDY: CT abdomen pelvis 02/15/2022. FINDINGS: Lungs: Normal lung volume. No pulmonary mass or consolidation. The tracheobronchial tree and hilar st ructures are normal. Pleura: No pleural effusion or pneumothorax. Heart and Mediastinum: The cardiomediastinal silhouette is normal. The great vessels of the thorax ar e normal. Abdomen: Nonobstructive bowel gas pattern. No free air. Biliary stent in place. IMPRESSION: 1. Nonobstructive bowel gas pattern. 2. No focal airspace disease. Electronically signed by: Sherif Hare MD (03/11/2022 7:58 PM) [facility] CENTER[facility] Luis
[2022-03-11] MEDS ORDERED: ONDANSETRON PF 4 MG/2 ML VIAL. ONE (20:14)
[2022-03-11] MEDS ORDERED: MORPHINE SULFATE 2 MG/ML DISP.SYRIN. ONE (20:15)
--- NOTE | 2022-03-11 20:28 | RAD ---
CT HEAD AND C-SPINE WO Date: 03/11/2022 7:34 PM Clinical Indication: fall, pain Comparison: None. Technique: 5 mm axial tomographic images were obtained of the head without contrast. These were view ed on brain and bone windows. CT imaging of the cervical spine was performed without contrast. Coron al and sagittal reformatted images were performed. One or more of the following dose reduction techni ques were utilized: Automated exposure control (AEC), Adjustment of mA and/or kV according to patient size, Use of iterative reconstruction technique such as ASiR, CT scan done according to ALARA and im age gently/image wisely HEAD FINDINGS: The brain parenchyma is normal in attenuation. No intra- or extra-axial mass or fluid collection. No acute hemorrhage. The ventricles are normal in size, shape, and morphology. The lara-white matter reese ction is normal. The basilar cisterns are patent. The visualized paranasal sinuses are normal. The visualized portions of the orbits and globes are no rmal. The mastoid air cells are clear. No aggressive osseous lesion or fracture. Right frontal scalp swelling. CERVICAL SPINE FINDINGS: The cervical spine is normally aligned. No acute fracture. Congenital nonunion of the posterior arch of C1.. The intervertebral disc heights are maintained. No high-grade spinal canal stenosis or neural foramin al narrowing. Subcentimeter right thyroid nodule. No cervical lymphadenopathy. The visualized aerodigestive tract i s unremarkable. The visualized lung apices are clear. IMPRESSION: 1. No acute intracranial process. Right frontal scalp swelling. 2. No acute osseous abnormality of the cervical spine. Electronically signed by: Sherif Hare MD (03/11/2022 8:26 PM) [facility]
[2022-03-11 20:31] LABS: BGAS PH 7.62 (7.35-7.46)
[2022-03-11 20:47] LABS: BASO % 0 % (0-3); EOS % 1 % (0-3); HEMATOCRIT 32.8 % (39.0-53.0); HEMOGLOBIN 11.3 g/dL (13.0-17.5); LYMPH % 17 % (24-48); MEAN CORPUSCULAR HEMOGLOBIN 29 pg (25-35); MEAN CORPUSCULAR HGB CONC 35 g/dL (31-37); MEAN CORPUSCULAR VOLUME 84 fL (79-100); MONO # 0.5 x10^3/uL (0.0-1.1); MONO % 9 % (0-9); NEUT # 4.4 x10^3uL (1.8-7.7); NEUT % 74 % (31-73); PLATELET COUNT 281 x10^3/uL (140-400); RED CELL DISTRIBUTION WIDTH 15.8 % (11.5-14.5); WHITE BLOOD COUNT 5.9 x10^3/uL (4.0-11.0)
[2022-03-11 21:01] LABS: ACETAMIN < 2.0 mcg/mL (10-30); ETHANOL < 10 mg/dL (0-10); SALIC < 2.8 mg/dL (2.8-20.0)
[2022-03-11 21:04] LABS: ALBUMIN 3.2 g/dL (3.4-5.0); C REACTIVE PROTEIN 29.9 mg/L (0-3.3); CALCIUM 8.8 mg/dL (8.5-10.1); CREATININE 4.8 mg/dL (0.7-1.3); DIRECT BILIRUBIN 0.1 mg/dL (0.0-0.2); GFR 13.8; MAGNESIUM 1.8 mg/dL (1.8-2.4); TOTAL BILIRUBIN 0.4 mg/dL (0.2-1.0)
[2022-03-11 21:14] LABS: POTASSIUM 2.3 mmol/L (3.5-5.1)
[2022-03-11] MEDS ORDERED: POTASSIUM CHLORIDE 20MEQ 100 ML IV SCH (21:45)
[2022-03-11] MEDS ORDERED: IV RINGERS SOLUTION,LACTATED 1,000 ML IV ONE (21:45)
[2022-03-11] MEDS ORDERED: ACETAMINOPHEN 500 MG TABLET PO ONE (21:47)
[2022-03-11] MEDS ORDERED: MORPHINE SULFATE 4 MG/ML DISP.SYRIN. IM ONE (22:00)
[2022-03-11 22:45] VITALS: BP 108/63
[2022-03-11] MEDS ORDERED: MORPHINE SULFATE 10 MG/ML SYRINGE. ONE (23:26)
--- NOTE | 2022-03-12 00:11 | EKG ---
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
== END 2022-03-11 23:21 | disposition short-term general hospital (02) ==
LOC: ER 19:12
DX: U07.1 COVID-19 (principal); S01.81XA Laceration without foreign body of other part of head, initial encounter; N17.9 Acute kidney failure, unspecified; E11.22 Type 2 diabetes mellitus with diabetic chronic kidney disease; N18.9 Chronic kidney disease, unspecified; E87.3 Alkalosis; E87.6 Hypokalemia; E87.1 Hypo-osmolality and hyponatremia; E86.0 Dehydration; R79.1 Abnormal coagulation profile; R79.82 Elevated C-reactive protein (CRP); K85.90 Acute pancreatitis without necrosis or infection, unspecified; K86.1 Other chronic pancreatitis; D64.9 Anemia, unspecified; R41.82 Altered mental status, unspecified; F41.9 Anxiety disorder, unspecified; F32.9 Major depressive disorder, single episode, unspecified; E11.9 Type 2 diabetes mellitus without complications; K21.9 Gastro-esophageal reflux disease without esophagitis; F17.210 Nicotine dependence, cigarettes, uncomplicated; Z88.8 Allergy status to other drugs, medicaments and biological substances; Z91.018 Allergy to other foods; Z88.6 Allergy status to analgesic agent; W18.39XA Other fall on same level, initial encounter; Y93.89 Activity, other specified; Y92.89 Other specified places as the place of occurrence of the external cause; Y99.8 Other external cause status
CPT/HCPCS: 12002; 36415; 36600; 70450; 72125; 74022; 80048; 80076; 80329; 82140; 82550; 82803; 82947; 83605; 83690; 83735; 83880; 84443; 84484; 85025; 85379; 85610; 85730; 86140; 87426; 93005; 96361; 96365; 96372; 99285; G0480; J2270; J3480; J7120; U0003

== ENCOUNTER 2022-03-24 17:05 | Inpatient (IN) | payer OTHER, MEDICAID ==
[~2022-03-24] VITALS: Ht 177.8 cm; Wt 73.5 kg
[2022-03-24] MEDS ORDERED: IV NORMAL SALINE 1,000ML 1,000 ML IV ONE ×3 (17:15→19:45)
--- NOTE | 2022-03-24 17:34 | PHYS DOC ---
Past History Past Medical History: Anxiety, Depression, Diabetes, GERD, Pancreatitis, Renal Disease Additional Past Medical Histor: ADHD; PTSD; PERSONALITY DX (ALESIA NARAYANAN DO) Past Surgical History: No Surgical History Additional Past Surgical Histo: scope r/t pancreatitis, pancreas STENT (ALESIA NARAYANAN DO) Smoking: Cigarettes Alcohol Use: None Drug Use: None (ALESIA NARAYANAN DO) General Adult EDM: Chief Complaint: MULTIPLE COMPLAINTS HPI: HPI: 36-year-old male returns emergency room with epigastric pain and confusion. The patient has been seen multiple times in this emergency room as well as [place] and . His told the staff that he was recently admitted at [place]. Patient does not seem like he is completely aware of his s urroundings. He tells me that he has abdominal pain but does not provide further details. He rates the pain as severe but does not give a number. Patient denies alcohol consumption. He has a history of chronic pancreatitis with acute exacerbations. (ALESIA NARAYANAN DO) Review of Systems: Review of Systems: Constitutional: Denies fever or chills Eyes: Denies change in visual acuity HENT: Denies nasal congestion or sore throat Respiratory: Denies cough or shortness of breath Cardiovascular: Denies chest pain or edema GI: Epigastric abdominal pain. Denies nausea, vomiting, bloody stools or diarrhea : Denies dysuria Musculoskeletal: Denies back pain or joint pain Integument: Denies rash Neurologic: Denies headache, focal weakness or sensory changes Endocrine: Denies polyuria or polydipsia Lymphatic: Denies swollen glands Psychiatric: Denies depression or anxiety (ALESIA NARAYANAN DO) Current Medications: Current Meds: Current Medications Medications (Trade) Dose Ordered Sig/Terell Start Time Stop Time Status Last Admin Dose Admin Sodium Chloride 1,000 ml @ 1,000 mls/hr 1X ONCE 03/24/22 17:15 03/24/22 18:14 UNV (ALESIA NARAYANAN DO) Allergies: Allergies: Allergies Coded Allergies Type Severity Reaction Last Updated Verified dulaglutide Allergy Intermediate 12/31/21 Yes metformin Allergy Intermediate 12/31/21 Yes aspirin Allergy Unknown 12/31/21 Yes broccoli Allergy Unknown 12/31/21 Yes (ALESIA NARAYANAN DO) Physical Exam: PE: Constitutional: Well developed, well nourished, no acute distress, non-toxic appearance. [] HENT: Normocephalic, atraumatic, bilateral external ears normal, oropharynx moist, no oral exudates, nose normal. [] Eyes: PERRLA, EOMI, conjunctiva normal, no discharge. [] Neck: Normal range of motion, no tenderness, supple, no stridor. [] Cardiovascular:Heart rate 101, regular rhythm, no murmur [] Lungs & Thorax: Bilateral breath sounds clear to auscultation [] Abdomen: Bowel sounds normal, soft, epigastric tenderness, no masses, no pu lsatile masses. [] Skin: Warm, dry, no erythema, no rash. [] Back: No tenderness, no CVA tenderness. [] Extremities: No tenderness, no cyanosis, no clubbing, ROM intact, no edema. [] Neurologic: Alert and oriented X 3, giving contradictory answers to questions, normal motor function, normal sensory function, no focal deficits noted. [] Psychologic: Affect flat, judgement normal, mood normal. [] (ALESIA NARAYANAN DO) Current Patient Data: Labs: Laboratory Tests Test 03/24/22 17:16 Glucose (Fingerstick) 195 mg/dL (70-99) H (ALESIA NARAYANAN DO) EKG: EKG: [] (ALESIA NARAYANAN DO) Radiology/Procedures: Radiology/Procedures: [] (ALESIA NARAYANAN DO) Heart Score: C/O Chest Pain: N/A Risk Factors: Risk Factors: DM, Current or recent (<one month) smoker, HTN, HLP, family history of CAD, obesity. Risk Scores: Score 0 - 3: 2.5% MACE over next 6 weeks - Discharge Home Score 4 - 6: 20.3% MACE over next 6 weeks - Admit for Clinical Observation Score 7 - 10: 72.7% MACE over next 6 weeks - Early Invasive Strategies (ALESIA NARAYANAN DO) Course & Med Decision Making: Course & Med Decision Making Pertinent Labs and Imaging studies reviewed. (See chart for details) The patient is able to answer my questions, but he does not appear to be fully aware of what is going on. He is alert and oriented but he does contradictory answers such as saying he had no abdominal pain but then that his belly hurts. He was not septic along with the pulse oximeter on his finger. He is hypertensive and I started him on normal saline. EKG is unremarkable except for rate of 101. I am signing the patient out to the manufacturing supervisor 2nd shift at 1800. [] (ALESIA NARAYANAN DO) Course & Med Decision Making Patient care handed off to me at checkout pending disposition. Patient awake alert and oriented. Patient appears to feel unwell. Laboratory analysis notable for hypokalemia, hypochloremic metabolic alkalosis. Started on normal saline. Given dose of acetazolamide. Replace potassium. Replace magnesium. Blood cultures obtained and started on antibiotics as sepsis is on the differential. Discussed patient with Dr. Atkinson the hospitalist who accepted to [facility]. (RICO GONZALEZ MD) Dragon Disclaimer: Dragon Disclaimer: This electronic medical record was generated, in whole or in part, using a voice recognition dictation system. (ALESIA NARAYANAN DO) Departure Departure: Referrals: NETTA PUCKETT MD (PCP) ALESIA NARAYANAN DO March 24, 2022 17:34 RICO GONZALEZ MD March 25, 2022 20:22
[2022-03-24] MEDS ORDERED: MORPHINE SULFATE 2 MG/ML DISP.SYRIN. IV ONE ×2 (17:45→20:15)
[2022-03-24] MEDS ORDERED: ONDANSETRON PF 4 MG/2 ML VIAL. IVP ONE (18:00)
[2022-03-24] MEDS ORDERED: ONDANSETRON PF 4 MG/2 ML VIAL. ONE (18:01)
[2022-03-24 18:26] LABS: ALBUMIN 3.1 g/dL (3.4-5.0); ALBUMIN/GLOBULIN RATIO 0.7 (1.0-1.7); CALCIUM 8.8 mg/dL (8.5-10.1); CREATININE 5.1 mg/dL (0.7-1.3); GFR 12.9; TOTAL BILIRUBIN 1.1 mg/dL (0.2-1.0); TOTAL PROTEIN 7.8 g/dL (6.4-8.2)
[2022-03-24 18:27] LABS: BASO % 0 % (0-3); EOS % 0 % (0-3); HEMATOCRIT 31.8 % (39.0-53.0); HEMOGLOBIN 10.8 g/dL (13.0-17.5); LYMPH # 1.9 x10^3/uL (1.0-4.8); LYMPH % 19 % (24-48); MEAN CORPUSCULAR HEMOGLOBIN 29 pg (25-35); MEAN CORPUSCULAR HGB CONC 34 g/dL (31-37); MEAN CORPUSCULAR VOLUME 84 fL (79-100); MONO % 10 % (0-9); NEUT # 7.2 x10^3uL (1.8-7.7); NEUT % 71 % (31-73); PLATELET COUNT 410 x10^3/uL (140-400); RED BLOOD COUNT 3.79 x10^6/uL (4.30-5.70); RED CELL DISTRIBUTION WIDTH 15.2 % (11.5-14.5); WHITE BLOOD COUNT 10.1 x10^3/uL (4.0-11.0)
[2022-03-24] MEDS ORDERED: METOCLOPRAMIDE HCL 10 MG/2 ML VIAL. IVP ONE (18:45)
[2022-03-24] MEDS ORDERED: POTASSIUM CHLORIDE 20 MEQ TABLET.ER. PO ONE ×2 (19:00→22:00)
--- NOTE | 2022-03-24 19:13 | RAD ---
Exam: CT of abdomen and pelvis without contrast INDICATION: Sepsis, TECHNIQUE: Sequential axial images through the abdomen and pelvis obtained without IV contrast. Sagit kenn and coronal reformatted images were reconstructed from the axial data and reviewed. Exposure: One or more of the following in the visualized dose reduction techniques were utilized for this examination: 1. Automated exposure control 2. Adjustment of the MA and/or KV according to patient size 3. Use of iterative of reconstructive technique Comparisons: 02/15/2022 FINDINGS: Heart size is normal. No pericardial effusion. Visualized lung bases are clear. No pleural effusion. Evaluation of solid organs limited secondary to noncontrast technique. Mild pneumobilia is noted. Spleen, adrenals are unremarkable. There is a plastic biliary stent. Cysti c lesions noted at the pancreatic head abutting the duodenum. Gallbladder is partially distended. No perinephric inflammation or hydronephrosis. No renal or ureteral calculi are identified. Bladder is partially distended and not well evaluated. Prostate is not enlarged. Moderate amount of stool is noted in colon. Appendix is normal. Stomach is dilated and fluid-filled t here is wall thickening at the gastric antrum. Small amount of perihepatic free fluid. No free intra- abdominal air. Abdominal aorta has normal course and caliber. No enlarged intra-abdominal lymph nodes are identified. No suspicious osseous lesions or acute fractures. IMPRESSION: 1. Redemonstration of a complicated fluid collection at the pancreatic head/duodenum with associated wall thickening of the gastric antrum. There is dilatation of the stomach and visualized distal esop hagus. Correlate for gastric outlet obstruction. 2. Small amount of perihepatic free fluid, likely reactive to the above process. Electronically signed by: Gabbi Ovalle MD (03/24/2022 7:10 PM) [facility]
--- NOTE | 2022-03-24 19:14 | RAD ---
Exam: Chest one view INDICATION: Sepsis TECHNIQUE: Frontal view of the chest Comparisons: 02/17/2022 FINDINGS: The cardiomediastinal silhouette and pulmonary vessels are within normal limits. The lung and pleural spaces are clear. IMPRESSION: No acute cardiopulmonary process. Electronically signed by: Gabbi Ovalle MD (03/24/2022 7:11 PM) [facility]
[2022-03-24] MEDS ORDERED: POTASSIUM CHLORIDE 20MEQ 100 ML IV SCH (19:45)
[2022-03-24] MEDS ORDERED: acetaZOLAMIDE SODIUM 500 MG VIAL. IVP ONE (19:45)
[2022-03-24] MEDS ORDERED: ONDANSETRON PF 4 MG/2 ML VIAL. IVP PRN (20:00)
[2022-03-24] MEDS ORDERED: MAGNESIUM SULFATE 2GM 50 ML IV ONE (20:00)
[2022-03-24 20:10] LABS: BARBITURATES NEG (NEG); BENZODIAZEPINES NEG (NEG); CANNABINOIDS NEG (NEG); COCAINE NEG (NEG); METHADONE NEG (NEG); OPIATES POS (NEG); PHENCYCLIDINE NEG (NEG)
[2022-03-24 20:13] LABS: AMPHETAMINE/METHAMPHETAMINE NEG (NEG)
[2022-03-24] MEDS ORDERED: diphenhydrAMINE 50 MG/ML VIAL IVP ONE (20:15)
[2022-03-24] MEDS ORDERED: KETOROLAC 15 MG/ML VIAL. IVP ONE (20:15)
[2022-03-24 20:18] LABS: CLARITY,URINE CLEAR; COLOR,URINE YELLOW; GLUCOSE,URINE NEG (NEG)
[2022-03-24 20:19] LABS: BACTERIA,URINE FEW /HPF (0-FEW); NITRITE,URINE NEG (NEG); RBC,URINE 0 /HPF (0-2); SQUAMOUS EPITHELIAL CELL,UR FEW /LPF; UROBILINOGEN,URINE 0.2 mg/dL (0.2 mg/dL)
[2022-03-24 20:22] LABS: HYALINE CASTS, URINE FEW /HPF
[2022-03-24 21:17] LABS: BGAS PCO2 59 mmHg (35-46); BGAS PO2 63 mmHg (80-100)
[2022-03-24 21:18] LABS: FIO2 28 %; O2 SAT BGAS 94 % (92-99)
[2022-03-24 21:19] LABS: BGAS PH 7.63 (7.35-7.46)
--- NOTE | 2022-03-24 22:05 | NUR ---
Admission: The patient, MALATHI SALCEDO, 36 y/o, M admitted by TARIQ GATICA MD, was given written information regarding hospital policies, unit procedures and contact persons. Pt arrived to room 123 via gurney, accompanied by [facility] and ED staff. Pt is A/Ox4, however drowsy and a poor historian. Pt able to answer some admission questions, but requests this RN call his Shazia to get list of home meds. Pt is a known diabetic, has blood glucose sensor in place from home to right upper arm. Per report, pt was just released from [facility] on Thursday. H&P from that visit placed on paper chart. IV potassium and magnesium infusing per orders. Pt is vaccinated for COVID x2 doses. Low risk for VTE. Denies any current pain or nausea. NPO. Discussed POC, V/U. Call light in reach. Valuables were checked and logged. Left in room with patient.
[2022-03-24] MEDS: POTASSIUM CHLORIDE 10MEQ 100 ML IV SCH ×2 (22:09→23:18)
[2022-03-24 22:28] VITALS: BP 101/62
--- NOTE | 2022-03-24 22:35 | NUR ---
Swabs for Sars-COV-2 Ag and PCR were canceled due to pt being positive in the last 90 days. Per records, pt had positive PCR on 03/11/22.
[2022-03-24] MEDS ORDERED: PALI546S IM (23:03)
[2022-03-24] MEDS ORDERED: BUSP15TA PO (23:03)
[2022-03-24] MEDS ORDERED: LIPA1CAP31 PO (23:05)
[2022-03-25] MEDS ORDERED: FENO67CA13 PO (00:20)
[2022-03-25] MEDS ORDERED: PALI819S IM (00:24)
[2022-03-25 03:02] VITALS: BP 92/55
[2022-03-25] MEDS: MORPHINE SULFATE 2 MG/ML DISP.SYRIN. IVP PRN ×4 (03:06→19:20)
[2022-03-25 06:17] LABS: BASO % 0 % (0-3); EOS # 0.1 x10^3/uL (0.0-0.7); EOS % 1 % (0-3); HEMATOCRIT 25.2 % (39.0-53.0); HEMOGLOBIN 8.4 g/dL (13.0-17.5); LYMPH # 1.9 x10^3/uL (1.0-4.8); LYMPH % 29 % (24-48); MEAN CORPUSCULAR HEMOGLOBIN 29 pg (25-35); MEAN CORPUSCULAR HGB CONC 34 g/dL (31-37); MEAN CORPUSCULAR VOLUME 86 fL (79-100); MONO # 0.6 x10^3/uL (0.0-1.1); MONO % 9 % (0-9); NEUT # 3.9 x10^3uL (1.8-7.7); NEUT % 61 % (31-73); PLATELET COUNT 235 x10^3/uL (140-400); RED BLOOD COUNT 2.93 x10^6/uL (4.30-5.70); RED CELL DISTRIBUTION WIDTH 15.2 % (11.5-14.5); WHITE BLOOD COUNT 6.5 x10^3/uL (4.0-11.0)
[2022-03-25 06:25] LABS: BLOOD UREA NITROGEN 30 mg/dL (8-26); CALCIUM 7.3 mg/dL (8.5-10.1); CHLORIDE 84 mmol/L (98-107); CREATININE 4.8 mg/dL (0.7-1.3); GFR 13.8; GLUCOSE 100 mg/dL (70-99); SODIUM 133 mmol/L (136-145)
[2022-03-25 06:33] LABS: ANION GAP 4 (6-14); CARBON DIOXIDE > 45 mmol/L (21-32)
[2022-03-25 06:38] LABS: POTASSIUM 2.8 mmol/L (3.5-5.1)
[2022-03-25] MEDS ORDERED: MAGNESIUM SULFATE 1GM 100 ML IV ONE (07:00)
--- NOTE | 2022-03-25 07:37 | EKG ---
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
[2022-03-25] MEDS ORDERED: POTASSIUM CHLORIDE 10 MEQ TABLET.ER. PO SCH (08:00)
--- NOTE | 2022-03-25 09:07 | HP ---
DATE OF SERVICE: 03/25/2022 ADMIT DATE: 03/24/2022 ATTENDING PHYSICIAN: Dr. Atkinson. CHIEF COMPLAINT: Weakness and nausea. HISTORY OF PRESENT ILLNESS: The patient is a 36-year-old gentleman with multiple medical and psychiatric issues. He is a frequent patient in the ED. He complains of vague epigastric pain, mild confusion. He had been recently admitted at [facility] [address] Magallon. He had a significant volume contraction, metabolic alkalosis with a pH of 7.62. Creatinine was again 4.8 mg/dL. He has chronic pancreatitis due to previous alcohol use, ujenr-ux-rofiiep renal failure, type 2 diabetes, personality disorder and substance abuse. I reviewed the dictation 2 weeks ago. He left that hospital, he was admitted to Dr. Magallon. He left against medical advice. At that time, he was seen by Nephrology and GI service. He has also been seen in [place] as well as [facility]. PAST MEDICAL HISTORY: Significant for depression, anxiety, diabetes, gastroesophageal reflux disease, chronic pancreatitis, attention deficit disorder, posttraumatic stress disorder and personality disorder. CURRENT MEDICATIONS: Reviewed. Whether he was compliant remains to be seen. He was on scheduled Lipitor, omega 3 fish oil, Lexapro, trazodone, BuSpar, potassium, pancreatic enzymes, insulin regular and Lantus and omeprazole. ALLERGIES: HE HAS ALLERGIES TO ASPIRIN, DULAGLUTIDE, METFORMIN AND BROCCOLI. SOCIAL HISTORY: He is a smoker, a pack of cigarettes a day. He used to be a heavy drinker. He denies any alcohol use. He is a very poor historian and has very little insight into his illness. FAMILY HISTORY: His mom of a brain tumor at age 45. Father is still alive at age 73. 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 He has not been able to work last 6 months. He is applying for disability. REVIEW OF SYSTEMS: Significant for chronic nausea, questionable compliance, tobacco use. I am not aware of his COVID vaccination status. PHYSICAL EXAMINATION: GENERAL: When I saw him, this is a thin white male in no acute distress. VITAL SIGNS: Initial vital signs showed a blood pressure of 101/67, pulse is 75 and regular. He was afebrile, oxygen saturation 99% on room air. HEENT: Head is without trauma. Pupils are reactive. Sclerae nonicteric. The oropharynx is clear. NECK: Supple. LUNGS: Shallow respirations. CARDIOVASCULAR: Regular heart tones. ABDOMEN: Soft. EXTREMITIES: Without edema. NEUROLOGIC: Focally intact. Speech is fluent. PERTINENT LABORATORY STUDIES: His hemoglobin on admission was 10.8, white count 10,100. Sodium 133 mEq, potassium 2.8 mEq, creatinine is 4.8 mg/dL. ASSESSMENT: 1. A 36-year-old gentleman with volume contraction and metabolic alkalosis. 2. Chronic pancreatitis. 3. Type 2 diabetes, insulin dependent. 4. Pancreatic insufficiency. 5. Questionable compliance. 6. Chronic obstructive pulmonary disease and continued tobacco use. PLAN: 1. Admit to the inpatient unit. 2. IV hydration. 3. Serial chemistries. I suspect his baseline creatinine is somewhere around 3.0 mg/dL. 4. Diet as tolerated. 5. Glucose control. Whether or not he will be compliant and whether he leaves AMA as he had done in the past remains to be seen. Dr. Magallon will assume care tomorrow. JULIÁN/JESSICA DR: JULIÁN/nicole TID: [id number] CC: CHRIS MAGALLON MD, Timoteo Urbina MD
[2022-03-25] MEDS: PANTOPRAZOLE 40 MG TABLET. PO SCH (09:11)
[2022-03-25] MEDS: IV NORMAL SALINE 1,000ML 1,000 ML IV SCH ×2 (09:11→19:19)
[2022-03-25] MEDS: NICOTINE 21MG PATCH. TD SCH (09:11)
[2022-03-25] MEDS: CITALOPRAM 20 MG TABLET. PO SCH (09:12)
[2022-03-25 10:48] VITALS: BP 94/61
--- NOTE | 2022-03-25 11:31 | NUR ---
BLOOD GLUCOSE IS 178, DR GATICA NOTIFIED, NO ORDERS RECEIVED AT THIS TIME.
[2022-03-25 14:46] VITALS: BP 106/64
[2022-03-25 19:38] VITALS: BP 102/59
[2022-03-25] MEDS: MORPHINE SULFATE 2 MG/ML DISP.SYRIN. IV PRN (22:32)
[2022-03-26] MEDS: IV NORMAL SALINE 1,000ML 1,000 ML IV SCH ×3 (05:29→21:05)
[2022-03-26] MEDS: MORPHINE SULFATE 2 MG/ML DISP.SYRIN. IV PRN ×7 (05:29→22:36)
[2022-03-26 05:58] VITALS: BP 98/62
[2022-03-26 06:10] LABS: CALCIUM 8.3 mg/dL (8.5-10.1); CREATININE 3.2 mg/dL (0.7-1.3); GFR 22.1
[2022-03-26 06:15] LABS: POTASSIUM 2.7 mmol/L (3.5-5.1)
[2022-03-26] MEDS: CITALOPRAM 20 MG TABLET. PO SCH (08:02)
[2022-03-26] MEDS: PANTOPRAZOLE 40 MG TABLET. PO SCH (08:02)
[2022-03-26] MEDS: NICOTINE 21MG PATCH. TD SCH (08:05)
[2022-03-26] MEDS ORDERED: IV NORMAL SALINE 1,000ML 1,000 ML IV ONE (08:15)
[2022-03-26] MEDS ORDERED: POTASSIUM CHLORIDE 20 MEQ TABLET.ER. PO SCH (09:00)
[2022-03-26] MEDS: POTASSIUM CHLORIDE 20 MEQ TABLET.ER. PO SCH ×2 (09:07→10:18)
[2022-03-26 11:23] VITALS: BP 99/66
[2022-03-26] MEDS ORDERED: PALIPERIDONE PALMITATE IM SCH (13:00)
[2022-03-26] MEDS ORDERED: MIDODRINE 5 MG TABLET PO SCH (13:30)
[2022-03-26 14:48] LABS: ALBUMIN 2.3 g/dL (3.4-5.0); ALBUMIN/GLOBULIN RATIO 0.6 (1.0-1.7); CALCIUM 8.1 mg/dL (8.5-10.1); CREATININE 2.8 mg/dL (0.7-1.3); GFR 25.8; POTASSIUM 3.1 mmol/L (3.5-5.1); TOTAL BILIRUBIN 0.2 mg/dL (0.2-1.0); TOTAL PROTEIN 6.3 g/dL (6.4-8.2)
[2022-03-26 15:12] VITALS: BP 96/62
[2022-03-26] MEDS: LIPASE/PROTEAS/AMYLAS 10/32/42 CAPSULE.DR. PO SCH (18:38)
[2022-03-26 19:37] VITALS: BP 103/65
[2022-03-26] MEDS: traZODone 100 MG TABLET. PO SCH (21:05)
[2022-03-26] MEDS: busPIRone 15 MG TABLET. PO SCH (21:05)
[2022-03-26] MEDS: ATORVASTATIN CALCIUM 20 MG TABLET PO SCH (21:05)
[2022-03-26 23:16] VITALS: BP 95/57
--- NOTE | 2022-03-27 02:16 | PN ---
DATE: 03/26/2022 SUBJECTIVE: The patient is resting, slightly propped up in bed, in no apparent distress. On questioning him, he denied any nausea or vomiting. He is apparently tolerating his diet. Denied any diarrhea. PHYSICAL EXAMINATION: GENERAL: When I examined him, he was pale, somewhat cachectic, but no jaundiced or cyanosed, no lymphadenopathy, no thyromegaly, no jugular venous distention. No limb edema. VITAL SIGNS: His heart rate was 77, blood pressure was 99/66, temperature was 98, respiratory rate was 18 and oxygen saturation was 94%. HEAD, EYES, EARS, NOSE, AND THROAT: Normocephalic, atraumatic. NECK: Supple. HEART: Showed normal first and second heart sounds. No gallop, rub or murmur. CHEST: Clear to auscultation, no crepitation or rhonchi. ABDOMEN: Distended, soft, nontender, no guarding or rigidity. No organomegaly. All hernial orifice intact. Bowel sounds normal. NEUROLOGIC: He was awake, alert, responding appropriately. All cranial nerves intact. He moves extremities without difficulty. His intake over the last 24 hours was 3550, no output was recorded. LABORATORY DATA: His most recent CBC showed a white cell count of 6.5, hemoglobin 8.4, hematocrit 25, MCV 86 and platelet count of 235,000. This morning, serum sodium was 135, potassium 2.7, chloride 92, bicarbonate 35, anion gap of 8, BUN 24, creatinine was 3.2. Estimated GFR was 22 mL per minute. His glucose 120 and calcium was 8.3. His urinalysis was essentially unremarkable. His toxic screen was positive for opiates, negative for methadone, barbiturate, phencyclidine, amphetamine, methamphetamine, benzodiazepine, cocaine, cannabinoids, and alcohol. His chest x-ray showed the cardiomediastinal silhouette and pulmonary vessels are within normal limits. Lungs and pleural spaces are clear. The CT scan of the abdomen and pelvis again showed complicated fluid collection in the pancreatic head and duodenum with associated wall thickening of the gastric antrum. There is dilatation of the stomach and visualized distal esophagus, correlate for gastric outlet obstruction. He had small amount of perihepatic free fluid, likely reactive to the above process. ASSESSMENT: 1. Chronic pancreatitis with pseudocyst. 2. Questionable gastric outlet obstruction, recurrent bouts of nausea, vomiting and severe contraction alkalosis. 3. Severe hypokalemia. 4. Acute on chronic kidney injury. 5. History of alcoholism. 6. Acute pancreatitis with a serum lipase of 477. Also, has severe hypomagnesemia. PLAN: My plan is to continue with IV fluid. The patient did receive 1 liter of normal saline and also increase rate to 150, give him also 80 mEq of potassium chloride. We will check his BMP at 2:00 today and might have to give him more potassium if necessary. RYAN DR: Greg TID: [id number]
[2022-03-27] MEDS: IV NORMAL SALINE 1,000ML 1,000 ML IV SCH ×4 (05:20→21:40)
[2022-03-27] MEDS: MORPHINE SULFATE 2 MG/ML DISP.SYRIN. IV PRN ×4 (05:21→21:32)
[2022-03-27 05:58] VITALS: BP 103/63
[2022-03-27 05:58] LABS: HEMATOCRIT 24.9 % (39.0-53.0); HEMOGLOBIN 8.3 g/dL (13.0-17.5); RED BLOOD COUNT 2.88 x10^6/uL (4.30-5.70); RED CELL DISTRIBUTION WIDTH 15.1 % (11.5-14.5); WHITE BLOOD COUNT 4.3 x10^3/uL (4.0-11.0)
[2022-03-27 06:20] LABS: ALBUMIN 2.1 g/dL (3.4-5.0); ALBUMIN/GLOBULIN RATIO 0.7 (1.0-1.7); CALCIUM 7.8 mg/dL (8.5-10.1); CREATININE 2.2 mg/dL (0.7-1.3); MAGNESIUM 1.6 mg/dL (1.8-2.4); POTASSIUM 3.3 mmol/L (3.5-5.1); TOTAL BILIRUBIN 0.2 mg/dL (0.2-1.0); TOTAL PROTEIN 5.3 g/dL (6.4-8.2)
[2022-03-27] MEDS: PANTOPRAZOLE 40 MG TABLET. PO SCH (08:16)
[2022-03-27] MEDS: FERROUS SULFATE 325 MG TABLET. PO SCH (08:16)
[2022-03-27] MEDS: LIPASE/PROTEAS/AMYLAS 10/32/42 CAPSULE.DR. PO SCH ×3 (08:16→17:36)
[2022-03-27] MEDS: CITALOPRAM 20 MG TABLET. PO SCH (08:16)
[2022-03-27] MEDS: FENOFIBRATE NANOCRYSTALLIZED 48 MG TABLET PO SCH (08:16)
[2022-03-27] MEDS: busPIRone 15 MG TABLET. PO SCH ×2 (08:16→21:31)
[2022-03-27] MEDS: NICOTINE 21MG PATCH. TD SCH (08:17)
[2022-03-27 11:06] VITALS: BP 93/55
[2022-03-27] MEDS ORDERED: MAGNESIUM SULFATE 2GM 50 ML IV ONE (13:00)
[2022-03-27] MEDS ORDERED: POTASSIUM CHLORIDE 20 MEQ TABLET.ER. PO ONE ×2 (13:00→17:00)
[2022-03-27 15:20] VITALS: BP 96/59
--- NOTE | 2022-03-27 16:04 | RAD ---
2 views of the abdomen 03/27/2022 INDICATION: Follow-up, gastric outlet obstruction COMPARISON STUDY: CT of the abdomen and pelvis March 24, 2022 FINDINGS: The stomach appears to remain mildly distended. No gross pneumoperitoneum is identified. Bi liary stent noted. There is a calcification medial to the biliary stent, similar to findings on prior CT scan. Gas is noted in the distal bowel extending into the rectum. IMPRESSION: 1.Stomach remains mildly distended. 2. Gas noted in the large bowel extending into the rectum Electronically signed by: Ronnell Roberts MD (03/27/2022 4:01 PM) [id number]
[2022-03-27] MEDS ORDERED: ONDANSETRON PF 4 MG/2 ML VIAL. ONE (19:33)
[2022-03-27 19:57] VITALS: BP 119/81
[2022-03-27] MEDS: ONDANSETRON PF 4 MG/2 ML VIAL. IVP PRN (20:14)
[2022-03-27] MEDS: traZODone 100 MG TABLET. PO SCH (21:31)
[2022-03-27] MEDS: ATORVASTATIN CALCIUM 20 MG TABLET PO SCH (21:31)
[2022-03-27 23:42] VITALS: BP 99/61
--- NOTE | 2022-03-28 03:29 | PN ---
DATE: 03/27/2022 SUBJECTIVE: The patient is resting, slightly propped up in bed, in no apparent distress. He is tolerating his food and continued to complain of abdominal pain and has episodes of nausea, vomiting occasionally. PHYSICAL EXAMINATION: GENERAL: When I examined him today, he looked well and was clearly in no apparent respiratory distress, pale, but no jaundice or cyanosed, no lymphadenopathy, no thyromegaly, no jugular venous distention. No lower limb edema. VITAL SIGNS: His heart rate was 56, blood pressure was 93/55, temperature 97.7, respiratory rate was 18 and oxygen saturation was 99%. HEAD, EYES, EARS, NOSE, AND THROAT: Normocephalic, atraumatic. NECK: Supple. HEART: Showed normal first and second heart sounds. No gallop or murmur. CHEST: Shows central trachea, equal bilateral chest expansion, air entry, vesicular breath sounds. I could not appreciate any crepitation or rhonchi. ABDOMEN: Distended, soft. Tenderness mostly in the right upper quadrant. No guarding, no rigidity, no organomegaly. All hernial orifice intact. Bowel sounds normal. NEUROLOGIC: He is grossly intact. His intake was 2500, no output was recorded. LABORATORY DATA: As of this morning, his white cell count was 4.3, hemoglobin 8.3, hematocrit 25, MCV 87 and platelet count 201,000. His chemistry showed a serum sodium 142, potassium 3.3, chloride 102, bicarbonate 32, anion gap of 8, BUN 17, creatinine 2.2. Estimated GFR was 34 mL per minute. His glucose was 136, calcium was 7.8, magnesium was 1.6. Total bilirubin, AST, ALT, alkaline phosphatase were normal. Total protein was 5.3, albumin 2.1, serum lipase was 360. ASSESSMENT: 1. Chronic pancreatitis, pseudocyst. 2. Questionable gastric outlet obstruction, recurrent, with recurrent bouts of nausea, vomiting, severe contraction alkalosis. 3. Severe hypokalemia. 4. Acute on chronic kidney injury, resolving. His creatinine is down from 5.1 to 2.2. 5. History of alcoholism. 6. Acute pancreatitis, serum lipase of 477. 7. Severe hypomagnesemia. PLAN: To continue with IV fluid. Continue with potassium supplement and I will replenish his magnesium and hopefully discharge him back tomorrow. I explained to him that he probably needs to be on a low-fat diet and should restrict his amount of fat he is eating. According to his , he drinks a lot of whole milk and eats pizza. RYAN DR: Greg TID: [id number]
[2022-03-28] MEDS: MORPHINE SULFATE 2 MG/ML DISP.SYRIN. IV PRN ×2 (03:43→08:13)
--- NOTE | 2022-03-28 03:52 | NUR ---
PT AWOKE ASKING FOR PAIN MEDICATION. THIS NURSE THEN GAVE PT PRN MORPHINE INDICATED. PT STATED THAT HE HAD THROWN UP AGAIN. AFTER FURTHER DISCUSSION W/ THIS NURSE PT DISCLOSED THAT HE HAS HAD PREVIOUS EGD DONE AT [facility] ON THE [address] AND IS TO HAVE SURGERY ON March TO REPLACE A STENT IN HIS PANCREAS. PT WAS THEN ASKED IF THERE IS ANYTHING THAT MAKES HIS VOMITING WORSE. PT STATED CERTAIN FOODS WILL IRRITATE HIM. PT EDUCATED ON LOW FAT DIETS AND ITS BENEFIT IN PREVENTING FUTURE VOMITING. PT VERBALIZED UNDERSTANDING. PT IS CURRENTLY RESTING COMFORTABLY IN BED W/ NO COMPLAINTS OF PAIN OR NAUSEA.
[2022-03-28] MEDS: ONDANSETRON PF 4 MG/2 ML VIAL. IVP PRN (04:23)
[2022-03-28] MEDS: IV NORMAL SALINE 1,000ML 1,000 ML IV SCH (04:23)
[2022-03-28 05:58] VITALS: BP 100/62
[2022-03-28 06:27] LABS: ALBUMIN 2.4 g/dL (3.4-5.0); ALBUMIN/GLOBULIN RATIO 0.6 (1.0-1.7); CALCIUM 8.4 mg/dL (8.5-10.1); MAGNESIUM 1.9 mg/dL (1.8-2.4); TOTAL BILIRUBIN 0.3 mg/dL (0.2-1.0); TOTAL PROTEIN 6.5 g/dL (6.4-8.2)
[2022-03-28 06:33] LABS: POTASSIUM 2.8 mmol/L (3.5-5.1)
[2022-03-28] MEDS: busPIRone 15 MG TABLET. PO SCH (08:11)
[2022-03-28] MEDS: LIPASE/PROTEAS/AMYLAS 10/32/42 CAPSULE.DR. PO SCH (08:11)
[2022-03-28] MEDS: FERROUS SULFATE 325 MG TABLET. PO SCH (08:11)
[2022-03-28] MEDS: CITALOPRAM 20 MG TABLET. PO SCH (08:12)
[2022-03-28] MEDS: FENOFIBRATE NANOCRYSTALLIZED 48 MG TABLET PO SCH (08:16)
[2022-03-28] MEDS: NICOTINE 21MG PATCH. TD SCH (08:16)
[2022-03-28] MEDS: PANTOPRAZOLE 40 MG TABLET. PO SCH (08:16)
[2022-03-28] MEDS ORDERED: POTASSIUM CHLORIDE 20 MEQ TABLET.ER. PO SCH (09:30)
[2022-03-28] MEDS: POTASSIUM CHLORIDE 20 MEQ TABLET.ER. PO SCH ×2 (09:34→11:42)
[2022-03-28] MEDS ORDERED: POTASSIUM CHLORIDE 20 MEQ TABLET.ER. PO ONE ×2 (10:15→11:15)
[2022-03-28 11:41] LABS: CALCIUM 8.3 mg/dL (8.5-10.1); CREATININE 1.8 mg/dL (0.7-1.3); GFR 42.9; POTASSIUM 3.2 mmol/L (3.5-5.1)
--- NOTE | 2022-03-28 12:17 | NUR ---
Pt counselled on potassium levels. He stated he wanted to leave regardless of care plan. AMA signed. IV and telemetry removed. Pt ambulated independently out the front door at 1215.
== END 2022-03-28 12:10 | disposition left against medical advice (07) | DRG 438 ==
LOC: ER 17:08 → ER HOLD 20:00 → 1 SOUTH 21:22
PROVIDERS: ADMIT Hospitalist; ATTEND Hospitalist
DX: K85.90 Acute pancreatitis without necrosis or infection, unspecified (principal); N17.0 Acute kidney failure with tubular necrosis; K86.3 Pseudocyst of pancreas; E87.3 Alkalosis; E11.22 Type 2 diabetes mellitus with diabetic chronic kidney disease; K86.1 Other chronic pancreatitis; E83.42 Hypomagnesemia; E87.6 Hypokalemia; F17.200 Nicotine dependence, unspecified, uncomplicated; F43.10 Post-traumatic stress disorder, unspecified; F60.9 Personality disorder, unspecified; J44.9 Chronic obstructive pulmonary disease, unspecified; N18.9 Chronic kidney disease, unspecified; Z53.29 Procedure and treatment not carried out because of patient's decision for other reasons; Z79.4 Long term (current) use of insulin; F32.A Depression, unspecified; F41.9 Anxiety disorder, unspecified; F90.9 Attention-deficit hyperactivity disorder, unspecified type; K21.9 Gastro-esophageal reflux disease without esophagitis; Z88.8 Allergy status to other drugs, medicaments and biological substances
CPT/HCPCS: 36415; 36600; 71045; 74018; 74176; 80048; 80053; 80307; 81001; 82330; 82803; 82947; 83605; 83690; 83735; 85025; 85027; 87040; 87086; 93005; 96361; 96365; 96375; 96376; G0480; J1120; J1200; J1885; J1956; J2270; J2405; J2765; J3475; J3480; 97530; 99285-25; J7030

== ENCOUNTER 2022-04-14 19:19 | Emergency (ER) | payer OTHER, MEDICAID ==
[~2022-04-14] VITALS: Ht 185.4 cm; Wt 75.0 kg
[~2022-04-14 19:19] MED LIST changes: +BUSP15TA PO; +FENO67CA13 PO; +LIPA1CAP31 PO; +PALI546S IM; +PALI819S IM
--- NOTE | 2022-04-14 19:23 | PHYS DOC ---
Past History Past Medical History: Anxiety, Depression, Diabetes, GERD, Pancreatitis, Renal Disease Additional Past Medical Histor: ADHD; PTSD; PERSONALITY DX Past Surgical History: No Surgical History Additional Past Surgical Histo: scope r/t pancreatitis, pancreas STENT Smoking: Cigarettes Alcohol Use: None Drug Use: None General Adult HPI: HPI: ".. Having bad pain, .. my cyclic vomiting ....I usually go to ... I did have a pancreatic stint on 03/25.. at .... " Patient is a 37 year old male who presents with above hx and complaints abdomen pain, nausea, vomiting, seizures. Patient thinks his seizures from the vomiting. Patient has history of chronic proctitis from alcohol use, acute on chronic renal failure, diabetes type 2, personality disorder, polysubstance abuse, depression, anxiety, GERD, ADD, post traumatic stress disorder, personality disorder,. Patient does continue to smoke. Has had heavy alcohol use which led to his pancreatitis. Patient has very poor insight to his chronic illnesses. Patient denies current alcohol use. Patient only follows with Dr. Urbina. Follow with GI at ,- reports a pancreatic stint place on 03/25/22 at . Review of Systems: Review of Systems: Constitutional: Denies fever or chills Eyes: Denies change in visual acuity HENT: Denies nasal congestion or sore throat Respiratory: Denies cough or shortness of breath Cardiovascular: Denies chest pain or edema GI: Denies abdominal pain, nausea, vomiting, bloody stools or diarrhea : Denies dysuria Musculoskeletal: Denies back pain or joint pain Integument: Denies rash Neurologic: Denies headache, focal weakness or sensory changes Endocrine: Denies polyuria or polydipsia Lymphatic: Denies swollen glands Psychiatric: Denies depression or anxiety Family History: Family History: Mother of brain tumor at age 45. Father alive age 73, works part-time in construction. Patient is in the process of applying for disability since he has not been able to work. Current Medications: Current Meds: See nursing for home meds Allergies: Allergies: Allergies Coded Allergies Type Severity Reaction Last Updated Verified dulaglutide Allergy Intermediate 12/31/21 Yes metformin Allergy Intermediate 12/31/21 Yes aspirin Allergy Unknown 12/31/21 Yes broccoli Allergy Unknown 12/31/21 Yes Physical Exam: PE: Constitutional: in acute distress, non-toxic appearance. [] HENT: Normocephalic, atraumatic, bilateral external ears normal, oropharynx dry, no oral exudates, nose normal. [] Eyes: PERRLA, EOMI, conjunctiva normal, no discharge. [] Neck: Normal range of motion, no tenderness, supple, no stridor. [] Cardiovascular: Tachycardia heart rate regular rhythm, no murmur [] bedside monitor occasionally appears to be an A. fib Lungs & Thorax: Bilateral breath sounds equal at apex wth scatted wheezes auscultation [] Abdomen: Bowel sounds normal, soft, complains of epigastric tenderness, no masses, no pulsatile masses. Episodes of cyclic vomiting. Rebound to epigastric. Skin: Warm, dry, no erythema, no rash. [] Back: No tenderness, no CVA tenderness. [] Extremities: No tenderness, no cyanosis, no clubbing, ROM intact, no edema. [] Neurologic: Alert and oriented X 3, normal motor function, normal sensory function, no focal deficits noted. [] Psychologic: Affect anxious, judgement normal, mood normal. [] EKG: EKG: My interpretation EKG #1 shows a irregular tachycardia rhythm at 101 and overall appearance of A. fib. - My interpretation of first EKG shows a A. fib with rapid ventricular response at 101 ventricle beats. Does have artifact. Does have prolonged QT interval and changes and ST segment. No findings of acute STEMI or contralateral changes. Time of EKG is 19 59 hours my interpretation second EKG shows sinus rhythm at 84 bpm. A. fib pattern has resolved. Still has a slightly prolonged QT interval. No findings acute STEMI or contralateral changes. Time of this EKG is 00 15 minutes Radiology/Procedures: Radiology/Procedures: IMAGING REPORT Signed PATIENT: MALATHI SALCEDO ACCOUNT: [id number] : 1985 LOCATION: ER AGE: 37 SEX: M EXAM STATUS: REG ER ORD. PHYSICIAN: SAMIRA CARNEY MD REASON: pain, recent common duct stent PROCEDURE: CT ABD PEL W/ORAL CONTRST ONLY Abdominal and Pelvis CT, Without Contrast: History: Reason: pain, recent common duct stent / Spl. Instructions: / History: Comparison: March 24, 2022. Procedure: Axial images are obtained of the abdomen and pelvis, without IV contrast. Study is performed before and after the administration of oral contrast. Findings: Evaluation of solid organs is limited without contrast. There is a mixed cystic and solid mass in the head of the pancreas that is not well seen due to loss of the fat soft tissue planes between this mass and the distal stomach and duodenum. The mass is likely 7.5 cm x 5.5 cm. The small caliber stent in the common bile duct has been removed and there is now a wide patent stent in the common bile duct and pneumobilia in the liver. There are multiple mildly enlarged lymph nodes around the mass and there is multiple prominent vessels. The body and tail pancreas is atrophic and the pancreatic duct is moderately dilated. The appendix is normal. The gallbladder appears within normal limits. There is a small amount of fluid around the liver. Spleen: Normal. Adrenal Glands: Normal. Kidneys: Normal. There is no free air or free fluid. The urinary bladder appears normal. There is no pericolonic inflammation identified. Impression: 1. Soft tissue mass with mixed solid and cystic components loss of fat soft tissue planes at the venecia hepatis and pancreatic head is likely pancreatic cancer. This is unchanged. 2. There has been placement of a common bile duct stent which is patent and there is pneumobilia. 3. Mild surrounding lymphadenopathy seen previously. 4. Venous varices likely secondary to portal hypertension seen previously. 5. Minimal ascites seen previously. End impression PQRS Compliance Statement: One or more of the following individualized dose reduction techniques were utilized for this examination: 1. Automated exposure control 2. Adjustment of the mA and/or kV according to patient size 3. Use of iterative reconstruction technique Electronically signed by: Dano Schofield III, MD (04/15/2022 1:59 AM) [facility] DICTATED AND SIGNED BY: DANO SCHOFIELD III, MD DATE: 04/15/22 0144 CC: SAMIRA CARNEY MD; NETTA URBINA MD ~[][address] [address] IMAGING REPORT Signed PATIENT: MALATHI SALCEDO ACCOUNT: [id number] : 1985 LOCATION: ER AGE: 37 SEX: M EXAM STATUS: REG ER ORD. PHYSICIAN: SAMIRA CARNEY MD REASON: nv, cp, PROCEDURE: ACUTE ABDOMEN SERIES EXAM: XR ABDOMEN COMP ACUTE 04/14/2022 7:45 PM CLINICAL INDICATION: Nausea and vomiting, chest pain COMPARISON: Chest radiograph 04/14/2022 TECHNIQUE: AP supine and upright view of the abdomen. PA view of the chest. FINDINGS: There has been replacement of the small bore common bile duct stent with a large bore common bile duct stent. Bowel gas pattern is nonspecific and nonobstructive. Normal volume of stool. No pneumoperitoneum. The lungs are clear. The heart is normal in size. No pleural effusion. No acute osseous abnormality. IMPRESSION: 1. Interval exchange of common bile duct stent. 2. No acute abnormality in the abdomen or chest. Electronically signed by: Eri Briggs MD (04/14/2022 8:22 PM) [facility] DICTATED AND SIGNED BY: ERI BRIGGS MD DATE: 04/14/222018 CC: SAMIRA CARNEY MD; NETTA URBINA MD ~ Heart Score: C/O Chest Pain: N/A HEART Score for Chest Pain: HEART Score for Chest Pain Response (Comments) Value History Moderately Suspicious 1 ECG Nonspecific Repolarizatio 1 Age < 45 0 Risk Factors 1 or 2 Risk Factors 1 Troponin < Normal Limit 0 Total 3 Risk Factors: Risk Factors: DM, Current or recent (<one month) smoker, HTN, HLP, family history of CAD, obesity. Risk Scores: Score 0 - 3: 2.5% MACE over next 6 weeks - Discharge Home Score 4 - 6: 20.3% MACE over next 6 weeks - Admit for Clinical Observation Score 7 - 10: 72.7% MACE over next 6 weeks - Early Invasive Strategies Course & Med Decision Making: Course & Med Decision Making Pertinent Labs and Imaging studies reviewed. (See chart for details) Discussed presentation, testing and tx plan with Dr. Atkinson. Advised transfer pt. to . Discussed presentation, testing and tx. plan with [facility], transfer. Will accept pt in transfer - Dr. Nataly Ruvalcaba. Will call back for room assignment. 0036 min. Note pt. went for CT. However had not drank any of his contrast. Impression: 1. Abdomen Pain 2. Cyclic Vomiting- 3. Hx.Acute on Chronic Pancreatitis- Amylase `119- Lipase 650 4. Hypokalemia 2.8 5. Acute on chronic renal failure-BUN 25 creatinine 3.1 6. Diabetes glucose 145 7. A. fib 8. Anemia hemoglobin 10.3 9. Hypomagnesia 1.5 10. Cyclic vomiting 11. Recent common duct stent 03/25/2022 12.. Hx. Achohol abuse 13. Pancreatic Cystic Mass 7.5 x 5.5 cm 14. Pneumobilia [] Dragon Disclaimer: Dragon Disclaimer: This electronic medical record was generated, in whole or in part, using a voice recognition dictation system. Departure Departure: Referrals: NETTA URBINA MD (PCP) Mick Disclaimer This chart was dictated in whole or in part using Voice Recognition software in a busy, high-work load, and often noisy Emergency Department environment. It may contain unintended and wholly unrecognized errors or omissions. Dragon Disclaimer This chart was dictated in whole or in part using Voice Recognition software in a busy, high-work load, and often noisy Emergency Department environment. It may contain unintended and wholly unrecognized errors or omissions. SAMIRA CARNEY MD April 14, 2022 19:23
[2022-04-14] MEDS ORDERED: diphenhydrAMINE 50 MG/ML VIAL IVP ONE (19:30)
[2022-04-14] MEDS ORDERED: IV RINGERS SOLUTION,LACTATED 1,000 ML IV SCH (19:30)
[2022-04-14] MEDS ORDERED: ONDANSETRON PF 4 MG/2 ML VIAL. IVP ONE (19:30)
--- NOTE | 2022-04-14 20:24 | RAD ---
EXAM: XR ABDOMEN COMP ACUTE 04/14/2022 7:45 PM CLINICAL INDICATION: Nausea and vomiting, chest pain COMPARISON: Chest radiograph 04/14/2022 TECHNIQUE: AP supine and upright view of the abdomen. PA view of the chest. FINDINGS: There has been replacement of the small bore common bile duct stent with a large bore comm on bile duct stent. Bowel gas pattern is nonspecific and nonobstructive. Normal volume of stool. No p neumoperitoneum. The lungs are clear. The heart is normal in size. No pleural effusion. No acute osse ous abnormality. IMPRESSION: 1. Interval exchange of common bile duct stent. 2. No acute abnormality in the abdomen or chest. Electronically signed by: Eri Briggs MD (04/14/2022 8:22 PM) [facility]
[2022-04-14 21:04] LABS: AMPHETAMINE/METHAMPHETAMINE NEG (NEG); BARBITURATES NEG (NEG); BENZODIAZEPINES POS (NEG); CANNABINOIDS NEG (NEG); COCAINE NEG (NEG); METHADONE NEG (NEG); OPIATES NEG (NEG); PHENCYCLIDINE NEG (NEG)
[2022-04-14 21:11] LABS: CLARITY,URINE CLEAR; COLOR,URINE YELLOW; GLUCOSE,URINE NEG (NEG); NITRITE,URINE NEG (NEG); RBC,URINE OCC /HPF (0-2); UROBILINOGEN,URINE 0.2 mg/dL (0.2 mg/dL); WBC,URINE OCC /HPF (0-4)
[2022-04-14 21:12] LABS: BACTERIA,URINE 0 /HPF (0-FEW)
[2022-04-14 21:35] LABS: BASO # 0.1 x10^3/uL (0.0-0.2); BASO % 1 % (0-3); EOS % 0 % (0-3); HEMATOCRIT 29.6 % (39.0-53.0); HEMOGLOBIN 10.3 g/dL (13.0-17.5); LYMPH # 2.2 x10^3/uL (1.0-4.8); LYMPH % 30 % (24-48); MEAN CORPUSCULAR HEMOGLOBIN 29 pg (25-35); MEAN CORPUSCULAR HGB CONC 35 g/dL (31-37); MEAN CORPUSCULAR VOLUME 83 fL (79-100); MONO # 0.6 x10^3/uL (0.0-1.1); MONO % 9 % (0-9); NEUT # 4.5 x10^3uL (1.8-7.7); NEUT % 60 % (31-73); PLATELET COUNT 365 x10^3/uL (140-400); RED BLOOD COUNT 3.57 x10^6/uL (4.30-5.70); RED CELL DISTRIBUTION WIDTH 15.6 % (11.5-14.5); WHITE BLOOD COUNT 7.5 x10^3/uL (4.0-11.0)
[2022-04-14] MEDS ORDERED: MORPHINE SULFATE 10 MG/ML SYRINGE. ONE (21:35)
[2022-04-14 22:01] LABS: ALBUMIN 3.2 g/dL (3.4-5.0); CALCIUM 9.2 mg/dL (8.5-10.1); CREATININE 3.1 mg/dL (0.7-1.3); DIRECT BILIRUBIN 0.1 mg/dL (0.0-0.2); GFR 22.8; MAGNESIUM 1.5 mg/dL (1.8-2.4); TOTAL BILIRUBIN 0.3 mg/dL (0.2-1.0); TOTAL PROTEIN 7.6 g/dL (6.4-8.2)
[2022-04-14 22:07] LABS: POTASSIUM 2.8 mmol/L (3.5-5.1)
[2022-04-14] MEDS ORDERED: MORPHINE SULFATE 10 MG/ML SYRINGE. SQ ONE (22:30)
[2022-04-15] MEDS ORDERED: POTASSIUM CHLORIDE 20MEQ 100 ML IV SCH
[2022-04-15] MEDS: POTASSIUM CHLORIDE 10MEQ 100 ML IV SCH ×2 (00:30→01:37)
[2022-04-15] MEDS ORDERED: PROCHLORPERAZINE 10 MG/2 ML VIAL. IV ONE (00:30)
[2022-04-15] MEDS ORDERED: POTASSIUM CHLORIDE 20 MEQ TABLET.ER. PO ONE (00:30)
[2022-04-15] MEDS ORDERED: MORPHINE SULFATE 10 MG/ML SYRINGE. SQ ONE (00:30)
[2022-04-15] MEDS ORDERED: CONTRAST GIVEN. MC PRN (00:45)
[2022-04-15] MEDS ORDERED: IOHEXOL 240 MG/ML 50ML VIAL. PO ONE (01:00)
[2022-04-15 01:35] VITALS: BP 106/67
[2022-04-15] MEDS ORDERED: ONDANSETRON ODT 4 MG TAB.RAPDIS PO ONE (01:45)
--- NOTE | 2022-04-15 02:02 | RAD ---
Abdominal and Pelvis CT, Without Contrast: History: Reason: pain, recent common duct stent / Spl. Instructions: / History: Comparison: March 24, 2022. Procedure: Axial images are obtained of the abdomen and pelvis, without IV contrast. Study is perform ed before and after the administration of oral contrast. Findings: Evaluation of solid organs is limited without contrast. There is a mixed cystic and solid mass in the head of the pancreas that is not well seen due to loss of the fat soft tissue planes between this mass and the distal stomach and duodenum. The mass is like ly 7.5 cm x 5.5 cm. The small caliber stent in the common bile duct has been removed and there is now a wide patent stent in the common bile duct and pneumobilia in the liver. There are multiple mildly enlarged lymph nodes around the mass and there is multiple prominent vessels. The body and tail pancr eas is atrophic and the pancreatic duct is moderately dilated. The appendix is normal. The gallbladder appears within normal limits. There is a small amount of fluid around the liver. Spleen: Normal. Adrenal Glands: Normal. Kidneys: Normal. There is no free air or free fluid. The urinary bladder appears normal. There is no pericolonic inflammation identified. Impression: 1. Soft tissue mass with mixed solid and cystic components loss of fat soft tissue planes at the port a hepatis and pancreatic head is likely pancreatic cancer. This is unchanged. 2. There has been placement of a common bile duct stent which is patent and there is pneumobilia. 3. Mild surrounding lymphadenopathy seen previously. 4. Venous varices likely secondary to portal hypertension seen previously. 5. Minimal ascites seen previously. End impression PQRS Compliance Statement: One or more of the following individualized dose reduction techniques were utilized for this examinat ion: 1. Automated exposure control 2. Adjustment of the mA and/or kV according to patient size 3. Use of iterative reconstruction technique Electronically signed by: Donnell Ham III, MD (04/15/2022 1:59 AM) [facility]
== END 2022-04-15 02:24 | disposition short-term general hospital (02) ==
LOC: ER 19:19
DX: N17.9 Acute kidney failure, unspecified (principal); E11.22 Type 2 diabetes mellitus with diabetic chronic kidney disease; N18.9 Chronic kidney disease, unspecified; E87.6 Hypokalemia; I48.91 Unspecified atrial fibrillation; D64.9 Anemia, unspecified; E83.42 Hypomagnesemia; R11.15 Cyclical vomiting syndrome unrelated to migraine; K86.2 Cyst of pancreas; F10.10 Alcohol abuse, uncomplicated; K21.9 Gastro-esophageal reflux disease without esophagitis; F43.10 Post-traumatic stress disorder, unspecified; F41.9 Anxiety disorder, unspecified; F32.9 Major depressive disorder, single episode, unspecified; F17.210 Nicotine dependence, cigarettes, uncomplicated; Z88.8 Allergy status to other drugs, medicaments and biological substances; Z88.6 Allergy status to analgesic agent; Z91.018 Allergy to other foods; Y90.0 Blood alcohol level of less than 20 mg/100 ml
CPT/HCPCS: 36415; 74022; 74176; 80048; 80076; 80307; 81001; 82150; 82550; 83690; 83735; 83880; 84484; 85025; 85379; 85610; 85730; 93005; 96361; 96365; 96366; 96372; 96375; 99285; G0480; J0780; J1200; J2270; J2405; J3480; J7120; Q0162